=== PATIENT | male | born 1955 | race Caucasian/White ===

== ENCOUNTER → 2020-01-27 10:32 | Outpatient (BNVA) | payer MEDICARE, OTHER, SELFPAY | PROVIDERS: Family Provider Nurse Practitioner Family; Visit Provider Nurse Practitioner Family | DX: I10 Essential (primary) hypertension (principal); E78.2 Mixed hyperlipidemia; Z79.899 Other long term (current) drug therapy; E55.9 Vitamin D deficiency, unspecified; Z12.5 Encounter for screening for malignant neoplasm of prostate; K21.9 Gastro-esophageal reflux disease without esophagitis | CPT/HCPCS: 80053; 80061; 81003; 82306; 83036; 84439; 84443; 84481; 85025; G0103 ==

== ENCOUNTER → 2020-01-28 11:49 | Outpatient (BNVA) | payer MEDICARE, OTHER, SELFPAY | PROVIDERS: Family Provider Nurse Practitioner Family; Visit Provider Nurse Practitioner Family | DX: I10 Essential (primary) hypertension (principal) | CPT/HCPCS: 81003 ==

== ENCOUNTER → 2020-02-01 13:52 | Outpatient (BNVA) | payer MEDICARE, OTHER, SELFPAY | PROVIDERS: Family Provider Nurse Practitioner Family; Visit Provider Nurse Practitioner Family | DX: E55.9 Vitamin D deficiency, unspecified (principal); I10 Essential (primary) hypertension; R79.89 Other specified abnormal findings of blood chemistry | CPT/HCPCS: 82306; 84443 ==

== ENCOUNTER 2021-05-09 15:29 | Inpatient (IN) | payer MEDICARE, OTHER, SELFPAY ==
[2021-05-09] VITALS (30 sets, daily range): BP systolic 85–163; BP diastolic 56–105; PULSE 67–107; RESP 15–28; TEMP 36.7–37.2; O2SAT 76–97; BMI 27.9
--- NOTE | 2021-05-09 15:34 | XRR_ITS ---
PROCEDURE INFORMATION: Exam: XR Chest Exam date and time: 05/09/2021 3:34 PM Age: 65 years old Clinical indication: Pain; Angina pectoris; Additional info: Chest pain TECHNIQUE: Imaging protocol: XR of the chest. Views: 1 view. COMPARISON: No relevant prior studies available. FINDINGS: Lungs: See Heart/Mediastinum finding. Pleural spaces: Unremarkable. No pleural effusion. No pneumothorax. Heart/Mediastinum: Cardiomegaly and mild pulmonary vascular congestion. Bones/joints: Unremarkable. XR/XR chest 1V portable [id number] IMPRESSION: Cardiomegaly and mild pulmonary vascular congestion. Radiation Dose CTDIVOL = (mGy): DLP = (mGy-cm)
--- NOTE | 2021-05-09 15:34 | ECG_ITS ---
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 Measurements Intervals [place] Rate: 80 P: OK: QRS: 17 QRSD: 86 T: 60 QT: 299 QTc: 345 Interpretive Statements ATRIAL FIBRILLATION WITH ABERRANT CONDUCTION OR VENTRICULAR PREMATURE COMPLEXES ST ELEVATION, CONSIDER LATERAL INJURY [MARKED ST ELEVATION W/O NORMALLY INFLECTED T-WAVE IN I/aVL/V5/V6] MARKED ST ELEVATION, CONSIDER INFERIOR INJURY [MARKED ST ELEVATION W/O NORMALLY INFLECTED T-WAVE IN II/aVF] ACUTE SC No previous ECG available for comparison Electronically Signed On 05-09-2021 17:54:13 PERFORATOR OPERATOR by Rima Hernandez M.D. [id number]
--- NOTE | 2021-05-09 15:48 | PC.NURSE ---
INFORMED DR. RIDLEY OF EKG AND MAGDIEL [facility]IO ASSUMED CARE.
--- NOTE | 2021-05-09 15:54 | W.ED.GENADLT ---
HPI - General Adult General: Stated complaint: CHEST PAIN Time Seen by Provider: 05/09/21 15:51 History of Present Illness: HPI narrative: CC: Chest Pain HPI: This is a 65 yo patient no cardiac hx to the ED w/ acute onset crushing substernal chest pain x 2 hours with radiation. Denies shortness of breath worse with exertion for the last [] days. Denies tearing back pain or chest pain. Onset: 2 hrs ago Duration: ongoing for the last 2 hrs Location: home Severity: severe Review of Systems Narrative: Constitutional: No fever, no chills. HEENT: No vision changes, no sore throat. CV: +chest pain, no palpitations. PULM: No cough, no dyspnea. GI: No abdominal pain, no N/V/D. : No dysuria, no frequency, no hematuria. MSKEL: No arthralgias, no edema. SKIN: No new rashes, no lesions. NEURO: No headache, no focal weakness. HEME: No easy bleeding or bruising. PSYCH: No change in mood or affect. PFSH ED PFSH: Medical History (Updated 05/09/21 @ 15:53 by Renee Thomas MD) Acute bacterial sinusitis Essential hypertension Friedreichs ataxia Gastroesophageal reflux disease Impacted cerumen Mixed hyperlipidemia Otitis media Prostate cancer screening Vitamin D deficiency Social History Smoking and tobacco status: never smoked Second hand smoke exposure: No Smoking risk assessment/counseling performed?: No Alcohol intake: never Desire information about alcohol rehabilitation?: No Counseling given: No Desire information about substance/drug rehabilitation?: No Counseling given: No Physical Exam Narrative: EXAM NARRATIVE: Head: Atraumatic, normocephalic Eyes: PERRL, EOMI, conjunctiva without injection ENT: Throat without erythema, lesions or exudate, MMM NECK: Supple, trachea midline, no JVD LUNGS: LCTA CV: RRR, S1,S2, no murmurs, rubs, gallops. 2+ peripheral pulses in UEs ABDOMEN: Soft, nontender, nondistended, BS x4, no rigidity, no guarding, no rebound EXTREMITY: Normal ROM, no pitting edema, no calf tenderness to palpation SKIN: No rash or erythema NEURO: Awake and alert. No focal motor deficits. PSYCH: Normal mood and affect. MDM - General Adult MDM Narrative: Medical decision making narrative: [65]yo pt w/ no cardiac hx BIBA for active chest pain x 2 hrs with EKG for STEMI in the inferior/posterior/lateral Pt received ASA 325mg and morphine 4mg. No suspicion for dissection. EKG showed afib with 2/3/avF with STD in V2-V3/ADELFO in V4-V5 suggest of wraparound inferior/posterior/lateral STEMI Case actively discussed with Dr. May at 3:51pm who confirmed this is a stemi. S/p heparin drip and brillanta 180mg. Disposition: Cardiopulmonary Specialist Discharge Plan Discharge Patient Disposition: Admitted As Inpatient Clinical Impression: ST elevation ID (STEMI) Condition: Stable Coding Level of Care Code ED Vp [employer] for April Hinkle
[2021-05-09] MEDS: ticagrelor 90 mg Tablet 180 MG PO (15:55)
[2021-05-09] MEDS: ondansetron 2 mg/ML SDV 2 mL 4 MG IVP (15:58)
[2021-05-09] MEDS: morphine 4 mg/mL SDV 1 mL IVP (15:59)
[2021-05-09] MEDS: heparin 5,000 unit/mL INJ 1 mL 4000 UNIT SUBCUT (16:00)
--- NOTE | 2021-05-09 16:04 | PM.HP ---
Providers/Chief Complaint Admitting Physician: Georgie May MD Primary Care Provider: Georgie May MD Chief Complaint: CHEST PAIN History of Present Illness Medardo Lara is a 65 year old male past medical history significant for hypertension GERD obesity history of tobacco abuse quit 15 years ago presented with chest pain of 2 hours duration, patient initially thought it to be GERD as it was feeling like heartburn for which she took omeprazole and milk, since chest pain did not get relieved and gotten worse he decided to come to the ER. Twelve-lead EKG was suggestive of inferior lead ST elevation. STEMI pager was alerted. I saw the patient in the ER. He was diaphoretic but stable vital zamora at this point. I discussed with Dr. Thomas our ER physician, we will give patient Brilinta 180 mg along with aspirin and heparin as per ACS protocol. I have detailed discussion with the patient and his family by bedside. They have been explained all risk benefit and alternative for the procedure they been explained the risk for stroke contrast-induced nephropathy urgent emergent bypass surgery vascular surgery hematoma pseudoaneurysm. He would like to proceed with it. Medications/Allergies Home Medications Medication Instructions Recorded Confirmed Last Taken Type Augmentin 1 tab PO BID 05/09/21 05/09/21 Unknown History Probiotic 1 cap PO DAILY 05/09/21 05/09/21 Unknown History amlodipine 5 mg PO QAM 05/09/21 05/09/21 05/09/21 History ascorbic acid (vitamin C) [Vitamin 2,000 mg PO DAILY 05/09/21 05/09/21 Unknown History C] milk thistle 1 cap PO DAILY 05/09/21 05/09/21 Unknown History omeprazole 40 mg PO DAILY 05/09/21 05/09/21 05/09/21 13:30 History took 2 caps today zinc 1 cap PO DAILY 05/09/21 05/09/21 Unknown History Allergies Allergy/AdvReac Type Severity Reaction Status Date / Time No Known Allergies Allergy Verified 05/09/21 16:07 PFSH Acute PFSH: Medical History (Updated 05/09/21 @ 16:16 by Georgie May MD) Acute bacterial sinusitis Essential hypertension Friedreichs ataxia Gastroesophageal reflux disease Impacted cerumen Mixed hyperlipidemia Otitis media Prostate cancer screening Vitamin D deficiency Social History Smoking and tobacco status: never smoked Second hand smoke exposure: No Smoking risk assessment/counseling performed?: No Alcohol intake: never Desire information about alcohol rehabilitation?: No Counseling given: No Desire information about substance/drug rehabilitation?: No Counseling given: No Physical Exam Narrative: EXAM NARRATIVE: GENERAL: Patient is alert, awake and oriented x3. Moderate distress, mildly obese NECK: No jugular vein distension. HEENT: No cyanosis. No icterus. No pallor. HEART: Regular S1 and S2. No murmur, rub or gallop. LUNGS: Clear to auscultate bilaterally. ABDOMEN: Soft, nontender and nondistended. Positive bowel sounds. No guarding, rebound or tenderness. CENTRAL NERVOUS SYSTEM: Grossly nonfocal. EXTREMITIES: Lower extremities without edema bilaterally. Data : 05/09/21 15:55 05/09/21 15:55 Attestation for Other Data: I personally reviewed and interpreted the following: Other data: Sinus rhythm inferior wall ST elevation with reciprocal changes in the anteroseptal leads, multiple PVCs A&P Assessment and plan (1) ST elevation OH (STEMI): Patient has inferior wall ST elevation, patient has been explained all risk benefit and alternate for the procedure. We will take him to the [facility] for angiogram and PCI if indicated. Status: Acute Qualifiers: Involved coronary artery: other inferior wall coronary artery Qualified Code(s): I21.19 - ST elevation (STEMI) myocardial infarction involving other coronary artery of inferior wall (2) Mixed hyperlipidemia: I will start patient on statin Status: Acute (3) Essential hypertension: He is on amlodipine will optimize his medicine Status: Acute Attestations Medical Necessity Statement*: I am expecting his stay to cross more than 2 midnights Coding Level of Care Code New Pt Acute Collateral Analyst for [facility] Fwd Patient Type New History Detailed Exam Detailed Medical Decision Making Moderate Complexity Diagnoses ST elevation OH (STEMI) I21.19 Involved coronary artery: other inferior wall coronary artery Mixed hyperlipidemia E78.2 Essential hypertension I10
[2021-05-09 16:06] LABS: Basophils % 0.1 %; Hematocrit 48.7 % (42.0-52.0); Hemoglobin 16.2 g/dL (11.7-16.6); Lymphocytes # 1.4 10^3/uL (0.8-4.8); Lymphocytes % 5.7 %; Mean Corpuscular HGB Conc 33.3 g/dL (30.0-36.0); Mean Corpuscular Hemoglobin 29.2 pg (28.0-34.0); Mean Corpuscular Volume 87.7 fl (80-94); Mean Platelet Volume 9.9 fL (7.4-10.4); Monocytes # 1.3 10^3/uL (0.2-0.9); Monocytes % 5.1 %; Neutrophils # 21.75 10^3/uL (1.8-7.7); Neutrophils % 88.5 %; Nucleated Red Blood Cells % 0 %; Platelet Count 341 10^3/cmm (130-400); Red Blood Count 5.55 10^6/uL (4.1-5.3); Red Cell Distribution Width 12.6 % (12.1-15.1); White Blood Count 24.6 10^3/uL (4.0-10.0)
--- NOTE | 2021-05-09 16:07 | PC.PHAR ---
pts verified pts medications
--- NOTE | 2021-05-09 16:21 | XACV_ITS ---
Exam Room: [facility] Ht: 173 cm Wt: 83 kg BSA: 2.02 m2 Gender: Male : 1955 Any Known Allergies: No known allergies Exam Priority: Routine Indication(s): - Inferior wall TN Procedure(s): Procedure Description: Diagnostic procedure Procedure Description: PCI procedure Procedure Description: Drug Eluting Coronary Stent Procedure Description: PTCA Procedure Description: Miscellaneous Procedure Description: ACT Procedure Description: Coronary Angiography Lalo MOULTON; Diagnostic Cath Status: Emergency Diagnostic Findings * Left Main has no disease. * Circumflex has no disease. * Proximal Left Anterior Descending: luminal irregularities 20% stenosis, HARJEET: 3 flow. * Distal Left Anterior Descending: luminal irregularities 20% stenosis, HARJEET: 3 flow. * Mid Right Coronary Artery: total occlusion, HARJEET: 0 flow. * 3rd diagonal: severe 90% stenosis, HARJEET: 3 flow. * Coronary angiography shows right dominance. PCI Status: Emergency PCI Indication: Immediate PCI for STEMI Interventional Findings * Mid Right Coronary Artery: 100% stenosis treated with a AB TREK 2.50X15 RX BALLOON, MDT Renny ANGEL LUIS 4.0X15 EYAD, and MDT DELIO EUPHORA RX 4.09S98FC BALLOON. 0% residual stenosis, HARJEET: 3 flow. Conclusions 1. Mid Right Coronary Artery was treated with a Balloon, Drug Eluting Stent, and Balloon. 2. There is total occlusion coronary artery disease with two vessel disease. Recommendations * 1-Return to inpatient for close monitoring and routine cath care2-Risk factor modification for secondary prevention3-Statin and aspirin 81 mg life--long, if tolerated4-Patient was pre-loaded with antiplatelet, continue dual antiplatelet therapy with aggressive antilipid treatment for ectasia in the vessels 5-Continue optimal medical management6-Follow up with Dr. May in four weeks and your primary care in 10 days. Interventional RX Recommendation: PCI w/o planned CABG Diagnostic RX Recommendation: PCI w/o planned CABG Pressures Phase:Rest AO : 158 / 74 ( 104 ) @ 2:37:00 PM 135 / 78 ( 101 ) @ 2:38:00 PM 105 / 57 ( 77 ) @ 2:41:00 PM 95 / 53 ( 74 ) @ 2:42:00 PM 124 / 96 ( 112 ) @ 2:43:00 PM 122 / 87 ( 103 ) @ 2:44:00 PM 140 / 107 ( 128 ) @ 2:47:00 PM 162 / 102 ( 127 ) @ 2:59:00 PM Clinical Evaluation EBL: 5mL-10mL Procedural Details Procedure started. Pre-Procedure Time Out. Identified patient by full name and date of as verbalized by the patient/guarantor. Does the consent match the physician's order: Yes. Accurate & Complete Informed Consent: Yes. Inpatient/Outpatient History & Physical on Chart: N/A Emergent. If H&P is completed, is and addenduem needed: N/A Emergent; If yes, is the addendum complete: N/A Emergent. Visualize and Verify Site with Patient/Guarantor: N/A. Relevant Radiology Images available: N/A Emergent. Pre-op teaching completed and patient verbalized understanding. The risks, benefits, and alternatives of sedation and/or procedure were discussed by physician. The patient agrees to continue. [facility] Clinical Fraility Score: 4: Vulnerable. Dietary Aide Indications: ACS <= 24 hours. Chest Pain Symptom Assessment: Typical Angina Symptoms. Correct patient, site and procedure confirmed by cath team. Current diagnosis: STEMI. PERRLA. Strong, equal hand millwright helper bilaterally. Lungs clear x 5 lobes. IV Fluids: 0.9% NaCl at KVO. 0 mL infused prior to ammunition assembly i laborer. Oxygen started at 2liters/min via nasal canula. right groin was prepped with chloroprep then draped in the usual sterile fashion. right radial was prepped with chloroprep then draped in the usual sterile fashion. Baseline sample Acquired. HR: 51 BPM. Physician arrived. Physician scrubbed in. Immediate Pre-Procedure Time Out. Correct Patient: N/A Emergent; Correct Procedure: N/A Emergent; Correct Site: N/A Emergent; Correct Patient Position: N/A Emergent; Correct Supplies: N/A Emergent; Dried Flammable Prep: N/A Emergent; Blood Products Available: N/A Emergent;. Lidocaine 1% infiltrated to the right radial. Current Diagnosis : STEMI. Arterial access obtained. 6 ethiopian JR 4 guide catheter was inserted over the wire. [place] guidewire was advanced through the guide catheter to lesion in the mid RCA. Inflation number : 1 A AB TREK 2.50X15 RX BALLOON was prepped and advanced across the Mid RCA , then inflated to 16 BENNETT for 0:22 seconds. AP Pads placed. Inflation number: 2 The AB TREK 2.50X15 RX BALLOON was reinflated across the Mid RCA, to 10 BENNETT for 0:07 seconds. Inflation number: 3 The AB TREK 2.50X15 RX BALLOON was reinflated across the Mid RCA, to 10 BENNETT for 0:09 seconds. Results checked. Inflation number: 4 The AB TREK 2.50X15 RX BALLOON was reinflated across the Mid RCA, to 18 BENNETT for 0:27 seconds. Balloon out. PCI Indication: STEMI. Inflation Number : 5 A MDT Renny ANGEL LUIS 4.0X15 EYAD -Lot Number# _[id number] EXP: 02/14/2024 was prepped and advanced across the Mid RCA. The stent was deployed at 14 BENNETT for 0:30 seconds. Stent balloon out over wire. PCI Indication : Immediate PCI for STEMI. Inflation number : 6 A MDT NC EUPHORA RX 4.72L39LM BALLOON was prepped and advanced across the Mid RCA , then inflated to 12 BENNETT for 0:17 seconds. Inflation number: 7 The MDT NC EUPHORA RX 4.54F26MV BALLOON was reinflated across the Mid RCA, to 12 BENNETT for 0:21 seconds. Balloon out. Results checked. Wire out. Guide catheter out. A 5 ethiopian TIG catheter in over wire. Multiple views taken of left coronary artery. Catheter removed over the exchange wire. ACT drawn. Results 201 seconds. Therapeutic limits - pre-heparin administration 90-150 seconds and monitoring heparin during a vascular procedure >250 seconds. Post Procedure: Pulses reassessed and unchanged. PERRLA. Strong, equal hand millwright helper bilaterally. No VTE prophylaxis required. Contrast type used: Visipaque 320 mgI/mL, 500 mL bottle. Complications: None. Post-op diagnosis: CAD. Estimated blood loss: 5mL-10mL. Procedure completed. Medication's Wasted: Nitro = 50 mg. Medication's Wasted: Heparin = 2000 units. Patient transferred by wheelchair to 1st floor. Vital chart was stopped. Access Site Site: Right Radial artery Sheath Size: 6 Fr Hemostasis Success: Unsuccessful Procedure Medications Start: 4:31 PM Stop: 4:31 PM Medication: Heparin Amount: 9000 units Route: I.V. Start: 4:31 PM Stop: 4:31 PM Medication: Versed 1 mg and Fentanyl 25 mcg Amount: 1 Route: I.V. Start: 4:31 PM Stop: 4:31 PM Medication: Fentanyl Amount: 25 mcg Route: I.V. Start: 4:34 PM Stop: 4:34 PM Medication: Versed Amount: 1 mg Route: I.V. Start: 4:40 PM Stop: 4:40 PM Medication: Aggrastat 12.5 mg/250 mL Amount: 42 ml Route: I.V. bolus Start: 4:40 PM Stop: 4:40 PM Medication: Aggrastat 12.5 mg/250 mL Amount: 15.1 ml/hr Route: I.V. bolus Start: 4:44 PM Stop: 4:44 PM Medication: Fentanyl Amount: 50 mcg Route: I.V. Start: 4:49 PM Stop: 4:49 PM Medication: Versed Amount: 1 mg Route: I.V. Start: 5:05 PM Stop: 5:05 PM Medication: Heparin Amount: 3000 units Route: I.V. I, the attending physician, have reviewed and verified all procedure medications. Yes, all medications given per verbal order History/Risk Factors Hypertension: No Dyslipidemia: No Peripheral Arterial Disease (PAD): No Myocardial Infarction (TN): No Obesity: No Renal Disease: No Prior Interventions PCI: No CABG: No Valve Surgery: No Report Signatures Interventional Workflow Finalized by Georgie May MD on 05/21/2021 07:54 PM Diagnostic Workflow Finalized by Georgie May MD on 05/21/2021 07:54 PM
[2021-05-09 17:01] LABS: Alanine Aminotransferase 36 U/L (0-41); Albumin Level 4.8 g/dL (3.5-5.2); Alkaline Phosphatase 100 IU/L (40-130); Anion Gap 18.4 (5-19); Aspartate Amino Transferase 35 U/L (0-40); Blood Urea Nitrogen 16 mg/dL (8-23); Calcium 9.4 mg/dL (8.5-10.5); Carbon Dioxide 21 mmol/L (22-29); Chloride 108 mmol/L (98-107); Globulin 2.6 g/dL (1.3-4.6); Glomerular Filtration Rate 74.5 mL/min (90-130); Glucose 167 mg/dL (65-115); Osmolality Calculated 303 mOsm/kg (285-295); Potassium 3.4 mmol/L (3.5-5.1); Sodium 144 mmol/L (136-145); Total Bilirubin 0.3 mg/dL (0.15-1.2); Total Protein 7.4 g/dL (6.6-8.7)
[2021-05-09 17:02] LABS: Troponin(5th) Baseline 70 ng/L (0-15)
--- NOTE | 2021-05-09 17:34 | ECG_ITS ---
[facility] Test Date: 2021-05-09 Pat Name: Medardo Lara Department: Room: 102 Gender: Male Women'S Swim Coach: : 1955 Requested By: Britni Cedeño Order Number: [id number] Nguyen MD: Rima Hernandez M.D. Measurements Intervals [place] Rate: 87 P: 69 NV: 207 QRS: -42 QRSD: 87 T: 0 QT: 338 QTc: 407 Interpretive Statements SINUS RHYTHM LEFT VENTRICULAR HYPERTROPHY AND ST-T CHANGE [VOLTAGE CRITERIA PLUS ST/T ABNORMALITY] Inferior myocardial infarction, probably recent ACUTE NC Compared to ECG 05/09/2021 15:43:50 Left ventricular hypertrophy now present Atrial fibrillation no longer present Ventricular premature complex(es) no longer present Aberrant conduction of supraventricular beat(s) no longer present ST (T wave) deviation still present Electronically Signed On 05-10-2021 10:03:04 TRAIN CONTROL ELECTRONIC TECHNICIAN by Rima Hernandez M.D. [id number]
--- NOTE | 2021-05-09 18:45 | PC.NURSE ---
Received report from QUANG Lyons. Patient is s/p STEMI with placement of PCI to RCA. Patient has 2 TR bands to right wrist due to small hematoma formation. Dr May in patient's room and is aware.
--- NOTE | 2021-05-09 21:34 | ECG_ITS ---
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 Measurements Intervals [place] Rate: 102 P: 63 WA: 189 QRS: -38 QRSD: 79 T: 0 QT: 313 QTc: 408 Interpretive Statements SINUS TACHYCARDIA ST elevation in the inferior leads suggesting recent inferior wall myocardial, infarction LEFT VENTRICULAR HYPERTROPHY AND ST-T CHANGE [VOLTAGE CRITERIA PLUS ST/T ABNORMALITY] ACUTE TX Compared to ECG 05/09/2021 18:56:22 Sinus rhythm no longer present ST (T wave) deviation still present Electronically Signed On 05-10-2021 23:51:41 SWITCHGEAR REPAIRER by Josr Oh M.D. [email or web address] at stone [email or web address] [id number]
--- NOTE | 2021-05-09 22:48 | PC.NURSE ---
Patient requesting something to help with sleep. Spoke with Dr Oh and Dr May. Received orders for Xanax 0.25mg PO once from Dr Oh and Restoril 15mg PO bedtime from Dr May. RBVO both doctors.
[2021-05-09] MEDS: ALPRAZolam 0.5 mg Tablet 0.25 MG PO (23:02)
--- NOTE | 2021-05-10 00:06 | PC.NURSE ---
Initiated TR band removal at 5 removing 2nd TR band at this time. Bruising observed to site, hematoma resolving. Dr May in room at this time. Patient doing well. Removed 2ml of air every 15-20min until band removed at 0. Hematoma completely resolve. Pulse is palpable, extremity warm and pink. Instructed patient on site care and restrictions. Patient verbalized complete understanding. Covered site with 2x2 and coban. Patient tolerated well.
[2021-05-10] MEDS: sodium chloride 0.9% 1,000 ML 100 ML IV ×2 (01:27→12:18)
[2021-05-10 03:19] VITALS: BP 127/95; PULSE 93; RESP 14; TEMP 36.6; O2SAT 96
[2021-05-10 05:13] VITALS: PULSE 107
[2021-05-10 09:38] VITALS: BP 115/76; PULSE 92; RESP 18; O2SAT 95
--- NOTE | 2021-05-10 10:10 | PC.CHAP ---
Pastoral Care Encounter/Spiritual Assessment Type of Contact [] Declined patient day coordinator visit [] Patient/Family/Request visit [] Outpatient visit [] Follow-up visit [] Physician referral [] Code/Alert [x] Routine visit [] Staff referral [] Actively dying [] Patient sleeping [x] Family support [] [] Out of room [] Palliative care [] [] Receiving care in room [] Pre-surgical visit [] Trauma [] Long length of stay [] ICU visit [] Other: Relational/Emotional Strength [] Patient feels connected with others/family/visitors/staff [] Distress [] Loneliness/isolation [] Abandonment Spirituality of Patient [] Person of Nereida [] Attends Spiritism of their Nereida [] Believes in Prayer [] Reads Bible or Mormon materials [] There are Spiritual issues to be addressed Dobby Looms Pegger Interventions [x] Prayer [x] Active listening [x] Non-anxious presence [x] Spiritual/emotional support [] Crisis/trauma care [] Spiritual counseling [] Bereavement support [] Provided bereavement packet [] Provided Bible/devotional materials [] Provided toy/stuffed animal, coloring book to patient or family member [] Provided Communion [] Anointing/[place] [] Salvation [x] Completed spiritual assessment [] Other: Impact on Illness or Injury [] Angry [] Fearful [] Anxious [] Often cries [] Exhaustion [] Unable to work [] Unable to attend adventist [] Unable to walk/stand [] Unable to read [] Unable to drive [] Unable to eat/drink [] Unable to sleep [] Unable to be with family [] Patient intubated [] Other: Summary patients spirits up... present.. thankful for all that is being done Time spent with patient 10 min
--- NOTE | 2021-05-10 12:49 | USCV_ITS ---
Medardo Lara Age: 65 Gender: M : 1955 Exam Date: 05/10/2021 15:43 Ordering Phys: Georgie May MD ([email or web address]) Technologist: Exam Location: [facility] [place] Indication: VT BP: 130 / 90 HR: 94 Rhythm: Sinus Technical Quality: Adequate MEASUREMENTS (Male / Female) Normal Values 2D ECHO LV Diastolic Diameter PLAX 4.2 cm 4.2 - 5.9 / 3.9 - 5.3 cm LV Systolic Diameter PLAX 2.7 cm IVS Diastolic Thickness 1.0 cm 0.6 - 1.0 / 0.6 - 0.9 cm IVS Systolic Thickness 1.4 cm LVPW Diastolic Thickness 1.0 cm 0.6 - 1.0 / 0.6 - 0.9 cm LVPW Systolic Thickness 1.3 cm LVOT Diameter 2.1 cm LV Ejection Fraction 2D Teich 66.4 % LV Ejection Fraction MOD 2C 48.0 % LV Ejection Fraction 2C AL 50.3 % LA Diameter 3.1 cm LA Width 4.2 cm LA Height 4.4 cm RA Width 4.1 cm RA Height 4.2 cm M-MODE RV Diastolic Diameter MM 1.0 cm Aortic Annulus Diameter 3.4 cm LA Ao Ratio MM 1.0 MV E Point Septal Separation 1.1 cm DOPPLER AV Peak Velocity 120.0 cm/s LVOT Peak Velocity 85.0 cm/s AV Area Cont Eq vti 3.1 cm squared AV Area Cont Eq pk 2.4 cm squared MV Area PHT 5.0 cm squared Mitral E to A Ratio 0.8 MV E' Velocity 68.0 cm/s TR Peak Velocity 133.0 cm/s TR Peak Gradient 7.1 mmHg TV Peak E Velocity 67.0 cm/s Right Atrial Pressure 3.0 mmHg Pulmonary Artery Systolic Pressu 10.1 mmHg FINDINGS Left Ventricle Normal left ventricular cavity size. Moderately decreased left ventricular systolic function. Left ventricular ejection fraction is estimated at 45 %. There appeared to be lateral and inferior wall severe hypokinesis Right Ventricle The right ventricle is normal in size and function. Right Atrium The right atrium is normal in size. Left Atrium The left atrium is normal in size. Mitral Valve Moderately thickened mitral valve. No mitral valve stenosis. Trace mitral valve regurgitation. Aortic Valve Structurally normal aortic valve without significant sclerosis or stenosis. There is no aortic regurgitation. Tricuspid Valve Structurally normal tricuspid valve without significant stenosis or regurgitation. Pulmonary artery systolic pressure is normal. Pulmonic Valve Structurally normal pulmonic valve without significant stenosis. There is no pulmonic regurgitation. Pericardium Normal pericardium without effusion. Aorta Normal ascending aorta dimension. CONCLUSIONS 1-Normal left ventricular cavity size. Moderately decreased left ventricular systolic function. Left ventricular ejection fraction is estimated at 45 %. There appeared to be lateral and inferior wall severe hypokinesis. 2-No significant valve abnormalities. 3-There is no pericardial effusion. 4-Pulmonary artery systolic pressure is within normal limits. 5-Right atrial pressure is around 5 mm of mercury. 6-There are no prior echocardiogram studies to compare. Georgie May MD (Electronically Signed) Final Date: 10 May 2021 17:03 S
[2021-05-10] MEDS: metoprolol tartrate 25 mg Tablet 12.5 MG PO (13:25)
[2021-05-10] MEDS: ticagrelor 90 mg Tablet PO (13:25)
[2021-05-10] MEDS: aspirin 81 mg EC Tablet PO (13:25)
[2021-05-10] MEDS: pantoprazole DR 40 mg Tablet PO (13:25)
--- NOTE | 2021-05-10 17:04 | PM.DCS ---
Discharge Providers Date of Admission: 05/09/21 16:18 Date of Discharge: May 10, 2021 Attending Provider at Admission: Georgie May MD Attending Provider at Discharge: Georgie May MD Diagnoses at Discharge Discharge Diagnosis (1) ST elevation SD (STEMI): Status: Acute Qualifiers: Involved coronary artery: other inferior wall coronary artery Qualified Code(s): I21.19 - ST elevation (STEMI) myocardial infarction involving other coronary artery of inferior wall (2) Mixed hyperlipidemia: Status: Acute (3) Essential hypertension: Status: Acute Reason for Visit Reason for Visit: CHEST PAIN Hospital Course Hospital Course 65-year-old male past medical history significant for history of tobacco abuse quit many years ago, hypertension hyperlipidemia was admitted with ST elevation SD of the inferior wall 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 He was also noted to have ectasia of LAD and circumflex. He was started on high-dose statin. Left ventricle ejection fraction turned out to be moderately depressed 40%, he was also started on LUZ inhibitor. Metoprolol was also added per the regimen. Patient will be continued on Brilinta aspirin statin beta-kareen and LUZ inhibitor. Physical Exam Narrative: EXAM NARRATIVE: GENERAL: Patient is alert, awake and oriented x3. NECK: No jugular vein distension. HEENT: No cyanosis. No icterus. No pallor. HEART: Regular S1 and S2. No murmur, rub or gallop. LUNGS: Clear to auscultate bilaterally. ABDOMEN: Soft, nontender and nondistended. Positive bowel sounds. No guarding, rebound or tenderness. CENTRAL NERVOUS SYSTEM: Grossly nonfocal. EXTREMITIES: Lower extremities without edema bilaterally. Discharge Data Data Completed and Pending: Completed Studies During Hospitalization Category Date Time Status XR chest 1V [place] [id number] Urgent Exams 05/09/21 15:34 Completed Pending at discharge Category Date Time Status APPRENTICE ELECTRICIAN request for service Routin e Exams 05/09/21 16:21 Taken Troponin T (5th) Once Routine Lab 05/10/21 15:56 Received US echo complete [CV. echo complete * [id number]] Routine Ultrasound 05/10/21 12:49 Taken Labs from last 24 hours 05/10/21 05/09/21 05/09/21 15:56 15:55 15:55 Potassium 3.4 L Chloride 108 H Carbon Dioxide 21 L GFR Calculation 74.5 L Glucose 167 H Calculated Osmolal ity 303 H Troponin T Gen 5 n g/L Pending Troponin T Baselin e 70 H Vitals: Last Vital Signs Temp 98 F 05/10/21 03:19 Pulse 92 05/10/21 09:38 Resp 18 05/10/21 09:38 BP 115/76 05/10/21 09:38 Pulse Ox 95 05/10/21 09:38 Discharge Plan Discharge Patient Disposition: Home Condition: Stable Prescriptions: New aspirin 81 mg Tablet,Delayed Release (Dr/Ec) 81 mg PO DAILY Qty: 90 RF: 3 atorvastatin 40 mg Tablet 80 mg PO BEDTIME Qty: 90 RF: 4 pantoprazole 40 mg Tablet,Delayed Release (Dr/Ec) 40 mg PO DAILY Qty: 30 RF: 3 Brilinta 90 mg Tablet 90 mg PO BID Qty: 60 RF: 6 lisinopril 2.5 mg tablet 2.5 mg PO DAILY Qty: 30 RF: 4 metoprolol succinate 25 mg tablet extended release 24 hr 12.5 mg PO DAILY Qty: 30 RF: 4 Continued Vitamin C 1,000 mg Tablet 2,000 mg PO DAILY RF: 0 Probiotic 1 cap PO DAILY RF: 0 milk thistle 1 cap PO DAILY RF: 0 zinc 1 cap PO DAILY RF: 0 Augmentin 875-125 mg tablet 1 tab PO BID RF: 0 Discontinued amlodipine 5 mg tablet 5 mg PO QAM RF: 0 No Action omeprazole 40 mg capsule,delayed release(DR/EC) 40 mg PO DAILY RF: 0 Discharge Orders: Discharge Order (Routine); Ordered 05/10/21 Ordered By: Georgie May Referrals: Georgie May MD [Physician] - 1 month ([facility] will contact you to schedule an follow-up appointment in 1 month. If you haven't heard from them by tomoorow afternoon. Please call ) Suki Perea FNP [Nurse Practitioner] - 1 week ([facility] will contact you to schedule an follow-up appointment in 1 week. If you have haven't heard from them by tomorrow afternoon. Please call ) Discharge Diet: Cardiac Discharge Activity: Increase activity as tolerated Patient Instructions: Metoprolol (By mouth), Lisinopril (By mouth), Aspirin (By mouth), Atorvastatin (By mouth), Pantoprazole (By mouth) (Protonix), Ticagrelor (By mouth) (Brilinta), Heart Attack (DC), Coronary Angioplasty (DC), Heart Catheterization (DC), Opioid Safety, Post Angiogram Home Care Instructions Activity Restrictions/Additional Instructions: Follow-up with Suki Perea cardiology nurse practitioner in 7 days. Follow-up with Dr. May in 4 weeks Discharge Attestations Time Spent in Discharge Care*: greater than 30 min Specific Discharge Activities: educating patient and educating and/or supporting family/caregiver Quality Metrics Clinical Quality Measures During this hospital stay, did patient experience: AMI Clinical Trial Participant: No Contraindication to aspirin (AMI): Aspirin given Contraindication to statin: Statin prescribed Contraindication to PCI: PCI performed Coding Level of Care Code New Pt Acute Chg FW DC note Patient Type New History Comprehensive Exam Comprehensive Medical Decision Making Moderate Complexity Diagnoses ST elevation SD (STEMI) I21.19 Involved coronary artery: other inferior wall coronary artery Mixed hyperlipidemia E78.2 Essential hypertension I10
[2021-05-10 17:21] VITALS: BP 130/90; PULSE 90; RESP 24; O2SAT 95
[2021-05-10 17:59] LABS: Troponin T (5th) Once > 10000 ng/L (0-15)
--- NOTE | 2021-05-10 18:00 | PC.NURSE ---
Discharge Note Patient discharged to Home via private vehicle accompanied by family. Discharge instructions reviewed with patient and/or patient portal representative. Mobile pharmacy medications and/or prescriptions provided. Belongings/home medications returned.
== END 2021-05-10 18:00 | disposition home or self-care (01) | DRG 247 ==
LOC: ER 15:53 → CSU 16:18
PROVIDERS: Physician Assistant; Admitting Provider Internal Medicine Cardiovascular Disease; Emergency Provider Emergency Medicine; Visit Provider Internal Medicine Cardiovascular Disease
PROC: 027034Z Dilation of Coronary Artery, One Artery with Drug-eluting Intraluminal Device, Percutaneous Approach (ICD-10-PCS; principal; 2021-05-09 16:00)
PROC: 027034Z Dilation of Coronary Artery, One Artery with Drug-eluting Intraluminal Device, Percutaneous Approach (ICD-10-PCS; 2021-05-09 16:00)
DX: I21.19 ST elevation (STEMI) myocardial infarction involving other coronary artery of inferior wall (principal); G11.11 Friedreich ataxia; I25.119 Atherosclerotic heart disease of native coronary artery with unspecified angina pectoris; E78.2 Mixed hyperlipidemia; I10 Essential (primary) hypertension; K21.9 Gastro-esophageal reflux disease without esophagitis; E66.9 Obesity, unspecified; Z68.28 Body mass index [BMI] 28.0-28.9, adult; Z87.891 Personal history of nicotine dependence
CPT/HCPCS: 36415; 71045; 80053; 84484; 85025; 85347; 93005; 93306; 93454; 96372; 96374; 96375; 99285; C1725; C1769; C1874; C1887; C1894; C9600; J1644; J2250; J2270; J2405; J3010; J3246; J3490; J7030; Q9967

== ENCOUNTER → 2021-05-17 09:09 | Outpatient (BNVA) | payer MEDICARE, OTHER, SELFPAY | PROVIDERS: PCP Nurse Practitioner Family; Visit Provider Nurse Practitioner Family | DX: I25.10 Atherosclerotic heart disease of native coronary artery without angina pectoris (principal) | CPT/HCPCS: 80048 ==

== ENCOUNTER → 2021-05-24 11:07 | Outpatient (BNVA) | payer MEDICARE, OTHER, SELFPAY | PROVIDERS: PCP Nurse Practitioner Family; Visit Provider Nurse Practitioner Family | DX: E55.9 Vitamin D deficiency, unspecified (principal); I10 Essential (primary) hypertension; Z79.899 Other long term (current) drug therapy; E78.2 Mixed hyperlipidemia; Z12.5 Encounter for screening for malignant neoplasm of prostate | CPT/HCPCS: 80053; 80061; 81003; 82306; 83036; 84154; 84402; 84403; 84443; 85025 ==

== ENCOUNTER → 2021-08-30 11:41 | Outpatient (BNVA) | payer MEDICARE, OTHER, SELFPAY | PROVIDERS: PCP Nurse Practitioner Family; Visit Provider Nurse Practitioner Family | DX: I10 Essential (primary) hypertension (principal); K04.7 Periapical abscess without sinus | CPT/HCPCS: 80053; 85025 ==

== ENCOUNTER → 2021-12-20 12:59 | Outpatient (BNVA) | payer MEDICARE, OTHER, SELFPAY | PROVIDERS: PCP Family Medicine; Visit Provider Internal Medicine | DX: I11.0 Hypertensive heart disease with heart failure (principal); I50.22 Chronic systolic (congestive) heart failure; E78.2 Mixed hyperlipidemia; I25.10 Atherosclerotic heart disease of native coronary artery without angina pectoris; Z87.891 Personal history of nicotine dependence; Z79.82 Long term (current) use of aspirin | CPT/HCPCS: 99214 ==

== ENCOUNTER → 2022-06-05 09:43 | Outpatient (BNVA) | payer MEDICARE, OTHER, SELFPAY | PROVIDERS: PCP Nurse Practitioner; Referring Provider Family Medicine; Visit Provider Student in an Organized Health Care Education/Training Program | DX: M25.552 Pain in left hip (principal); M46.1 Sacroiliitis, not elsewhere classified | CPT/HCPCS: 99203 ==

== ENCOUNTER 2022-06-05 23:31 | Inpatient (IN) | payer MEDICARE, OTHER, SELFPAY ==
[2022-06-05 23:41] VITALS: BMI 28.8
[2022-06-06] VITALS (17 sets, daily range): BP systolic 95–155; BP diastolic 42–80; PULSE 67–111; RESP 13–19; TEMP 36.6–37.3; O2SAT 93–98
--- NOTE | 2022-06-06 00:02 | CTR_ITS ---
PROCEDURE INFORMATION: Exam: CT Abdomen And Pelvis With Contrast Exam date and time: 06/06/2022 12:54 AM Age: 66 years old Clinical indication: Abdominal pain; Localized; Prior surgery; Surgery type: Coronary stent; Patient HX: C/O severe lower back and left groin pain. TECHNIQUE: Imaging protocol: Computed tomography of the abdomen and pelvis with contrast. Radiation optimization: All CT scans at this facility use at least one of these dose optimization techniques: automated exposure control; mA and/or kV adjustment per patient size (includes targeted exams where dose is matched to clinical indication); or iterative reconstruction. Contrast material: OMNI 350; Contrast volume: 100 ml; Contrast route: INTRAVENOUS (IV); COMPARISON: DX XR hip LT 2-3V wo/w pel* [id number] 05/08/2022 3:39 PM RADIATION DOSE METRICS: Total DLP (mGy-cm): 820.13 FINDINGS: Liver: There are punctate calcifications seen in the posterior segment of the right hepatic lobe compatible with calcified granulomas. Gallbladder and bile ducts: Normal. No calcified stones. No ductal dilation. Pancreas: Normal. No ductal dilation. Spleen: Punctate calcifications are seen in the spleen compatible with calcified splenic granulomas. Adrenal glands: Normal. No mass. Kidneys and ureters: Strandy opacities are seen in the perinephric fascia bilaterally, left slightly more prominent than right. This likely represents chronic scarring. Stomach and bowel: Diverticula are seen on the descending and sigmoid colon. There are no inflammatory changes seen to suggest diverticulitis. Appendix: The appendix is visualized and is normal in configuration. Intraperitoneal space: Unremarkable. No free air. No significant fluid collection. Vasculature: There is a large retroperitoneal soft tissue attenuation mass present that displaces the left kidney anteriorly and laterally stretching the left renal artery and vein over its superior surface and contacting and mildly displacing the abdominal aorta to the right. The mass surrounds the abdominal aorta from approximately the L2-L3 disc space through L4-L5. The mass abuts the confluence of the left common iliac vein with the inferior vena cava. The mass is confluent with and may arise from the left psoas muscle. It measures 12.0 cm AP dimension by 10.4 cm transverse dimension and approximately 16 cm craniocaudal dimension. This mass could represent chronic psoas hematoma, confluent lymphadenopathy although a primary psoas mass such as rhabdomyosarcoma cannot be excluded. Lymph nodes: See Vasculature finding. Urinary bladder: Unremarkable as visualized. Reproductive: Unremarkable as visualized. Bones/joints: See Vasculature finding. Soft tissues: See Vasculature finding. CT/CT abdomen pelvis w con* [id number] IMPRESSION: 1. Large left retroperitoneal mass complete lumen with the left psoas muscle as described above. Although this mass could represent a large chronic hematoma or perhaps confluent lymphadenopathy, other possibilities including rhabdomyosarcoma of the left psoas muscle cannot be entirely excluded. 2. Diverticulosis of the descending and sigmoid colon 3. Normal appendix 4. No evidence for ureteral obstruction 5. Calcified granulomas within the liver and spleen COMMENTS: Consistent with the [employer]'s Incidental Findings Committee white paper (J Am Kathi Radiol 2018): Any incidental renal lesion less than 1 cm or classified as too small to characterize, or any incidental cystic renal lesion characterized as simple-appearing, is likely benign. No follow-up imaging is recommended for these lesions per consensus recommendations based on imaging criteria.
--- NOTE | 2022-06-06 00:02 | USR_ITS ---
PROCEDURE INFORMATION: Exam: US Scrotum Exam date and time: 06/06/2022 1:39 AM Age: 66 years old Clinical indication: Scrotum pain; Patient HX: Chronic left scrotal pain x 4 months; Additional info: Left testicle pain TECHNIQUE: Imaging protocol: Real-time ultrasound of the scrotum and contents with color Doppler and image documentation. COMPARISON: CT abdomen pelvis w con* [id number] 06/06/2022 12:54 AM FINDINGS: Right testicle: The right testis measures 4.4 x 2.6 x 2.6 cm. The testicular parenchyma is homogeneous in its echogenicity. Vascular flow is demonstrated within the right testis with color Doppler and duplex waveform sonography. Left testicle: The left testis measures 4.7 x 2.4 x 3.3 cm. The testicular parenchyma is homogeneous in its echogenicity. Vascular flow is demonstrated within the left testis with color Doppler and duplex waveform sonography. Epididymides: Normal. Scrotum/soft tissues: There are bilateral hydroceles, right larger than left. There is a left varicocele seen measured at 2.6 x 2.1 x 2.0 cm. US/US scrotum [id number] IMPRESSION: 1. Normal testes and epididymi bilaterally. 2. There is a left varicocele present. 3. Bilateral hydroceles, right larger than left.
[2022-06-06] MEDS: morphine 4 mg/mL SDV 1 mL IVP (00:25)
[2022-06-06] MEDS: ondansetron 2 mg/ML SDV 2 mL 4 MG IVP ×4 (00:25→19:19)
[2022-06-06 00:30] LABS: Basophils % 0.3 %; Eosinophils # 0.1 10^3/uL (0.0-0.8); Eosinophils % 0.9 %; Hematocrit 41.6 % (42.0-52.0); Lymphocytes # 1.5 10^3/uL (0.8-4.8); Lymphocytes % 10.6 %; Mean Corpuscular HGB Conc 33.7 g/dL (30.0-36.0); Mean Corpuscular Hemoglobin 29.4 pg (28.0-34.0); Mean Corpuscular Volume 87.2 fl (80-94); Mean Platelet Volume 9.3 fL (7.4-10.4); Monocytes # 1.1 10^3/uL (0.2-0.9); Monocytes % 7.8 %; Neutrophils # 11.26 10^3/uL (1.8-7.7); Nucleated Red Blood Cells % 0 %; Platelet Count 222 10^3/cmm (130-400); Red Blood Count 4.77 10^6/uL (4.1-5.3); Red Cell Distribution Width 13.4 % (12.1-15.1); White Blood Count 14.1 10^3/uL (4.0-10.0)
[2022-06-06 00:46] LABS: Alanine Aminotransferase 12 U/L (0-41); Albumin Level 3.9 g/dL (3.5-5.2); Alkaline Phosphatase 87 U/L (40-130); Anion Gap 14.6 (5-19); Aspartate Amino Transferase 15 U/L (0-40); Blood Urea Nitrogen 21 mg/dL (8-23); Calcium 8.9 mg/dL (8.5-10.5); Carbon Dioxide 23 mmol/L (22-29); Chloride 102 mmol/L (98-107); Globulin 2.7 g/dL (1.3-4.6); Glomerular Filtration Rate 83.9 mL/min (90-130); Glucose 103 mg/dL (65-115); Lipase 40 U/L (13-60); Osmolality Calculated 285 mOsm/kg (285-295); Potassium 3.6 mmol/L (3.5-5.1); Sodium 136 mmol/L (136-145); Total Bilirubin 0.8 mg/dL (0.15-1.2); Total Protein 6.6 g/dL (6.6-8.7)
--- NOTE | 2022-06-06 00:55 | W.ED.MALEGU ---
HPI - Male Genitourinary General: Chief complaint: Urogenital-Male Stated complaint: Pian in Groin Time Seen by Provider: 06/05/22 23:59 Source: patient Mode of arrival: ambulatory Limitations: no limitations History of Present Illness: 58-year-old male states been having some left groin and testicle pain over the last week states got much worse today. States that since left lower abdomen groin causing pain especially with walking and to touch she denies any fever denies any vomiting diarrhea denies any dysuria rates his pain currently a 5 out of 10. Review of Systems Const: Denies: fever(s), chills, body aches or change in appetite Eyes: Denies: blurry vision or eye discomfort ENMT: Denies: throat pain or dental pain Card: Denies: chest pain Resp: Denies: dyspnea GI: Reports: abdominal pain : Reports: testicular pain Musc: Denies: neck pain or back pain Skin/Breast: Denies: rash Neuro: Denies: headache(s) Psych: Denies: depression Adán/Lymph: Denies: easy bruising All/Imm: Denies: urticaria PFSH ED PFSH: Medical History Acute bacterial sinusitis Acute systolic CHF (congestive heart failure), NYHA class 1 Atherosclerosis of coronary artery CHF (congestive heart failure) Dental infection Essential hypertension Fatigue Friedreichs ataxia Gastroesophageal reflux disease Impacted cerumen Mixed hyperlipidemia Otitis media Prostate cancer screening STEMI (ST elevation myocardial infarction) Vitamin D deficiency Surgical History S/P right coronary artery (RCA) stent placement Social History Smoking and tobacco status: never smoked Second hand smoke exposure: No Smoking risk assessment/counseling performed?: No Alcohol intake: never Desire information about alcohol rehabilitation?: No Counseling given: No Desire information about substance/drug rehabilitation?: No Counseling given: No Physical Exam Const: COMMON NORMALS: no acute distress, patient oriented x3 and healthy appearing HENMT: COMMON NORMALS: normocephalic and atraumatic HEAD & SCALP: normocephalic and atraumatic Eye: COMMON NORMALS: Equal, round and reactive pupils present and EOMs intact bilaterally PUPIL: Yes Equal, round and reactive pupils present Neck/C-Spine: COMMON NORMALS: full ROM and supple Chest: COMMONS NORMALS: normal inspection of the chest and normal palpation of entire chest wall Resp: COMMON NORMALS: normal respiratory effort, No retractions, No use of accessory muscles and clear to auscultation bilaterally AUSCULTATION: clear to auscultation bilaterally Cardio: COMMON NORMALS: regular rate, regular rhythm and No murmurs present (Cardio) RATE: regular rate RHYTHM: regular rhythm GI: COMMON NORMALS: Normal to inspection, nondistended, normoactive bowel sounds present, Soft to palpation, non-tender and no masses PALPATION: Yes Soft to palpation : OTHER: Tenderness in left groin and left testicle no obvious deformities Extremity: COMMON NORMALS: normal to inspection and full ROM Neuro: COMMON NORMALS: patient oriented x3, moves all extremities and no focal motor deficits Psych: COMMON NORMALS: mental status grossly normal, Normal thought process present and cooperative THOUGHT PROCESS: Normal thought process present Skin: COMMON NORMALS: no rashes or lesions noted and no wounds GENERAL SKIN EXAM: no rashes or lesions noted Course Vital Signs: Vital signs: Vital Signs Pulse Rate 67 06/06/22 01:39 Respiratory Rate 18 06/06/22 02:21 Blood Pressure 95/47 06/06/22 01:39 Pulse Oximetry 95 06/06/22 01:39 MDM - Male Medical Decision Making Patient presents here with groin pain is likely referred pain from a psoas mass he is continue to have pain here I did speak to oncology along with hospitalist will admit at this time for pain control likely biopsy he has been otherwise stable. Lab Data 06/06/22 00:15 06/06/22 00:15 Radiology Impressions Abdomen/Pelvis CT 06/06/22 00:02 IMPRESSION: 1. Large left retroperitoneal mass complete lumen with the left psoas muscle as described above. Although this mass could represent a large chronic hematoma or perhaps confluent lymphadenopathy, other possibilities including rhabdomyosarcoma of the left psoas muscle cannot be entirely excluded. 2. Diverticulosis of the descending and sigmoid colon 3. Normal appendix 4. No evidence for ureteral obstruction 5. Calcified granulomas within the liver and spleen COMMENTS: Consistent with the [employer]'s Incidental Findings Committee white paper (J Am Kathi Radiol 2018): Any incidental renal lesion less than 1 cm or classified as too small to characterize, or any incidental cystic renal lesion characterized as simple-appearing, is likely benign. No follow-up imaging is recommended for these lesions per consensus recommendations based on imaging criteria. ADDENDUM: 06/06/22 0142 CRITICAL RESULT: THIS REPORT CONTAINS FINDINGS THAT MAY BE CRITICAL TO PATIENT CARE. The findings were verbally communicated via telephone conference with MARY ANN Leonard at 1:41 AM DIESEL PILE DRIVER OPERATOR on 06/06/2022. The findings were acknowledged and understood. Scrotum Ultrasound 06/06/22 00:02 IMPRESSION: 1. Normal testes and epididymi bilaterally. 2. There is a left varicocele present. 3. Bilateral hydroceles, right larger than left. Abdomen/Pelvis CTA 06/06/22 01:41 IMPRESSION: 1. Stable large left retroperitoneal mass 2. There is no evidence for arterial extravasation 3. The inferior mesenteric artery is surrounded by the soft tissue attenuation mass Chest CT 06/06/22 03:01 IMPRESSION: 1. There are no acute chest findings. There is no evidence for pulmonary metastatic disease. 2. Background of emphysema, mild bronchiectasis and pulmonary fibrosis. 3. Esophageal reflux. Laboratory Results WBC 14.1 10^3/uL (4.0-10.0) H 06/06/22 00:15 RBC 4.77 10^6/uL (4.1-5.3) 06/06/22 00:15 Hgb 14.0 g/dL (11.7-16.6) 06/06/22 00:15 Hct 41.6 % (42.0-52.0) L 06/06/22 00:15 MCV 87.2 fl (80-94) 06/06/22 00:15 MCH 29.4 pg (28.0-34.0) 06/06/22 00:15 MCHC 33.7 g/dL (30.0-36.0) 06/06/22 00:15 RDW 13.4 % (12.1-15.1) 06/06/22 00:15 Plt Count 222 10^3/cmm (130-400) 06/06/22 00:15 MPV 9.3 fL (7.4-10.4) 06/06/22 00:15 Neut % (Auto) 80.0 % 06/06/22 00:15 Lymph % (Auto) 10.6 % 06/06/22 00:15 Angelina % (Auto) 7.8 % 06/06/22 00:15 Eos % (Auto) 0.9 % 06/06/22 00:15 Baso % (Auto) 0.3 % 06/06/22 00:15 Neut # (Auto) 11.26 10^3/uL (1.8-7.7) H 06/06/22 00:15 Lymph # (Auto) 1.5 10^3/uL (0.8-4.8) 06/06/22 00:15 Angelina # (Auto) 1.1 10^3/uL (0.2-0.9) H 06/06/22 00:15 Eos # (Auto) 0.1 10^3/uL (0.0-0.8) 06/06/22 00:15 Baso # (Auto) 0.0 10^3/uL (0.0-0.1) 06/06/22 00:15 Nucleated RBC % (auto) 0 % 06/06/22 00:15 Nucleated RBCs # 0.0 /100WBC 06/06/22 00:15 Sodium 136 mmol/L (136-145) 06/06/22 00:15 Potassium 3.6 mmol/L (3.5-5.1) 06/06/22 00:15 Chloride 102 mmol/L (98-107) 06/06/22 00:15 Carbon Dioxide 23 mmol/L (22-29) 06/06/22 00:15 Anion Gap 14.6 (5-19) 06/06/22 00:15 BUN 21 mg/dL (8-23) 06/06/22 00:15 Creatinine 0.9 mg/dL (0.7-1.2) 06/06/22 00:15 GFR Calculation 83.9 mL/min (90-130) L 06/06/22 00:15 Glucose 103 mg/dL (65-115) 06/06/22 00:15 Calculated Osmolality 285 mOsm/kg (285-295) 06/06/22 00:15 Calcium 8.9 mg/dL (8.5-10.5) 06/06/22 00:15 Total Bilirubin 0.8 mg/dL (0.15-1.2) 06/06/22 00:15 AST 15 U/L (0-40) 06/06/22 00:15 ALT 12 U/L (0-41) 06/06/22 00:15 Alkaline Phosphatase 87 U/L (40-130) 06/06/22 00:15 Troponin T Baseline 26 ng/L (0-15) H 06/06/22 00:15 Total Protein 6.6 g/dL (6.6-8.7) 06/06/22 00:15 Albumin 3.9 g/dL (3.5-5.2) 06/06/22 00:15 Globulin 2.7 g/dL (1.3-4.6) 06/06/22 00:15 Lipase 40 U/L (13-60) 06/06/22 00:15 Urine Color Yellow (Yellow) 06/06/22 01:28 Urine Appearance Clear (CLEAR) 06/06/22 01:28 Urine pH 5 (5-7) 06/06/22 01:28 Ur Specific [place] 1.025 (1.005-1.030) 06/06/22 01:28 Urine Protein Neg (Negative) 06/06/22 01:28 Urine Glucose (UA) Norm (Normal) 06/06/22 01:28 Urine Ketones Negative (Negative) 06/06/22 01:28 Urine Blood Neg (Negative) 06/06/22 01:28 Urine Nitrate Negative (Negative) 06/06/22 01:28 Urine Bilirubin 1+ (Negative) H 06/06/22 01:28 Urine Urobilinogen Norm mg/dL (Negative) 06/06/22 01:28 Ur Leukocyte Esterase Negative (Negative) 06/06/22 01:28 EKG Data EKG 1: I personally reviewed and interpreted this EKG as follows: EKG Data: 06/06/22 EKG interpretation time: 02:16 Interpretation: nsr hr [address] or t wave abnormalities qrs 96 qtc 403 Discharge Plan Discharge Patient Disposition: Admitted As Inpatient Clinical Impression: Psoas mass Condition: Stable Prescriptions: No Action diphenhydramine HCl [Benadryl Allergy] 25 mg tablet 25 mg PO Q6H PRN omega-3 fatty acids 1,000 mg capsule 1,000 mg PO DAILY cyclobenzaprine 10 mg tablet 10 mg PO TID 14 Days Qty: 42 0RF azithromycin 250 mg tablet See Rx Instructions PO .COMPLEX 5 Days Qty: 6 0RF Rx Instructions: For 250 mg dose pack: take 500 mg today (day 1), then 250 mg for 4 days (days 2-5) PO prednisone 20 mg tablet 20 mg PO DAILY 5 Days Qty: 5 0RF pantoprazole 40 mg tablet,delayed release (DR/EC) 40 mg PO DAILY Qty: 90 3RF atorvastatin 40 mg tablet 80 mg PO BEDTIME Qty: 90 1RF metoprolol succinate 25 mg tablet extended release 24 hr 12.5 mg PO DAILY Qty: 30 4RF Brilinta 90 mg tablet 90 mg PO BID Qty: 180 3RF losartan 25 mg tablet 25 mg PO DAILY Qty: 90 3RF Vitamin C 1,000 mg Tablet 2,000 mg PO DAILY Probiotic 1 cap PO DAILY milk thistle 1 cap PO DAILY zinc 1 cap PO DAILY aspirin 81 mg Tablet,Delayed Release (Dr/Ec) 81 mg PO DAILY Qty: 90 3RF Referrals: Aubrey Benoit MD [Primary Care Provider] - Coding Level of Care Code ED Sales Consultant Residential Manager for Chg Fwd Exam Comprehensive
[2022-06-06] MEDS: iohexol 350 mg/mL 500 mL Btl (per mL) IV ×2 (01:10→02:13)
--- NOTE | 2022-06-06 01:41 | CTR_ITS ---
PROCEDURE INFORMATION: Exam: CTA Abdomen and Pelvis With Contrast Exam date and time: 06/06/2022 2:01 AM Age: 66 years old Clinical indication: Prior surgery; Surgery type: Coronary stent; Patient HX: Large left sided mass with suspected psoas origin abutting and incapsulating abd aorta and left renal artery seen on abd pel CT. Check for any arterial complications. ; Additional info: Abd pain TECHNIQUE: Imaging protocol: Computed tomographic angiography of the abdomen and pelvis with contrast. 3D rendering (Not supervised by radiologist): MIP and/or 3D reconstructed images were created by the technologist. Radiation optimization: All CT scans at this facility use at least one of these dose optimization techniques: automated exposure control; mA and/or kV adjustment per patient size (includes targeted exams where dose is matched to clinical indication); or iterative reconstruction. Contrast material: OMNI 350; Contrast volume: 100 ml; Contrast route: INTRAVENOUS (IV); COMPARISON: CT abdomen pelvis w con* [id number] 06/06/2022 12:54 AM RADIATION DOSE METRICS: Total DLP (mGy-cm): 820.13 FINDINGS: Aorta: No aortic aneurysm. No aortic dissection. Celiac trunk and mesenteric arteries: See Retroperitoneal space finding. Renal arteries: No occlusion or significant stenosis. Right iliac arteries: No occlusion or significant stenosis. Left iliac arteries: No occlusion or significant stenosis. Liver: No mass. Gallbladder and bile ducts: Unremarkable. No calcified stones. No ductal dilation. Pancreas: Unremarkable. No mass. No ductal dilation. Spleen: Unremarkable. No splenomegaly. Adrenal glands: Unremarkable. No mass. Kidneys and ureters: Unremarkable. No solid mass. No hydronephrosis. Stomach and bowel: Unremarkable. No obstruction. No mucosal thickening. Appendix: No evidence of appendicitis. Intraperitoneal space: Unremarkable. No free air. No significant fluid collection. Retroperitoneal space: The large retroperitoneal mass is stable in size and configuration compared with earlier today. Notably, there is no evidence for arterial extravasation from the adjacent aorta , renal arteries or the visualized inferior mesenteric artery. The opacified inferior mesenteric artery is surrounded by a soft tissue attenuation mass. Lymph nodes: Unremarkable. No enlarged lymph nodes. Urinary bladder: Unremarkable. No mass. Reproductive: Unremarkable as visualized. Bones/joints: No acute fracture. Soft tissues: Unremarkable. Other findings: These arterial phase findings are compared with the delayed venous phase CT imaging obtained earlier today. CT/CT angio abdomen pelvis [id number] IMPRESSION: 1. Stable large left retroperitoneal mass 2. There is no evidence for arterial extravasation 3. The inferior mesenteric artery is surrounded by the soft tissue attenuation mass
[2022-06-06 01:42] LABS: Add Urine Microscopic? NO; Charge for UA Resulting for Rev
[2022-06-06 01:45] LABS: Bilirubin Urine 1+ (Negative); Blood Urine Neg (Negative); Glucose Urine UA Norm (Normal); Ketones Urine Negative (Negative); Leukocyte Esterase Urine Negative (Negative); Nitrate Urine Negative (Negative); Protein Urine Neg (Negative); Specific Gravity, Urine 1.025 (1.005-1.030); Urine Appearance Clear (CLEAR); Urine Color Yellow (Yellow); Urobilinogen Urine Norm (Negative); pH Urine 5 (5-7)
[2022-06-06] MEDS: sodium chloride 0.9% 1,000 ML 999 ML IV (01:50)
[2022-06-06 01:56] LABS: Troponin(5th) Baseline 26 ng/L (0-15)
--- NOTE | 2022-06-06 02:16 | ECG_ITS ---
[facility] Test Date: 2022-06-06 Pat Name: Medardo Lara Department: Room: Gender: Male Alley Tender: : 1955 Requested By: Grant Hernandez Order Number: [id number] Patrick MD: Rima Hernandez M.D. Measurements Intervals [place] Rate: 95 P: 69 WI: 200 QRS: -32 QRSD: 96 T: -10 QT: 350 QTc: 442 Interpretive Statements SINUS RHYTHM MINIMAL VOLTAGE CRITERIA FOR LVH, CONSIDER NORMAL VARIANT Compared to ECG 05/10/2021 00:54:00 Sinus tachycardia no longer present ST (T wave) deviation no longer present Myocardial infarct finding no longer present Electronically Signed On 06-06-2022 12:45:46 [employer] by Rima Hernandez M.D. [id number]
[2022-06-06] MEDS: HYDROmorphone 1 mg/mL INJ 1 mL IVP ×5 (02:21→21:21)
--- NOTE | 2022-06-06 03:01 | CTR_ITS ---
PROCEDURE INFORMATION: Exam: CT Chest Without Contrast; Diagnostic Exam date and time: 06/06/2022 3:32 AM Age: 66 years old Clinical indication: Prior surgery; Surgery type: Coronary stent; Patient HX: Left sided retroperitoneal mass on abd CT. Check for metastasis. TECHNIQUE: Imaging protocol: Diagnostic computed tomography of the chest without contrast. Radiation optimization: All CT scans at this facility use at least one of these dose optimization techniques: automated exposure control; mA and/or kV adjustment per patient size (includes targeted exams where dose is matched to clinical indication); or iterative reconstruction. COMPARISON: CR XR chest 1V portable [id number] 05/09/2021 4:13 PM RADIATION DOSE METRICS: Total DLP (mGy-cm): 472.62 FINDINGS: Lungs: Subpleural emphysematous blebs are seen along the left apex and left superior mediastinum. There is a background of mild centrilobular emphysema, mild bronchiectasis and pulmonary fibrosis. Pleural spaces: Unremarkable. No pneumothorax. No pleural effusion. Heart: Unremarkable. No cardiomegaly. No pericardial effusion. Coronary arteries: There are mild calcifications seen within the coronary arteries. Lymph nodes: Unremarkable. No enlarged lymph nodes. Vasculature: Unremarkable. No aortic aneurysm. Stomach and bowel: Fluid is seen within the esophagus, findings suggesting reflux. Bones/joints: Unremarkable. No acute fracture. Soft tissues: Unremarkable. CT/CT chest con [id number] IMPRESSION: 1. There are no acute chest findings. There is no evidence for pulmonary metastatic disease. 2. Background of emphysema, mild bronchiectasis and pulmonary fibrosis. 3. Esophageal reflux.
--- NOTE | 2022-06-06 03:23 | ECG_ITS ---
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 Measurements Intervals [place] Rate: 79 P: 66 MT: 184 QRS: -36 QRSD: 93 T: -32 QT: 357 QTc: 411 Interpretive Statements SINUS RHYTHM VOLTAGE CRITERIA FOR LVH [MEETS CRITERIA IN ONE OF: R(aVL), S(V1), R(V5), R(V5/V6)+S(V1)] Compared to ECG 06/06/2022 02:16:00 No significant changes Electronically Signed On 06-06-2022 16:54:05 GENERALIST by Rima Hernandez M.D. [id number]
[2022-06-06 04:04] LABS: Erythrocyte Sedimentation Rate 4 mm/hr (0-10)
--- NOTE | 2022-06-06 04:08 | P.HP_ITS ---
Providers/Chief Complaint Primary Care Provider: Aubrey Benoit MD Chief Complaint: Pian in Groin History of Present Illness Medardo Lara is a 66 year old male with a past medical history of Friedreich's ataxia, history of hypertension, history of CAD status post RCA stent May 2021, GERD, systolic CHF, who presents to [facility] for acute on chronic left hip pain, left groin pain, left thigh pain, left flank pain. Patient tells me that for the last 3 to 4 months he has had this chronic left-sided pain, primarily, around the left groin, he was able to function throughout the pain, it was almost like an achy or nagging type of pain, often waking him up in the middle the night. However for the last 40 hours the pain has become so severe, it felt like a sharp stabbing pain, he actually saw the orthopedic service due to concerns for pain, the pain was becoming more severe, more constant, occurring in any position. When he got home from his appointment, he took 1250 of Tylenol, and a Flexeril however continues to have severe pain. So he came to the emergency room for evaluation. He tells me that roughly 4 months ago, he noticed almost like a bruise over his left flank, left abdomen he is not exactly sure how he got it he thought it was maybe because of his aspirin and his Brilinta. He tells me that with his Friedreich's ataxia, he is unsteady on his feet, he does have frequent near falls, he is always able to catch himself, he denies any significant trauma he does not with all his falls he is able to catch himself, no significant loss of conscious dizziness, no significant trauma he can remember. In the emergency room he was found to have a large left retroperitoneal mass with complete lumen to the left psoas muscle, follow-up CT angiogram did not show any acute bleed or any acute extravasation, hemodynamic stable, alert oriented x3, currently blood pressures 150/60, heart rates in the 60s respiratory rate 18 saturating 95% on room air hemoglobin is 14. Review of Systems Const: Denies: fever(s) Eyes: Denies: change in vision Card: Denies: chest pain Resp: Denies: dyspnea GI: Reports: abdominal pain : Reports: flank pain Musc: Reports: back pain Skin/Breast: Reports: rash Neuro: Reports: difficulty walking and frequent falls Medications/Allergies Home Medications Medication Instructions Recorded Confirmed Last Taken Type Probiotic 1 cap PO DAILY 05/09/21 06/05/22 Unknown History ascorbic acid (vitamin C) 1,000 mg 2,000 mg PO DAILY 05/09/21 06/05/22 Unknown History tablet (Vitamin C) milk thistle 1 cap PO DAILY 05/09/21 06/05/22 Unknown History zinc 1 cap PO DAILY 05/09/21 06/05/22 Unknown History aspirin 81 mg tablet,delayed 81 mg PO DAILY #90 tabs 05/10/21 06/05/22 Unknown Rx release diphenhydramine HCl 25 mg tablet 25 mg PO Q6H PRN 06/12/21 06/05/22 Unknown History (Benadryl Allergy) omega-3 fatty acids 1,000 mg 1,000 mg PO DAILY 06/12/21 06/05/22 Unknown History capsule pantoprazole 40 mg tablet,delayed 40 mg PO DAILY #90 tabs 09/11/21 06/05/22 Unknown Rx release atorvastatin 40 mg tablet 80 mg PO BEDTIME #90 tabs 12/06/21 06/05/22 Unknown Rx azithromycin 250 mg tablet See Rx Instructions PO .COMPLEX 5 02/15/22 06/05/22 Unknown Rx days #6 tabs prednisone 20 mg tablet 20 mg PO DAILY 5 days #5 tabs 02/15/22 06/05/22 Unknown Rx metoprolol succinate 25 mg 12.5 mg PO DAILY #30 tabs 02/21/22 06/05/22 Unknown Rx tablet,extended release 24 hr ticagrelor 90 mg tablet (Brilinta) 90 mg PO BID #180 tabs 03/27/22 06/05/22 Unknown Rx losartan 25 mg tablet 25 mg PO DAILY #90 tabs 05/10/22 06/05/22 Unknown Rx cyclobenzaprine 10 mg tablet 10 mg PO TID hip pain 2 weeks #42 06/05/22 06/05/22 Unknown Rx tabs Allergies Allergy/AdvReac Type Severity Reaction Status Date / Time No Known Allergies Allergy Verified 06/05/22 10:24 PFSH Acute PFSH: Medical History Acute bacterial sinusitis Acute systolic CHF (congestive heart failure), NYHA class 1 Atherosclerosis of coronary artery CHF (congestive heart failure) Dental infection Essential hypertension Fatigue Friedreichs ataxia Gastroesophageal reflux disease Impacted cerumen Mixed hyperlipidemia Otitis media Prostate cancer screening STEMI (ST elevation myocardial infarction) Vitamin D deficiency Surgical History S/P right coronary artery (RCA) stent placement Social History Smoking and tobacco status: never smoked Second hand smoke exposure: No Smoking risk assessment/counseling performed?: No Alcohol intake: never Desire information about alcohol rehabilitation?: No Counseling given: No Desire information about substance/drug rehabilitation?: No Counseling given: No Vitals/I&O/Wt Last Vital Signs Pulse 67 06/06/22 01:39 Resp 18 06/06/22 02:21 BP 95/47 06/06/22 01:39 Pulse Ox 95 06/06/22 01:39 06/05/22 06/05/22 06/06/22 14:59 22:59 06:59 Intake Total 1000 / 1000 Balance 1000 / 1000 Weight last 48 hrs Weight 86.183 kg Physical Exam Const: COMMON NORMALS: no acute distress and patient oriented x3 HENMT: COMMON NORMALS: normocephalic HEAD & SCALP: normocephalic Eye: COMMON NORMALS: Equal, round and reactive pupils present and EOMs intact bilaterally Neck/C-Spine: COMMON NORMALS: no JVD Lymph: LYMPHATIC: no lymphadenopathy noted Resp: COMMON NORMALS: normal respiratory effort, No retractions, No use of accessory muscles and clear to auscultation bilaterally AUSCULTATION: clear to auscultation bilaterally Cardio: COMMON NORMALS: no JVD, regular rate, regular rhythm, S1 normal heart sound present and S2 normal heart sound present RATE: regular rate RHYTHM: regular rhythm HEART SOUNDS: S1 normal heart sound present and S2 normal heart sound present GI: COMMON NORMALS: Normal to inspection, nondistended, normoactive bowel s ounds present, Soft to palpation, non-tender, No hepatosplenomegaly present, no masses and no bruits PALPATION: Yes Soft to palpation and Yes No hepatosplenomegaly present Back/Pelvis: COMMON NORMALS: no CVA tenderness, thoracic and lumbar spine normal to inspection and no thoracic nor lumbar tenderness Extremity: COMMON NORMALS: capillary refill normal, no clubbing, cyanosis or edema, no calf tenderness and no pedal edema Neuro: COMMON NORMALS: patient oriented x3, CN's II-XII intact bilaterally and moves all extremities Psych: COMMON NORMALS: mental status grossly normal Data 06/06/22 00:15 06/06/22 00:15 A&P Assessment and plan (1) Psoas mass: (2) CHF (congestive heart failure): Qualifiers: Heart failure type: systolic Heart failure chronicity: chronic Qualified Code(s): I50.22 - Chronic systolic (congestive) heart failure (3) Essential hypertension: (4) Acute systolic CHF (congestive heart failure), NYHA class 1: (5) Atherosclerosis of coronary artery: Qualifiers: Coronary Disease-Associated Artery/Lesion type: [place] artery [place] vs. transplanted heart: [place] heart Associated angina: without angina Qualif ied Code(s): I25.10 - Atherosclerotic heart disease of [place] coronary artery without angina pectoris (6) Retroperitoneal hematoma: (7) Retroperitoneal mass: Plan Retroperitoneal mass with extension to left psoas muscle 1. Large left retroperitoneal mass complete lumen with the left psoas muscle as described above. Although this mass could represent a large chronic hematoma or perhaps confluent lymphadenopathy, other possibilities including rhabdomyosarcoma of the left psoas muscle cannot be entirely excluded. 2. Diverticulosis of the descending and sigmoid colon 3. Normal appendix 4. No evidence for ureteral obstruction 5. Calcified granulomas within the liver and spleen CTA abdomen 1. Stable large left retroperitoneal mass 2. There is no evidence for arterial extravasation 3. The inferior mesenteric artery is surrounded by the soft tissue attenuation mass -Chronic left-sided testicular, groin, flank, abdominal pain for the last 3 to 4 months now acutely worsening in the last 2 days -Differential includes spontaneous retroperitoneal bleed, chronic -Patient has had frequent falls but he catches himself reported a bruise over the left flank 3 months ago -Although thought it could be a rhabdomyosarcoma -Although thoughts could be a psoas muscle abscess with extension into the retroperitoneum -Currently hemodynamically stable, alert oriented x3, following commands Plan -Pro-Nehemias, CRP the ESR, LDH, cpk, inr, blood cultures -We will hold all blood thinners -He does take aspirin and Brilinta for his stenting to the RCA in 05/09/2021 -We will have to either resume aspirin or Brilinta today pending on work-up -We will have to discuss with radiology, go over scans, decide if we need to pursue a biopsy -His white blood cell count is elevated I will monitor and consider antibiotics based on clinical progress and further work-up -Monitor hemodynamics closely, bedrest for now -Full code -SCDs for DVT prophylaxis Attestations Medical Necessity Statement*: Patient requires hospitalization, inpatient, greater than 2 minutes, for retroperitoneal mass versus spontaneous bleed Coding Level of Care Code Acute Underwriting Support Specialist for Chg Fwd Diagnoses Psoas mass M62.89 CHF (congestive heart failure) I50.22 Heart failure type: systolic Heart failure chronicity: chronic Essential hypertension I10 Acute systolic CHF (congestive heart failure), NYHA class 1 I50.21 Atherosclerosis of coronary artery I25.10 Coronary Disease-Associated Artery/Lesion type: [place] artery [place] vs. transplanted heart: [place] heart Associated angina: without angina Retroperitoneal hematoma K66.1 Retroperitoneal mass R19.00
[2022-06-06 04:15] LABS: Lactate (Lactic Acid level) 1.5 mmol/L (0.5-2.2)
[2022-06-06 04:15] LABS: Troponin 5 2HR 25.79 ng/L (0-15)
[2022-06-06 04:16] LABS: Troponin 5 2HR Delta -0.21 ABS# (0-10)
[2022-06-06 04:17] LABS: INR 0.99 (0.8-1.2)
[2022-06-06 04:21] LABS: C Reactive Protein 44.9 mg/L (0.0-4.9)
[2022-06-06 04:28] LABS: Procalcitonin 0.08 ng/mL (0-0.5)
[2022-06-06 04:38] LABS: Creatine Phosphokinase 39 U/L (39-308)
[2022-06-06 06:14] LABS: Lactate Dehydrogenase 511 U/L (135-225)
[2022-06-06 06:38] LABS: Troponin 5 6HR 26.23 ng/L (0-15)
[2022-06-06 06:39] LABS: Troponin 5 6HR Delta 0.23 ng/L (0-12)
[2022-06-06 06:43] LABS: Thyroid Stimulating Hormone 7.25 uIU/mL (0.27-4.20)
[2022-06-06] MEDS: sodium chloride 0.9% 1,000 ML 75 ML IV (06:43)
--- NOTE | 2022-06-06 07:35 | ECG_ITS ---
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 Measurements Intervals [place] Rate: 100 P: 58 CA: 180 QRS: -37 QRSD: 98 T: -32 QT: 341 QTc: 441 Interpretive Statements SINUS TACHYCARDIA MODERATE VOLTAGE CRITERIA FOR LVH, CONSIDER NORMAL VARIANT [MEETS CRITERIA IN ONE OF: R(aVL), S(V1), R(V5), R(V5/V6)+S(V1)] Compared to ECG 06/06/2022 03:23:50 Sinus rhythm no longer present Electronically Signed On 06-06-2022 16:53:13 FINE ARTIST by Rima Hernandez M.D. [id number]
[2022-06-06] MEDS: pantoprazole DR 40 mg Tablet PO (08:54)
--- NOTE | 2022-06-06 10:46 | PC.NURSE ---
Report called to Liyah Lozano RN on Med Surg. Patient transported via bed to room 259-1 at 1040.
--- NOTE | 2022-06-06 11:24 | PM.MISC ---
Miscellaneous Note Note: Reviewed CAT scan images with the radiologist, Dr. Mora Patient is not complaining active pain however he is stating that he gets excruciating incapacitating pain which is intermittent No vascular compromise No sign of retroperitoneal hematoma Hemoglobin stable Hemodynamically stable I have discontinued his fluids Patient is awake and alert Nonfocal neuro exam Sitting at the bedside S1, S2 Abdomen soft Lower extremity no edema Plan for CT-guided biopsy tomorrow with Dr. Mora Plan is to hold aspirin and Brilinta until tomorrow Retroperitoneal mass does not look like an abscess or hematoma Full code DVT prophylaxis on hold related to biopsy tomorrow, continue SCDs Cardiac diet N.p.o. after midnight
[2022-06-06] MEDS: alum-mag-hydroxide-sime 30 mL UDC PO (11:42)
[2022-06-06] MEDS: oxyCODONE 5 mg IR Tab/Cap 15 MG PO ×2 (19:18→23:21)
[2022-06-06] MEDS: atorvastatin 40 mg Tablet 80 MG PO (21:16)
[2022-06-07] VITALS (28 sets, daily range): BP systolic 103–166; BP diastolic 57–95; PULSE 95–118; RESP 14–24; TEMP 36.1–37.9; O2SAT 91–98
--- NOTE | 2022-06-07 | CT_ITS ---
NOTE: Report was unsigned for reason: Order was edited. Original Signature date and time was: 06/07/[id number] GUIDED BIOPSY RETROPERITONEAL MASS. HISTORY: retroperitoneal mass DLP: 1466.22 mGy-cm Procedure, risks, and complications are explained to the patient. Consent was obtained. Skin is cleansed with ChloraPrep and anesthetized with 1% buffered lidocaine. Prior imaging studies and medications are reviewed. Patient is placed in the LEFT lateral decubitus position. Skin is cleansed with ChloraPrep anesthetized with 1% buffered lidocaine. With conscious sedation large mass is targeted. 18-gauge core biopsies are performed. 5 core biopsies are performed with a Temno needle. Specimen is placed in saline as requested. production control technologist was present to distribute the material as directed by the pathologist. No complications were encountered. No significant bleeding. Patient will be observed for post procedure complications 4 at least one hour before returning to his hospital room. [facility] CT/CT biopsy retroperitonum [id number] IMPRESSION: 1. 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 2. No complications were encountered.
--- NOTE | 2022-06-07 01:42 | PC.PHAR ---
Pharmacokinetic dosing service Date: 06/07/22 Time: 014 Objective: Patient: Medardo Lara Floor: 263-1 Age: 66 yo Serum creatinine: 0.9 mg/dL Height: 68.0 Inches Weight (kg): 86.183 Diagnosis: Relevant medical/social history: Cultures and sensitivities: Other labs: Assessment: IBW (kg): 68.40 Dosing wt(kg): 86.183 Estimated Creatinine clearance (ml/min): 76.0 CRCL method: Cockcroft and Gault using ibw(default). Drug selected: Vancomycin Loading dose (mg): 0 Vd (liters): 77.6 (factor used: 0.9 L/kg) Patel (hr-1): 0.067 Half life (hrs): 10.35 Recommended dose: 1500 mg Interval: 12 hrs Infusion time (hrs): 1.5 Predicted peak (mcg/mL): 33.3 Predicted trough (mcg/mL): 16.48 Total body weight is being used for vancomycin dosing. Renal function is stable [ ] /unstable [ ] Recommendations: Give Vancomycin 1500 mg q 12 hrs with an expected Cpeak of 33.3 mcg/ml and an expected Ctrough of 16.48 mcg/ml Renal dosing of other antibiotics (review renal dosing of other medications and list guidelines here): Thank you for the consult, will continue to follow. Signature: Glory Short [facility]
[2022-06-07] MEDS: vancomycin 1,500 MG/300 ML PIGGYBACK 200 MG IV ×2 (01:52→13:01)
[2022-06-07] MEDS: HYDROmorphone 1 mg/mL INJ 1 mL IVP (03:21)
[2022-06-07] MEDS: ondansetron 2 mg/ML SDV 2 mL 4 MG IVP ×2 (03:37→17:43)
[2022-06-07 04:19] LABS: Basophils % 0.3 %; Eosinophils # 0.2 10^3/uL (0.0-0.8); Hematocrit 37.8 % (42.0-52.0); Hemoglobin 12.2 g/dL (11.7-16.6); Lymphocytes # 1.7 10^3/uL (0.8-4.8); Lymphocytes % 14.2 %; Mean Corpuscular HGB Conc 32.3 g/dL (30.0-36.0); Mean Corpuscular Hemoglobin 29.1 pg (28.0-34.0); Mean Corpuscular Volume 90.2 fl (80-94); Mean Platelet Volume 9.5 fL (7.4-10.4); Monocytes % 8.1 %; Neutrophils # 8.81 10^3/uL (1.8-7.7); Neutrophils % 75.1 %; Nucleated Red Blood Cells % 0 %; Platelet Count 214 10^3/cmm (130-400); Red Blood Count 4.19 10^6/uL (4.1-5.3); Red Cell Distribution Width 13.7 % (12.1-15.1); White Blood Count 11.7 10^3/uL (4.0-10.0)
[2022-06-07 04:44] LABS: Anion Gap 13.8 (5-19); Blood Urea Nitrogen 19 mg/dL (8-23); Calcium 8.7 mg/dL (8.5-10.5); Carbon Dioxide 25 mmol/L (22-29); Chloride 99 mmol/L (98-107); Glomerular Filtration Rate 74.3 mL/min (90-130); Glucose 98 mg/dL (65-115); Osmolality Calculated 280 mOsm/kg (285-295); Potassium 3.8 mmol/L (3.5-5.1); Sodium 134 mmol/L (136-145)
[2022-06-07] MEDS: oxyCODONE 5 mg IR Tab/Cap 15 MG PO ×3 (05:16→18:37)
[2022-06-07] MEDS: sodium chloride 0.9% 1,000 ML 30 ML IV (08:55)
--- NOTE | 2022-06-07 09:00 | CT_ITS ---
WS: [id number] CT GUIDED BIOPSY RETROPERITONEAL MASS. HISTORY: retroperitoneal mass Procedure, risks, and complications are explained to the patient. Consent was obtained. Skin is clean sed with ChloraPrep and anesthetized with 1% buffered lidocaine. Prior imaging studies and medications are reviewed. Patient is placed in the LEFT lateral decubitus position. Skin is cleansed with ChloraPrep anesthetiz ed with 1% buffered lidocaine. With conscious sedation large mass is targeted. 18-gauge core biopsies are performed. 5 core biopsies are performed with a Temno needle. Specimen is placed in saline as re quested. sleep technologist was present to distribute the material as directed by the patholo gist. No complications were encountered. No significant bleeding. Patient will be observed for post procedu re complications 4 at least one hour before returning to his hospital room.
--- NOTE | 2022-06-07 09:02 | PC.NURSE ---
pt attempting to void but unsuccessful. spouse states this needs to be addressed because he's been having trouble since he got to the hospital.
[2022-06-07] MEDS: fentaNYL 50 mcg/mL INJ 2mL 25 MCG IVP ×3 (09:34→09:51)
[2022-06-07] MEDS: midazolam 1 mg/mL INJ 2 mL IVP (09:49)
--- NOTE | 2022-06-07 09:56 | PM.PN ---
Subjective Subjective: This morning patient is going for retroperitoneal mass biopsy Complaining of a lot of pain on hip flexion I did explain her that this is expected because of the mass anatomical location No sign of vascular compromise Low-grade fever overnight, blood culture positive with gram-positive cocci, overnight vancomycin was initiated by Dr. Christine Patient is stating that only Dilaudid is working but it makes him nauseous and he required Zofran Vitals/I&O/Wt Last Vital Signs Temp 99 F 06/07/22 08:37 Pulse 105 H 06/07/22 09:55 Resp 20 H 06/07/22 09:55 BP 115/64 06/07/22 09:55 Pulse Ox 94 06/07/22 09:51 O2 Del Method 06/07/22 09:35 06/06/22 06/07/22 06/07/22 22:59 06:59 14:59 Intake Total 960 / 1696.25 500 / 2196.25 Balance 960 / 1696.25 500 / 2196.25 Weight last 48 hrs Weight 86.183 kg Physical Exam Narrative: Patient is sitting in a recliner He tries to keep himself still Mild edema of left leg Low-grade fever noted No signs of encephalopathy S1, S2 Abdomen soft Awake and alert at the bedside Sinus tachycardia Data 06/07/22 03:44 06/07/22 03:44 Micro: Microbiology 06/06/22 04:41 Blood Culture - Preliminary Blood NEGATIVE TO DATE 06/06/22 04:39 Blood Culture - Preliminary Blood A&P Assessment and plan (1) Retroperitoneal mass: (2) Psoas mass: (3) CHF (congestive heart failure): Qualifiers: Heart failure type: systolic Heart failure chronicity: chronic Qualified Code(s): I50.22 - Chronic systolic (congestive) heart failure (4) Fatigue: (5) Essential hypertension: (6) Gastroesophageal reflux disease: Plan Retroperitoneal mass Going for biopsy today Will request lymphoma profile No vascular compromise however he is endorsing pain on hip flexion Responding to Dilaudid Gets nauseous with opioids, getting Zofran as well Abnormal TSH we will request free T4 Sinus tachycardia, request D-dimer and EKG to rule out A. fib Blood culture positive with gram-positive cocci he has been started on vancomycin last night, will repeat blood cultures today Low-grade fever noted History of coronary disease he is aspirin Brilinta is on hold for the biopsy today Full code Start diet after his biopsy DVT prophylaxis could be initiated after biopsy as well today Will request general surgery consult tomorrow Attestations Medical Necessity Statement*: Patient has to stay until we get finalized blood culture report Time Spent in Patient Care: 40 Coding Level of Care Code Acute Extrusion Utility Worker for Chg Fwd Diagnoses Retroperitoneal mass R19.00 Psoas mass M62.89 CHF (congestive heart failure) I50.22 Heart failure type: systolic Heart failure chronicity: chronic Fatigue R53.83 Essential hypertension I10 Gastroesophageal reflux disease K21.9
--- NOTE | 2022-06-07 09:59 | ECG_ITS ---
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 Measurements Intervals [place] Rate: 96 P: 49 OR: 189 QRS: -39 QRSD: 92 T: -30 QT: 320 QTc: 406 Interpretive Statements SINUS RHYTHM WITH OCCASIONAL VENTRICULAR PREMATURE COMPLEXES VOLTAGE CRITERIA FOR LVH [MEETS CRITERIA IN ONE OF: R(aVL), S(V1), R(V5), R(V5/V6)+S(V1)] POSSIBLE ANTERIOR MYOCARDIAL INFARCTION , OF INDETERMINATE AGE [30 ms Q WAVE IN V3/V4, OR R < 0.2 mV IN V4] Compared to ECG 06/06/2022 08:58:10 Ventricular premature complex(es) now present Myocardial infarct finding now present Sinus tachycardia no longer present Electronically Signed On 06-08-2022 20:40:22 PORTFOLIO ASSISTANT by Rima Hernandez M.D. [id number]
--- NOTE | 2022-06-07 10:54 | PC.CHAP ---
Pastoral Care Encounter/Spiritual Assessment Type of Contact [] Declined veneer patcher visit [] Patient/Family/Request visit [] Outpatient visit [x] Follow-up visit [] Physician referral [] Code/Alert [] Routine visit [] Staff referral [] Actively dying [] Patient sleeping [] Family support [] [] Out of room [] Palliative care [] [] Receiving care in room [] Pre-surgical visit [] Trauma [] Long length of stay [] ICU visit [] Other: Relational/Emotional Strength [] Patient feels connected with others/family/visitors/staff [] Distress [] Loneliness/isolation [] Abandonment Spirituality of Patient [] Person of Nereida [] Attends Presybeterian of their [place]re[place] [] Believes in Prayer [] Reads Bible or Orthodox materials [] There are Spiritual issues to be addressed Line Controller Interventions [] Prayer [] Active listening [] Non-anxious presence [] Spiritual/emotional support [] Crisis/trauma care [] Spiritual counseling [] Bereavement support [] Provided bereavement packet [] Provided Bible/devotional materials [] Provided toy/stuffed animal, coloring book to patient or family member [] Provided Communion [] Anointing/[place] [] Salvation [] Completed spiritual assessment [] Other: Impact on Illness or Injury [] Angry [] Fearful [] Anxious [] Often cries [] Exhaustion [] Unable to work [] Unable to attend faith [] Unable to walk/stand [] Unable to read [] Unable to drive [] Unable to eat/drink [] Unable to sleep [] Unable to be with family [] Patient intubated [] Other: Summary Follow-up visit Time spent with patient 5 mins
[2022-06-07] MEDS: alum-mag-hydroxide-sime 30 mL UDC PO (11:33)
[2022-06-07] MEDS: pantoprazole DR 40 mg Tablet PO (11:34)
[2022-06-07 14:44] LABS: D Dimer 0.58 ug/mIFEU (0-0.59)
[2022-06-07 15:26] LABS: Free T4 Free Thyroxine 1.57 ng/dL (0.82-1.77)
[2022-06-07] MEDS: aspirin 81 mg EC Tablet PO (17:43)
[2022-06-08] VITALS (9 sets, daily range): BP systolic 100–170; BP diastolic 66–77; PULSE 87–114; RESP 14–22; TEMP 36.4–37.5; O2SAT 92–99
[2022-06-08] MEDS: alum-mag-hydroxide-sime 30 mL UDC PO (00:57)
[2022-06-08] MEDS: vancomycin 1,500 MG/300 ML PIGGYBACK 200 MG IV (01:00)
[2022-06-08] MEDS: benzonatate 100 mg Capsule PO ×3 (02:37→20:31)
[2022-06-08 05:43] LABS: Basophils % 0.3 %; Eosinophils # 0.2 10^3/uL (0.0-0.8); Hematocrit 36.6 % (42.0-52.0); Hemoglobin 11.6 g/dL (11.7-16.6); Lymphocytes # 1.2 10^3/uL (0.8-4.8); Lymphocytes % 10.1 %; Mean Corpuscular HGB Conc 31.7 g/dL (30.0-36.0); Mean Corpuscular Hemoglobin 29.4 pg (28.0-34.0); Mean Corpuscular Volume 92.7 fl (80-94); Mean Platelet Volume 9.5 fL (7.4-10.4); Monocytes # 0.8 10^3/uL (0.2-0.9); Monocytes % 6.3 %; Neutrophils # 9.56 10^3/uL (1.8-7.7); Neutrophils % 80.9 %; Nucleated Red Blood Cells % 0 %; Platelet Count 188 10^3/cmm (130-400); Red Blood Count 3.95 10^6/uL (4.1-5.3); Red Cell Distribution Width 13.3 % (12.1-15.1); White Blood Count 11.8 10^3/uL (4.0-10.0)
[2022-06-08 06:03] LABS: Anion Gap 14.6 (5-19); Blood Urea Nitrogen 18 mg/dL (8-23); Calcium 8.4 mg/dL (8.5-10.5); Carbon Dioxide 23 mmol/L (22-29); Chloride 99 mmol/L (98-107); Glomerular Filtration Rate 74.3 mL/min (90-130); Glucose 84 mg/dL (65-115); Osmolality Calculated 277 mOsm/kg (285-295); Potassium 3.6 mmol/L (3.5-5.1); Sodium 133 mmol/L (136-145)
[2022-06-08] MEDS: oxyCODONE 5 mg IR Tab/Cap 15 MG PO ×3 (07:09→17:31)
--- NOTE | 2022-06-08 07:51 | USCV_ITS ---
Medardo Lara Age: 66 Gender: M : 1955 Exam Date: 06/08/2022 08:10 Ordering Phys: Georgie Moody MD Technologist: DEJA [place] [facility] [place]: [place] PROCEDURES: The venous duplex Doppler examination of both lower extremities was performed in the standard fashion. The following venous structures were evaluated: common femoral vein, profunda vein, proximal portion of the greater saphenous vein, superficial femoral vein, and the popliteal vein. In addition, the posterior tibial veins were evaluated. CONCLUSIONS . No evidence of right lower extremity DVT. No evidence of left lower extremity DVT. Nithin Mora MD (Electronically Signed) Final Date: 08 June 2022 10:04 S
[2022-06-08] MEDS: pantoprazole DR 40 mg Tablet PO (09:31)
[2022-06-08] MEDS: ticagrelor 90 mg Tablet PO (09:31)
[2022-06-08] MEDS: aspirin 81 mg EC Tablet PO (09:31)
[2022-06-08] MEDS: metoprolol succinate ER (24 HR) 25 mg Tablet PO (09:31)
[2022-06-08] MEDS: sennosides-docusate Tablet 1 TAB PO ×2 (09:32→20:31)
--- NOTE | 2022-06-08 11:57 | PM.PN ---
Subjective Subjective: Patient stating that he was able to sleep last night, his cough improved after getting cough suppressants Cultures have not been finalized I did call the lab today Patient will stay 1 more day in order to get final blood culture results Will request venous Doppler to rule out DVT No significant D-dimer no need of CTA chest Patient is conversing constipation bowel regimen has been administered Vitals/I&O/Wt Last Vital Signs Temp 98.0 F 06/08/22 11:29 Pulse 96 06/08/22 11:29 Resp 18 06/08/22 11:29 BP 140/69 06/08/22 11:29 Pulse Ox 99 06/08/22 11:29 O2 Del Method 06/08/22 11:29 06/07/22 06/08/22 06/08/22 22:59 06:59 14:59 Intake Total 240 / 880 950 / 1830 Output Total 850 / 850 500 / 1350 Balance -610 / 30 450 / 480 Physical Exam Narrative: Patient is laying supine Swelling of legs has not worsened EOMI, PERRLA Nonfocal neuro exam Doing well on the Sinus tachycardia improved Hemodynamically stable Abdomen soft Family at the bedside Patient is doing well on room air Urinary Catheter Management: Munson: Cath Placed During This Visit: yes Reason for Continuing Indwelling Catheter: Acute Urinary Retention or Obstruction Urinary Catheter Date of Insertion: 06/07/22 Urinary Catheter Time of Insertion: 11:45 Data 06/08/22 05:16 06/08/22 05:16 Micro: Microbiology 06/07/22 14:05 Blood Culture - Preliminary Blood SPECIMEN COLLECTED 06/07/22 14:00 Blood Culture - Preliminary Blood SPECIMEN COLLECTED A&P Assessment and plan (1) Retroperitoneal mass: (2) Psoas mass: (3) Fatigue: (4) Essential hypertension: (5) Gastroesophageal reflux disease: Plan 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 Blood culture preliminary report showing gram-positive cocci he has been put on vancomycin Single episode of T-max 100.2, no signs of worsening of leukocytosis no febrile events Blood cultures to be finalized later today patient will stay 1 more day in the hospital Full code Continue DVT prophylaxis Metropol succinate dose has been increased Opioid-induced constipation patient is getting bowel regimen History of coronary disease I have continued his aspirin Brilinta Full code Cardiac Attestations Medical Necessity Statement*: Discharge tomorrow if no signs of bacteremia Time Spent in Patient Care: 40 Coding Level of Care Code Acute Tool Room Lathe Operator for Chg Fwd Diagnoses Retroperitoneal mass R19.00 Psoas mass M62.89 Fatigue R53.83 Essential hypertension I10 Gastroesophageal reflux disease K21.9
[2022-06-08 12:44] LABS: Lymphoma Profile (BBPL) See Report
--- NOTE | 2022-06-08 14:16 | USCV_ITS ---
Marco Medardo Age: 66 Gender: M : 1955 Exam Date: 06/08/2022 16:33 Ordering Phys: Georgie Moody MD Technologist: DEJA Exam Location: [facility] – [place], [place] Indication: EF for CHEMO BP: / HR: 87 Rhythm: Sinus Technical Quality: Adequate MEASUREMENTS (Male / Female) Normal Values 2D ECHO LV Diastolic Diameter PLAX 4.5 cm 4.2 - 5.9 / 3.9 - 5.3 cm LV Systolic Diameter PLAX 3.5 cm IVS Diastolic Thickness 0.8 cm 0.6 - 1.0 / 0.6 - 0.9 cm IVS Systolic Thickness 1.4 cm LVPW Diastolic Thickness 0.8 cm 0.6 - 1.0 / 0.6 - 0.9 cm LVPW Systolic Thickness 1.0 cm LVOT Diameter 2.1 cm LV Ejection Fraction 2D Teich 46.4 % LV Ejection Fraction MOD 2C 51.3 % LV Ejection Fraction 2C AL 51.4 % LA Diameter 3.6 cm M-MODE Aortic Annulus Diameter 2.2 cm LA Ao Ratio MM 1.8 MV E Point Septal Separation 0.3 cm DOPPLER AV Peak Velocity 144.0 cm/s LVOT Peak Velocity 101.0 cm/s AV Area Cont Eq vti 2.4 cm squared AV Area Cont Eq pk 2.5 cm squared MV Area PHT 3.7 cm squared Mitral E to A Ratio 0.9 MV E' Velocity 56.5 cm/s Mitral E to MV E' Ratio 12.9 Mitral E to LV E' Lateral Ratio 10.6 Mitral E to LV E' Septal Ratio 16.3 TR Peak Velocity 243.7 cm/s TR Peak Gradient 23.7 mmHg TV Peak E Velocity 56.0 cm/s Right Atrial Pressure 3.0 mmHg Pulmonary Artery Systolic Pressu 26.7 mmHg PV Peak Velocity 127.0 cm/s FINDINGS Left Ventricle Normal left ventricular size and systolic function, EF 55 %. No regional wall motion abnormalities. Grade I/IV diastolic dysfunction (abnormal relaxation filling pattern), normal to mildly elevated filling pressures. Right Ventricle The right ventricle is normal in size and function. Right Atrium The right atrium is normal in size. Left Atrium The left atrium is normal in size. Mitral Valve No Gross abnormalities noted Aortic Valve Thickened aortic valve. Tricuspid Valve Trace tricuspid valve regurgitation. Pulmonic Valve Pulmonic valve not well visualized. Pericardium Normal pericardium without effusion. Aorta Normal ascending aorta dimension. IVC The inferior vena cava appears normal. CONCLUSIONS Normal left ventricular size and systolic function, EF 55 %. No regional wall motion abnormalities. Grade I/IV diastolic dysfunction (abnormal relaxation filling pattern), normal to mildly elevated filling pressures. Thickened aortic valve. Trace tricuspid valve regurgitation. There is no pericardial effusion. There are no intracardiac masses. Compared to the study from 05/10/2021, there is significant improvement in the LV ejection fraction-from 45% to 55% Dr Josr Oh MD FAC (Electronically Signed) Final Date: 08 June 2022 18:01 S
[2022-06-08] MEDS: ondansetron 2 mg/ML SDV 2 mL 4 MG IVP (17:32)
--- NOTE | 2022-06-08 19:48 | PM.CONSULT ---
Providers/Reason For Consult Consulting Physician/Specialty*: Dr. Monty Cuevas, DO/General surgery Reason for Consult*: Mediport requested Attending Physician: Georgie Moody MD Primary Care Provider: Aubrey Benoit MD History of Present Illness History of Present Illness Medardo Lara is a 66 year old male who presented to the hospital with left hip pain. 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 Oncology has requested a Mediport. Review of Systems General: Reports: 10 or more systems reviewed and unremarkable except in HPI and below Medications/Allergies Home Medications Medication Instructions Recorded Confirmed Last Taken Type ascorbic acid (vitamin C) 1,000 mg 2,000 mg PO DAILY 05/09/21 06/06/22 Unknown History tablet (Vitamin C) aspirin 81 mg tablet,delayed 81 mg PO DAILY #90 tabs 05/10/21 06/06/22 Unknown Rx release diphenhydramine HCl 25 mg tablet 25 mg PO Q6H PRN Allergy Symptoms 06/12/21 06/06/22 Unknown History (Benadryl Allergy) omega-3 fatty acids 1,000 mg 1,000 mg PO DAILY 06/12/21 06/06/22 Unknown History capsule pantoprazole 40 mg tablet,delayed 40 mg PO DAILY #90 tabs 09/11/21 06/06/22 Unknown Rx release metoprolol succinate 25 mg 12.5 mg PO DAILY #30 tabs 02/21/22 06/06/22 Unknown Rx tablet,extended release 24 hr ticagrelor 90 mg tablet (Brilinta) 90 mg PO BID #180 tabs 03/27/22 06/06/22 Unknown Rx cyclobenzaprine 10 mg tablet 10 mg PO TID hip pain 2 weeks #42 06/05/22 06/06/22 Unknown Rx tabs Artery Strong See Rx Instructions .Route .COMPLEX 06/06/22 06/06/22 Unknown History Cardio For Life 1 cap PO DAILY 06/06/22 06/06/22 Unknown History Lactobacillus acidophilus and 1 cap PO DAILY 06/06/22 06/06/22 Unknown History rhamnosus 15 billion cell capsule (Probiotic) atorvastatin 40 mg tablet 40 mg PO BEDTIME 06/06/22 06/06/22 Unknown History cholecalciferol (vitamin D3) 25 25 mcg PO DAILY 06/06/22 06/06/22 Unknown History mcg (1,000 unit) capsule (Vitamin D3) losartan 50 mg tablet 50 mg PO DAILY 06/06/22 06/06/22 Unknown History meloxicam 7.5 mg tablet 7.5 mg PO DAILY 06/06/22 06/06/22 Unknown History milk thistle 150 mg capsule 150 mg PO BID 06/06/22 06/06/22 Unknown History vitamin K2 45 mcg capsule 45 mcg PO DAILY 06/06/22 06/06/22 Unknown History zinc acetate 50 mg (zinc) capsule 50 mg PO DAILY 06/06/22 06/06/22 Unknown History Allergies Allergy/AdvReac Type Severity Reaction Status Date / Time No Known Allergies Allergy Verified 06/06/22 09:22 Current Medications Generic Name Dose Route Start Last Admin Trade Name Freq PRN Reason Stop Dose Admin Al Hydrox/Mg Hydrox/Simethicone 30 ml 06/06/22 11:31 06/08/22 00:57 Kwqh-Izy-Mebbitrft-Day 30 Ml Udc PO 30 ml Q4H PRN Administration INDIGESTION Aspirin 81 mg 06/07/22 18:00 06/08/22 09:31 Aspirin 81 Mg Ec Tablet PO 81 mg DAILY JOSELYN Administration Atorvastatin Calcium 80 mg 06/06/22 21:00 06/07/22 21:17 Atorvastatin 40 Mg Tablet PO Not Given BEDTIME JOSELYN Benzonatate 100 mg 06/08/22 01:43 06/08/22 12:53 Benzonatate 100 Mg Capsule PO 100 mg TID PRN Administration COUGH Fentanyl 25 mcg 06/07/22 08:37 06/07/22 09:51 Fentanyl 50 Mcg/Ml Inj 2ml IVP 25 mcg Q5MIN PRN Administration PAIN Hydromorphone HCl 1 mg 06/06/22 06:16 06/07/22 03:21 Hydromorphone 1 Mg/Ml Inj 1 Ml IVP 1 mg Q4H PRN Administration pain Metoprolol Succinate 25 mg 06/08/22 09:00 06/08/22 09:31 Metoprolol Succinate Er (24 Hr) 25 Mg Tablet PO 25 mg DAILY JOSELYN Administration Midazolam HCl 1 mg 06/07/22 08:38 06/07/22 09:49 Midazolam 1 Mg/Ml Inj 2 Ml IVP 1 mg Q5MIN PRN Administration PAIN Ondansetron HCl 4 mg 06/06/22 06:16 06/08/22 17:32 Ondansetron 2 Mg/Ml Sdv 2 Ml IVP 4 mg Q8H PRN Administration vomiting, or N/V if npo Oxycodone HCl 15 mg 06/06/22 18:39 06/08/22 17:31 Oxycodone 5 Mg Ir Tab/Cap PO 15 mg Q4H PRN Administration MODERATE PAIN Pantoprazole Sodium 40 mg 06/06/22 09:00 06/08/22 09:[address] 40 Mg Tablet PO 40 mg DAILY JOSELYN Administration PFSH Acute PFSH: Medical History (Updated 06/08/22 @ 19:50 by Monty Cuevas DO) Acute bacterial sinusitis Acute systolic CHF (congestive heart failure), NYHA class 1 Atherosclerosis of coronary artery CHF (congestive heart failure) Dental infection Essential hypertension Fatigue Friedreichs ataxia Gastroesophageal reflux disease History of placement of stent in LAD coronary artery Impacted cerumen Mixed hyperlipidemia Otitis media Prostate cancer screening STEMI (ST elevation myocardial infarction) Vitamin D deficiency Surgical History S/P right coronary artery (RCA) stent placement Social History Smoking and tobacco status: never smoked Second hand smoke exposure: No Smoking risk assessment/counseling performed?: No Alcohol intake: never Desire information about alcohol rehabilitation?: No Counseling given: No Desire information about substance/drug rehabilitation?: No Counseling given: No Vitals/I&O/Wt Last Vital Signs Temp 99.5 F 06/08/22 15:37 Pulse 87 06/08/22 15:37 Resp 17 06/08/22 15:37 BP 134/77 06/08/22 15:37 Pulse Ox 93 06/08/22 15:37 O2 Del Method 06/08/22 15:37 06/08/22 06/08/22 06/08/22 06:59 14:59 22:59 Intake Total 950 / 1830 240 / 240 Output Total 500 / 1350 650 / 650 Balance 450 / 480 240 / 240 -650 / -410 Physical Exam Narrative: General : Patient is well developed , no acute distress, oriented x3 Head : Normal cephalic, a-traumatic. Ears : Pinnae and external canal are normal. Hearing is normal. Eyes : PERRLA, Sclera and injection are normal. No conjunctival discharge. Nose : Mucous membranes are without erythema. Throat : buccal mucosa is normal, gums are without significant recession or hypertrophy. Lungs : Equal chest rise bilaterally, no use of accessory muscles, trachea is midline. Cor : Rate and rhythm are normal. Abdomen : Soft, ND, NT, no g/r/m Urinary Catheter Management: Munson: Cath Placed During This Visit: yes, but has since been removed by the nurse Reason for Continuing Indwelling Catheter: Decision to DC Catheter Urinary Catheter Date of Insertion: 06/07/22 Urinary Catheter Time of Insertion: 11:45 Date Urinary Catheter Removed: 06/08/22 Time Urinary Catheter Discontinued: 14:30 Data 06/08/22 05:16 06/08/22 05:16 Micro: Microbiology 06/07/22 14:05 Blood Culture - Preliminary Blood NEGATIVE TO DATE 06/07/22 14:00 Blood Culture - Preliminary Blood NEGATIVE TO DATE 06/06/22 04:39 Blood Culture - Preliminary Blood Coag negative Staphylococcus A&P Assessment and plan (1) Retroperitoneal mass: Plan Mediport placement The risks and benefits of the procedure, including but not limited to, bleeding, infection, infection requiring Mediport removal antibiotic therapy and repeat surgery, damage to surrounding structures, scar, numbness, pain, pneumothorax requiring thoracostomy tube, were explained to the patient. He/She is understanding of the risks and wishes to proceed. N.p.o. after midnight Coding Level of Care Code Acute Roading Engineer for April Hinkle Diagnoses Retroperitoneal mass R19.00
[2022-06-09] VITALS (12 sets, daily range): BP systolic 103–179; BP diastolic 55–95; PULSE 80–102; RESP 14–17; TEMP 36.6–37.5; O2SAT 90–98
--- NOTE | 2022-06-09 07:09 | P.ANESASSM_ITS ---
Pre-Anesthetic Assessment Height/Weight: Height 1.73 m Weight 86.183 kg Temp Pulse Resp BP Pulse Ox O2 Del Method 98.2 F 95 14 128/69 94 06/09/22 04:00 06/09/22 04:00 06/09/22 04:00 06/09/22 04:00 06/09/22 04:00 06/09/22 04:00 Preop Diagnosis: retroperitoneal lymphoma Operation Date: 06/07/22 09:[address] Biopsy(Not Applicable) - Nithin Mora MD Operation Date: 06/09/22 08:20 Proposed Procedures p Mediport Placement(Not Applicable) - Monty Cuevas DO Familial anesthetic complications: None Was Beta Amira taken within 24 hours: Yes Was Clonidine taken within 24 hours: N/A Last intake: Intake Last Liquid Date 06/08/22 Last Liquid Time 23:59 Last Solid Date 06/08/22 Last Solid Time 18:00 Social No alcohol and No tobacco Exam alert, oriented x 3, clear to auscultation bilaterally and regular rate & rhythm Airway Mallampati: Class III Dentition: chipped and partials CV/HEM Coronary Artery Disease (Stent 2020), Congestive Heart Failure and Hypertension GI Gastroesophageal Reflux Disease Musc/skel Lymphoma Neuropsych Amandeep's Ataxia will avoid succinylcholine Anesthetic Plan ASA status: 4 Anesthesia: MAC Risk of > 500 ml blood loss (7ml/kg in children): No Medications/Allergies Home Medications Medication Instructions Recorded Confirmed Last Taken Type ascorbic acid (vitamin C) 1,000 mg 2,000 mg PO DAILY 05/09/21 06/06/22 Unknown History tablet (Vitamin C) aspirin 81 mg tablet,delayed 81 mg PO DAILY #90 tabs 05/10/21 06/06/22 Unknown Rx release diphenhydramine HCl 25 mg tablet 25 mg PO Q6H PRN Allergy Symptoms 06/12/21 06/06/22 Unknown History (Benadryl Allergy) omega-3 fatty acids 1,000 mg 1,000 mg PO DAILY 06/12/21 06/06/22 Unknown History capsule pantoprazole 40 mg tablet,delayed 40 mg PO DAILY #90 tabs 09/11/21 06/06/22 Unknown Rx release metoprolol succinate 25 mg 12.5 mg PO DAILY #30 tabs 02/21/22 06/06/22 Unknown Rx tablet,extended release 24 hr ticagrelor 90 mg tablet (Brilinta) 90 mg PO BID #180 tabs 03/27/22 06/06/22 Unknown Rx cyclobenzaprine 10 mg tablet 10 mg PO TID hip pain 2 weeks #42 06/05/22 06/06/22 Unknown Rx tabs Artery Strong See Rx Instructions .Route .COMPLEX 06/06/22 06/06/22 Unknown History Cardio For Life 1 cap PO DAILY 06/06/22 06/06/22 Unknown History Lactobacillus acidophilus and 1 cap PO DAILY 06/06/22 06/06/22 Unknown History rhamnosus 15 billion cell capsule (Probiotic) atorvastatin 40 mg tablet 40 mg PO BEDTIME 06/06/22 06/06/22 Unknown History cholecalciferol (vitamin D3) 25 25 mcg PO DAILY 06/06/22 06/06/22 Unknown History mcg (1,000 unit) capsule (Vitamin D3) losartan 50 mg tablet 50 mg PO DAILY 06/06/22 06/06/22 Unknown History meloxicam 7.5 mg tablet 7.5 mg PO DAILY 06/06/22 06/06/22 Unknown History milk thistle 150 mg capsule 150 mg PO BID 06/06/22 06/06/22 Unknown History vitamin K2 45 mcg capsule 45 mcg PO DAILY 06/06/22 06/06/22 Unknown History zinc acetate 50 mg (zinc) capsule 50 mg PO DAILY 06/06/22 06/06/22 Unknown Hi story Allergies Allergy/AdvReac Type Severity Reaction Status Date / Time No Known Allergies Allergy Verified 06/06/22 09:22 Current Medications Generic Name Dose Route Start Last Admin Trade Name Freq PRN Reason Stop Dose Admin Al Hydrox/Mg Hydrox/Simethicone 30 ml 06/06/22 11:31 06/08/22 00:57 Owlr-Lle-Blzdxwpkl-Day 30 Ml Udc PO 30 ml Q4H PRN Administration INDIGESTION Aspirin 81 mg 06/07/22 18:00 06/08/22 09:31 Aspirin 81 Mg Ec Tablet PO 81 mg DAILY JOSELYN Administration Atorvastatin Calcium 80 mg 06/06/22 21:00 06/08/22 20:32 Atorvastatin 40 Mg Tablet PO Not Given BEDTIME JOSELYN Benzonatate 100 mg 06/08/22 01:43 06/08/22 20:31 Benzonatate 100 Mg Capsule PO 100 mg TID PRN Administration COUGH Fentanyl 25 mcg 06/07/22 08:37 06/07/22 09:51 Fentanyl 50 Mcg/Ml Inj 2ml IVP 25 mcg Q5MIN PRN Administration PAIN Hydromorphone HCl 1 mg 06/06/22 06:16 06/07/22 03:21 Hydromorphone 1 Mg/Ml Inj 1 Ml IVP 1 mg Q4H PRN Administration pain Metoprolol Succinate 25 mg 06/08/22 09:00 06/08/22 09:31 Metoprolol Succinate Er (24 Hr) 25 Mg Tablet PO 25 mg DAILY JOSELYN Administration Midazolam HCl 1 mg 06/07/22 08:38 06/07/22 09:49 Midazolam 1 Mg/Ml Inj 2 Ml IVP 1 mg Q5MIN PRN Administration PAIN Ondansetron HCl 4 mg 06/06/22 06:16 06/08/22 17:32 Ondansetron 2 Mg/Ml Sdv 2 Ml IVP 4 mg Q8H PRN Administration vomiting, or N/V if npo Oxycodone HCl 15 mg 06/06/22 18:39 06/08/22 17:31 Oxycodone 5 Mg Ir Tab/Cap PO 15 mg Q4H PRN Administration MODERATE PAIN Pantoprazole Sodium 40 mg 06/06/22 09:00 06/08/22 09:[address] 40 Mg Tablet PO 40 mg DAILY JOSELYN Administration Senna/Docusate Sodium 1 tab 06/08/22 18:00 06/08/22 20:31 Sennosides-Docusate Tablet PO 1 tab BID JOSELYN Administration PFSH Anesthesia Medical History (Updated 06/08/22 @ 19:50 by Monty Cuevas DO) Acute bacterial sinusitis Acute systolic CHF (congestive heart failure), NYHA class 1 Atherosclerosis of coronary artery CHF (congestive heart failure) Dental infection Essential hypertension Fatigue Friedreichs ataxia Gastroesophageal reflux disease History of placement of stent in LAD coronary artery Impacted cerumen Mixed hyperlipidemia Otitis media Prostate cancer screening STEMI (ST elevation myocardial infarction) Vitamin D deficiency Surgical History S/P right coronary artery (RCA) stent placement Social History Smoking and tobacco status: never smoked Second hand smoke exposure: No Smoking risk assessment/counseling performed?: No Alcohol intake: never Desire information about alcohol rehabilitation?: No Counseling given: No Desire information about substance/drug rehabilitation?: No Counseling given: No Data Anesthesia 06/08/22 05:16 06/08/22 05:16 Short CBC 06/08/22 Range/Units 05:16 WBC 11.8 H (4.0-10.0) 10^3/uL Hgb 11.6 L (11.7-16.6) g/dL Hct 36.6 L (42.0-52.0) % MCV 92.7 (80-94) fl Plt Count 188 (130-400) 10^3/cmm Neut % (Auto) 80.9 % Neut # (Auto) 9.56 H (1.8-7.7) 10^3/uL BMP 06/08/22 05:16 Sodium 133 L Potassium 3.6 Chloride 99 Carbon Dioxide 23 BUN 18 Creatinine 1.0 Glucose 84 Calcium 8.4 L Coags 06/07/22 14:00 D-Dimer 0.58 Microbiology 06/07/22 14:05 Blood Culture - Preliminary Blood NEGATIVE TO DATE 06/07/22 14:00 Blood Culture - Preliminary Blood NEGATIVE TO DATE 06/06/22 04:39 Blood Culture - Preliminary Blood Coag negative Staphylococcus Cardiac Studies: Echocardiogram 06/08/22
--- NOTE | 2022-06-09 07:27 | W.PM.OPSUD ---
Surgery/Procedure H&P Update DATE OF PROCEDURE: June 09, 2022 DATE H&P PERFORMED: 06/08/22 PREOP DIAGNOSIS: retroperitoneal lymphoma PLANNED PROCEDURE: Operation Date: 06/09/22 08:20 Proposed Procedures p Mediport Placement(Not Applicable) - Monty Cuevas DO
--- NOTE | 2022-06-09 07:47 | SC_ITS ---
WS: [id number] C-ARM RADIOGRAPHS CHEST; 2 IMAGES HISTORY: PORT PLACEMENT COMPARISON: 06/09/2022 Intraoperative imaging during Port-A-Cath placement. Tip overlies the distal SVC. SC/C-arm FL for CVA [id number] IMPRESSION: Intraoperative imaging during Mediport placement.
[2022-06-09] MEDS: sodium chloride 0.9% 1,000 ML 30 ML IV (07:56)
[2022-06-09] MEDS: ceFAZolin 2,000 MG in sodium chloride 0.9% (plus) 50 ML 100 MG IV (08:02)
--- NOTE | 2022-06-09 08:44 | PM.OP ---
Operative Report Date of procedure: June 09, 2022 Pre-op diagnosis: Preop Diagnosis retroperitoneal lymphoma Post-op diagnosis: same Procedure done: Mediport insertion Implants: PowerPort Specimens removed/disposition: None Surgeon: Dr. Monty Cuevas DO Anesthesia: MAC Estimated blood loss (mL): 5 Complications: None apparent Brief History: This a very pleasant 66-year-old gentleman who was diagnosed with a retroperitoneal lymphoma. Chemotherapy is indicated and therefore patient requires Mediport placement. The risks and benefits of the procedure were explained and documented. Procedure: Patient was taken to the operating room and placed supine on the operating room table. All bony prominences were padded. She was given IV sedation and monitored throughout the case by the anesthesia personnel. SCDs were placed and turned on. The arms were tucked to the side. Patient received Ancef 2 g preoperatively IV. The bilateral chest wall was prepped and draped in usual sterile fashion using chlorhexidine base prep. Sterile drapes were applied. We did procedure pause prior to beginning. An 18 gauge needle was placed in the left subclavian vein. Dark, nonpulsatile blood was aspirated. A guidewire was placed through the needle centrally toward the atrial/vena caval junction. Fluoroscopy visualized good placement. The needle was removed and the guidewire was clipped to the drape with a hemostat. Further local anesthetic was infiltrated in the soft tissues of the left chest wall and a #15 blade was used to make a horizontal skin incision. A subcutaneous Mediport pocket was created using Bovie cautery, dissecting down through the skin and subcutaneous tissues. Meticulous hemostasis was achieved. The Mediport was sutured in position using 3-0 vicryl suture x2 stitches. A #15 blade was used to make a small skin virgilio around the guidewire insertion area. The Mediport tubing was tunneled through the subcutaneous tissues up to the needle insertion location. A dilator with a peel-away sheath was placed over the guidewire and placed centrally. After measuring with fluoroscopy, the Mediport tubing was cut to length so that the tip would end at the atrial/vena caval junction. The inner cannula and the guidewire were removed, leaving the dilator sheath in place. The Mediport was flushed. The tip of the catheter was inserted through the peel-away sheath and the peel-away sheath removed in the standard fashion. The Mediport was accessed with a straight Hampton needle and dark, nonpulsatile blood was aspirated and flushed using heparinized saline to hep-lock the Mediport. Final fluoroscopy visualization showed no kink in the catheter and the tip of the Mediport tubing near the atrial/vena caval junction. Both skin incisions were thoroughly irrigated and suctioned dry. Meticulous hemostasis noted. The Mediport incision was closed using interrupted 3-0 Vicryl suture for the deep dermal layer and 4-0 Vicryl run to close the skin edge. The left subclavian insertion site incision was closed with a single subcuticular stitch. Skin glue was applied as a topical dressing. This was allowed to dry. Patient was awakened from anesthesia and transferred via her cart to the recovery room in stable condition. All needle, sponge, and instrument counts were correct per the operating personnel x2 counts.
--- NOTE | 2022-06-09 08:51 | P.PCN_ITS ---
PACU note Narrative: VSS, Good respiratory effort, report to CAMPUS ADMINISTRATOR Exam: awake
--- NOTE | 2022-06-09 08:51 | PM.PACU ---
PACU note Narrative: VSS, Good respiratory effort, report to GRATING MACHINE OPERATOR Exam: awake
--- NOTE | 2022-06-09 08:57 | XRR_ITS ---
PROCEDURE INFORMATION: Exam: XR Chest Exam date and time: 06/09/2022 9:01 AM Age: 66 years old Clinical indication: Device placement; Other: Port; Prior surgery; Surgery date: Post-operative (0-2 days); Additional info: S/P mediport TECHNIQUE: Imaging protocol: Radiologic exam of the chest. Views: 1 view. COMPARISON: CT chest con [id number] 06/06/2022 3:32 AM FINDINGS: Tubes, catheters and devices: Left subclavian Port-A-Cath is seen with tip overlying the cavoatrial junction. Lungs: Normal lung volumes. No interstitial or airspace opacities. Pleural spaces: No pleural effusion. No pneumothorax. Heart/Mediastinum: Normal heart size. Normal mediastinal contour. Midline trachea. Bones/joints: No acute abnormalities. XR/XR chest 1V portable [id number] IMPRESSION: 1. Left subclavian Port-A-Cath with tip overlying the cavoatrial junction. No pneumothorax. 2. No infiltrates in the lungs.
[2022-06-09] MEDS: heparin, porcine 1,000 unit/mL INJ 10 mL 5000 UNIT INJECTION (09:19)
--- NOTE | 2022-06-09 09:23 | ANE.PACU2 ---
Inpatient post-anesthesia follow up: Airway intact: Yes Vital signs: Temperature 97.8 F Pulse Rate 82 Respiratory Rate 16 Blood Pressure 132/65 Pulse Oximetry 98 Oxygen Delivery Me thod Room Air Oxygen Flow Rate Fraction of Inspir ed Oxygen Hydration adequate: Yes Nausea and vomiting: No Pain level: 1 Mental status: Baseline
--- NOTE | 2022-06-09 09:56 | PC.NURSE ---
nurse was notified about high blood pressure
--- NOTE | 2022-06-09 10:00 | ANE.PACU2 ---
Inpatient post-anesthesia follow up: Airway intact: Yes Vital signs: Temperature 98.3 F Pulse Rate 96 Respiratory Rate 16 Blood Pressure 179/95 Pulse Oximetry 98 Oxygen Delivery Me thod Room Air Oxygen Flow Rate Fraction of Inspir ed Oxygen Hydration adequate: Yes Nausea and vomiting: No Pain level: 1 Mental status: Baseline
--- NOTE | 2022-06-09 10:01 | P.DS_ITS ---
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 Burgos was consulted who evaluated the patient at bedside, he recommended evaluation for left ventricular ejection fraction and placement of Mediport before his discharge. Dr. uCevas placed Mediport on 06/09. Patient has history of coronary disease he may resume his antiplatelet therapy on June 10, 2022. He will receive oxycodone along senna S and MiraLAX for his excruciating groin pain. He is constipated and needs aggressive bowel regimen. He will follow-up with Dr. Burgos outpatient. Echo showed preserved ejection fraction with diastolic dysfunction. Please note he was put on vancomycin 1 preliminary blood culture report was showing gram-positive cocci however it is contamination he never showed any signs of sepsis or fever. Antibiotics were discontinued. Physical Exam Narrative: Awake and alert Status post Mediport placement Lower extremity swelling is chronic Currently doing well on room air Hemodynamically stable Awake and alert Urinary Catheter Management: Munson: Cath Placed During This Visit: yes, but has since been removed by the nurse Reason for Continuing Indwelling Catheter: Decision to DC Catheter Urinary Catheter Date of Insertion: 06/07/22 Urinary Catheter Time of Insertion: 11:45 Date Urinary Catheter Removed: 06/08/22 Time Urinary Catheter Discontinued: 14:30 Discharge Data Studies Completed and Pending Completed Studies During Hospitalization Category Date Time Status CT abdomen pelvis w con* [id number] Stat Cat Scan 06/06/22 00:[address] angio abdomen pelvis [id number] Stat Cat Scan 06/06/22 01:[address] chest wo con [id number] Stat Cat Scan 06/06/22 03:[address] guided biopsy [id number] Routine Cat Scan 06/07/22 09:00 Completed CXRP [XR chest 1V portable [id number]] Stat Exams 06/09/22 08:57 [place] [id number] Routine Ultrasound 06/08/22 07:51 Completed CV. echo complete* [id number] Routine Ultrasound 06/08/22 14:16 Completed US testicular [US scrotum [id number]] Stat Ultrasound 06/06/22 00:02 Completed Pending at discharge Category Date Time Status C-arm Fluoroscopy [id number] Routine Exams 06/09/22 07:47 Taken Basic Metabolic Panel AM LABS Lab 06/09/22 04:00 Ordered Blood Culture Stat Lab 06/06/22 04:41 Results Blood Culture Stat Lab 06/07/22 14:05 Results Complete Blood Count w/Auto AM LABS Lab 06/09/22 04:00 Ordered Radiology Impressions Abdomen/Pelvis CT 06/06/22 00:02 IMPRESSION: 1. Large left retroperitoneal mass complete lumen with the left psoas muscle as described above. Although this mass could represent a large chronic hematoma or perhaps confluent lymphadenopathy, other possibilities including rhabdomyosarcoma of the left psoas muscle cannot be entirely excluded. 2. Diverticulosis of the descending and sigmoid colon 3. Normal appendix 4. No evidence for ureteral obstruction 5. Calcified granulomas within the liver and spleen COMMENTS: Consistent with the [employer]'s Incidental Findings Committee white paper (J Am Kathi Radiol 2018): Any incidental renal lesion less than 1 cm or classified as too small to characterize, or any incidental cystic renal lesion characterized as simple-appearing, is likely benign. No follow-up imaging is recommended for these lesions per consensus recommendations based on imaging criteria. ADDENDUM: 06/06/22 0142 CRITICAL RESULT: THIS REPORT CONTAINS FINDINGS THAT MAY BE CRITICAL TO PATIENT CARE. The findings were verbally communicated via telephone conference with MARY ANN Leonard at 1:41 AM TIME CHECKER on 06/06/2022. The findings were acknowledged and understood. Scrotum Ultrasound 06/06/22 00:02 IMPRESSION: 1. Normal testes and epididymi bilaterally. 2. There is a left varicocele present. 3. Bilateral hydroceles, right larger than left. Abdomen/Pelvis CTA 06/06/22 01:41 IMPRESSION: 1. Stable large left retroperitoneal mass 2. There is no evidence for arterial extravasation 3. The inferior mesenteric artery is surrounded by the soft tissue attenuation mass Chest CT 06/06/22 03:01 IMPRESSION: 1. There are no acute chest findings. There is no evidence for pulmonary metastatic disease. 2. Background of emphysema, mild bronchiectasis and pulmonary fibrosis. 3. Esophageal reflux. Biopsy CT 06/07/22 09:00 IMPRESSION: 1. Uncomplicated core biopsy of a retroperitoneal mass which is probably ly mphoma. 2. No complications were encountered. Chest X-Ray 06/09/22 08:57 IMPRESSION: 1. Left subclavian Port-A-Cath with tip overlying the cavoatrial junction. No pneumothorax. 2. No infiltrates in the lungs. Laboratory Results WBC 11.8 10^3/uL (4.0-10.0) H 06/08/22 05:16 RBC 3.95 10^6/uL (4.1-5.3) L 06/08/22 05:16 Hgb 11.6 g/dL (11.7-16.6) L 06/08/22 05:16 Hct 36.6 % (42.0-52.0) L 06/08/22 05:16 MCV 92.7 fl (80-94) 06/08/22 05:16 MCH 29.4 pg (28.0-34.0) 06/08/22 05:16 MCHC 31.7 g/dL (30.0-36.0) 06/08/22 05:16 RDW 13.3 % (12.1-15.1) 06/08/22 05:16 Plt Count 188 10^3/cmm (130-400) 06/08/22 05:16 MPV 9.5 fL (7.4-10.4) 06/08/22 05:16 Neut % (Auto) 80.9 % 06/08/22 05:16 Lymph % (Auto) 10.1 % 06/08/22 05:16 [place] % (Auto) 6.3 % 06/08/22 05:16 Eos % (Auto) 2.0 % 06/08/22 05:16 Baso % (Auto) 0.3 % 06/08/22 05:16 Neut # (Auto) 9.56 10^3/uL (1.8-7.7) H 06/08/22 05:16 Lymph # (Auto) 1.2 10^3/uL (0.8-4.8) 06/08/22 05:16 [place] # (Auto) 0.8 10^3/uL (0.2-0.9) 06/08/22 05:16 Eos # (Auto) 0.2 10^3/uL (0.0-0.8) 06/08/22 05:16 Baso # (Auto) 0.0 10^3/uL (0.0-0.1) 06/08/22 05:16 Nucleated RBC % (auto) 0 % 06/08/22 05:16 Nucleated RBCs # 0.0 /100WBC 06/08/22 05:16 ESR 4 mm/hr (0-10) 06/06/22 03:50 Haptoglobin 187.0 mg/L (30-200) 06/06/22 03:50 PT 13.40 SECONDS (12.1-14.9) 06/06/22 03:50 INR 0.99 (0.8-1.2) 06/06/22 03:50 D-Dimer 0.58 ug/mIFEU (0-0.59) 06/07/22 14:00 Sodium 133 mmol/L (136-145) L 06/08/22 05:16 Potassium 3.6 mmol/L (3.5-5.1) 06/08/22 05:16 Chloride 99 mmol/L (98-107) 06/08/22 05:16 Carbon Dioxide 23 mmol/L (22-29) 06/08/22 05:16 Anion Gap 14.6 (5-19) 06/08/22 05:16 BUN 18 mg/dL (8-23) 06/08/22 05:16 Creatinine 1.0 mg/dL (0.7-1.2) 06/08/22 05:16 GFR Calculation 74.3 mL/min (90-130) L 06/08/22 05:16 Glucose 84 mg/dL (65-115) 06/08/22 05:16 Calculated Osmolality 277 mOsm/kg (285-295) L 06/08/22 05:16 Lactate 1.5 mmol/L (0.5-2.2) 06/06/22 03:50 Calcium 8.4 mg/dL (8.5-10.5) L 06/08/22 05:16 Total Bilirubin 0.8 mg/dL (0.15-1.2) 06/06/22 00:15 AST 15 U/L (0-40) 06/06/22 00:15 ALT 12 U/L (0-41) 06/06/22 00:15 Alkaline Phosphatase 87 U/L (40-130) 06/06/22 00:15 Lactate Dehydrogenase 511 U/L (135-225) H 06/06/22 03:50 Creatine Kinase 39 U/L (39-308) 06/06/22 03:50 Troponin T Baseline 26 ng/L (0-15) H 06/06/22 00:15 Troponin T 120 Minute 25.79 ng/L (0-15) H 06/06/22 03:30 Delta Troponin T -0.21 ABS# (0-10) L 06/06/22 03:30 Troponin T Hi Sens 6Hr 26.23 ng/L (0-15) H 06/06/22 06:11 Troponin T Hi Sens 6Hr Delta 0.23 ng/L (0-12) 06/06/22 06:11 C-Reactive Protein 44.9 mg/L (0.0-4.9) H 06/06/22 03:50 Total Protein 6.6 g/dL (6.6-8.7) 06/06/22 00:15 Albumin 3.9 g/dL (3.5-5.2) 06/06/22 00:15 Globulin 2.7 g/dL (1.3-4.6) 06/06/22 00:15 Lipase 40 U/L (13-60) 06/06/22 00:15 Procalcitonin 0.08 ng/mL (0-0.5) 06/06/22 03:50 TSH 7.25 uIU/mL (0.27-4.20) H 06/06/22 06:11 Free T4 1.57 ng/dL (0.82-1.77) 06/07/22 14:00 Urine Color Yellow (Yellow) 06/06/22 01:28 Urine Appearance Clear (CLEAR) 06/06/22 01:28 Urine pH 5 (5-7) 06/06/22 01:28 Ur Specific [place] 1.025 (1.005-1.030) 06/06/22 01:28 Urine Protein Neg (Negative) 06/06/22 01:28 Urine Glucose (UA) Norm (Normal) 06/06/22 01:28 Urine Ketones Negative (Negative) 06/06/22 01:28 Urine Blood Neg (Negative) 06/06/22 01:28 Urine Nitrate Negative (Negative) 06/06/22 01:28 Urine Bilirubin 1+ (Negative) H 06/06/22 01:28 Urine Urobilinogen Norm mg/dL (Negative) 06/06/22 01:28 Ur Leukocyte Esterase Negative (Negative) 06/06/22 01:28 Lymphoma Panel See report 06/07/22 10:00 Vitals Last Vital Signs Temp 98.3 F 06/09/22 09:28 Pulse 96 06/09/22 09:56 Resp 16 06/09/22 09:56 BP 179/95 06/09/22 09:56 Pulse Ox 98 06/09/22 09:56 O2 Del Method 06/09/22 09:56 Discharge Plan Discharge Patient Disposition: Home Condition: Stable Prescriptions: New oxycodone-acetaminophen 5-325 mg tablet 1 tab PO Q8H PRN (Reason: pain) Qty: 30 0RF sennosides-docusate sodium [Senna-S] 8.6-50 mg tablet 2 tab-cap PO BID Qty: 90 0RF polyethylene glycol 3350 [HealthyLax] 17 gram powder in packet 17 g PO DAILY Qty: 100 0RF Continued diphenhydramine HCl [Benadryl Allergy] 25 mg tablet 25 mg PO Q6H PRN (Reason: Allergy Symptoms) omega-3 fatty acids 1,000 mg capsule 1,000 mg PO DAILY cyclobenzaprine 10 mg tablet 10 mg PO TID 14 Days Qty: 42 0RF pantoprazole 40 mg tablet,delayed release (DR/EC) 40 mg PO DAILY Qty: 90 3RF metoprolol succinate 25 mg tablet extended release 24 hr 12.5 mg PO DAILY Qty: 30 4RF Brilinta 90 mg tablet 90 mg PO BID Qty: 180 3RF ascorbic acid (vitamin C) [Vitamin C] 1,000 mg Tablet 2,000 mg PO DAILY aspirin 81 mg Tablet,Delayed Release (Dr/Ec) 81 mg PO DAILY Qty: 90 3RF losartan 50 mg tablet 50 mg PO DAILY atorvastatin 40 mg tablet 40 mg PO BEDTIME zinc acetate 50 mg (zinc) Capsule 50 mg PO DAILY milk thistle 150 mg Capsule 150 mg PO BID Rx Instructions: give with meal/snack Probiotic 15 billion cell Capsule 1 cap PO DAILY Artery Strong See Rx Instructions .ROUTE .COMPLEX Rx Instructions: DIRECTED Vitamin D3 25 mcg (1,000 unit) Capsule 25 mcg PO DAILY Cardio For Life 1 cap PO DAILY vitamin K2 45 mcg Capsule 45 mcg PO DAILY Discontinued meloxicam 7.5 mg tablet 7.5 mg PO DAILY Discharge Orders: Discharge Order (Routine); Ordered 06/09/22 Ordered By: Georgie Moody Referrals: Aubrey Benoit MD [Primary Care Provider] - 06/15/22 10:15 am Phil Burgos MD [Hospitalist] - 1 week Discharge Diet: Cardiac Discharge Activity: Limit activity as instructed Patient Instructions: Opioid Safety Discharge Attestations Time Spent in Discharge Care*: less than 30 min Quality Metrics Clinical Quality Measures [ No reported AMI, CVA or VTE this stay] Coding Level of Care Code Acute Chg [facility] note Diagnoses Retroperitoneal mass R19.00
--- NOTE | 2022-06-09 10:54 | PC.SOCIAL ---
IMM update IMM updated with patient and family. Copy PG 2 provided. Verbalized an understanding. Initialled, dated, timed, and placed in chart.
--- NOTE | 2022-06-09 12:20 | PM.CONSULT ---
Providers/Reason For Consult Consulting Physician/Specialty*: Medical oncology Reason for Consult*: B-cell lymphoma Requesting Physician: Georgie Moody MD Attending Physician: Georgie Moody MD Primary Care Provider: Aubrey Benoit MD History of Present Illness History of Present Illness This is a 66 year-old man with newly diagnosed B-cell lymphoma. This patient has a history of Friedreich's ataxia. He also has known coronary artery disease with a history of coronary angioplasty/stent placement in May 2021. At that time he was noted to have moderately decreased left ventricular systolic function with ejection fraction estimated at 45%. On 06/06/2022 he was admitted to the hospital after presenting to the emergency room with a 2 to 3-month history of increasing pain in the left groin area radiating to the back and into the left leg. His CT of the abdomen/pelvis showed a large left retroperitoneal soft tissue attenuation mass which was noted to displace the left kidney anteriorly and laterally stretching the left renal artery and vein over the superior surface. The mass was noted to surround the abdominal aorta and was noted to abut the confluence of the left common iliac vein with the inferior vena cava. It was noted to be confluent with and possibly arising from the left psoas muscle. It measured 12.0 x 10.4 x [address] angiogram showed no evidence for arterial extravasation. Chest CT showed no lymphadenopathy or other acute findings. He then underwent CT directed biopsy of the mass on 06/07/2022. The preliminary indication on the pathology is that it is a B-cell lymphoma. During this time he has had a decline in performance status, and his activity now is very limited. His ECOG score is 3. His appetite is still okay, and he has not experienced any weight loss. Recently he has had low-grade fever. He has not had any night sweating. He has had some difficulty swallowing, that has been going on for years. He does have some cough, and he occasionally has shortness of breath. He has not been having any chest pain. He does have acid reflux and he has developed constipation during the hospitalization. He also has had some difficulty voiding. He has no other joint or bone pain. He does not complain of headache. He is having some numbness/tingling in his left leg. Review of Systems Narrative: Constitutional: He has fatigue and he has limited activity. Appetite is okay. His weight is stable. He recently has had low-grade fever, but he has not had any night sweating. ECOG score is 3. Eyes:?He has noted some decline in vision. ENMT: He has hearing loss. No sinus congestion/drainage. No mouth sores. No sore throat. He has had some difficulty swallowing. Hematologic/Lymphatic: No abnormal bruising or bleeding. Respiratory: Has occasional shortness of breath and has had some cough. No pleuritic pain or hemoptysis. Cardiovascular: No angina pain. No palpitations. Gastrointestinal: No nausea or vomiting. He has acid reflux. He recently developed constipation. No blood in the stool or black stools. Genitourinary: No dysuria or hematuria. Recently he has had some difficulty voiding. No urgency or incontinence. Musculoskeletal: He has pain in the left groin area radiating to the back and to the left leg. He has no other joint or bone pain. Integumentary: No skin rash or other skin changes. Neurologic: No headache. He has had some dizziness. He has numbness/tingling in the left leg. No other focal neurologic symptoms. Psych:?No anxiety or depression. He is having difficulty sleeping. Medications/Allergies Home Medications Medication Instructions Recorded Confirmed Last Taken Type ascorbic acid (vitamin C) 1,000 mg 2,000 mg PO DAILY 05/09/21 06/06/22 Unknown History tablet (Vitamin C) aspirin 81 mg tablet,delayed 81 mg PO DAILY #90 tabs 05/10/21 06/06/22 Unknown Rx release diphenhydramine HCl 25 mg tablet 25 mg PO Q6H PRN Allergy Symptoms 06/12/21 06/06/22 Unknown History (Benadryl Allergy) omega-3 fatty acids 1,000 mg 1,000 mg PO DAILY 06/12/21 06/06/22 Unknown History capsule pantoprazole 40 mg tablet,delayed 40 mg PO DAILY #90 tabs 09/11/21 06/06/22 Unknown Rx release metoprolol succinate 25 mg 12.5 mg PO DAILY #30 tabs 02/21/22 06/06/22 Unknown Rx tablet,extended release 24 hr ticagrelor 90 mg tablet (Brilinta) 90 mg PO BID #180 tabs 03/27/22 06/06/22 Unknown Rx cyclobenzaprine 10 mg tablet 10 mg PO TID hip pain 2 weeks #42 06/05/22 06/06/22 Unknown Rx tabs Artery Strong See Rx Instructions .Route .COMPLEX 06/06/22 06/06/22 Unknown History Cardio For Life 1 cap PO DAILY 06/06/22 06/06/22 Unknown History Lactobacillus acidophilus and 1 cap PO DAILY 06/06/22 06/06/22 Unknown History rhamnosus 15 billion cell capsule (Probiotic) atorvastatin 40 mg tablet 40 mg PO BEDTIME 06/06/22 06/06/22 Unknown History cholecalciferol (vitamin D3) 25 25 mcg PO DAILY 06/06/22 06/06/22 Unknown History mcg (1,000 unit) capsule (Vitamin D3) losartan 50 mg tablet 50 mg PO DAILY 06/06/22 06/06/22 Unknown History milk thistle 150 mg capsule 150 mg PO BID 06/06/22 06/06/22 Unknown History vitamin K2 45 mcg capsule 45 mcg PO DAILY 06/06/22 06/06/22 Unknown History zinc acetate 50 mg (zinc) capsule 50 mg PO DAILY 06/06/22 06/06/22 Unknown History oxycodone-acetaminophen 5 mg-325 1 tab PO Q8H PRN pain #30 tabs 06/09/22 Unknown Rx mg tablet polyethylene glycol 3350 17 gram 17 g PO DAILY #100 ea 06/09/22 Unknown Rx oral powder packet (HealthyLax) sennosides 8.6 mg-docusate sodium 2 tab-cap PO BID #90 tabs 06/09/22 Unknown Rx 50 mg tablet (Senna-S) sulfamethoxazole 800 1 tab PO BID 3 days #6 tabs 06/09/22 Unknown Rx mg-trimethoprim 160 mg tablet (Bactrim DS) Allergies Allergy/AdvReac Type Severity Reaction Status Date / Time No Known Allergies Allergy Verified 06/06/22 09:22 PFSH Acute PFSH: Medical History (Updated 06/09/22 @ 12:53 by Phil Burgos MD) Acute bacterial sinusitis Acute systolic CHF (congestive heart failure), NYHA class 1 Atherosclerosis of coronary artery CHF (congestive heart failure) Dental infection Essential hypertension Fatigue Friedreichs ataxia Gastroesophageal reflux disease History of placement of stent in LAD coronary artery Impacted cerumen Mixed hyperlipidemia Otitis media Prostate cancer screening STEMI (ST elevation myocardial infarction) Vitamin D deficiency Surgical History S/P right coronary artery (RCA) stent placement Social History Smoking and tobacco status: never smoked Second hand smoke exposure: No Smoking risk assessment/counseling performed?: No Alcohol intake: never Desire information about alcohol rehabilitation?: No Counseling given: No Desire information about substance/drug rehabilitation?: No Counseling given: No Other PFSH information: Supplemental PFSH Information: He previously smoked 1 1/2 packs of cigarettes daily. He also had significant alcohol use, up to 12 pack of beer daily. He quit both at least 15 years ago. Vitals/I&O/Wt Last Vital Signs Temp 98.3 F 06/09/22 09:28 Pulse 96 06/09/22 11:02 Resp 16 06/09/22 11:02 BP 179/95 06/09/22 11:02 Pulse Ox 98 06/09/22 11:02 O2 Del Method 06/09/22 09:56 06/08/22 06/09/22 06/09/22 22:59 06:59 14:59 Intake Total 240 / 480 50 / 50 Output Total 650 / 650 225 / 875 5 / 5 Balance -410 / -170 -225 / -395 45 / 45 Physical Exam Narrative: Constitutional: He has in significant discomfort, but he otherwise looks pretty good generally. Eyes: Sclerae nonicteric. Conjunctivae clear. ENMT: No lesions noted in the oral cavity. Neck: Neck shows no mass or thyromegaly. Hematologic/Lymphatic: No cervical, clavicular, or axillary adenopathy. Respiratory: Lungs sound clear. Cardiovascular: Heart rhythm is regular. There is no murmur, gallop, or rub noted. Abdomen: Soft. Liver and spleen are not enlarged. There is no abdominal mass or ascites noted and there is no inguinal adenopathy noted. Extremities: There is mild swelling of the left leg. He has good dorsalis pedis pulse on the left, but I am not able to palpate any pulses in the right foot. Integumentary: No rashes. No suspicious skin lesions noted. Neurologic: No focal neurologic deficits noted. Urinary Catheter Management: Munson: Cath Placed During This Visit: yes, but has since been removed by the nurse Reason for Continuing Indwelling Catheter: Decision to DC Catheter Urinary Catheter Date of Insertion: 06/07/22 Urinary Catheter Time of Insertion: 11:45 Date Urinary Catheter Removed: 06/08/22 Time Urinary Catheter Discontinued: 14:30 Data 06/08/22 05:16 06/08/22 05:16 Micro: Microbiology 06/07/22 14:05 Blood Culture - Preliminary Blood NEGATIVE TO DATE 06/07/22 14:00 Blood Culture - Preliminary Blood NEGATIVE TO DATE 06/06/22 04:39 Blood Culture - Preliminary Blood Coag negative Staphylococcus A&P Assessment and plan (1) B-cell lymphoma of intra-abdominal lymph nodes: Patient with newly diagnosed B-cell lymphoma presenting as large left retroperitoneal mass. Thus far we have only preliminary pathology, based on the flow cytometry which does confirm a monotypic B-cell population. Based on discussion with the pathologist, this is likely a diffuse large B-cell lymphoma, and that would be consistent with the presentation and with the elevated LDH level. Patient will need to complete staging with PET/CT, scheduling of which may be problematic, as it is not available here on an inpatient basis. He will need a repeat echocardiogram to assess his LV function, and he will need to undergo placement of Port-A-Cath venous access device for chemotherapy. I am anticipating that he will then begin treatment with either R-CHOP or R-CEOP chemotherapy, depending on the final pathology and the LV function. Coding Level of Care Code Acute [employer] Researcher for April Hinkle Diagnoses B-cell lymphoma of intra-abdominal lymph nodes C85.13
[2022-06-25 10:32] LABS: High Grade Lymphoma (FISH)BBPL See Report
== END 2022-06-09 11:03 | disposition home or self-care (01) | DRG 824 ==
LOC: ER 06-06 04:01 → CSU 06-06 06:23 → MEDSURG 06-06 11:12
PROVIDERS: Radiology Diagnostic Radiology; Surgery; Admitting Provider Family Medicine; Emergency Provider Emergency Medicine; PCP Family Medicine; Visit Provider Internal Medicine
PROC: 0WBH3ZX Excision of Retroperitoneum, Percutaneous Approach, Diagnostic (ICD-10-PCS; principal; 2022-06-07 09:00)
PROC: 0JH60WZ Insertion of Totally Implantable Vascular Access Device into Chest Subcutaneous Tissue and Fascia, Open Approach (ICD-10-PCS; principal; 2022-06-09 08:00)
DX: C83.33 Diffuse large B-cell lymphoma, intra-abdominal lymph nodes (principal); G11.11 Friedreich ataxia; I50.22 Chronic systolic (congestive) heart failure; I25.10 Atherosclerotic heart disease of native coronary artery without angina pectoris; Z95.5 Presence of coronary angioplasty implant and graft; I11.0 Hypertensive heart disease with heart failure; K21.9 Gastro-esophageal reflux disease without esophagitis; E78.2 Mixed hyperlipidemia; I25.2 Old myocardial infarction; Z87.891 Personal history of nicotine dependence; F10.91 Alcohol use, unspecified, in remission; Z79.02 Long term (current) use of antithrombotics/antiplatelets; Z79.82 Long term (current) use of aspirin
CPT/HCPCS: 36415; 49180; 51702; 71045; 71250; 74174; 74177; 76000; 76870; 77001; 77012; 80048; 80053; 81003; 82550; 83010; 83605; 83615; 83690; 84145; 84439; 84443; 84484; 85025; 85378; 85610; 85651; 86140; 87040; 87077; 87205; 88184; 88185; 88309; 88342; 88374; 93005; 93306; 93970; 96365; 96374; 96375; 96376; 99152; 99153; 99203; 99285; C1788; J0690; J1170; J1644; J2250; J2270; J2405; J2704; J3010; J3370; J7030; Q9967

== ENCOUNTER 2022-07-05 21:22 | Inpatient (IN) | payer MEDICARE, OTHER, SELFPAY ==
--- NOTE | 2022-07-05 21:28 | XRR_ITS ---
PROCEDURE INFORMATION: Exam: XR Chest Exam date and time: 07/05/2022 9:42 PM Age: 66 years old Clinical indication: Fever; Prior surgery; Surgery type: Stent, port; Additional info: Fever 102.1, HX of heart attack, PT does have b-cell non hodgkin lymphoma, stage 2, PT did have a CT in May 2022 TECHNIQUE: Imaging protocol: Radiologic exam of the chest. Views: 1 view. COMPARISON: CR (CHEST, ) 06/09/2022 9:01 AM FINDINGS: Tubes, catheters and devices: Stable left subclavian [id number] with tip over the distal SVC. Lungs: Stable mild interstitial prominence in the lung bases. No consolidation. Pleural spaces: Unremarkable. No pleural effusion. No pneumothorax. Heart/Mediastinum: Unremarkable. No cardiomegaly. Bones/joints: Unremarkable. XR/XR chest 1V portable [id number] IMPRESSION: No acute findings.
[2022-07-05 21:29] VITALS: BP 134/66; PULSE 123; RESP 16; TEMP 38.2; O2SAT 95; BMI 28.1
--- NOTE | 2022-07-05 22:02 | ED_ITS ---
HPI - Fever General: Chief Complaint: Fever Stated Complaint: fever, cancer pt Time Seen by Provider: 07/05/22 21:54 Source: patient Mode of arrival: ambulatory Limitations: no limitations History of Present Illness: Associated symptoms: Reports chills Review of Systems Const: Reports: fever(s), chills, body aches and malaise PFS ED PFSH: Medical History (Updated 06/19/22 @ 18:06 by Phil Burgos MD) Atherosclerosis of coronary artery CHF (congestive heart failure) Essential hypertension Friedreichs ataxia Gastroesophageal reflux disease Mixed hyperlipidemia Sacroiliitis STEMI (ST elevation myocardial infarction) (04/2021) Vitamin D deficiency Surgical History Port-A-Cath in place (06/09/22) Port-A-Cath placement S/P right coronary artery (RCA) stent placement (05/09/21) Social History Smoking and tobacco status: never smoked Second hand smoke exposure: No Smoking risk assessment/counseling performed?: No Alcohol intake: never Desire information about alcohol rehabilitation?: No Counseling given: No Desire information about substance/drug rehabilitation?: No Counseling given: No Physical Exam Const: COMMON NORMALS: patient oriented x3 HENMT: COMMON NORMALS: normocephalic and atraumatic HEAD & SCALP: normocephalic and atraumatic Eye: COMMON NORMALS: Equal, round and reactive pupils present and EOMs intact bilaterally PUPIL: Yes Equal, round and reactive pupils present Neck/C-Spine: COMMON NORMALS: full ROM and supple Chest: COMMONS NORMALS: normal inspection of the chest and normal palpation of entire chest wall Resp: COMMON NORMALS: normal respiratory effort, No retractions, No use of ac cessory muscles and clear to auscultation bilaterally AUSCULTATION: clear to auscultation bilaterally Cardio: COMMON NORMALS: regular rate, regular rhythm and No murmurs present (Cardio) RATE: regular rate RHYTHM: regular rhythm GI: COMMON NORMALS: Normal to inspection, nondistended, normoactive bowel sounds present, Soft to palpation, non-tender and no masses PALPATION: Yes Soft to palpation Extremity: COMMON NORMALS: normal to inspection and full ROM Neuro: COMMON NORMALS: patient oriented x3, moves all extremities and no focal motor deficits Psych: COMMON NORMALS: mental status grossly normal, Normal thought process present and cooperative THOUGHT PROCESS: Normal thought process present Skin: COMMON NORMALS: no rashes or lesions noted and no wounds GENERAL SKIN EXAM: no rashes or lesions noted Course Vital Signs: Vital signs: Vital Signs Temperature 100.8 F H 07/05/22 21:29 Pulse Rate 123 H 07/05/22 21:29 Respiratory Rate 16 07/05/22 21:29 Blood Pressure 134/66 07/05/22 21:29 Pulse Oximetry 95 07/05/22 21:29 Oxygen Delivery Me thod 07/05/22 21:29 MDM - Fever Lab Data 07/05/22 21:43 07/05/22 21:43 Discharge Plan Discharge Condition: Stable Prescriptions: No Action diphenhydramine HCl [Benadryl Allergy] 25 mg tablet 25 mg PO Q6H PRN (Reason: Allergy Symptoms) omega-3 fatty acids 1,000 mg capsule 1,000 mg PO DAILY cyclobenzaprine 10 mg tablet 10 mg PO TID 14 Days Qty: 42 0RF HealthyLax 17 gram powder in packet 17 g PO DAILY PRN pantoprazole 40 mg tablet,delayed release (DR/EC) 40 mg PO DAILY Qty: 90 3RF metoprolol succinate 25 mg tablet extended release 24 hr 12.5 mg PO DAILY Qty: 30 4RF Brilinta 90 mg tablet 90 mg PO BID Qty: 180 3RF allopurinol 300 mg tablet 300 mg PO DAILY Qty: 30 0RF valacyclovir [Valtrex] 500 mg tablet 500 mg PO BID Qty: 60 5RF fluconazole 100 mg tablet 100 mg PO DAILY Qty: 90 2RF olanzapine 5 mg tablet 5 mg PO DAILY Qty: 30 3RF sulfamethoxazole-trimethoprim 800-160 mg tablet 1 tab PO .QOD Qty: 24 5RF Rx Instructions: Every other day prochlorperazine maleate [Compazine] 10 mg tablet 10 mg PO Q6H PRN (Reason: nausea and vomiting) Qty: 30 3RF prednisone 50 mg tablet 100 mg PO DAILY Qty: 20 6RF Rx Instructions: take days 1-5 with treatment ascorbic acid (vitamin C) [Vitamin C] 1,000 mg Tablet 2,000 mg PO DAILY aspirin 81 mg Tablet,Delayed Release (Dr/Ec) 81 mg PO DAILY Qty: 90 3RF losartan 50 mg tablet 50 mg PO DAILY zinc acetate 50 mg (zinc) Capsule 50 mg PO DAILY Probiotic 15 billion cell Capsule 1 cap PO DAILY Artery Strong See Rx Instructions .ROUTE .COMPLEX Rx Instructions: DIRECTED Vitamin D3 25 mcg (1,000 unit) Capsule 25 mcg PO DAILY Cardio For Life 1 cap PO DAILY vitamin K2 45 mcg Capsule 45 mcg PO DAILY oxycodone-acetaminophen 5-325 mg tablet 1 tab PO Q8H PRN (Reason: pain) Qty: 30 0RF milk thistle 150 mg capsule 150 mg PO DAILY Rx Instructions: give with meal/snack Referrals: Aubrey Benoit MD [Primary Care Provider] - Coding Level of Care Code ED Drag Seiner for April Hinkle
[2022-07-05 22:11] LABS: Alanine Aminotransferase 13 U/L (0-41); Albumin Level 3.5 g/dL (3.5-5.2); Alkaline Phosphatase 80 U/L (40-130); Anion Gap 15.7 (5-19); Aspartate Amino Transferase 12 U/L (0-40); Blood Urea Nitrogen 17 mg/dL (8-23); Calcium 8.2 mg/dL (8.5-10.5); Carbon Dioxide 22 mmol/L (22-29); Chloride 103 mmol/L (98-107); Globulin 2.3 g/dL (1.3-4.6); Glomerular Filtration Rate 60.2 mL/min (90-130); Glucose 156 mg/dL (65-115); Osmolality Calculated 289 mOsm/kg (285-295); Potassium 3.7 mmol/L (3.5-5.1); Sodium 137 mmol/L (136-145); Total Bilirubin 0.4 mg/dL (0.15-1.2); Total Protein 5.8 g/dL (6.6-8.7)
[2022-07-05 22:12] LABS: Lactate (Lactic Acid level) 1.8 mmol/L (0.5-2.2)
[2022-07-05 22:21] LABS: Eosinophils % 7.1 %; Hematocrit 28.6 % (42.0-52.0); Hemoglobin 9.1 g/dL (11.7-16.6); Lymphocytes # 0.1 10^3/uL (0.8-4.8); Lymphocytes % 78.6 %; Mean Corpuscular HGB Conc 31.8 g/dL (30.0-36.0); Mean Corpuscular Hemoglobin 28.1 pg (28.0-34.0); Mean Corpuscular Volume 88.3 fl (80-94); Mean Platelet Volume 10.2 fL (7.4-10.4); Monocytes % 7.1 %; Nucleated Red Blood Cells % 0 %; Platelet Count 97 10^3/cmm (130-400); Red Blood Count 3.24 10^6/uL (4.1-5.3); Red Cell Distribution Width 13.1 % (12.1-15.1)
[2022-07-05 22:46] LABS: White Blood Count 0.1 10^3/uL (4.0-10.0)
[2022-07-05 22:53] LABS: SARS Covid-2 Antigen negative (Negative)
[2022-07-05 23:01] LABS: Add Urine Microscopic? NO; Charge for UA Resulting for Rev
--- NOTE | 2022-07-05 23:02 | W.ED.FEVER ---
HPI - Fever General: Chief Complaint: Fever Stated Complaint: fever, cancer pt Time Seen by Provider: 07/05/22 21:54 Source: patient Mode of arrival: ambulatory Limitations: no limitations History of Present Illness: 66-year-old male has a history of B-cell lymphoma he recently was admitted [facility] and had a 12-day treatment he was released yesterday the day before he states that today has been having fever along with some generalized weakness he is unsure what his neutrophil count was. Denies any vomiting diarrhea or pain anywhere. Associated symptoms: Deny abdominal pain, chest pain, diarrhea, dysuria, headache(s), nausea or vomiting Review of Systems Const: Reports: fever(s) Eyes: Denies: blurry vision or eye discomfort ENMT: Denies: throat pain or dental pain Card: Denies: chest pain Resp: Denies: dyspnea GI: Denies: abdominal pain, nausea, vomiting or diarrhea : Denies: dysuria Musc: Denies: neck pain or back pain Skin/Breast: Denies: rash Neuro: Denies: headache(s) Psych: Denies: depression Adán/Lymph: Denies: easy bruising All/Imm: Denies: urticaria PFSH ED PFSH: Medical History Atherosclerosis of coronary artery CHF (congestive heart failure) Essential hypertension Friedreichs ataxia Gastroesophageal reflux disease Mixed hyperlipidemia Sacroiliitis STEMI (ST elevation myocardial infarction) (04/2021) Vitamin D deficiency Surgical History Port-A-Cath in place (06/09/22) Port-A-Cath placement S/P right coronary artery (RCA) stent placement (05/09/21) Social History Smoking and tobacco status: never smoked Second hand smoke exposure: No Smoking risk assessment/counseling performed?: No Alcohol intake: never Desire information about alcohol rehabilitation?: No Counseling given: No Desire information about substance/drug rehabilitation?: No Counseling given: No Physical Exam Const: COMMON NORMALS: patient oriented x3 HENMT: COMMON NORMALS: normocephalic and atraumatic HEAD & SCALP: normocephalic and atraumatic Eye: COMMON NORMALS: Equal, round and reactive pupils present and EOMs intact bilaterally PUPIL: Yes Equal, round and reactive pupils present Neck/C-Spine: COMMON NORMALS: full ROM and supple Chest: COMMONS NORMALS: normal inspection of the chest and normal palpation of entire chest wall Resp: COMMON NORMALS: normal respiratory effort, No retractions, No use of accessory muscles and clear to auscultation bilaterally AUSCULTATION: clear to auscultation bilaterally Cardio: COMMON NORMALS: regular rate, regular rhythm and No murmurs present (Cardio) RATE: regular rate RHYTHM: regular rhythm GI: COMMON NORMALS: Normal to inspection, nondistended, normoactive bowel sounds present, Soft to palpation, non-tender and no masses PALPATION: Yes Soft to palpation Extremity: COMMON NORMALS: normal to inspection and full ROM Neuro: COMMON NORMALS: patient oriented x3, moves all extremities and no focal motor deficits Psych: COMMON NORMALS: mental status grossly normal, Normal thought process present and cooperative THOUGHT PROCESS: Normal thought process present Skin: COMMON NORMALS: no rashes or lesions noted and no wounds GENERAL SKIN EXAM: no rashes or lesions noted Course Vital Signs: Vital signs: Vital Signs Temperature 100.8 F H 07/05/22 21:29 Pulse Rate 107 H 07/05/22 23:07 Respiratory Rate 16 07/05/22 23:07 Blood Pressure 141/65 07/05/22 23:07 Pulse Oximetry 94 07/05/22 23:07 Oxygen Delivery Me thod 07/05/22 21:29 MDM - Fever Medical Decision Making Patient presents here with neutropenic fever he does have a history of cancer with recent chemo patient started on IV antibiotics and blood cultures but the hospitalist will admit. Lab Data 07/05/22 21:43 07/05/22 21:43 Radiology Impressions Chest X-Ray 07/05/22 21:28 IMPRESSION: No acute findings. Laboratory Results WBC 0.1 10^3/uL (4.0-10.0) L* 07/05/22 21:43 RBC 3.24 10^6/uL (4.1-5.3) L 07/05/22 21:43 Hgb 9.1 g/dL (11.7-16.6) L 07/05/22 21:43 Hct 28.6 % (42.0-52.0) L 07/05/22 21:43 MCV 88.3 fl (80-94) 07/05/22 21:43 MCH 28.1 pg (28.0-34.0) 07/05/22 21:43 MCHC 31.8 g/dL (30.0-36.0) 07/05/22 21:43 RDW 13.1 % (12.1-15.1) 07/05/22 21:43 Plt Count 97 10^3/cmm (130-400) L 07/05/22 21:43 MPV 10.2 fL (7.4-10.4) 07/05/22 21:43 Neut % (Auto) 0.0 % 07/05/22 21: Lymph % (Auto) 78.6 % 07/05/22 21:43 [place] % (Auto) 7.1 % 07/05/22 21:43 Eos % (Auto) 7.1 % 07/05/22 21:43 Baso % (Auto) 0.0 % 07/05/22 21: Neut # (Auto) 0.00 10^3/uL (1.8-7.7) L* 07/05/22 21:43 Lymph # (Auto) 0.1 10^3/uL (0.8-4.8) L 07/05/22 21:43 [place] # (Auto) 0.0 10^3/uL (0.2-0.9) L 07/05/22 21:43 Eos # (Auto) 0.0 10^3/uL (0.0-0.8) 07/05/22 21:43 Baso # (Auto) 0.0 10^3/uL (0.0-0.1) 07/05/22 21:43 Nucleated RBC % (auto) 0 % 07/05/22 21: Nucleated RBCs # 0.0 /100WBC 07/05/22 21:43 Sodium 137 mmol/L (136-145) 07/05/22 21:43 Potassium 3.7 mmol/L (3.5-5.1) 07/05/22 21:43 Chloride 103 mmol/L (98-107) 07/05/22 21:43 Carbon Dioxide 22 mmol/L (22-29) 07/05/22 21:43 Anion Gap 15.7 (5-19) 07/05/22 21:43 BUN 17 mg/dL (8-23) 07/05/22 21:43 Creatinine 1.2 mg/dL (0.7-1.2) 07/05/22 21:43 GFR Calculation 60.2 mL/min (90-130) L 07/05/22 21:43 Glucose 156 mg/dL (65-115) H 07/05/22 21:43 Calculated Osmolality 289 mOsm/kg (285-295) 07/05/22 21:43 Lactate 1.8 mmol/L (0.5-2.2) 07/05/22 21:43 Calcium 8.2 mg/dL (8.5-10.5) L 07/05/22 21:43 Total Bilirubin 0.4 mg/dL (0.15-1.2) 07/05/22 21:43 AST 12 U/L (0-40) 07/05/22 21:43 ALT 13 U/L (0-41) 07/05/22 21:43 Alkaline Phosphatase 80 U/L (40-130) 07/05/22 21:43 Total Protein 5.8 g/dL (6.6-8.7) L 07/05/22 21:43 Albumin 3.5 g/dL (3.5-5.2) 07/05/22 21:43 Globulin 2.3 g/dL (1.3-4.6) 07/05/22 21:43 Urine Color Yellow (Yellow) 07/05/22 21:40 Urine Appearance Clear (CLEAR) 07/05/22 21:40 Urine pH 6 (5-7) 07/05/22 21:40 Ur Specific [place] 1.015 (1.005-1.030) 07/05/22 21:40 Urine Protein Neg (Negative) 07/05/22 21:40 Urine Glucose (UA) 4+ (Normal) H 07/05/22 21:40 Urine Ketones Negative (Negative) 07/05/22 21:40 Urine Blood Neg (Negative) 07/05/22 21:40 Urine Nitrate Negative (Negative) 07/05/22 21:40 Urine Bilirubin Neg (Negative) 07/05/22 21:40 Urine Urobilinogen Norm mg/dL (Negative) 07/05/22 21:40 Ur Leukocyte Esterase Negative (Negative) 07/05/22 21:40 SARS-CoV-2 Ag (Rapid) negative (Negative) 07/05/22 22:26 Discharge Plan Discharge Patient Disposition: Admitted As Inpatient Clinical Impression: B-cell lymphoma of intra-abdominal lymph nodes, Neutropenic fever Condition: Stable Coding Level of Care Code ED Purchasing Associate for Mikeg Fwd Exam Comprehensive
[2022-07-05 23:07] VITALS: BP 141/65; PULSE 107; RESP 16; O2SAT 94
[2022-07-05 23:08] LABS: Slide Review Slide Review Perform
[2022-07-05 23:09] LABS: Specific Gravity, Urine 1.015 (1.005-1.030); Urine Appearance Clear (CLEAR); Urine Color Yellow (Yellow); pH Urine 6 (5-7)
[2022-07-05 23:10] LABS: Bilirubin Urine Neg (Negative); Blood Urine Neg (Negative); Glucose Urine UA 4+ (Normal); Ketones Urine Negative (Negative); Leukocyte Esterase Urine Negative (Negative); Nitrate Urine Negative (Negative); Protein Urine Neg (Negative); Urobilinogen Urine Norm (Negative)
[2022-07-05] MEDS: piperacillin-tazobactam 3.375 GM in sodium chloride 0.9% (plus) 50 ML IV (23:31)
[2022-07-05 23:33] VITALS: BP 110/51; PULSE 96; RESP 18; O2SAT 96
[2022-07-05 23:36] LABS: Influenza A by IFA negative (Negative); Influenza B by IFA negative (Negative)
[2022-07-05 23:42] VITALS: TEMP 37.2
[2022-07-05 23:47] VITALS: RESP 16
[2022-07-05] MEDS: ondansetron 2 mg/ML SDV 2 mL 4 MG IVP (23:47)
[2022-07-05] MEDS: HYDROmorphone 1 mg/mL INJ 1 mL IVP (23:47)
--- NOTE | 2022-07-05 23:53 | PC.NURSE ---
Report to QUANG Vega at bedside. Pt escorted to medsur by Silvia and Phil. Vanc not given secondary to Zosyn hanging. Silvia aware.
[2022-07-06] VITALS (13 sets, daily range): BP systolic 111–144; BP diastolic 55–72; PULSE 78–97; RESP 14–20; TEMP 36.6–37.1; O2SAT 93–99
--- NOTE | 2022-07-06 01:01 | PM.HP ---
Providers/Chief Complaint Admitting Physician: Kaylah Han MD Primary Care Provider: Aubrey Benoit MD Chief Complaint: fever, cancer pt History of Present Illness Medardo Lara is a 66 year old male newly diagnosed with Lymphoma s/p RCHOP at [facility] starting Jun 23. Discharged 3 days ago after being given neulasta. [facility] was complicated by C diff diarrhea fo which he is currently on Dificid. Presented to ER today with neutropenic fever. WBC 0.1, ANC zero. No URI symptoms , chest pain, dyspnea, palpitations, syncope, abdominal pain, nausea, vomiting. His diarrhea is resolved he had a soft BM today. No issues with port. No dysuria Review of Systems General: Reports: 10 or more systems reviewed and unremarkable except in HPI and below Const: Denies: fever(s), chills or body aches Eyes: Denies: change in vision, blurry vision or photophobia ENMT: Reports: hoarseness; Denies: throat pain, enlarged tonsils, odynophagia or nasal congestion Card: Denies: chest pain, palpitations, irregular heart rhythm, edema, swelling of feet/ankles, lightheadedness, pre-syncope, dyspnea on exertion or orthopnea Resp: Denies: dyspnea, productive cough, non-productive cough, wheezing, stridor, pain on inspiration, change in phlegm color, hemoptysis or chest congestion GI: Denies: abdominal pain, nausea, vomiting, hematemesis, coffee ground emesis, dysphagia, heartburn, diarrhea, constipation, GI cramping, change in stool character, hematochezia or melena : Denies: flank pain, dysuria, urinary frequency, urinary urgency, urinary hesitancy or hematuria Musc: Denies: neck pain, back pain, extremity pain, joint swelling, joint warmth or deformity Neuro: Denies: headache(s), numbness in extremities, weakness in extremities, sensory changes, difficulty walking, frequent falls, dizziness, vertigo, behavioral changes, Slurred speech present or seizure-like activity Psych: Denies: anxiety, depression, suicidal ideation or homicidal ideation Endo: Denies: polyuria, polydipsia, tired all the time, cold intolerance or hot flashes Adán/Lymph: Denies: easy bruising or easy bleeding Medications/Allergies Home Medications Medication Instructions Recorded Confirmed Last Taken Type ascorbic acid (vitamin C) 1,000 mg 2,000 mg PO DAILY 05/09/21 06/19/22 Unknown History tablet (Vitamin C) aspirin 81 mg tablet,delayed 81 mg PO DAILY #90 tabs 05/10/21 07/06/22 Unknown Rx release diphenhydramine HCl 25 mg tablet 25 mg PO Q6H PRN Allergy Symptoms 06/12/21 06/19/22 Unknown History (Benadryl Allergy) omega-3 fatty acids 1,000 mg 1,000 mg PO DAILY 06/12/21 06/19/22 Unknown History capsule pantoprazole 40 mg tablet,delayed 40 mg PO DAILY #90 tabs 09/11/21 06/19/22 Unknown Rx release metoprolol succinate 25 mg 12.5 mg PO DAILY #30 tabs 02/21/22 06/19/22 Unknown Rx tablet,extended release 24 hr ticagrelor 90 mg tablet (Brilinta) 90 mg PO BID #180 tabs 03/27/22 06/19/22 Unknown Rx cyclobenzaprine 10 mg tablet 10 mg PO TID hip pain 2 weeks #42 06/05/22 06/06/22 Unknown Rx tabs Artery Strong See Rx Instructions .Route .COMPLEX 06/06/22 06/19/22 Unknown History Cardio For Life 1 cap PO DAILY 06/06/22 06/19/22 Unknown History Lactobacillus acidophilus and 1 cap PO DAILY 06/06/22 06/19/22 Unknown History rhamnosus 15 billion cell capsule (Probiotic) cholecalciferol (vitamin D3) 25 25 mcg PO DAILY 06/06/22 06/19/22 Unknown History mcg (1,000 unit) capsule (Vitamin D3) losartan 50 mg tablet 50 mg PO DAILY 06/06/22 06/19/22 Unknown History vitamin K2 45 mcg capsule 45 mcg PO DAILY 06/06/22 06/19/22 Unknown History zinc acetate 50 mg (zinc) capsule 50 mg PO DAILY 06/06/22 06/19/22 Unknown History oxycodone-acetaminophen 5 mg-325 1 tab PO Q8H PRN pain #30 tabs 06/09/22 06/19/22 Unknown Rx mg tablet allopurinol 300 mg tablet 300 mg PO DAILY #30 tabs 06/13/22 06/19/22 Unknown Rx fluconazole 100 mg tablet 100 mg PO DAILY #90 tabs 06/18/22 Unknown Rx olanzapine 5 mg tablet 5 mg PO DAILY #30 tabs 06/18/22 Unknown Rx prochlorperazine maleate 10 mg 10 mg PO Q6H PRN nausea and 06/18/22 Unknown Rx tablet (Compazine) vomiting #30 tabs sulfamethoxazole 800 1 tab PO .QOD #24 tabs 06/18/22 Unknown Rx mg-trimethoprim 160 mg tablet valacyclovir 500 mg tablet 500 mg PO BID #60 tabs 06/18/22 Unknown Rx (Valtrex) milk thistle 150 mg capsule 150 mg PO DAILY 06/19/22 06/19/22 Unknown History polyethylene glycol 3350 17 gram 17 g PO DAILY PRN 06/19/22 Unknown History oral powder packet (HealthyLax) prednisone 50 mg tablet 100 mg PO DAILY #20 tabs 06/19/22 Unknown Rx acyclovir 400 mg tablet 400 mg PO BID 07/06/22 07/06/22 Unknown History allopurinol 300 mg tablet 300 mg PO DAILY 07/06/22 07/06/22 Unknown History carvedilol 12.5 mg tablet 12.5 mg PO BID 07/06/22 07/06/22 Unknown History empagliflozin 10 mg tablet 10 mg PO DAILY 07/06/22 07/06/22 Unknown History (Jardiance) fidaxomicin 200 mg tablet (Dificid) 200 mg PO BID 07/06/22 07/06/22 Unknown History losartan 50 mg tablet 50 mg PO DAILY 07/06/22 07/06/22 Unknown History olanzapine 5 mg tablet 5 mg PO DAILY 07/06/22 07/06/22 Unknown History ondansetron HCl 8 mg tablet 07/06/22 Unknown History ondansetron HCl 8 mg tablet 8 mg PO Q8H PRN Nausea 07/06/22 07/06/22 Unknown History oxycodone-acetaminophen 5 mg-325 1 - 2 tab PO Q4H PRN Pain 07/06/22 07/06/22 Unknown History mg tablet pantoprazole 40 mg tablet,delayed 40 mg PO DAILY 07/06/22 07/06/22 Unknown History release sulfamethoxazole 800 1 tab PO EVERY OTHER DAY 07/06/22 07/06/22 Unknown History mg-trimethoprim 160 mg tablet Allergies Allergy/AdvReac Type Severity Reaction Status Date / Time No Known Allergies Allergy Verified 06/19/22 08:51 PFSH Acute PFSH: Medical History Atherosclerosis of coronary artery CHF (congestive heart failure) Essential hypertension Friedreichs ataxia Gastroesophageal reflux disease Mixed hyperlipidemia Sacroiliitis STEMI (ST elevation myocardial infarction) (04/2021) Vitamin D deficiency Surgical History Port-A-Cath in place (06/09/22) Port-A-Cath placement S/P right coronary artery (RCA) stent placement (05/09/21) Social History Smoking and tobacco status: never smoked Second hand smoke exposure: No Smoking risk assessment/counseling performed?: No Alcohol intake: never Desire information about alcohol rehabilitation?: No Counseling given: No Desire information about substance/drug rehabilitation?: No Counseling given: No Vitals/I&O/Wt Last Vital Signs Temp 98.9 F 07/05/22 23:42 Pulse 96 07/05/22 23:33 Resp 16 07/05/22 23:47 BP 110/51 07/05/22 23:33 Pulse Ox 96 07/05/22 23:33 O2 Del Method 07/06/22 00:05 Weight last 48 hrs Weight 83.915 kg Physical Exam Narrative: General: No acute distress, AO x3 HEENT: PERRLA, pupils bilaterally equal and reactive, pallors not present Chest: Normal vesicular breath sounds, no added sounds, equal good air entry bilaterally CVS: S1-S2 regular, no murmurs, no tachycardia, no gallops, no rubs Abdomen: Soft, nontender, no organomegaly, bowel sounds present Neuro: No focal deficits, no facial deformity, AO x3, power 5/5 in all limbs Extremities: Healthy surgical dressing present on the right hip, mild tenderness, soft no erythema. Data 07/05/22 21:43 07/05/22 21:43 Other Labs: Radiology Impressions Chest X-Ray 07/05/22 21:28 IMPRESSION: No acute findings. Laboratory Results WBC 0.1 10^3/uL (4.0-10.0) L* 07/05/22 21:43 RBC 3.24 10^6/uL (4.1-5.3) L 07/05/22 21:43 Hgb 9.1 g/dL (11.7-16.6) L 07/05/22 21:43 Hct 28.6 % (42.0-52.0) L 07/05/22 21:43 MCV 88.3 fl (80-94) 07/05/22 21:43 MCH 28.1 pg (28.0-34.0) 07/05/22 21:43 MCHC 31.8 g/dL (30.0-36.0) 07/05/22 21:43 RDW 13.1 % (12.1-15.1) 07/05/22 21:43 Plt Count 97 10^3/cmm (130-400) L 07/05/22 21: MPV 10.2 fL (7.4-10.4) 07/05/22 21: Neut % (Auto) 0.0 % 07/05/22 21: Lymph % (Auto) 78.6 % 07/05/22 21:43 [place] % (Auto) 7.1 % 07/05/22 21: Eos % (Auto) 7.1 % 07/05/22 21: Baso % (Auto) 0.0 % 07/05/22: Neut # (Auto) 0.00 10^3/uL (1.8-7.7) L* 07/05/22: Lymph # (Auto) 0.1 10^3/uL (0.8-4.8) L 07/05/22 21: [place] # (Auto) 0.0 10^3/uL (0.2-0.9) L 07/05/22 21: Eos # (Auto) 0.0 10^3/uL (0.0-0.8) 07/05/22: Baso # (Auto) 0.0 10^3/uL (0.0-0.1) 07/05/22 21: Nucleated RBC % (auto) 0 % 07/05/22: Nucleated RBCs # 0.0 /100WBC 07/05/22 21: Sodium 137 mmol/L (136-145) 07/05/22 21: Potassium 3.7 mmol/L (3.5-5.1) 07/05/22 21:43 Chloride 103 mmol/L (98-107) 07/05/22 21:43 Carbon Dioxide 22 mmol/L (22-29) 07/05/22 21:43 Anion Gap 15.7 (5-19) 07/05/22 21:43 BUN 17 mg/dL (8-23) 07/05/22 21:43 Creatinine 1.2 mg/dL (0.7-1.2) 07/05/22 21:43 GFR Calculation 60.2 mL/min (90-130) L 07/05/22 21:43 Glucose 156 mg/dL (65-115) H 07/05/22 21:43 Calculated Osmolality 289 mOsm/kg (285-295) 07/05/22 21:43 Lactate 1.8 mmol/L (0.5-2.2) 07/05/22 21:43 Calcium 8.2 mg/dL (8.5-10.5) L 07/05/22 21:43 Total Bilirubin 0.4 mg/dL (0.15-1.2) 07/05/22 21:43 AST 12 U/L (0-40) 07/05/22 21:43 ALT 13 U/L (0-41) 07/05/22 21:43 Alkaline Phosphatase 80 U/L (40-130) 07/05/22 21:43 Total Protein 5.8 g/dL (6.6-8.7) L 07/05/22 21:43 Albumin 3.5 g/dL (3.5-5.2) 07/05/22 21:43 Globulin 2.3 g/dL (1.3-4.6) 07/05/22 21:43 Urine Color Yellow (Yellow) 07/05/22 21:40 Urine Appearance Clear (CLEAR) 07/05/22 21:40 Urine pH 6 (5-7) 07/05/22 21:40 Ur Specific [place] 1.015 (1.005-1.030) 07/05/22 21:40 Urine Protein Neg (Negative) 07/05/22 21:40 Urine Glucose (UA) 4+ (Normal) H 07/05/22 21:40 Urine Ketones Negative (Negative) 07/05/22 21:40 Urine Blood Neg (Negative) 01/26/23 21:40 Urine Nitrate Negative (Negative) 07/05/22 21:40 Urine Bilirubin Neg (Negative) 07/05/22 21:40 Urine Urobilinogen Norm mg/dL (Negative) 07/05/22 21:40 Ur Leukocyte Esterase Negative (Negative) 07/05/22 21:40 Influenza Type A Ag negative (Negative) 07/05/22 22:26 Influenza Type B Ag negative (Negative) 07/05/22 22:26 SARS-CoV-2 Ag (Rapid) negative (Negative) 07/05/22 22:26 Micro: Microbiology 07/05/22 21:49 Blood Culture - Preliminary Blood SPECIMEN COLLECTED 07/05/22 21:43 Blood Culture - Preliminary Blood SPECIMEN COLLECTED A&P Assessment and plan (1) Neutropenic fever: ANC zero No localizing signs or symptoms yet has received neulasta 3 days ago, counts expected to improve this week Infectious w/up thus far with no consolidation, diarrhea resolved, pending blood cx, port site looks cellulitis negative covid and flu Ag- patient declines respiratory viral panel om empiric Zosyn and vancomycin while undergoing fever evaluation (2) Diffuse large B-cell lymphoma of intra-abdominal lymph nodes: s/p recent chemotherapy Attestations Medical Necessity Statement*: less than 2 midnight admission expected for evaluation of fever and neutropenia Coding Level of Care Code Acute Code for Chg Fwd Diagnoses Neutropenic fever D70.9; R50.81 Diffuse large B-cell lymphoma of intra-abdominal lymph nodes C83.33
[2022-07-06] MEDS: vancomycin 1,000 MG in sodium chloride 0.9% 250 ML 250 MG IV ×2 (01:04→13:41)
--- NOTE | 2022-07-06 02:02 | PC.PHAR ---
Pharmacokinetic dosing service Date: 07/06/22 Time: 020 Objective: Patient: Medardo Lara Floor: 262-1 Age: 66 yo Serum creatinine: 1.2 mg/dL Height: 68.0 Inches Weight (kg): 83.915 Diagnosis: Relevant medical/social history: Cultures and sensitivities: Other labs: Assessment: IBW (kg): 68.40 Dosing wt(kg): 83.915 Estimated Creatinine clearance (ml/min): 57.0 CRCL method: Cockcroft and Gault using ibw(default). Drug selected: Vancomycin Loading dose (mg): 0 Vd (liters): 75.5 (factor used: 0.9 L/kg) Patel (hr-1): 0.052 Half life (hrs): 13.33 Recommended dose: 1000 mg Interval: 12 hrs Infusion time (hrs): 1.5 Predicted peak (mcg/mL): 27.4 Predicted trough (mcg/mL): 15.87 Total body weight is being used for vancomycin dosing. Renal function is stable [ ] /unstable [ ] Recommendations: Give Vancomycin 1000 mg q 12 hrs with an expected Cpeak of 27.4 mcg/ml and an expected Ctrough of 15.87 mcg/ml Renal dosing of other antibiotics (review renal dosing of other medications and list guidelines here): Thank you for the consult, will continue to follow. Signature: Glory Short [facility]
[2022-07-06] MEDS: oxyCODONE-APAP 5-325 mg Tablet 1 TAB PO (04:09)
[2022-07-06] MEDS: piperacillin-tazobactam 3.375 GM in sodium chloride 0.9% (plus) 50 ML IV ×2 (08:56→17:43)
[2022-07-06] MEDS: losartan 50 mg Tablet PO (08:56)
[2022-07-06] MEDS: allopurinol 300 mg Tablet PO (08:56)
[2022-07-06] MEDS: ondansetron 2 mg/ML SDV 2 mL 4 MG IVP ×2 (08:56→13:53)
[2022-07-06] MEDS: OLANZapine 5 mg TABLET PO (08:57)
[2022-07-06] MEDS: aspirin 81 mg EC Tablet PO (08:57)
[2022-07-06] MEDS: pantoprazole DR 40 mg Tablet PO (08:57)
[2022-07-06] MEDS: sulfamethoxazole-trimeth DS 160-800 mg Tablet 1 TAB PO (09:15)
--- NOTE | 2022-07-06 09:19 | PC.PHAR ---
pts verified pts medications-pts states the pt dced his lipitor 40mg take 2 tabs hs filled on 02/19/22 90d/s-pts states the in [facility] dced the pts brilinta 90mg bid filled 06/25/22 90d/s-mobic 7.5mg daily filled 06/18/22 30d/s-fluconazole 100mg daily filled 06/18/22 30d/s-metoprolol er 25mg take 12.5mg daily filled 05/07/23 60d/s-and valtrex 500mg bid filled 06/18/22-ext med history shows udenyca 6mg/0.6ml filled 06/26/22 21d/s pts states she believes that the pt gets this medication after 5 days of iv chemo treatment-pts states this is the medication the pt got of his chemo iv rituxan 1st before-iv etoposide day 1-4-iv doxorubicin day 5-6-bxehvljnqaw 1-4-cytoxan day 5 and prednisone pills 1-5 bid-notes are made in the pharmacy comments
--- NOTE | 2022-07-06 17:45 | P.PN_ITS ---
Subjective Subjective: Patient was seen this morning, he sitting up in a chair relatively asymptomatic, his diarrhea has resolved, no nausea, no vomiting, no chest pain, no shortness of breath, no dysuria, no new rashes Vitals/I&O/Wt Last Vital Signs Temp 98.3 F 07/06/22 16:00 Pulse 88 07/06/22 16:00 Resp 16 07/06/22 16:00 BP 121/64 07/06/22 16:00 Pulse Ox 97 07/06/22 16:00 O2 Del Method 07/06/22 16:00 07/06/22 07/06/22 07/06/22 06:59 14:59 22:59 Intake Total 780 / 780 300 / 300 Output Total 275 / 275 Balance 505 / 505 300 / 300 Weight last 48 hrs Weight 83.915 kg Physical Exam Const: COMMON NORMALS: no acute distress and patient oriented x3 Resp: COMMON NORMALS: normal respiratory effort, No retractions, No use of a ccessory muscles and clear to auscultation bilaterally AUSCULTATION: clear to auscultation bilaterally Cardio: COMMON NORMALS: regular rate, regular rhythm, S1 normal heart sound present and S2 normal heart sound present RATE: regular rate RHYTHM: regular rhythm HEART SOUNDS: S1 normal heart sound present and S2 normal heart sound present GI: COMMON NORMALS: Normal to inspection, nondistended, normoactive bowel sounds present and non-tender Extremity: COMMON NORMALS: no pedal edema Neuro: COMMON NORMALS: patient oriented x3 Psych: COMMON NORMALS: mental status grossly normal Data 07/05/22 21:43 07/05/22 21:43 Micro: Microbiology 07/05/22 21:49 Blood Culture - Preliminary Blood SPECIMEN COLLECTED 07/05/22 21:43 Blood Culture - Preliminary Blood SPECIMEN COLLECTED A&P Assessment and plan (1) Neutropenic fever: ANC is 0 No localizing signs or symptoms yet Monitor for fevers Neutropenic precautions Monitor for fevers and treat aggressively has received neulasta 3 days ago, counts expected to improve this week Infectious w/up thus far with no consolidation, diarrhea resolved, pending blood cx, port site looks cellulitis negative covid and flu Ag- patient declines respiratory viral panel Follow blood cultures om empiric Zosyn and vancomycin while undergoing fever evaluation Continue Bactrim prophylaxis Continue valacyclovir prophylaxis Continue prophylactic Diflucan Continue Dificid for C. difficile diarrhea (2) Diffuse large B-cell lymphoma of intra-abdominal lymph nodes: s/p recent chemotherapy (3) B-cell lymphoma of intra-abdominal lymph nodes: (4) Mixed hyperlipidemia: (5) Vitamin D deficiency: (6) Friedreichs ataxia: (7) Essential hypertension: (8) CHF (congestive heart failure): Qualifiers: Heart failure type: systolic Heart failure chronicity: chronic Qualified Code(s): I50.22 - Chronic systolic (congestive) heart failure (9) C. difficile diarrhea: Plan Plan for today continue broad-spectrum antibiotic therapy monitor for fevers mon itor cultures, continue home pain medication, Attestations Medical Necessity Statement*: Patient requires hospitalization, for neutropenic fevers, inpatient, greater than 2 midnights Coding Level of Care Code Acute Code for Chg Fwd Diagnoses Neutropenic fever D70.9; R50.81 Diffuse large B-cell lymphoma of intra-abdominal lymph nodes C83.33 B-cell lymphoma of intra-abdominal lymph nodes C85.13 Mixed hyperlipidemia E78.2 Vitamin D deficiency E55.9 Friedreichs ataxia G11.1 Essential hypertension I10 CHF (congestive heart failure) I50.22 Heart failure type: systolic Heart failure chronicity: chronic C. difficile diarrhea A04.72
[2022-07-06] MEDS: oxyCODONE-APAP 5-325 mg Tablet PO (20:17)
--- NOTE | 2022-07-06 22:05 | PC.NURSE ---
Spoke to pt and his regarding ordered respiratory panel. Pt and his state that they would do no further testing, as it is against their baptism and they don't have any respiratory s/sx. Education provided on why test was ordered. Questions answered.
[2022-07-07] VITALS (9 sets, daily range): BP systolic 111–130; BP diastolic 57–66; PULSE 85–112; RESP 16–20; TEMP 36.6–37.2; O2SAT 95–98
[2022-07-07] MEDS: vancomycin 1,000 MG in sodium chloride 0.9% 250 ML 250 MG IV ×2 (00:08→13:49)
[2022-07-07] MEDS: piperacillin-tazobactam 3.375 GM in sodium chloride 0.9% (plus) 50 ML IV ×3 (01:06→17:24)
[2022-07-07 03:38] LABS: Hematocrit 24.4 % (42.0-52.0); Hemoglobin 7.4 g/dL (11.7-16.6); Lymphocytes # 0.3 10^3/uL (0.8-4.8); Lymphocytes % 84.8 %; Mean Corpuscular HGB Conc 30.3 g/dL (30.0-36.0); Mean Corpuscular Hemoglobin 28.5 pg (28.0-34.0); Mean Corpuscular Volume 93.8 fl (80-94); Mean Platelet Volume 11.6 fL (7.4-10.4); Monocytes % 9.1 %; Neutrophils % 3.1 %; Nucleated Red Blood Cells % 0 %; Platelet Count 54 10^3/cmm (130-400); Red Cell Distribution Width 13.2 % (12.1-15.1)
[2022-07-07 04:01] LABS: Alanine Aminotransferase 10 U/L (0-41); Albumin Level 2.5 g/dL (3.5-5.2); Alkaline Phosphatase 67 U/L (40-130); Anion Gap 14.3 (5-19); Aspartate Amino Transferase 8 U/L (0-40); Blood Urea Nitrogen 13 mg/dL (8-23); Calcium 7.8 mg/dL (8.5-10.5); Carbon Dioxide 20 mmol/L (22-29); Chloride 108 mmol/L (98-107); Globulin 2.6 g/dL (1.3-4.6); Glomerular Filtration Rate 60.2 mL/min (90-130); Glucose 87 mg/dL (65-115); Osmolality Calculated 287 mOsm/kg (285-295); Potassium 3.3 mmol/L (3.5-5.1); Sodium 139 mmol/L (136-145); Total Bilirubin 0.3 mg/dL (0.15-1.2); Total Protein 5.1 g/dL (6.6-8.7)
[2022-07-07 04:17] LABS: Slide Review Slide Review Perform
[2022-07-07 04:19] LABS: White Blood Count 0.3 10^3/uL (4.0-10.0)
[2022-07-07 04:20] LABS: Neutrophils # 0.01 10^3/uL (1.8-7.7)
[2022-07-07] MEDS: oxyCODONE-APAP 5-325 mg Tablet PO ×3 (04:59→18:44)
[2022-07-07] MEDS: ondansetron 2 mg/ML SDV 2 mL 4 MG IVP (05:10)
[2022-07-07] MEDS: aspirin 81 mg EC Tablet PO (08:59)
[2022-07-07] MEDS: potassium chloride ER 20 mEq Tablet 40 MEQ PO (09:00)
[2022-07-07] MEDS: allopurinol 300 mg Tablet PO (09:01)
[2022-07-07] MEDS: losartan 50 mg Tablet PO (09:02)
[2022-07-07] MEDS: pantoprazole DR 40 mg Tablet PO ×2 (09:02)
[2022-07-07] MEDS: fluconazole 100 mg Tablet PO (09:13)
[2022-07-07] MEDS: FUROsemide 10 mg/mL SDV 2mL 20 MG IVP (10:00)
--- NOTE | 2022-07-07 10:42 | PM.PN ---
Subjective Subjective: Patient was seen this morning, is at bedside, they have a question as he is on Jardiance as outpatient and they are not sure why he does not have a history of diabetes, he has not had any fevers overnight, no nausea, no vomiting no abdominal pain no diarrhea, Vitals/I&O/Wt Last Vital Signs Temp 97.9 F 07/07/22 08:00 Pulse 86 07/07/22 08:00 Resp 16 07/07/22 08:00 BP 120/63 07/07/22 09:02 Pulse Ox 96 07/07/22 08:00 O2 Del Method 07/07/22 03:10 07/06/22 07/07/22 07/07/22 22:59 06:59 14:59 Intake Total 290 / 590 550 / 1140 Balance 290 / 590 550 / 1140 Weight last 48 hrs Weight 83.915 kg Physical Exam Const: COMMON NORMALS: no acute distress and patient oriented x3 Resp: COMMON NORMALS: normal respiratory effort, No retractions, No use of accessory muscles and clear to auscultation bilaterally AUSCULTATION: clear to auscultation bilaterally Cardio: COMMON NORMALS: regular rate, regular rhythm, S1 normal heart sound present and S2 normal heart sound present RATE: regular rate RHYTHM: regular rhythm HEART SOUNDS: S1 normal heart sound present and S2 normal heart sound present GI: COMMON NORMALS: Normal to inspection, nondistended, normoactive bowel sounds present and non-tender Extremity: NARRATIVE EXTREMITY EXAM: 1+ edema Neuro: COMMON NORMALS: patient oriented x3 Psych: COMMON NORMALS: mental status grossly normal Data 07/07/22 03:14 07/07/22 03:14 Micro: Microbiology 07/05/22 21:49 Blood Culture - Preliminary Blood NEGATIVE TO DATE 07/05/22 21:43 Blood Culture - Preliminary Blood NEGATIVE TO DATE A&P Assessment and plan (1) Neutropenic fever: ANC is 0 No localizing signs or symptoms yet Monitor for fevers Neutropenic precautions Monitor for fevers and treat aggressively has received neulasta 3 days ago, counts expected to improve this week Infectious w/up thus far with no consolidation, diarrhea resolved, pending blood cx, port site looks cellulitis negative covid and flu Ag- patient declines respiratory viral panel Follow blood cultures om empiric Zosyn and vancomycin while undergoing fever evaluation Continue Bactrim prophylaxis Continue valacyclovir prophylaxis Continue prophylactic Diflucan Continue Dificid for C. difficile diarrhea (2) Diffuse large B-cell lymphoma of intra-abdominal lymph nodes: s/p recent chemotherapy (3) B-cell lymphoma of intra-abdominal lymph nodes: (4) Mixed hyperlipidemia: (5) Vitamin D deficiency: (6) Friedreichs ataxia: (7) Essential hypertension: (8) CHF (congestive heart failure): Qualifiers: Heart failure type: systolic Heart failure chronicity: chronic Qualified Code(s): I50.22 - Chronic systolic (congestive) heart failure (9) C. difficile diarrhea: Continue Dificid at (10) Pancytopenia: - Developing pancytopenia Anemia hemoglobin 7.4 Thrombocytopenia, 54 Absolute neutrophil count 0.01 Repeat hemogram at 1 or so Check A1c Hypokalemia replace 1+ pitting edema, will give 20 mg IV push Lasix Plan Plan for today continue broad-spectrum antibiotic therapy monitor for fevers monitor cultures, continue home pain medication, check A1c, repeat hemoglobin, Lasix therapy Attestations Medical Necessity Statement*: Patient requires hospitalization for pancytopenia, febrile neutropenia Coding Level of Care Code Acute Code for [facility] Fwd Diagnoses Neutropenic fever D70.9; R50.81 Diffuse large B-cell lymphoma of intra-abdominal lymph nodes C83.33 B-cell lymphoma of intra-abdominal lymph nodes C85.13 Mixed hyperlipidemia E78.2 Vitamin D deficiency E55.9 Friedreichs ataxia G11.1 Essential hypertension I10 CHF (congestive heart failure) I50.22 Heart failure type: systolic Heart failure chronicity: chronic C. difficile diarrhea A04.72 Pancytopenia D61.818
[2022-07-07 10:45] LABS: Estmated Average Glucose 123; Hemoglobin A1C 5.9 % (4.0-6.0)
[2022-07-07 13:53] LABS: Eosinophils % 3.4 %; Hematocrit 24.2 % (42.0-52.0); Hemoglobin 7.7 g/dL (11.7-16.6); Lymphocytes # 0.2 10^3/uL (0.8-4.8); Lymphocytes % 75.9 %; Mean Corpuscular HGB Conc 31.8 g/dL (30.0-36.0); Mean Corpuscular Hemoglobin 28.5 pg (28.0-34.0); Mean Corpuscular Volume 89.6 fl (80-94); Mean Platelet Volume 11.9 fL (7.4-10.4); Monocytes # 0.1 10^3/uL (0.2-0.9); Monocytes % 17.2 %; Neutrophils % 3.5 %; Nucleated Red Blood Cells % 0 %; Platelet Count 58 10^3/cmm (130-400); Red Cell Distribution Width 13.2 % (12.1-15.1)
[2022-07-07 14:13] LABS: White Blood Count 0.3 10^3/uL (4.0-10.0)
[2022-07-07 14:14] LABS: Neutrophils # 0.01 10^3/uL (1.8-7.7)
[2022-07-08] VITALS (15 sets, daily range): BP systolic 122–148; BP diastolic 57–76; PULSE 77–93; RESP 16–20; TEMP 36.4–36.8; O2SAT 95–98
[2022-07-08] MEDS: vancomycin 1,000 MG in sodium chloride 0.9% 250 ML 250 MG IV (00:04)
[2022-07-08] MEDS: oxyCODONE-APAP 5-325 mg Tablet PO ×3 (00:04→14:21)
[2022-07-08] MEDS: piperacillin-tazobactam 3.375 GM in sodium chloride 0.9% (plus) 50 ML IV ×2 (01:05→08:51)
[2022-07-08 05:32] LABS: Eosinophils % 1.5 %; Hematocrit 22.9 % (42.0-52.0); Hemoglobin 7.2 g/dL (11.7-16.6); Lymphocytes # 0.3 10^3/uL (0.8-4.8); Lymphocytes % 52.3 %; Mean Corpuscular HGB Conc 31.4 g/dL (30.0-36.0); Mean Corpuscular Hemoglobin 28.5 pg (28.0-34.0); Mean Corpuscular Volume 90.5 fl (80-94); Mean Platelet Volume 11.6 fL (7.4-10.4); Monocytes # 0.1 10^3/uL (0.2-0.9); Nucleated Red Blood Cells % 0 %; Platelet Count 59 10^3/cmm (130-400); Red Blood Count 2.53 10^6/uL (4.1-5.3); Red Cell Distribution Width 13.4 % (12.1-15.1)
[2022-07-08 06:12] LABS: Anion Gap 12.7 (5-19); Blood Urea Nitrogen 10 mg/dL (8-23); Calcium 8.2 mg/dL (8.5-10.5); Carbon Dioxide 25 mmol/L (22-29); Chloride 106 mmol/L (98-107); Glomerular Filtration Rate 46.5 mL/min (90-130); Glucose 79 mg/dL (65-115); Osmolality Calculated 288 mOsm/kg (285-295); Potassium 3.7 mmol/L (3.5-5.1); Sodium 140 mmol/L (136-145)
[2022-07-08 06:37] LABS: Neutrophils # 0.14 10^3/uL (1.8-7.7); White Blood Count 0.7 10^3/uL (4.0-10.0)
[2022-07-08 06:38] LABS: Neutrophils % 26.2 %; Slide Review Slide Review Perform
[2022-07-08] MEDS: allopurinol 300 mg Tablet PO (08:50)
[2022-07-08] MEDS: aspirin 81 mg EC Tablet PO (08:50)
[2022-07-08] MEDS: losartan 50 mg Tablet PO (08:51)
[2022-07-08] MEDS: fluconazole 100 mg Tablet PO (08:51)
[2022-07-08] MEDS: pantoprazole DR 40 mg Tablet PO (08:51)
--- NOTE | 2022-07-08 11:20 | PM.DCS ---
Discharge Providers Date of Admission: 07/06/22 15:46 Date of Discharge: July 08, 2022 Attending Provider at Admission: Kaylah Han MD Attending Provider at Discharge: Tera Bradshaw MD Primary Care Provider: Aubrey Benoit MD Diagnoses at Discharge Discharge Diagnosis (1) Neutropenic fever: Status: Acute (2) Diffuse large B-cell lymphoma of intra-abdominal lymph nodes: Status: Acute (3) B-cell lymphoma of intra-abdominal lymph nodes: Status: Acute (4) Mixed hyperlipidemia: Status: Acute (5) Vitamin D deficiency: Status: Acute (6) Friedreichs ataxia: Status: Acute (7) Essential hypertension: Status: Acute (8) CHF (congestive heart failure): Status: Acute Qualifiers: Heart failure type: systolic Heart failure chronicity: chronic Qualified Code(s): I50.22 - Chronic systolic (congestive) heart failure (9) C. difficile diarrhea: Status: Acute (10) Pancytopenia: Status: Acute Reason for Visit Reason for Visit: fever, cancer pt Hospital Course Hospital Course Medardo Lara is a 66 year old male newly diagnosed with Lymphoma s/p RCHOP at [facility] starting Jun 23. Discharged 3 days ago after being given neulasta. [facility] was complicated by C diff diarrhea fo which he is currently on Dificid. Presented to ER today with neutropenic fever. WBC 0.1, ANC zero. No URI symptoms , chest pain, dyspnea, palpitations, syncope, abdominal pain, nausea, vomiting. His diarrhea is resolved he had a soft BM today. No issues with port. No dysuria Patient was admitted to [facility] for neutropenic fevers, pancytopenia, clinically monitored received broad-spectrum antibiotic therapy, antifungal therapy, antiviral therapy, clinically monitored, remained febrile for 72 hours cultures so far have been unremarkable, no recurrent diarrhea, he was continued on his Dificid for his history of C. difficile diarrhea. Given hemoglobin of 7.2 he was transfused 1 unit PRBC. On discharge his absolute neutrophil count 1, hemoglobin 7.2, platelet count 59. Patient was advised to continue to face mask, hand wash, socially distance discharged on Levaquin. If you were to have any recurrent fevers to go to emergency room. Creatinine on discharge 1.5, received 250 cc bolus before discharge and 1 unit PRBC monitor creatinine as outpatient Physical Exam Const: COMMON NORMALS: no acute distress and patient oriented x3 Resp: COMMON NORMALS: normal respiratory effort, No retractions, No use of accessory muscles and clear to auscultation bilaterally AUSCULTATION: clear to auscultation bilaterally Cardio: COMMON NORMALS: regular rate, regular rhythm, S1 normal heart sound present and S2 normal heart sound present RATE: regular rate RHYTHM: regular rhythm HEART SOUNDS: S1 normal heart sound present and S2 normal heart sound present GI: COMMON NORMALS: Normal to inspection, nondistended, normoactive bowel sounds present and non-tender Extremity: COMMON NORMALS: no pedal edema Neuro: COMMON NORMALS: patient oriented x3 Psych: COMMON NORMALS: mental status grossly normal Discharge Data Studies Completed and Pending Completed Studies During Hospitalization Category Date Time Status XR chest 1V portable [id number] Stat Exams 07/05/22 21:28 Completed Pending at discharge Category Date Time Status Basic Metabolic Panel AM LABS Lab 07/09/22 04:00 Ordered Basic Metabolic Panel AM LABS Lab 07/10/22 04:00 Ordered Blood Culture Stat Lab 07/05/22 21:49 Results Complete Blood Count w/Auto AM LABS Lab 07/09/22 04:00 Ordered Complete Blood Count w/Auto AM LABS Lab 07/10/22 04:00 Ordered Leukocyte Reduced RBC Stat Lab 07/08/22 08:30 Results Respiratory Panel 2 Routine Lab 07/06/22 00:52 Uncollected Type and Screen Stat Lab 07/08/22 08:30 Results Vancomycin Trough Timed Lab 07/08/22 12:00 Ordered Radiology Impressions Chest X-Ray 07/05/22 21:28 IMPRESSION: No acute findings. Laboratory Results WBC 0.7 10^3/uL (4.0-10.0) L* 07/08/22 04:49 RBC 2.53 10^6/uL (4.1-5.3) L 07/08/22 04:49 Hgb 7.2 g/dL (11.7-16.6) L 07/08/22 04:49 Hct 22.9 % (42.0-52.0) L 07/08/22 04:49 MCV 90.5 fl (80-94) 07/08/22 04:49 MCH 28.5 pg (28.0-34.0) 07/08/22 04:49 MCHC 31.4 g/dL (30.0-36.0) 07/08/22 04:49 RDW 13.4 % (12.1-15.1) 07/08/22 04:49 Plt Count 59 10^3/cmm (130-400) L 07/08/22 04:49 MPV 11.6 fL (7.4-10.4) H 07/08/22 04:49 Neut % (Auto) 26.2 % 07/08/22 04:49 Lymph % (Auto) 52.3 % 07/08/22 04:49 Craven % (Auto) 20.0 % 07/08/22 04:49 Eos % (Auto) 1.5 % 07/08/22 04:49 Baso % (Auto) 0.0 % 07/08/22 04:49 Neut # (Auto) 0.14 10^3/uL (1.8-7.7) L* 07/08/22 04:49 Lymph # (Auto) 0.3 10^3/uL (0.8-4.8) L 07/08/22 04:49 Craven # (Auto) 0.1 10^3/uL (0.2-0.9) L 07/08/22 04:49 Eos # (Auto) 0.0 10^3/uL (0.0-0.8) 07/08/22 04:49 Baso # (Auto) 0.0 10^3/uL (0.0-0.1) 07/08/22 04:49 Nucleated RBC % (auto) 0 % 07/08/22 04:49 Nucleated RBCs # 0.0 /100WBC 07/08/22 04:49 Sodium 140 mmol/L (136-145) 07/08/22 04:49 Potassium 3.7 mmol/L (3.5-5.1) 07/08/22 04:49 Chloride 106 mmol/L (98-107) 07/08/22 04:49 Carbon Dioxide 25 mmol/L (22-29) 07/08/22 04:49 Anion Gap 12.7 (5-19) 07/08/22 04:49 BUN 10 mg/dL (8-23) 07/08/22 04:49 Creatinine 1.5 mg/dL (0.7-1.2) H 07/08/22 04:49 GFR Calculation 46.5 mL/min (90-130) L 07/08/22 04:49 Glucose 79 mg/dL (65-115) 07/08/22 04:49 Estimat Average Glucose 123 07/07/22 09:54 Hemoglobin A1c 5.9 % (4.0-6.0) 07/07/22 09:54 Calculated Osmolality 288 mOsm/kg (285-295) 07/08/22 04:49 Lactate 1.8 mmol/L (0.5-2.2) 07/05/22 21:43 Calcium 8.2 mg/dL (8.5-10.5) L 07/08/22 04:49 Total Bilirubin 0.3 mg/dL (0.15-1.2) 07/07/22 03:14 AST 8 U/L (0-40) 07/07/22 03:14 ALT 10 U/L (0-41) 07/07/22 03:14 Alkaline Phosphatase 67 U/L (40-130) 07/07/22 03:14 Total Protein 5.1 g/dL (6.6-8.7) L 07/07/22 03:14 Albumin 2.5 g/dL (3.5-5.2) L 07/07/22 03:14 Globulin 2.6 g/dL (1.3-4.6) 07/07/22 03:14 Urine Color Yellow (Yellow) 07/05/22 21:40 Urine Appearance Clear (CLEAR) 07/05/22 21:40 Urine pH 6 (5-7) 07/05/22 21:40 Ur Specific [place] 1.015 (1.005-1.030) 07/05/22 21:40 Urine Protein Neg (Negative) 07/05/22 21:40 Urine Glucose (UA) 4+ (Normal) H 07/05/22 21:40 Urine Ketones Negative (Negative) 07/05/22 21:40 Urine Blood Neg (Negative) 07/05/22 21:40 Urine Nitrate Negative (Negative) 07/05/22 21:40 Urine Bilirubin Neg (Negative) 07/05/22 21:40 Urine Urobilinogen Norm mg/dL (Negative) 07/05/22 21:40 Ur Leukocyte Esterase Negative (Negative) 07/05/22 21:40 Influenza Type A Ag negative (Negative) 07/05/22 22:26 Influenza Type B Ag negative (Negative) 07/05/22 22:26 SARS-CoV-2 Ag (Rapid) negative (Negative) 07/05/22 22:26 Blood Type A Positive 07/08/22 08:30 Rho(D) Type Positive 07/08/22 08:30 Antibody Screen Negative 07/08/22 08:30 Crossmatch See Detail 07/08/22 08:30 Vitals Last Vital Signs Temp 98.2 F 07/08/22 04:00 Pulse 83 07/08/22 05:57 Resp 20 H 07/08/22 08:51 BP 124/65 07/08/22 08:51 Pulse Ox 95 07/08/22 04:00 O2 Del Method 07/07/22 17:00 Discharge Plan Discharge Patient Disposition: Home Condition: Stable Prescriptions: New sulfamethoxazole-trimethoprim 800-160 mg Tablet 1 tab PO MoWeFr@0900 Qty: 30 0RF levofloxacin 750 mg tablet 750 mg PO EVERY OTHER DAY 5 Days Qty: 3 0RF Rx Instructions: Please start this medication saturday07/10/2022 Continued diphenhydramine HCl [Benadryl Allergy] 25 mg tablet 25 mg PO Q6H PRN (Reason: Allergy Symptoms) omega-3 fatty acids 1,000 mg capsule 1,000 mg PO DAILY HealthyLax 17 gram powder in packet 17 g PO DAILY PRN (Reason: Constipation) prochlorperazine maleate [Compazine] 10 mg tablet 10 mg PO Q6H PRN (Reason: nausea and vomiting) Qty: 30 3RF ascorbic acid (vitamin C) [Vitamin C] 1,000 mg Tablet 1,000 - 2,000 mg PO DAILY aspirin 81 mg Tablet,Delayed Release (Dr/Ec) 81 mg PO DAILY Qty: 90 3RF zinc acetate 50 mg (zinc) Capsule 50 mg PO DAILY Probiotic 15 billion cell Capsule 1 cap PO DAILY Artery Strong 1 cap PO DAILY milk thistle 150 mg capsule 150 mg PO DAILY Rx Instructions: give with meal/snack oxycodone-acetaminophen 5-325 mg tablet 1 - 2 tab PO Q4H PRN (Reason: Pain) olanzapine 5 mg tablet 5 mg PO DAILY ondansetron HCl 8 mg tablet 8 mg PO Q8H PRN (Reason: Nausea) Dificid 200 mg tablet 200 mg PO BID pantoprazole 40 mg Tablet,Delayed Release (Dr/Ec) 40 mg PO DAILY sulfamethoxazole-trimethoprim [SMZ-TMP DS] 800-160 mg Tablet 1 tab PO EVERY OTHER DAY Rx Instructions: 3 times a week on mon,wed,sat allopurinol 300 mg Tablet 300 mg PO QAM meclizine 25 mg Tablet 25 mg PO DAILY PRN (Reason: Dizziness) prednisone 50 mg Tablet See Rx Instructions .ROUTE .COMPLEX Rx Instructions: 100mg po daily as directed take days 1-5 with treatment at [facility] Udenyca 6 mg/0.6 mL syringe See Rx Instructions .ROUTE .COMPLEX Rx Instructions: as directed subcutaneously after 5 day iv treatment of chemo Discontinued losartan 50 mg tablet 50 mg PO DAILY Jardiance 10 mg Tablet 10 mg PO DAILY acyclovir 400 mg Tablet 400 mg PO BID carvedilol 12.5 mg Tablet 12.5 mg PO BID Rx Instructions: must administer with a meal/food Discharge Orders: Discharge Order (Routine); Ordered 07/08/22 Ordered By: Tera Bradshaw Referrals: Aubrey Benoit MD [Primary Care Provider] - Discharge Diet: Cardiac Discharge Activity: Resume usual activity Patient Instructions: Sulfamethoxazole/Trimethoprim (By mouth), Levofloxacin (By mouth), Neutropenia (GEN), Pancytopenia (DC), Opioid Safety Activity Restrictions/Additional Instructions: - Hold losartan until you see him in clinic on Saturday -Hold Coreg until you see me in clinic on Saturday -Continue Dificid for a total of 10 days -Continue Levaquin 750 every other day for a total of 5 days for febrile neutropenia, but please start this November -If you have recurrent fevers go to the emergency room -Please hydrate well, drink plenty of electrolyte balanced fluids -See me on Saturday for repeat blood work Discharge Attestations Time Spent in Discharge Care*: less than 30 min Quality Metrics Clinical Quality Measures [ No reported AMI, CVA or VTE this stay] Coding Level of Care Code Acute Chg FW DC note Diagnoses Neutropenic fever D70.9; R50.81 Diffuse large B-cell lymphoma of intra-abdominal lymph nodes C83.33 B-cell lymphoma of intra-abdominal lymph nodes C85.13 Mixed hyperlipidemia E78.2 Vitamin D deficiency E55.9 Friedreichs ataxia G11.1 Essential hypertension I10 CHF (congestive heart failure) I50.22 Heart failure type: systolic Heart failure chronicity: chronic C. difficile diarrhea A04.72 Pancytopenia D61.818
[2022-07-08] MEDS: sodium chloride 0.9% 250 ML IV (13:15)
== END 2022-07-08 15:11 | disposition home or self-care (01) | DRG 809 ==
LOC: ER 23:06 → MEDSURG 23:23
PROVIDERS: Admitting Provider Student in an Organized Health Care Education/Training Program; Emergency Provider Emergency Medicine; PCP Family Medicine; Visit Provider Family Medicine
DX: D70.1 Agranulocytosis secondary to cancer chemotherapy (principal); C83.33 Diffuse large B-cell lymphoma, intra-abdominal lymph nodes; G11.11 Friedreich ataxia; I50.22 Chronic systolic (congestive) heart failure; T45.1X5A Adverse effect of antineoplastic and immunosuppressive drugs, initial encounter; R50.81 Fever presenting with conditions classified elsewhere; E78.2 Mixed hyperlipidemia; I11.0 Hypertensive heart disease with heart failure; D61.818 Other pancytopenia; Z79.899 Other long term (current) drug therapy; Z79.82 Long term (current) use of aspirin; Z79.891 Long term (current) use of opiate analgesic; Z79.52 Long term (current) use of systemic steroids; I25.10 Atherosclerotic heart disease of native coronary artery without angina pectoris; E87.6 Hypokalemia; I25.2 Old myocardial infarction
CPT/HCPCS: 36415; 36430; 36591; 71045; 80048; 80053; 81003; 83036; 83605; 85025; 86850; 86900; 86920; 87040; 87426; 87804; 96365; 99285; G0378; J1170; J1940; J2405; J2543; J3370; J7050; P9016

== ENCOUNTER 2022-07-09 11:30 | Oncology outpatient (recurring) (ONCR) | payer MEDICARE, OTHER, SELFPAY ==
[2022-06-19 08:54] LABS: Basophils # 0.1 10^3/uL (0.0-0.1); Basophils % 0.5 %; Eosinophils # 0.2 10^3/uL (0.0-0.8); Eosinophils % 1.5 %; Hematocrit 36.9 % (42.0-52.0); Hemoglobin 11.8 g/dL (11.7-16.6); Lymphocytes # 1.7 10^3/uL (0.8-4.8); Lymphocytes % 16.7 %; Mean Corpuscular Hemoglobin 28.7 pg (28.0-34.0); Mean Corpuscular Volume 89.8 fl (80-94); Mean Platelet Volume 8.7 fL (7.4-10.4); Monocytes # 0.6 10^3/uL (0.2-0.9); Neutrophils % 74.6 %; Nucleated Red Blood Cells % 0 %; Platelet Count 479 10^3/cmm (130-400); Red Blood Count 4.11 10^6/uL (4.1-5.3); Red Cell Distribution Width 13.6 % (12.1-15.1); White Blood Count 10.2 10^3/uL (4.0-10.0)
[2022-06-19 09:12] LABS: Alanine Aminotransferase 23 U/L (0-41); Alkaline Phosphatase 113 U/L (40-130); Anion Gap 17.2 (5-19); Aspartate Amino Transferase 15 U/L (0-40); Blood Urea Nitrogen 15 mg/dL (8-23); Calcium 9.2 mg/dL (8.5-10.5); Carbon Dioxide 24 mmol/L (22-29); Chloride 105 mmol/L (98-107); Glomerular Filtration Rate 83.9 mL/min (90-130); Glucose 89 mg/dL (65-115); Immunoglobulin IGG 812 mg/dL (700-1600); Lactate Dehydrogenase 353 U/L (135-225); Osmolality Calculated 294 mOsm/kg (285-295); Potassium 4.2 mmol/L (3.5-5.1); Sodium 142 mmol/L (136-145); Total Bilirubin 0.3 mg/dL (0.15-1.2)
[2022-06-19 09:38] LABS: Hepatitis A Antibody IgM Non-Reactive (Nonreactive); Hepatitis B Surface AB 472.7 (11.5-1000); Hepatitis B Surface Antigen Non-Reactive (Nonreactive); Hepatitis C Virus Antibody Non-Reactive (Nonreactive)
[2022-06-19 11:41] LABS: Hepatitis B Core AB, Total Reactive (Nonreactive)
== END 2022-07-10 23:59 | disposition home or self-care (01) ==
PROVIDERS: PCP Family Medicine; Visit Provider Internal Medicine Medical Oncology
DX: C83.33 Diffuse large B-cell lymphoma, intra-abdominal lymph nodes (principal)
CPT/HCPCS: 36591; 80053; 82784; 83615; 85025; 86705; 86706; 86709; 86803; 87340; 99214; 99215

== ENCOUNTER 2022-08-06 14:00 | Oncology outpatient (recurring) (ONCR) | payer MEDICARE, OTHER, SELFPAY ==
[2022-07-12 14:07] LABS: Hematocrit 30.2 % (42.0-52.0); Hemoglobin 9.6 g/dL (11.7-16.6); Mean Corpuscular HGB Conc 31.8 g/dL (30.0-36.0); Mean Platelet Volume 9.4 fL (7.4-10.4); Platelet Count 202 10^3/cmm (130-400); Red Blood Count 3.43 10^6/uL (4.1-5.3); Red Cell Distribution Width 14.4 % (12.1-15.1)
[2022-07-12 14:48] LABS: White Blood Count 43.8 10^3/uL (4.0-10.0)
[2022-07-12 14:49] LABS: Slide Review Slide Review Perform
[2022-07-12 19:00] LABS: Absolute Segmented Neutrophil 32.4 10/cmm (1.6-7.1); Band Neutrophils Absolute 2.2 10^3/cmm (0.0-1.2); Lymphocytes 1 %; Monocytes Absolute 1.3 10^3/cmm (0.1-0.6); Segmented Neutrophils 74 %; Total Cells Counted 101 (0-100)
[2022-07-12 19:01] LABS: Absolute Neutrophil 34.6 10^3/cmm (1.4-6.5); Anisocytosis 1+; Blastocytes 1 % (0-0); Eosinophils 0 %; Hypochromasia 1+; Lymphocytes Absolute 0.4 10^3/cmm (1.2-3.4); Platelet Estimate Normal (Normal); Poikilocytosis 1+
[2022-07-12 19:02] LABS: Pathology Refferal Yes
[2022-07-12 19:04] LABS: Hypersegmented Polys 2+
[2022-07-17 06:07] LABS: Leukemia Profile (BBPL) See Report; Lymphoma Profile (BBPL) See Report
[2022-07-30 12:01] LABS: Hematocrit 25.9 % (42.0-52.0); Hemoglobin 8.3 g/dL (11.7-16.6); Mean Corpuscular Hemoglobin 28.4 pg (28.0-34.0); Mean Corpuscular Volume 88.7 fl (80-94); Mean Platelet Volume 10.2 fL (7.4-10.4); Platelet Count 105 10^3/cmm (130-400); Red Blood Count 2.92 10^6/uL (4.1-5.3); Red Cell Distribution Width 16.1 % (12.1-15.1); White Blood Count 14.3 10^3/uL (4.0-10.0)
[2022-07-30 12:19] LABS: Anion Gap 12.6 (5-19); Blood Urea Nitrogen 17 mg/dL (8-23); Calcium 8.4 mg/dL (8.5-10.5); Carbon Dioxide 27 mmol/L (22-29); Chloride 104 mmol/L (98-107); Glomerular Filtration Rate 66.6 mL/min (90-130); Glucose 113 mg/dL (65-115); Osmolality Calculated 292 mOsm/kg (285-295); Potassium 3.6 mmol/L (3.5-5.1); Sodium 140 mmol/L (136-145)
[2022-07-30 12:31] LABS: Absolute Segmented Neutrophil 13.4 10/cmm (1.6-7.1); Segmented Neutrophils 94 %; Slide Review Slide Review Perform; Total Cells Counted 100 (0-100)
[2022-07-30 12:32] LABS: Absolute Eosinophils 0.4 10^3/cmm (0.0-0.7); Absolute Neutrophil 13.4 10^3/cmm (1.4-6.5); Eosinophils 3 %; Lymphocytes 2 %; Lymphocytes Absolute 0.3 10^3/cmm (1.2-3.4); Monocytes Absolute 0.1 10^3/cmm (0.1-0.6); Platelet Estimate Normal (Normal)
[2022-07-30 13:53] VITALS: BP 150/72; PULSE 91; TEMP 37.1; O2SAT 96
[2022-08-02 11:45] LABS: Eosinophils % 6.5 %; Hematocrit 24.6 % (42.0-52.0); Hemoglobin 7.7 g/dL (11.7-16.6); Lymphocytes # 0.3 10^3/uL (0.8-4.8); Lymphocytes % 46.8 %; Mean Corpuscular HGB Conc 31.3 g/dL (30.0-36.0); Mean Corpuscular Hemoglobin 27.8 pg (28.0-34.0); Mean Corpuscular Volume 88.8 fl (80-94); Mean Platelet Volume 12.6 fL (7.4-10.4); Monocytes # 0.1 10^3/uL (0.2-0.9); Monocytes % 17.7 %; Neutrophils % 16.1 %; Nucleated Red Blood Cells % 3.2 %; Platelet Count 34 10^3/cmm (130-400); Red Blood Count 2.77 10^6/uL (4.1-5.3); Red Cell Distribution Width 15.7 % (12.1-15.1)
[2022-08-02 12:03] LABS: Anion Gap 14.6 (5-19); Blood Urea Nitrogen 13 mg/dL (8-23); Calcium 8.8 mg/dL (8.5-10.5); Carbon Dioxide 25 mmol/L (22-29); Chloride 104 mmol/L (98-107); Glomerular Filtration Rate 60.2 mL/min (90-130); Glucose 90 mg/dL (65-115); Osmolality Calculated 290 mOsm/kg (285-295); Potassium 3.6 mmol/L (3.5-5.1); Sodium 140 mmol/L (136-145)
[2022-08-02 12:09] LABS: Slide Review Slide Review Perform; White Blood Count 0.6 10^3/uL (4.0-10.0)
[2022-08-03] VITALS (12 sets, daily range): BP systolic 110–136; BP diastolic 61–72; PULSE 69–83; RESP 16–18; TEMP 36.1–36.9; O2SAT 78–99
[2022-08-03] MEDS: sodium chloride 0.9% 250 ML IV (08:08)
[2022-08-03] MEDS: diphenhydrAMINE 25 mg Capsule PO (08:13)
[2022-08-03] MEDS: acetaminophen 325 mg Tablet 650 MG PO (08:13)
[2022-08-03] MEDS: FUROsemide 10 mg/mL SDV 2mL 20 MG IVP (10:30)
[2022-08-06 14:09] LABS: Hematocrit 34.4 % (42.0-52.0); Hemoglobin 11.1 g/dL (11.7-16.6); Mean Corpuscular HGB Conc 32.3 g/dL (30.0-36.0); Mean Corpuscular Hemoglobin 28.8 pg (28.0-34.0); Mean Corpuscular Volume 89.4 fl (80-94); Platelet Count 71 10^3/cmm (130-400); Red Blood Count 3.85 10^6/uL (4.1-5.3); Red Cell Distribution Width 17.2 % (12.1-15.1)
[2022-08-06 14:26] LABS: Alanine Aminotransferase 11 U/L (0-41); Albumin Level 3.9 g/dL (3.5-5.2); Alkaline Phosphatase 133 U/L (40-130); Anion Gap 15.7 (5-19); Aspartate Amino Transferase 16 U/L (0-40); Blood Urea Nitrogen 15 mg/dL (8-23); Carbon Dioxide 26 mmol/L (22-29); Chloride 103 mmol/L (98-107); Globulin 2.3 g/dL (1.3-4.6); Glomerular Filtration Rate 37.7 mL/min (90-130); Glucose 95 mg/dL (65-115); Osmolality Calculated 293 mOsm/kg (285-295); Potassium 3.7 mmol/L (3.5-5.1); Sodium 141 mmol/L (136-145); Total Bilirubin 0.2 mg/dL (0.15-1.2); Total Protein 6.2 g/dL (6.6-8.7)
[2022-08-06 14:43] LABS: Slide Review Slide Review Perform; White Blood Count 33.9 10^3/uL (4.0-10.0)
[2022-08-06 14:44] LABS: Absolute Neutrophil 26.8 10^3/cmm (1.4-6.5); Absolute Segmented Neutrophil 24.1 10/cmm (1.6-7.1); Band Neutrophils Absolute 2.7 10^3/cmm (0.0-1.2); Eosinophils 0 %; Lymphocytes 3 %; Monocytes Absolute 1.4 10^3/cmm (0.1-0.6); Platelet Estimate Decreased (Normal); Segmented Neutrophils 71 %; Total Cells Counted 100 (0-100)
== END 2022-08-07 23:59 | disposition home or self-care (01) ==
PROVIDERS: PCP Family Medicine; Visit Provider Internal Medicine Medical Oncology
DX: C83.33 Diffuse large B-cell lymphoma, intra-abdominal lymph nodes (principal); Z79.899 Other long term (current) drug therapy
CPT/HCPCS: 36430; 36591; 80048; 80053; 80503; 85007; 85025; 86850; 86900; 86920; 88184; 88185; 96361; 96374; J1940; J7050; P9040

== ENCOUNTER 2022-09-07 11:30 | Oncology outpatient (recurring) (ONCR) | payer MEDICARE, OTHER, SELFPAY ==
[2022-08-16 15:03] LABS: Hematocrit 31.1 % (42.0-52.0); Hemoglobin 10.2 g/dL (11.7-16.6); Lymphocytes # 0.5 10^3/uL (0.8-4.8); Lymphocytes % 0.6 %; Mean Corpuscular HGB Conc 32.8 g/dL (30.0-36.0); Mean Corpuscular Hemoglobin 28.7 pg (28.0-34.0); Mean Corpuscular Volume 87.6 fl (80-94); Mean Platelet Volume 9.3 fL (7.4-10.4); Monocytes # 0.1 10^3/uL (0.2-0.9); Monocytes % 0.1 %; Neutrophils # 73.67 10^3/uL (1.8-7.7); Neutrophils % 92.1 %; Nucleated Red Blood Cells % 0 %; Platelet Count 251 10^3/cmm (130-400); Red Blood Count 3.55 10^6/uL (4.1-5.3)
[2022-08-16 15:27] LABS: Alanine Aminotransferase 11 U/L (0-41); Albumin Level 3.7 g/dL (3.5-5.2); Alkaline Phosphatase 108 U/L (40-130); Anion Gap 15.5 (5-19); Aspartate Amino Transferase 12 U/L (0-40); Blood Urea Nitrogen 28 mg/dL (8-23); Calcium 8.7 mg/dL (8.5-10.5); Carbon Dioxide 25 mmol/L (22-29); Chloride 100 mmol/L (98-107); Globulin 1.8 g/dL (1.3-4.6); Glomerular Filtration Rate 66.6 mL/min (90-130); Glucose 111 mg/dL (65-115); Osmolality Calculated 290 mOsm/kg (285-295); Potassium 3.5 mmol/L (3.5-5.1); Sodium 137 mmol/L (136-145); Total Bilirubin 0.6 mg/dL (0.15-1.2); Total Protein 5.5 g/dL (6.6-8.7)
[2022-08-16 15:48] LABS: Slide Review Slide Review Perform
[2022-08-20 12:27] LABS: Basophils % 1.3 %; Eosinophils % 1.3 %; Hematocrit 27.8 % (42.0-52.0); Hemoglobin 8.6 g/dL (11.7-16.6); Lymphocytes # 0.2 10^3/uL (0.8-4.8); Lymphocytes % 25.6 %; Mean Corpuscular HGB Conc 30.9 g/dL (30.0-36.0); Mean Corpuscular Hemoglobin 27.7 pg (28.0-34.0); Mean Corpuscular Volume 89.7 fl (80-94); Mean Platelet Volume 10.8 fL (7.4-10.4); Monocytes # 0.1 10^3/uL (0.2-0.9); Neutrophils % 62.8 %; Nucleated Red Blood Cells % 0 %; Platelet Count 63 10^3/cmm (130-400); Red Cell Distribution Width 16.8 % (12.1-15.1)
[2022-08-20 13:00] LABS: Neutrophils # 0.49 10^3/uL (1.8-7.7); White Blood Count 0.8 10^3/uL (4.0-10.0)
[2022-08-20 13:01] LABS: Slide Review Slide Review Perform
[2022-08-23 12:00] VITALS: BP 122/78; PULSE 78; RESP 18; TEMP 36.6; O2SAT 98
[2022-08-23 12:08] LABS: Hematocrit 26.9 % (42.0-52.0); Hemoglobin 8.6 g/dL (11.7-16.6); Mean Corpuscular Hemoglobin 28.7 pg (28.0-34.0); Mean Corpuscular Volume 89.7 fl (80-94); Platelet Count 68 10^3/cmm (130-400); Red Cell Distribution Width 16.5 % (12.1-15.1); White Blood Count 5.6 10^3/uL (4.0-10.0)
[2022-08-23 12:45] LABS: Absolute Segmented Neutrophil 3.9 10/cmm (1.6-7.1); Segmented Neutrophils 69 %; Slide Review Slide Review Perform; Total Cells Counted 100 (0-100)
[2022-08-23 12:46] LABS: Absolute Neutrophil 3.9 10^3/cmm (1.4-6.5); Eosinophils 0 %; Lymphocytes 17 %; Monocytes Absolute 0.5 10^3/cmm (0.1-0.6); Platelet Estimate Decreased (Normal)
--- NOTE | 2022-08-23 16:45 | PC.NURSE ---
Patient 's labs reviewed with Dr Stephens and faxed to [facility] doctor with patient aware and has a copy of the labs.mm
[2022-09-07 11:49] VITALS: BP 103/60; PULSE 100; RESP 18; TEMP 36.7; O2SAT 99
[2022-09-07 12:07] LABS: Basophils # 0.1 10^3/uL (0.0-0.1); Basophils % 0.4 %; Eosinophils % 0.1 %; Hematocrit 24.7 % (42.0-52.0); Lymphocytes # 0.3 10^3/uL (0.8-4.8); Mean Corpuscular HGB Conc 32.4 g/dL (30.0-36.0); Mean Corpuscular Hemoglobin 30.2 pg (28.0-34.0); Mean Corpuscular Volume 93.2 fl (80-94); Mean Platelet Volume 9.3 fL (7.4-10.4); Monocytes # 0.1 10^3/uL (0.2-0.9); Monocytes % 0.2 %; Neutrophils # 20.51 10^3/uL (1.8-7.7); Neutrophils % 86.1 %; Nucleated Red Blood Cells % 0 %; Platelet Count 145 10^3/cmm (130-400); Red Blood Count 2.65 10^6/uL (4.1-5.3); Red Cell Distribution Width 18.2 % (12.1-15.1); White Blood Count 23.8 10^3/uL (4.0-10.0)
[2022-09-07 13:29] LABS: Slide Review Slide Review Perform
== END 2022-09-07 23:59 | disposition home or self-care (01) ==
PROVIDERS: Internal Medicine Medical Oncology; PCP Family Medicine; Visit Provider Internal Medicine Medical Oncology
DX: C83.33 Diffuse large B-cell lymphoma, intra-abdominal lymph nodes (principal); C83.13 Mantle cell lymphoma, intra-abdominal lymph nodes; Z95.828 Presence of other vascular implants and grafts
CPT/HCPCS: 36591; 80053; 85007; 85025; 86850; 86900

== ENCOUNTER → 2022-09-25 15:55 | Outpatient (BNVA) | payer MEDICARE, OTHER, SELFPAY | PROVIDERS: PCP Family Medicine; Visit Provider Internal Medicine | DX: E78.2 Mixed hyperlipidemia (principal); I25.10 Atherosclerotic heart disease of native coronary artery without angina pectoris; I11.0 Hypertensive heart disease with heart failure; I50.22 Chronic systolic (congestive) heart failure; Z79.82 Long term (current) use of aspirin | CPT/HCPCS: 99214 ==

== ENCOUNTER 2022-10-01 13:30 | Oncology outpatient (recurring) (ONCR) | payer MEDICARE, OTHER, SELFPAY ==
[2022-09-10] VITALS (11 sets, daily range): BP systolic 104–120; BP diastolic 50–64; PULSE 67–95; RESP 16; TEMP 35.9–37.2; O2SAT 96–99
[2022-09-10 12:02] LABS: Basophils % 4.5 %; Eosinophils % 2.3 %; Hematocrit 23.8 % (42.0-52.0); Hemoglobin 7.6 g/dL (11.7-16.6); Lymphocytes # 0.2 10^3/uL (0.8-4.8); Lymphocytes % 40.9 %; Mean Corpuscular HGB Conc 31.9 g/dL (30.0-36.0); Mean Corpuscular Hemoglobin 29.5 pg (28.0-34.0); Mean Corpuscular Volume 92.2 fl (80-94); Mean Platelet Volume 11.1 fL (7.4-10.4); Monocytes # 0.1 10^3/uL (0.2-0.9); Monocytes % 13.6 %; Neutrophils % 38.7 %; Nucleated Red Blood Cells % 0 %; Platelet Count 30 10^3/cmm (130-400); Red Blood Count 2.58 10^6/uL (4.1-5.3); Red Cell Distribution Width 17.4 % (12.1-15.1)
[2022-09-10 12:40] LABS: Slide Review Slide Review Perform
[2022-09-10 12:41] LABS: Neutrophils # 0.17 10^3/uL (1.8-7.7); White Blood Count 0.4 10^3/uL (4.0-10.0)
[2022-09-10] MEDS: acetaminophen 325 mg Tablet 650 MG PO (13:41)
[2022-09-10] MEDS: diphenhydrAMINE 25 mg Capsule PO (13:42)
[2022-09-10] MEDS: sodium chloride 0.9% 250 mL Bag IV (14:05)
[2022-09-13 10:00] LABS: Hematocrit 31.7 % (42.0-52.0); Hemoglobin 10.2 g/dL (11.7-16.6); Mean Corpuscular HGB Conc 32.2 g/dL (30.0-36.0); Mean Corpuscular Hemoglobin 29.4 pg (28.0-34.0); Mean Corpuscular Volume 91.4 fl (80-94); Mean Platelet Volume 9.8 fL (7.4-10.4); Platelet Count 93 10^3/cmm (130-400); Red Blood Count 3.47 10^6/uL (4.1-5.3); Red Cell Distribution Width 17.9 % (12.1-15.1); White Blood Count 10.4 10^3/uL (4.0-10.0)
[2022-09-13 10:38] LABS: Slide Review Slide Review Perform
[2022-09-13 10:39] LABS: Absolute Neutrophil 7.6 10^3/cmm (1.4-6.5); Absolute Segmented Neutrophil 7.3 10/cmm (1.6-7.1); Band Neutrophils Absolute 0.3 10^3/cmm (0.0-1.2); Eosinophils 0 %; Lymphocytes 5 %; Lymphocytes Absolute 0.5 10^3/cmm (1.2-3.4); Monocytes Absolute 0.5 10^3/cmm (0.1-0.6); Platelet Estimate Decreased (Normal); Segmented Neutrophils 70 %; Total Cells Counted 100 (0-100)
[2022-09-13 16:17] VITALS: BP 116/74; PULSE 88; RESP 16; TEMP 36.6; O2SAT 98
[2022-10-01 12:54] LABS: Basophils # 0.1 10^3/uL (0.0-0.1); Basophils % 0.9 %; Hematocrit 28.4 % (42.0-52.0); Hemoglobin 9.2 g/dL (11.7-16.6); Lymphocytes # 0.5 10^3/uL (0.8-4.8); Lymphocytes % 6.7 %; Mean Corpuscular HGB Conc 32.4 g/dL (30.0-36.0); Mean Corpuscular Hemoglobin 30.7 pg (28.0-34.0); Mean Corpuscular Volume 94.7 fl (80-94); Mean Platelet Volume 9.9 fL (7.4-10.4); Monocytes # 0.7 10^3/uL (0.2-0.9); Monocytes % 10.2 %; Neutrophils # 4.51 10^3/uL (1.8-7.7); Neutrophils % 67.7 %; Nucleated Red Blood Cells # 0.1 /100WBC; Nucleated Red Blood Cells % 1.2 %; Platelet Count 71 10^3/cmm (130-400); Red Cell Distribution Width 17.1 % (12.1-15.1); White Blood Count 6.7 10^3/uL (4.0-10.0)
[2022-10-01 13:42] LABS: Slide Review Slide Review Perform
== END 2022-10-07 23:59 | disposition home or self-care (01) ==
PROVIDERS: Internal Medicine Medical Oncology; PCP Family Medicine; Visit Provider Internal Medicine Medical Oncology
DX: C83.33 Diffuse large B-cell lymphoma, intra-abdominal lymph nodes (principal)
CPT/HCPCS: 36430; 36591; 85007; 85025; 86850; 86900; 86920; J7050; P9040

== ENCOUNTER → 2023-01-15 14:22 | Outpatient (BNVA) | payer MEDICARE, OTHER, SELFPAY | PROVIDERS: PCP Internal Medicine Medical Oncology; Visit Provider Surgery | DX: Z95.828 Presence of other vascular implants and grafts (principal) | CPT/HCPCS: 99213 ==

== ENCOUNTER → 2023-01-28 08:46 | Outpatient (BNVA) | payer MEDICARE, OTHER, SELFPAY | PROVIDERS: PCP Internal Medicine Medical Oncology; Visit Provider Otolaryngology | DX: K04.6 Periapical abscess with sinus (principal); J34.2 Deviated nasal septum; H83.3X9 Noise effects on inner ear, unspecified ear; H93.13 Tinnitus, bilateral | CPT/HCPCS: 99203 ==

== ENCOUNTER → 2023-02-05 13:29 | Outpatient (BNVA) | payer MEDICARE, OTHER, SELFPAY | PROVIDERS: PCP Family Medicine; Referring Provider Family Medicine; Visit Provider Dermatology | DX: L57.0 Actinic keratosis (principal); L82.1 Other seborrheic keratosis; L81.4 Other melanin hyperpigmentation; D48.5 Neoplasm of uncertain behavior of skin | CPT/HCPCS: 11102; 17000; 17003; 99203 ==

== ENCOUNTER 2023-02-13 09:18 | Outpatient (CLI) | payer MEDICARE, OTHER, SELFPAY ==
--- NOTE | 2023-02-13 09:30 | CT_ITS ---
WS: [id number] CT SINUSES TECHNIQUE: Noncontrast CT of the paranasal sinuses with coronal and sagittal reformatted images. CLINICAL INFORMATION: Gingival fistula COMPARISON: None. DLP: 364.[address] scans at [facility] use at least one of these dose optimization techniques: automated e xposure control; mA and/or kV adjustment per patient size (includes targeted exams where dose is matc hed to clinical indication); or iterative reconstruction. FINDINGS: Expansile soft tissue lesion involving the RIGHT paramedian maxilla with cortical thinning and osseous expansion. This involves the RIGHT maxilla anteriorly at the midline measuring 1.8 x 1.5 x 1.8 cm. Erosive changes with dehiscence involving the surrounding anterior and posterior cortex com patible with history of fistula. Inferior margin is not entirely visualized on this sinus CT. This be further evaluated with contrast-enhanced face CT. Small area of dehiscence extends into the RIGHT an terior inferior nasal cavity. Small area of cortical dehiscence along the posterior margin at the og gual surface Normal pterygoid plates. No evidence of drainable abscess or fluid collection . Mild bhed-yn-diwjv nasal deviation measuring 5.6 mm. Rightward directed spur. RIGHT juan bullosa. M ild mucosal thickening in the LEFT frontal sinus and ethmoid air cells. Paranasal sinuses are well ae rated. Sphenoid sinuses are well aerated. Cavernous carotid calcification. Partially visualized masto id air cells are well aerated. Normal posterior nasopharynx and parapharyngeal fat. Mild narrowing of the ostiomeatal units bilaterally. IMPRESSION: 1. Expansile erosive soft tissue lesion involving the RIGHT anterior parasymphyseal maxilla with cor tical erosion and areas of cortical dehiscence. This measures 1.8 x 1.5 x 1.8 cm. No evidence of drai nable abscess or fluid collection. 2. Small areas of cortical dehiscence at the anterior margin extending into the RIGHT nasal cavity a nd posterior margin along the lingual surface. Inferior margin is not entirely visualized and can be further evaluated with contrast-enhanced face CT if indicated. 3. Differential considerations include periapical radicular or dentigerous cyst, odontogenic kerato cyst, or less likely odontogenic tumor or squamous cell carcinoma not entirely excluded. Giant cell g ranuloma is an additional consideration. 4. Mild mgkc-pn-iojne nasal deviation measuring 5.6 mm. Rightward directed spur. RIGHT juan bullos a. 5. Mild mucosal thickening of the paranasal sinuses which are well aerated. Trace mucosal thickening in the ethmoid air cells and LEFT frontal sinus. 6. Partial visualized mastoid air cells are well aerated.
== END 2023-02-13 09:19 | disposition home or self-care (01) ==
LOC: RAD 09:19
PROVIDERS: PCP Family Medicine; Visit Provider Otolaryngology
DX: K04.6 Periapical abscess with sinus (principal); J34.2 Deviated nasal septum; R93.89 Abnormal findings on diagnostic imaging of other specified body structures
CPT/HCPCS: 70486

== ENCOUNTER → 2023-02-25 10:27 | Outpatient (BNVA) | payer MEDICARE, OTHER, SELFPAY | PROVIDERS: PCP Family Medicine; Visit Provider Otolaryngology | DX: K04.6 Periapical abscess with sinus (principal) | CPT/HCPCS: 99213 ==

== ENCOUNTER → 2023-08-21 13:49 | Outpatient (BNVA) | payer MEDICARE, OTHER, SELFPAY | PROVIDERS: PCP Family Medicine; Referring Provider Internal Medicine Medical Oncology; Visit Provider Surgery | DX: Z95.828 Presence of other vascular implants and grafts (principal) | CPT/HCPCS: 99214 ==

== ENCOUNTER 2023-08-29 11:51 | Day surgery (SDC) | payer MEDICARE, OTHER, SELFPAY ==
--- NOTE | 2023-08-27 12:39 | SUR.PREOP ---
[id number] Bowen(proration clerk) called to inform us that patient states that the time of arrival of sx isn't gonna work for him,instructed Lulu ([place]) of this and verbalized understanding
[2023-08-29] VITALS (8 sets, daily range): BP systolic 116–142; BP diastolic 65–82; PULSE 72–87; RESP 14–17; TEMP 36.2–36.8; O2SAT 95–98; BMI 22.2
--- NOTE | 2023-08-29 12:12 | P.HPUD_ITS ---
Surgery/Procedure H&P Update DATE OF PROCEDURE: August 29, 2023 DATE H&P PERFORMED: 08/21/23 H&P UPDATE INFORMATION: I have reviewed H&P completed within last 30 days, I have examined patient prior to procedure, No changes to prior documentation and H&P is in [facility] EMR on date indicated PLANNED PROCEDURE: Operation Date: 08/29/23 13:40 Proposed Procedures p Portacath Removal(Not Applicable) - Jin De La Torre MD
--- NOTE | 2023-08-29 13:00 | P.ANESASSM_ITS ---
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 Anesthetic Plan ASA status: 4 Anesthesia: MAC Other: avoid succinylcholine Risk of > 500 ml blood loss (7ml/kg in children): No Other Pertinent Information patient has fentanyl patch on - avoid placing any milind huggers over patch Medications/Allergies Home Medications Medication Instructions Recorded Confirmed Last Taken Type ascorbic acid (vitamin C) 1,000 mg 1,000 - 2,000 mg PO DAILY 05/09/21 08/26/23 Unknown History tablet (Vitamin C) omega-3 fatty acids 1,000 mg 1,000 mg PO DAILY 06/12/21 08/28/23 08/28/23 History capsule Artery Strong 1 cap PO DAILY 06/06/22 08/26/23 08/26/23 History Lactobacillus acidophilus and 1 cap PO DAILY 06/06/22 08/28/23 08/28/23 History rhamnosus 15 billion cell capsule (Probiotic) zinc acetate 50 mg (zinc) capsule 50 mg PO DAILY 06/06/22 08/28/23 08/28/23 History milk thistle 150 mg capsule 150 mg PO DAILY 06/19/22 08/28/23 08/28/23 History ondansetron HCl 8 mg tablet 8 mg PO Q8H PRN Nausea 07/06/22 08/28/23 Unknown History oxycodone-acetaminophen 5 mg-325 1 - 2 tab PO Q4H PRN Pain 07/06/22 08/28/23 08/28/23 History mg tablet potassium chloride 10 mEq 10 meq PO DAILY #30 caps 09/13/22 08/28/23 08/28/23 Rx capsule,extended release Vitamin B-6 1 cap PO DAILY 09/25/22 08/28/23 08/28/23 History acyclovir 400 mg tablet 400 mg PO BID 09/25/22 08/26/23 08/28/23 History carvedilol 12.5 mg tablet 12.5 mg PO BID 09/25/22 08/26/23 08/28/23 History cyclobenzaprine 5 mg tablet 10 mg PO TID PRN Muscle Spasm 09/25/22 08/29/23 08/28/23 History furosemide 40 mg tablet (Lasix) 40 mg PO DAILY PRN swelling 09/25/22 08/26/23 Unknown History losartan 50 mg tablet 50 mg PO DAILY 09/25/22 08/26/23 Unknown History pantoprazole 40 mg tablet,delayed 40 mg PO BID 09/25/22 08/28/23 08/28/23 History release fentanyl 25 mcg/hr transdermal 25 mcg transdermal Q72H 08/21/23 08/26/23 08/26/23 History patch Allergies Allergy/AdvReac Type Severity Reaction Status Date / Time No Known Allergies Allergy Verified 08/21/23 13:54 [facility] Anesthesia Medical History Sacroiliitis CHF (congestive heart failure) STEMI (ST elevation myocardial infarction) (04/2021) Atherosclerosis of coronary artery Mixed hyperlipidemia Vitamin D deficiency Gastroesophageal reflux disease Essential hypertension Friedreichs ataxia Surgical History Port-A-Cath in place (06/09/22) Port-A-Cath placement S/P right coronary artery (RCA) stent placement (05/09/21) Social History Smoking and tobacco/nicotine status: former use of tobacco/nicotine Quit status (tobacco/nicotine): has quit using Year quit tobacco: 1994 Former quit date comment: tobacco use 25 years Second hand smoke exposure: No Alcohol intake: never Substance/Drug Use: never Data Anesthesia Cardiac Studies: Echocardiogram 06/08/22
[2023-08-29] MEDS: sodium chloride 0.9% 1,000 ML 30 ML IV (13:28)
[2023-08-29] MEDS: ceFAZolin 2,000 MG in sodium chloride 0.9% (plus) 50 ML 100 MG IV (13:34)
[2023-08-29] MEDS: lidocaine-epi 1% 20 mL INJ 10 ML INJECTION (13:54)
[2023-08-29] MEDS: BUPivacaine 0.25% INJ 10 mL INJECTION (13:55)
--- NOTE | 2023-08-29 14:17 | P.OP_ITS ---
Operative Report Date of procedure: August 29, 2023 Pre-op diagnosis: Presence of Port-A-Cath Post-op diagnosis: Same Post-op findings: Port-A-Cath noted in place Procedure done: Excision of Port-A-Cath Specimens removed/disposition: Port-A-Cath and capsule Pathology: Port-A-Cath capsule for culture Surgeon: Jin De La Torre MD Tile Inspector: SHELDON OR Staff Estimated blood loss: 5 Complications: none Brief History: 67-year-old male who was referred to my clinic for evaluation for removal of Port-A-Cath due to concern of possible source of fever. Procedure: Patient was brought into the OR, he was placed in the supine position. Mother anesthesia sedation was given. The left upper chest and neck was prepped and draped in the usual sterile fashion. Timeout was conducted. Local anesthesia was infiltrated around the Port-A-Cath. At 3 cm incision was made overlying the previous surgical incision, the previous surgical incision was then excised for cosmesis. The incision was deepened until the Port-A-Cath was identified, the Port-A-Cath so was opened and the Port-A-Cath was delivered through the wound. The Port-A-Cath was then removed while holding pressure at the level of the insertion site in the subclavian vein. #3-0 Vicryl was used to create a tjpvan-kg-skilb suture on the catheter tract to prevent bleeding. I then procee ded to excise the capsule using Metzenbaum scissors. The capsule was then sent as a specimen for culture due to concern of possible infection at the level of the Port-A-Cath. I then proceeded to wash the wound with saline. Hemostasis was verified. The wound was then closed in layers using #3-0 Vicryl for the subcutaneous tissue and gaetano for the skin. A compressive dressing was applied. At the end of the procedure all plans were correct, the patient tolerated well the procedure and was transferred to PACU in stable condition.
--- NOTE | 2023-08-29 16:00 | ANE.PACU2 ---
Inpatient post-anesthesia follow up: Airway intact: Yes Vital signs: Temperature 97.8 F Pulse Rate 72 Respiratory Rate 16 Blood Pressure 139/82 Pulse Oximetry 97 Oxygen Delivery Me thod Room Air Oxygen Flow Rate Fraction of Inspir ed Oxygen Hydration adequate: Yes Nausea and vomiting: No Pain level: 1 Mental status: Baseline
== END 2023-08-29 16:00 | disposition home or self-care (01) ==
PROVIDERS: PCP Family Medicine; Visit Provider Surgery
PROC: (CPT 36589; principal; 2023-08-29 13:40)
DX: Z45.2 Encounter for adjustment and management of vascular access device (principal); R50.9 Fever, unspecified; I10 Essential (primary) hypertension; K21.9 Gastro-esophageal reflux disease without esophagitis; Z85.72 Personal history of non-Hodgkin lymphomas; I25.2 Old myocardial infarction; E78.2 Mixed hyperlipidemia; Z87.891 Personal history of nicotine dependence
CPT/HCPCS: 36590; 87070; 87176; 87205; J0690; J2704; J3010; J3490; J7030

== ENCOUNTER 2023-09-02 09:15 | Oncology outpatient (recurring) (ONCR) | payer MEDICARE, OTHER, SELFPAY ==
[2023-08-13 09:23] LABS: Hematocrit 26.4 % (37-53); Mean Corpuscular HGB Conc 31.8 g/dL (30-55); Mean Corpuscular Hemoglobin 28.1 pg (27-33); Mean Corpuscular Volume 88.3 fl (82-101); Mean Platelet Volume 10.7 fL (7.4-10.4); Platelet Count 126 10^3/cmm (157-399); Red Blood Count 2.99 10^6/uL (3.85-5.65); White Blood Count 8.26 10^3/uL (3.29-11.43)
[2023-08-13 09:48] LABS: Alanine Aminotransferase 15 U/L (0-41); Albumin Level 3.3 g/dL (3.5-5.2); Alkaline Phosphatase 238 U/L (40-130); Anion Gap 17.6 (5-19); Aspartate Amino Transferase 25 U/L (0-40); Blood Urea Nitrogen 16 mg/dL (8-23); Calcium 9.1 mg/dL (8.5-10.5); Carbon Dioxide 24 mmol/L (22-29); Chloride 101 mmol/L (98-107); Globulin 2.9 g/dL (1.3-4.6); Glomerular Filtration Rate 31.5 mL/min (90-130); Glucose 97 mg/dL (65-115); Osmolality Calculated 289 mOsm/kg (285-295); Potassium 3.6 mmol/L (3.5-5.1); Sodium 139 mmol/L (136-145); Total Bilirubin 0.7 mg/dL (0.15-1.2); Total Protein 6.2 g/dL (6.6-8.7)
[2023-08-13 09:55] LABS: Slide Review Slide Review Perform
[2023-08-13 09:56] LABS: Absolute Eosinophils 0.1 10^3/cmm (0.0-0.7); Absolute Neutrophil 4.7 10^3/cmm (1.4-6.5); Absolute Segmented Neutrophil 4.6 10/cmm (1.6-7.1); Band Neutrophils Absolute 0.1 10^3/cmm (0.0-1.2); Eosinophils 1 %; Lymphocytes 15 %; Monocytes Absolute 1.8 10^3/cmm (0.1-0.6); Platelet Estimate Decreased (Normal); Segmented Neutrophils 56 %; Total Cells Counted 100 (0-100)
[2023-08-13 09:57] LABS: Anisocytosis 2+; Polychromasia 1+
[2023-08-13 11:28] LABS: Lymphocytes Absolute 1.3 10^3/cmm (1.2-3.4)
[2023-08-13 11:58] LABS: Erythrocyte Sedimentation Rate 23 mm/hr (0-10)
[2023-08-13 11:59] LABS: Bilirubin Urine Neg (Negative); Blood Urine 3+ (Negative); Glucose Urine UA Norm (Normal); Ketones Urine Negative (Negative); Leukocyte Esterase Urine Negative (Negative); Nitrate Urine Negative (Negative); Protein Urine 1+ (Negative); Urine Appearance Clear (CLEAR); Urine Color Dark Yellow (Yellow); Urobilinogen Urine Norm (Negative); pH Urine 5 (5-7)
[2023-08-13 12:15] LABS: Add Urine Culture? Yes; Amorphous Sediment Urine 1+ /hpf; Bacteria Urine TRACE /hpf; Iron 34 ug/dL (59-158); Mucus Urine TRACE /hpf; Percent Saturation 27.2 % (20-50); Total Iron Binding Capacity 125 mcg/dl; Unsaturated Iron Binding 91 ug/dL (112-347); Uric Acid Crystals Urine 0-4 /hpf; WBC Urine 0-4 /hpf (0-5)
[2023-08-16 10:31] LABS: Basophils # 0.1 10^3/uL (0.0-0.1); Basophils % 0.9 %; Eosinophils % 0.2 %; Hematocrit 24.9 % (37-53); Lymphocytes # 0.9 10^3/uL (0.8-4.8); Lymphocytes % 9.3 %; Mean Corpuscular HGB Conc 31.7 g/dL (30-55); Mean Corpuscular Hemoglobin 28.1 pg (27-33); Mean Corpuscular Volume 88.6 fl (82-101); Mean Platelet Volume 10.2 fL (7.4-10.4); Monocytes # 1.3 10^3/uL (0.2-0.9); Monocytes % 14.1 %; Neutrophils # 6.54 10^3/uL (1.8-7.7); Neutrophils % 71.2 %; Nucleated Red Blood Cells # 0.1 /100WBC; Nucleated Red Blood Cells % 0.5 %; Platelet Count 158 10^3/cmm (157-399); Red Blood Count 2.81 10^6/uL (3.85-5.65); Red Cell Distribution Width 20.3 % (12.1-15.1)
[2023-08-16 10:58] LABS: Alanine Aminotransferase 12 U/L (0-41); Albumin Level 3.2 g/dL (3.5-5.2); Alkaline Phosphatase 203 U/L (40-130); Anion Gap 18.1 (5-19); Aspartate Amino Transferase 24 U/L (0-40); Blood Urea Nitrogen 15 mg/dL (8-23); Carbon Dioxide 24 mmol/L (22-29); Chloride 102 mmol/L (98-107); Creatinine Clr Calc Pharmacy 35.4443; Globulin 3.1 g/dL (1.3-4.6); Glomerular Filtration Rate 37.6 mL/min (90-130); Glucose 93 mg/dL (65-115); Osmolality Calculated 291 mOsm/kg (285-295); Potassium 4.1 mmol/L (3.5-5.1); Sodium 140 mmol/L (136-145); Total Bilirubin 0.8 mg/dL (0.15-1.2); Total Protein 6.3 g/dL (6.6-8.7)
[2023-08-19] VITALS (10 sets, daily range): BP systolic 108–149; BP diastolic 61–77; PULSE 80–94; RESP 18; TEMP 36.6–37.1; O2SAT 94–98
[2023-08-19 08:47] LABS: Basophils # 0.1 10^3/uL (0.0-0.1); Eosinophils % 0.4 %; Lymphocytes # 0.7 10^3/uL (0.8-4.8); Lymphocytes % 9.8 %; Mean Corpuscular HGB Conc 31.3 g/dL (30-55); Mean Corpuscular Hemoglobin 28.5 pg (27-33); Mean Corpuscular Volume 91.3 fl (82-101); Mean Platelet Volume 9.8 fL (7.4-10.4); Monocytes # 0.8 10^3/uL (0.2-0.9); Monocytes % 11.1 %; Neutrophils # 5.43 10^3/uL (1.8-7.7); Neutrophils % 75.2 %; Nucleated Red Blood Cells % 0 %; Platelet Count 181 10^3/cmm (157-399); Red Blood Count 2.63 10^6/uL (3.85-5.65); Red Cell Distribution Width 21.2 % (12.1-15.1); White Blood Count 7.22 10^3/uL (3.29-11.43)
[2023-08-19] MEDS: diphenhydrAMINE 25 mg Capsule PO (10:16)
[2023-08-19] MEDS: acetaminophen 325 mg Tablet 650 MG PO (10:16)
[2023-08-19] MEDS: sodium chloride 0.9% 250 mL Bag IV (10:18)
[2023-08-26 09:53] LABS: Basophils # 0.1 10^3/uL (0.0-0.1); Basophils % 1.2 %; Eosinophils # 0.2 10^3/uL (0.0-0.8); Eosinophils % 2.3 %; Hematocrit 30.2 % (37-53); Lymphocytes # 0.6 10^3/uL (0.8-4.8); Lymphocytes % 8.6 %; Mean Corpuscular HGB Conc 32.1 g/dL (30-55); Mean Corpuscular Hemoglobin 29.6 pg (27-33); Mean Corpuscular Volume 92.1 fl (82-101); Mean Platelet Volume 9.2 fL (7.4-10.4); Monocytes # 0.6 10^3/uL (0.2-0.9); Monocytes % 8.5 %; Neutrophils # 5.46 10^3/uL (1.8-7.7); Neutrophils % 78.7 %; Nucleated Red Blood Cells % 0 %; Platelet Count 190 10^3/cmm (157-399); Red Blood Count 3.28 10^6/uL (3.85-5.65); Red Cell Distribution Width 19.8 % (12.1-15.1); White Blood Count 6.94 10^3/uL (3.29-11.43)
[2023-08-26 10:19] LABS: Alanine Aminotransferase 10 U/L (0-41); Albumin Level 3.3 g/dL (3.5-5.2); Alkaline Phosphatase 122 U/L (40-130); Anion Gap 14.5 (5-19); Aspartate Amino Transferase 21 U/L (0-40); Blood Urea Nitrogen 22 mg/dL (8-23); C Reactive Protein 13.3 mg/L (0.0-4.9); Calcium 9.5 mg/dL (8.5-10.5); Carbon Dioxide 25 mmol/L (22-29); Chloride 101 mmol/L (98-107); Globulin 2.5 g/dL (1.3-4.6); Glomerular Filtration Rate 54.7 mL/min (90-130); Glucose 111 mg/dL (65-115); Lactate Dehydrogenase 227 U/L (135-225); Osmolality Calculated 288 mOsm/kg (285-295); Potassium 3.5 mmol/L (3.5-5.1); Sodium 137 mmol/L (136-145); Total Bilirubin 0.6 mg/dL (0.15-1.2); Total Protein 5.8 g/dL (6.6-8.7)
[2023-08-26 10:22] LABS: Creatinine Clr Calc Pharmacy 49.0768
[2023-08-26 15:32] LABS: Immunoglobulin IGG 871 mg/dL (700-1600)
[2023-08-26 15:38] LABS: Immunoglobulin IGA < 50 mg/dL (70-400); Immunoglobulin IGM < 25 mg/dL (40-230)
[2023-09-02 09:22] LABS: Basophils # 0.1 10^3/uL (0.0-0.1); Basophils % 1.3 %; Eosinophils # 0.5 10^3/uL (0.0-0.8); Eosinophils % 8.5 %; Hematocrit 29.7 % (37-53); Lymphocytes # 0.8 10^3/uL (0.8-4.8); Lymphocytes % 13.8 %; Mean Corpuscular Volume 96.7 fl (82-101); Mean Platelet Volume 9.2 fL (7.4-10.4); Monocytes # 0.6 10^3/uL (0.2-0.9); Monocytes % 10.3 %; Neutrophils # 3.55 10^3/uL (1.8-7.7); Neutrophils % 65.4 %; Nucleated Red Blood Cells % 0 %; Platelet Count 176 10^3/cmm (157-399); Red Blood Count 3.07 10^6/uL (3.85-5.65); Red Cell Distribution Width 19.3 % (12.1-15.1); White Blood Count 5.43 10^3/uL (3.29-11.43)
== END 2023-09-08 23:59 | disposition home or self-care (01) ==
PROVIDERS: Internal Medicine; Internal Medicine Medical Oncology; PCP Family Medicine; Visit Provider Family Medicine
DX: C85.13 Unspecified B-cell lymphoma, intra-abdominal lymph nodes (principal)
CPT/HCPCS: 36415; 36430; 36591; 80053; 81001; 82784; 83540; 83550; 83615; 85007; 85025; 85651; 86140; 86850; 86900; 86920; 87040; 87086; 99215; J1642; J7050; P9040

== ENCOUNTER 2023-09-25 12:45 | Oncology outpatient (recurring) (ONCR) | payer MEDICARE, OTHER, SELFPAY ==
[2023-09-10 13:26] LABS: Basophils % 0.6 %; Eosinophils # 0.5 10^3/uL (0.0-0.8); Eosinophils % 13.8 %; Hematocrit 28.6 % (37-53); Lymphocytes # 0.6 10^3/uL (0.8-4.8); Lymphocytes % 18.4 %; Mean Corpuscular HGB Conc 32.2 g/dL (30-55); Mean Corpuscular Hemoglobin 32.2 pg (27-33); Mean Platelet Volume 8.9 fL (7.4-10.4); Monocytes # 0.5 10^3/uL (0.2-0.9); Neutrophils # 1.65 10^3/uL (1.8-7.7); Neutrophils % 50.6 %; Nucleated Red Blood Cells % 0 %; Platelet Count 151 10^3/cmm (157-399); Red Blood Count 2.86 10^6/uL (3.85-5.65); Red Cell Distribution Width 18.3 % (12.1-15.1); White Blood Count 3.26 10^3/uL (3.29-11.43)
[2023-09-10 13:45] LABS: Alanine Aminotransferase 19 U/L (0-41); Albumin Level 3.9 g/dL (3.5-5.2); Alkaline Phosphatase 106 U/L (40-130); Anion Gap 14.1 (5-19); Aspartate Amino Transferase 24 U/L (0-40); Blood Urea Nitrogen 33 mg/dL (8-23); Calcium 10.2 mg/dL (8.5-10.5); Carbon Dioxide 26 mmol/L (22-29); Chloride 105 mmol/L (98-107); Globulin 2.6 g/dL (1.3-4.6); Glomerular Filtration Rate 43.1 mL/min (90-130); Glucose 96 mg/dL (65-115); Immunoglobulin IGA < 50 mg/dL (70-400); Immunoglobulin IGG 705 mg/dL (700-1600); Immunoglobulin IGM < 25 mg/dL (40-230); Lactate Dehydrogenase 226 U/L (135-225); Osmolality Calculated 299 mOsm/kg (285-295); Potassium 4.1 mmol/L (3.5-5.1); Sodium 141 mmol/L (136-145); Total Bilirubin 0.4 mg/dL (0.15-1.2); Total Protein 6.5 g/dL (6.6-8.7)
[2023-09-25 13:24] LABS: Hematocrit 29.5 % (37-53); Mean Corpuscular HGB Conc 32.5 g/dL (30-55); Mean Corpuscular Hemoglobin 32.8 pg (27-33); Mean Corpuscular Volume 100.7 fl (82-101); Mean Platelet Volume 9.1 fL (7.4-10.4); Platelet Count 163 10^3/cmm (157-399); Red Blood Count 2.93 10^6/uL (3.85-5.65); Red Cell Distribution Width 15.5 % (12.1-15.1); White Blood Count 2.43 10^3/uL (3.29-11.43)
[2023-09-25 13:46] LABS: Alanine Aminotransferase 15 U/L (0-41); Alkaline Phosphatase 109 U/L (40-130); Anion Gap 14.3 (5-19); Aspartate Amino Transferase 25 U/L (0-40); Blood Urea Nitrogen 33 mg/dL (8-23); Calcium 10.2 mg/dL (8.5-10.5); Carbon Dioxide 27 mmol/L (22-29); Chloride 103 mmol/L (98-107); Globulin 2.5 g/dL (1.3-4.6); Glomerular Filtration Rate 46.4 mL/min (90-130); Glucose 102 mg/dL (65-115); Osmolality Calculated 297 mOsm/kg (285-295); Potassium 4.3 mmol/L (3.5-5.1); Sodium 140 mmol/L (136-145); Total Bilirubin 0.2 mg/dL (0.15-1.2); Total Protein 6.5 g/dL (6.6-8.7)
[2023-09-25 14:23] LABS: Slide Review Slide Review Perform
[2023-09-25 14:25] LABS: Absolute Eosinophils 0.2 10^3/cmm (0.0-0.7); Absolute Neutrophil 1.3 10^3/cmm (1.4-6.5); Absolute Segmented Neutrophil 0.5 10/cmm (1.6-7.1); Band Neutrophils Absolute 0.8 10^3/cmm (0.0-1.2); Eosinophils 7 %; Giant Platelets Trace; Lymphocytes 20 %; Lymphocytes Absolute 0.5 10^3/cmm (1.2-3.4); Monocytes Absolute 0.4 10^3/cmm (0.1-0.6); Platelet Estimate Normal (Normal); Segmented Neutrophils 22 %; Total Cells Counted 100 (0-100)
[2023-09-25 14:26] LABS: Anisocytosis 1+; Macrocytosis 1+
== END 2023-10-08 23:59 | disposition home or self-care (01) ==
PROVIDERS: PCP Family Medicine; Visit Provider Internal Medicine Medical Oncology
DX: D64.9 Anemia, unspecified; C83.33 Diffuse large B-cell lymphoma, intra-abdominal lymph nodes; Z53.9 Procedure and treatment not carried out, unspecified reason
CPT/HCPCS: 36415; 80053; 82784; 83615; 85007; 85025; 99213

== ENCOUNTER 2023-10-21 11:34 | Oncology outpatient (recurring) (ONCR) | payer MEDICARE, OTHER, SELFPAY ==
[2023-10-10 12:56] LABS: Hematocrit 31.2 % (37-53); Mean Corpuscular HGB Conc 33.3 g/dL (30-55); Mean Corpuscular Hemoglobin 33.5 pg (27-33); Mean Corpuscular Volume 100.6 fl (82-101); Mean Platelet Volume 9.2 fL (7.4-10.4); Platelet Count 170 10^3/cmm (157-399); Red Cell Distribution Width 14.2 % (12.1-15.1); White Blood Count 2.79 10^3/uL (3.29-11.43)
[2023-10-10 13:12] LABS: Alanine Aminotransferase 22 U/L (0-41); Alkaline Phosphatase 94 U/L (40-130); Aspartate Amino Transferase 23 U/L (0-40); Blood Urea Nitrogen 31 mg/dL (8-23); Calcium 9.7 mg/dL (8.5-10.5); Carbon Dioxide 25 mmol/L (22-29); Chloride 103 mmol/L (98-107); Globulin 2.3 g/dL (1.3-4.6); Glomerular Filtration Rate 40.2 mL/min (90-130); Glucose 95 mg/dL (65-115); Lactate Dehydrogenase 211 U/L (135-225); Osmolality Calculated 294 mOsm/kg (285-295); Sodium 139 mmol/L (136-145); Total Bilirubin 0.2 mg/dL (0.15-1.2); Total Protein 6.3 g/dL (6.6-8.7)
[2023-10-10 13:36] LABS: Slide Review Slide Review Perform
[2023-10-10 13:37] LABS: Absolute Eosinophils 0.3 10^3/cmm (0.0-0.7); Absolute Neutrophil 1.2 10^3/cmm (1.4-6.5); Absolute Segmented Neutrophil 0.9 10/cmm (1.6-7.1); Band Neutrophils Absolute 0.3 10^3/cmm (0.0-1.2); Eosinophils 9 %; Giant Platelets Trace; Lymphocytes 27 %; Lymphocytes Absolute 0.9 10^3/cmm (1.2-3.4); Monocytes Absolute 0.3 10^3/cmm (0.1-0.6); Platelet Estimate Decreased (Normal); Segmented Neutrophils 33 %; Total Cells Counted 100 (0-100)
[2023-10-10 13:38] LABS: Anisocytosis 1+
[2023-10-21 11:47] LABS: Hematocrit 32.5 % (37-53); Mean Corpuscular HGB Conc 32.9 g/dL (30-55); Mean Corpuscular Hemoglobin 33.5 pg (27-33); Mean Corpuscular Volume 101.9 fl (82-101); Mean Platelet Volume 8.7 fL (7.4-10.4); Platelet Count 122 10^3/cmm (157-399); Red Blood Count 3.19 10^6/uL (3.85-5.65); Red Cell Distribution Width 13.6 % (12.1-15.1); White Blood Count 3.56 10^3/uL (3.29-11.43)
[2023-10-21 12:21] LABS: Absolute Eosinophils 0.4 10^3/cmm (0.0-0.7); Eosinophils 11 %; Lymphocytes 21 %; Lymphocytes Absolute 0.7 10^3/cmm (1.2-3.4); Monocytes Absolute 0.2 10^3/cmm (0.1-0.6); Segmented Neutrophils 55 %; Slide Review Slide Review Perform; Total Cells Counted 100 (0-100)
[2023-10-21 12:22] LABS: Platelet Estimate Normal (Normal)
[2023-10-21 12:24] LABS: Alanine Aminotransferase 18 U/L (0-41); Alkaline Phosphatase 92 U/L (40-130); Anion Gap 14.1 (5-19); Aspartate Amino Transferase 23 U/L (0-40); Blood Urea Nitrogen 27 mg/dL (8-23); Carbon Dioxide 26 mmol/L (22-29); Chloride 105 mmol/L (98-107); Globulin 2.3 g/dL (1.3-4.6); Glomerular Filtration Rate 43.1 mL/min (90-130); Glucose 98 mg/dL (65-115); Lactate Dehydrogenase 251 U/L (135-225); Osmolality Calculated 297 mOsm/kg (285-295); Potassium 4.1 mmol/L (3.5-5.1); Sodium 141 mmol/L (136-145); Total Bilirubin 0.2 mg/dL (0.15-1.2); Total Protein 6.3 g/dL (6.6-8.7)
== END 2023-11-08 23:59 | disposition home or self-care (01) ==
PROVIDERS: Nurse Practitioner Family; PCP Family Medicine; Visit Provider Internal Medicine Medical Oncology
DX: Z53.9 Procedure and treatment not carried out, unspecified reason; C85.13 Unspecified B-cell lymphoma, intra-abdominal lymph nodes
CPT/HCPCS: 36415; 80053; 83615; 85007; 85025; 99213

== ENCOUNTER 2024-01-20 13:56 | Oncology outpatient (recurring) (ONCR) | payer MEDICARE, OTHER, SELFPAY ==
[2024-01-20 14:38] LABS: Hematocrit 31.3 % (37-53); Mean Corpuscular HGB Conc 33.2 g/dL (30-55); Mean Corpuscular Hemoglobin 32.9 pg (27-33); Mean Corpuscular Volume 99.1 fl (82-101); Mean Platelet Volume 9.4 fL (7.4-10.4); Platelet Count 170 10^3/cmm (157-399); Red Blood Count 3.16 10^6/uL (3.85-5.65); Red Cell Distribution Width 11.8 % (12.1-15.1); White Blood Count 1.96 10^3/uL (3.29-11.43)
[2024-01-20 14:59] LABS: Anion Gap 17.3 (5-19); Blood Urea Nitrogen 35 mg/dL (8-23); Calcium 9.1 mg/dL (8.5-10.5); Carbon Dioxide 25 mmol/L (22-29); Chloride 102 mmol/L (98-107); Glomerular Filtration Rate 19.3 mL/min (90-130); Glucose 90 mg/dL (65-115); Osmolality Calculated 298 mOsm/kg (285-295); Potassium 4.3 mmol/L (3.5-5.1); Sodium 140 mmol/L (136-145)
[2024-01-20 15:37] LABS: Slide Review Slide Review Perform
[2024-01-20 15:38] LABS: Absolute Eosinophils 0.2 10^3/cmm (0.0-0.7); Absolute Segmented Neutrophil 0.2 10/cmm (1.6-7.1); Band Neutrophils Absolute 0.7 10^3/cmm (0.0-1.2); Eosinophils 10 %; Lymphocytes 25 %; Lymphocytes Absolute 0.5 10^3/cmm (1.2-3.4); Monocytes Absolute 0.2 10^3/cmm (0.1-0.6); Segmented Neutrophils 10 %; Total Cells Counted 100 (0-100)
[2024-01-20 15:42] LABS: Absolute Neutrophil 0.9 10^3/cmm (1.4-6.5); Giant Platelets Trace; Platelet Estimate Normal (Normal)
== END 2024-02-08 23:59 | disposition home or self-care (01) ==
LOC: ONCMED 13:58
PROVIDERS: Internal Medicine Medical Oncology; PCP Family Medicine; Visit Provider Internal Medicine Medical Oncology
DX: C83.33 Diffuse large B-cell lymphoma, intra-abdominal lymph nodes (principal); C83.38 Diffuse large B-cell lymphoma, lymph nodes of multiple sites
CPT/HCPCS: 36415; 80048; 85007; 85025; 86850; 86900

== ENCOUNTER 2024-02-07 18:51 | Emergency (ER) | payer MEDICARE, OTHER, SELFPAY ==
[2024-02-07 19:41] VITALS: BP 149/79; PULSE 120; RESP 18; TEMP 38.9; O2SAT 100; BMI 23.0
== END 2024-02-07 20:27 | disposition left against medical advice (07) ==
PROVIDERS: Emergency Provider Family Medicine; PCP Family Medicine
DX: Z53.21 Procedure and treatment not carried out due to patient leaving prior to being seen by health care provider (principal)

== ENCOUNTER 2024-03-17 11:01 | Oncology outpatient (recurring) (ONCR) | payer MEDICARE, OTHER, SELFPAY ==
[2024-03-17 11:30] LABS: Basophils % 0.3 %; Eosinophils # 0.2 10^3/uL (0.0-0.8); Eosinophils % 6.9 %; Hematocrit 24.7 % (37-53); Lymphocytes # 0.4 10^3/uL (0.8-4.8); Lymphocytes % 10.6 %; Mean Corpuscular HGB Conc 32.4 g/dL (30-55); Mean Corpuscular Hemoglobin 32.4 pg (27-33); Mean Platelet Volume 9.6 fL (7.4-10.4); Monocytes # 0.5 10^3/uL (0.2-0.9); Monocytes % 13.1 %; Neutrophils # 2.11 10^3/uL (1.8-7.7); Neutrophils % 60.2 %; Nucleated Red Blood Cells % 0 %; Platelet Count 70 10^3/cmm (157-399); Red Blood Count 2.47 10^6/uL (3.85-5.65); Red Cell Distribution Width 15.2 % (12.1-15.1)
[2024-03-17 11:49] LABS: Alanine Aminotransferase 11 U/L (0-41); Albumin Level 3.8 g/dL (3.5-5.2); Alkaline Phosphatase 92 U/L (40-130); Aspartate Amino Transferase 16 U/L (0-40); Blood Urea Nitrogen 25 mg/dL (8-23); Calcium 9.1 mg/dL (8.5-10.5); Carbon Dioxide 27 mmol/L (22-29); Chloride 103 mmol/L (98-107); Globulin 2.1 g/dL (1.3-4.6); Glucose 103 mg/dL (65-115); Osmolality Calculated 295 mOsm/kg (285-295); Sodium 140 mmol/L (136-145); Total Bilirubin 0.2 mg/dL (0.15-1.2); Total Protein 5.9 g/dL (6.6-8.7)
[2024-03-17 12:11] LABS: Slide Review Slide Review Perform
== END 2024-04-09 23:59 | disposition home or self-care (01) ==
PROVIDERS: Internal Medicine Medical Oncology; PCP Family Medicine; Visit Provider Internal Medicine Medical Oncology
DX: C83.38 Diffuse large B-cell lymphoma, lymph nodes of multiple sites (principal)
CPT/HCPCS: 36415; 80053; 85025

== ENCOUNTER 2024-04-11 13:23 | Emergency (ER) | payer MEDICARE, OTHER, SELFPAY ==
--- NOTE | 2024-04-11 13:24 | ECG_ITS ---
[facility] Test Date: 2024-04-11 Pat Name: Medardo Lraa Department: Room: Gender: Male Eyeglass Frame Truer: : 1955 Requested By: Oscar Bishop Order Number: [id number] Patrick MD: Shania Pro M.D. Measurements Intervals [place] Rate: 88 P: 82 NE: 208 QRS: 10 QRSD: 99 T: -42 QT: 330 QTc: 401 Interpretive Statements SINUS RHYTHM ST DEVIATION AND MODERATE T-WAVE ABNORMALITY, CONSIDER INFERIOR ISCHEMIA Compared to ECG 06/07/2022 12:51:46 ST-wave abnormality now present Electronically Signed On 04-11-2024 13:38:18 CDT by Shania Pro M.D. [id number]
[2024-04-11 13:31] VITALS: BP 138/72; PULSE 87; RESP 17; TEMP 36.8; O2SAT 100; BMI 23.0
[2024-04-11 13:55] VITALS: BP 131/64; PULSE 77; RESP 14; O2SAT 99
--- NOTE | 2024-04-11 14:03 | PC.NURSE ---
PT also stated, He just got a liter of blood .
--- NOTE | 2024-04-11 14:18 | XRR_ITS ---
PROCEDURE INFORMATION: Exam: XR Chest Exam date and time: 04/11/2024 2:19 PM Age: 68 years old Clinical indication: Pain; Chest pressure; Additional info: Chest pain TECHNIQUE: Imaging protocol: Radiologic exam of the chest. Views: 1 view. COMPARISON: CR XR chest 1V portable [id number] 07/05/2022 9:42 PM FINDINGS: Lungs: No pulmonary consolidation. Pleural spaces: No pneumothorax or pleural effusion. Heart/Mediastinum: Normal size of the cardiac silhouette. Vasculature: Minimal atherosclerosis in the aortic arch. Bones/joints: Mild scattered degenerative changes in the shoulders and spine. XR/XR chest 1V portable [id number] IMPRESSION: No radiographically apparent acute cardiopulmonary disease.
[2024-04-11 14:34] VITALS: BP 128/60; PULSE 81; RESP 15; O2SAT 99
[2024-04-11 14:36] LABS: Basophils % 0.7 %; Eosinophils # 0.1 10^3/uL (0.0-0.8); Eosinophils % 4.4 %; Hematocrit 26.8 % (37-53); Lymphocytes # 0.5 10^3/uL (0.8-4.8); Lymphocytes % 16.5 %; Mean Corpuscular HGB Conc 32.5 g/dL (30-55); Mean Corpuscular Hemoglobin 32.7 pg (27-33); Mean Corpuscular Volume 100.8 fl (82-101); Mean Platelet Volume 9.2 fL (7.4-10.4); Monocytes # 0.5 10^3/uL (0.2-0.9); Monocytes % 17.5 %; Neutrophils # 1.66 10^3/uL (1.8-7.7); Nucleated Red Blood Cells % 0 %; Platelet Count 133 10^3/cmm (157-399); Positive C 1; Positive M 1; Red Blood Count 2.66 10^6/uL (3.85-5.65); Red Cell Distribution Width 15.7 % (12.1-15.1); White Blood Count 2.97 10^3/uL (3.29-11.43)
[2024-04-11 14:45] LABS: Neutrophils % 60.9 %
[2024-04-11 15:02] LABS: Anion Gap 18.1 (5-19); Blood Urea Nitrogen 26 mg/dL (8-23); Calcium 9.3 mg/dL (8.5-10.5); Carbon Dioxide 27 mmol/L (22-29); Chloride 99 mmol/L (98-107); Creatinine Clr Calc Pharmacy 30.7089; Glomerular Filtration Rate 31.4 mL/min (90-130); Glucose 91 mg/dL (65-115); Osmolality Calculated 294 mOsm/kg (285-295); Potassium 4.1 mmol/L (3.5-5.1); Sodium 140 mmol/L (136-145); Troponin(5th) Baseline 189 ng/L (0-15)
[2024-04-11 15:09] LABS: NT Pro B Type Natriuretic Pept 2776 pg/mL (0-125)
[2024-04-11 15:40] VITALS: BP 119/62; PULSE 90; RESP 16; O2SAT 100
--- NOTE | 2024-04-11 16:05 | ECG_ITS ---
[facility] Test Date: 2024-04-11 Pat Name: Medardo Lara Department: Room: Gender: Male Configuration Management Architect: : 1955 Requested By: Anand Trinidad Order Number: [id number] Patrick MD: Shania Pro M.D. Measurements Intervals [place] Rate: 79 P: 59 ND: 219 QRS: -20 QRSD: 97 T: -44 QT: 350 QTc: 402 Interpretive Statements SINUS RHYTHM WITH FIRST DEGREE AV BLOCK MINIMAL VOLTAGE CRITERIA FOR LVH, CONSIDER NORMAL VARIANT ST changes in the inferior leads, likely old inferior [place] Compared to ECG 04/11/2024 13:24:43 First degree AV block now present Otherwise no change Electronically Signed On 04-12-2024 14:17:49 CLINICAL TRIAL LEADER by Shania Pro M.D. [id number]
[2024-04-11 16:48] LABS: Troponin 5 2HR Delta -10.4 ABS# (0-10)
[2024-04-11 16:50] LABS: Troponin 5 2HR 178.6 ng/L (0-15)
[2024-04-11 16:59] VITALS: BP 136/67; PULSE 81; RESP 18; O2SAT 99
[2024-04-11 17:44] VITALS: BP 136/67; PULSE 78; RESP 18; O2SAT 98
--- NOTE | 2024-04-11 19:16 | ED_ITS ---
HPI - Chest Pain 2 General: Chief Complaint: Chest Pain Stated Complaint: chest pains Time Seen by Provider: 04/11/24 13:42 History of Present Illness: This patient is a 68-year-old white male who presents to the emergency department concerned about an episode of chest burning this morning. His pain has completely resolved now. He did not have any associated shortness of breath, nausea or diaphoresis. He does have a history of coronary artery disease and states he had a heart attack in 2020 with stent placement. He also has non-Hodgkin's lymphoma. Related Data Home Medications Medication Instructions Recorded Confirmed ascorbic acid (vitamin C) 1,000 mg 1,000 - 2,000 mg PO DAILY 05/09/21 12/16/23 tablet (Vitamin C) omega-3 fatty acids 1,000 mg 1,000 mg PO DAILY 06/12/21 12/16/23 capsule Artery Strong 1 cap PO DAILY 06/06/22 12/16/23 Lactobacillus acidophilus and 1 cap PO DAILY 06/06/22 12/16/23 rhamnosus 15 billion cell capsule (Probiotic) zinc acetate 50 mg (zinc) capsule 50 mg PO DAILY 06/06/22 12/16/23 milk thistle 150 mg capsule 150 mg PO DAILY 06/19/22 12/16/23 ondansetron HCl 8 mg tablet 8 mg PO Q8H PRN Nausea 07/06/22 12/16/23 Vitamin B-6 1 cap PO DAILY 09/25/22 12/16/23 acyclovir 400 mg tablet 400 mg PO BID 09/25/22 12/16/23 carvedilol 12.5 mg tablet 12.5 mg PO BID 09/25/22 12/16/23 cyclobenzaprine 5 mg tablet 10 mg PO TID PRN Muscle Spasm 09/25/22 12/16/23 furosemide 40 mg tablet (Lasix) 40 mg PO DAILY PRN swelling 09/25/22 12/16/23 losartan 50 mg tablet 50 mg PO DAILY 09/25/22 12/16/23 pantoprazole 40 mg tablet,delayed 40 mg PO BID 09/25/22 12/16/23 release fentanyl 25 mcg/hr transdermal 25 mcg transdermal Q72H 08/21/23 12/16/23 patch Previous Rx's Medication Instructions Recorded potassium chloride 10 mEq 10 meq PO DAILY #30 caps 04/06/23 capsule,extended release oxycodone 5 mg tablet 5 mg PO Q8H PRN pain, severe #14 08/29/23 tabs fluconazole 100 mg tablet 100 mg PO DAILY #30 tabs 12/04/23 levofloxacin 750 mg tablet 750 mg PO DAILY 5 days #5 tabs 12/20/23 Allergies Allergy/AdvReac Type Severity Reaction Status Date / Time No Known Allergies Allergy Verified 12/16/23 14:48 Review of Systems 2 General: Reports: 10 or more systems reviewed and unremarkable except in HPI and below Card: Reports: chest pain PFSH ED 2 PFSH: Medical History Sacroiliitis CHF (congestive heart failure) STEMI (ST elevation myocardial infarction) (04/2021) Atherosclerosis of coronary artery Mixed hyperlipidemia Vitamin D deficiency Gastroesophageal reflux disease Essential hypertension Friedreichs ataxia Surgical History History of removal of Port-a-Cath 08/29/23 Dr De La Torre Port-A-Cath in place (06/09/22) Port-A-Cath placement S/P right coronary artery (RCA) stent placement (05/09/21) Social History Smoking and tobacco/nicotine status: never used tobacco/nicotine Quit status (tobacco/nicotine): has quit using Year quit tobacco: 1994 Former quit date comment: tobacco use 25 years Second hand smoke exposure: No Alcohol intake: never Substance/Drug Use: never Physical Exam 2 Const: COMMON NORMALS: no acute distress, patient oriented x3 and no limitations GENERAL APPEARANCE: cooperative and comfortable HENMT: COMMON NORMALS: normocephalic, atraumatic, Normal nasal mucous membranes and turbinates present, moist oral mucous membranes and oropharynx normal HEAD & SCALP: normal to inspection, normocephalic and atraumatic F LUZ & SINUS: normal facial exam NOSE: Normal nasal mucous membranes and turbinates present Eye: COMMON NORMALS: Equal, round and reactive pupils present, EOMs intact bilaterally and conjunctivae normal GENERAL EYE: appearance normal, both eyes and all related structures CONJUNCTIVA: Yes conjunctivae normal PUPIL: Yes Equal, round and reactive pupils present Neck/C-Spine: COMMON NORMALS: supple and no JVD Chest: COMMONS NORMALS: normal inspection of the chest Resp: COMMON NORMALS: normal respiratory effort and clear to auscultation bilaterally AUSCULTATION: clear to auscultation bilaterally Cardio: COMMON NORMALS: no JVD, regular rate, regular rhythm, No gallops present (Cardio), No murmurs present (Cardio) and No rub (Cardio) RATE: r egular rate RHYTHM: regular rhythm GI: COMMON NORMALS: Normal to inspection, nondistended, normoactive bowel sounds present, Soft to palpation and non-tender AUSCULTATION: Yes normoactive bowel sounds PALPATION: Yes Soft to palpation : COMMON NORMALS: Yes no CVA tenderness BLADDER/KIDNEY EXAM: Yes no CVA tenderness Back/Pelvis: COMMON NORMALS: no CVA tenderness and thoracic and lumbar spine normal to inspection Extremity: COMMON NORMALS: normal to inspection Neuro: COMMON NORMALS: patient oriented x3 and CN's II-XII intact bilaterally Psych: COMMON NORMALS: mental status grossly normal, Normal thought process present and cooperative THOUGHT PROCESS: Normal thought process present Skin: COMMON NORMALS: no rashes or lesions noted, turgor normal and no jaundice GENERAL SKIN EXAM: no rashes or lesions noted and turgor normal Course 2 Vital Signs: Vital signs: Vital Signs Temperature 98.3 F 04/11/24 13:31 Pulse Rate 78 04/11/24 17:44 Respiratory Rate 18 04/11/24 17:44 Blood Pressure 136/67 04/11/24 17:44 Pulse Oximetry 98 04/11/24 17:44 Oxygen Delivery Me thod Room Air 04/11/24 16:59 MDM - Chest Pain Medical Decision Making EKG revealed inverted T waves in the inferior and lateral leads which are consistent with prior EKGs. Chest x-ray was normal. CBC revealed a white blood cell count of 2.97, hemoglobin 8.7 and platelet count 133. These are chronic. BMP revealed a BUN of 26 and a creatinine of 2.1. These are chronic as well. BNP was 2776. The initial troponin was 189 with a 2-hour level of 178. Patient remained asymptomatic throughout the ER stay. His troponins are elevated secondary to his chronic renal insufficiency. I discussed admission and offered admission but patient would rather go home and follow-up with his artist agent Dr. May. He was discharged in stable condition instructed to schedule appointment with Dr. May as soon as possible. Lab Data 04/11/24 14:31 04/11/24 14:31 Radiology Impressions Chest X-Ray 04/11/24 14:18 IMPRESSION: No radiographically apparent acute cardiopulmonary disease. Laboratory Results WBC 2.97 10^3/uL (3.29-11.43) L 04/11/24 14:31 RBC 2.66 10^6/uL (3.85-5.65) L 04/11/24 14:31 Hgb 8.70 g/dL (11.27-16.99) L 04/11/24 14:31 Hct 26.8 % (37-53) L 04/11/24 14:31 MCV 100.8 fl (82-101) 04/11/24 14:31 MCH 32.7 pg (27-33) 04/11/24 14:31 MCHC 32.5 g/dL (30-55) 04/11/24 14:31 RDW 15.7 % (12.1-15.1) H 04/11/24 14:31 Plt Count 133 10^3/cmm (157-399) L 04/11/24 14:31 MPV 9.2 fL (7.4-10.4) 04/11/24 14:31 Neut % (Auto) 60.9 % 04/11/24 14:31 Lymph % (Auto) 16.5 % 04/11/24 14:31 [place] % (Auto) 17.5 % 04/11/24 14:31 Eos % (Auto) 4.4 % 04/11/24 14:31 Baso % (Auto) 0.7 % 04/11/24 14:31 Neut # (Auto) 1.66 10^3/uL (1.8-7.7) L 04/11/24 14:31 Lymph # (Auto) 0.5 10^3/uL (0.8-4.8) L 04/11/24 14:31 [place] # (Auto) 0.5 10^3/uL (0.2-0.9) 04/11/24 14:31 Eos # (Auto) 0.1 10^3/uL (0.0-0.8) 04/11/24 14:31 Baso # (Auto) 0.0 10^3/uL (0.0-0.1) 04/11/24 14:31 Nucleated RBC % (auto) 0 % 04/11/24 14:31 Nucleated RBCs # 0.0 /100WBC 04/11/24 14:31 Sodium 140 mmol/L (136-145) 04/11/24 14:31 Potassium 4.1 mmol/L (3.5-5.1) 04/11/24 14:31 Chloride 99 mmol/L (98-107) 04/11/24 14:31 Carbon Dioxide 27 mmol/L (22-29) 04/11/24 14:31 Anion Gap 18.1 (5-19) 04/11/24 14:31 BUN 26 mg/dL (8-23) H 04/11/24 14:31 Creatinine 2.1 mg/dL (0.7-1.2) H 04/11/24 14:31 GFR Calculation 31.4 mL/min (90-130) L 04/11/24 14:31 Glucose 91 mg/dL (65-115) 04/11/24 14:31 Calculated Osmolality 294 mOsm/kg (285-295) 04/11/24 14:31 Calcium 9.3 mg/dL (8.5-10.5) 04/11/24 14:31 Troponin T Baseline 189 ng/L (0-15) H* 04/11/24 14:31 Troponin T 120 Minute 178.6 ng/L (0-15) H 04/11/24 16:04 Delta Troponin T -10.4 ABS# (0-10) L 04/11/24 16:04 NT-Pro-B Natriuret Pep 2776 pg/mL (0-125) H 04/11/24 14:31 All radiology interpretation(s) finalized by discharge Discharge Plan Discharge Patient Disposition: Home Clinical Impression: Chest pain Condition: Stable Prescriptions: No Action omega-3 fatty acids 1,000 mg capsule 1,000 mg PO DAILY furosemide [Lasix] 40 mg tablet 40 mg PO DAILY PRN (Reason: swelling) pantoprazole 40 mg tablet,delayed release (DR/EC) 40 mg PO BID acyclovir 400 mg tablet 400 mg PO BID losartan 50 mg tablet 50 mg PO DAILY cyclobenzaprine 5 mg tablet 10 mg PO TID PRN (Reason: Muscle Spasm) carvedilol 12.5 mg tablet 12.5 mg PO BID Rx Instructions: must administer with a meal/food Vitamin B-6 1 cap PO DAILY fentanyl 25 mcg/hr patch 72 hour 25 mcg transdermal Q72H potassium chloride 10 mEq capsule, extended release 10 meq PO DAILY Qty: 30 0RF fluconazole 100 mg tablet 100 mg PO DAILY Qty: 30 2RF levofloxacin 750 mg tablet 750 mg PO DAILY 5 Days Qty: 5 0RF ascorbic acid (vitamin C) [Vitamin C] 1,000 mg Tablet 1,000 - 2,000 mg PO DAILY zinc acetate 50 mg (zinc) Capsule 50 mg PO DAILY Probiotic 15 billion cell Capsule 1 cap PO DAILY Artery Strong 1 cap PO DAILY milk thistle 150 mg capsule 150 mg PO DAILY Rx Instructions: give with meal/snack ondansetron HCl 8 mg tablet 8 mg PO Q8H PRN (Reason: Nausea) oxycodone 5 mg tablet 5 mg PO Q8H PRN (Reason: pain, severe) Qty: 14 0RF Discharge Orders: Discharge ED (Routine); Ordered 04/11/24 Ordered By: Anand Trinidad Referrals: Aubrey Benoit MD [Primary Care Provider] - Patient Instructions: Chest Pain (DC) Activity Restrictions/Additional Instructions: Follow up with Dr. Lalo CASAS. Coding Level of Care Code ED Evp Managing Director for April Hinkle
== END 2024-04-11 17:48 | disposition home or self-care (01) ==
PROVIDERS: Emergency Provider Emergency Medicine; PCP Family Medicine
DX: R07.9 Chest pain, unspecified (principal); Z72.0 Tobacco use; I10 Essential (primary) hypertension
CPT/HCPCS: 36415; 71045; 80048; 83880; 84484; 85025; 93005; 99285

== ENCOUNTER 2024-04-22 15:40 | Inpatient (IN) | payer MEDICARE, OTHER, SELFPAY ==
[2024-04-22] VITALS (43 sets, daily range): BP systolic 114–166; BP diastolic 51–94; PULSE 100–116; RESP 2–34; TEMP 36.6–37.4; O2SAT 93–99; BMI 23.0
--- NOTE | 2024-04-22 15:58 | ECG_ITS ---
[facility] [email or web address] Test Date: 2024-04-22 Pat Name: Medardo Lara Department: Room: Gender: Male Director Of Neurology: : 1955 Requested By: Oscar Bishop Order Number: [id number] Patrick MD: Josr Oh M.D. Measurements Intervals [place] Rate: 110 P: 151 CT: 180 QRS: -26 QRSD: 100 T: 0 QT: 309 QTc: 418 Interpretive Statements ECTOPIC ATRIAL TACHYCARDIA POSSIBLE LEFT ATRIAL ENLARGEMENT [-0.1mV P-WAVE IN V1/V2] INFERIOR MYOCARDIAL INFARCTION , PROBABLY OLD [40+ ms Q WAVE AND/OR ST/T ABNORMALITY IN II/aVF] Compared to ECG 04/11/2024 16:05:12 Sinus rhythm no longer present First degree AV block no longer present ST (T wave) deviation no longer present Myocardial infarct finding still present Electronically Signed On 04-23-2024 21:39:25 TANK PUMPER by Josr Oh M.D. [id number]
--- NOTE | 2024-04-22 16:27 | XRR_ITS ---
PROCEDURE INFORMATION: Exam: XR Chest Exam date and time: 04/22/2024 4:39 PM Age: 68 years old Clinical indication: Other: AMS TECHNIQUE: Imaging protocol: Radiologic exam of the chest. Views: 1 view. COMPARISON: CR (CHEST, ) 04/11/2024 2:19 PM FINDINGS: Lungs: There is no consolidation. Pleural spaces: There is no pleural effusion or pneumothorax. Heart/Mediastinum: Cardiomediastinal contours are unremarkable. Bones/joints: Bones are unremarkable. XR/XR chest 1V portable [id number] IMPRESSION: No acute findings.
--- NOTE | 2024-04-22 16:27 | CTR_ITS ---
PROCEDURE INFORMATION: Exam: CT Head Without Contrast Exam date and time: 04/22/2024 5:41 PM Age: 68 years old Clinical indication: Altered mental status/memory loss; Confusion or disorientation; Additional info: AMS TECHNIQUE: Imaging protocol: Computed tomography of the head without contrast. Radiation optimization: All CT scans at this facility use at least one of these dose optimization techniques: automated exposure control; mA and/or kV adjustment per patient size (includes targeted exams where dose is matched to clinical indication); or iterative reconstruction. COMPARISON: CT sinus wo con* [id number] 02/13/2023 9:30 AM RADIATION DOSE METRICS: Total DLP (mGy-cm): 1084.18 FINDINGS: Brain: There is diffuse cerebral atrophy and chronic microvascular white matter disease. There is no significant mass effect or midline shift. There is no acute intracranial hemorrhage. Cerebral ventricles: There is no significant ventricular dilation. The basal cisterns are unremarkable. Paranasal sinuses: There is diffuse mucosal thickening in the maxillary, ethmoid and frontal sinuses. There is complete opacification of the left sphenoid sinus. There is fluid in the bilateral frontal sinuses. Mastoid air cells: The mastoid air cells are clear. Bones: The calvarium is intact. Soft tissues: The visible extracranial soft tissues are unremarkable. CT/CT head wo con* [id number] IMPRESSION: 1. No acute intracranial abnormality. 2. Pansinusitis. Possibly acute.
--- NOTE | 2024-04-22 16:38 | ED_ITS ---
HPI - SOB/Dyspnea 2 General: Chief Complaint: Shortness of Breath/Dyspnea Stated Complaint: feet swollen, dyhydrated Time Seen by Provider: 04/22/24 16:11 Source: patient Mode of arrival: ambulatory Limitations: no limitations History of Present Illness: HPI Narrative: 68-year-old male history of non-Hodgkin lymphoma states that he had been seeing [facility] but I told him that it was terminal and had no further treatment states has been treating with herbs and vitamins states has been having increasing weakness for months. He states he is extremely weak as he is a wheelchair but is now having right cannot transfer himself he is also had some feet swelling some dyspnea denies any fever denies any chest pain. Associated symptoms: Deny abdominal pain, chest pain, fever(s), nausea or vomiting Related Data Home Medications Medication Instructions Recorded Confirmed ascorbic acid (vitamin C) 1,000 mg 1,000 - 2,000 mg PO DAILY 05/09/21 12/16/23 tablet (Vitamin C) omega-3 fatty acids 1,000 mg 1,000 mg PO DAILY 06/12/21 12/16/23 capsule Artery Strong 1 cap PO DAILY 06/06/22 12/16/23 Lactobacillus acidophilus and 1 cap PO DAILY 06/06/22 12/16/23 rhamnosus 15 billion cell capsule (Probiotic) zinc acetate 50 mg (zinc) capsule 50 mg PO DAILY 06/06/22 12/16/23 milk thistle 150 mg capsule 150 mg PO DAILY 06/19/22 12/16/23 ondansetron HCl 8 mg tablet 8 mg PO Q8H PRN Nausea 07/06/22 12/16/23 Vitamin B-6 1 cap PO DAILY 09/25/22 12/16/23 acyclovir 400 mg tablet 400 mg PO BID 09/25/22 12/16/23 carvedilol 12.5 mg tablet 12.5 mg PO BID 09/25/22 12/16/23 cyclobenzaprine 5 mg tablet 10 mg PO TID PRN Muscle Spasm 09/25/22 12/16/23 furosemide 40 mg tablet (Lasix) 40 mg PO DAILY PRN swelling 09/25/22 12/16/23 losartan 50 mg tablet 50 mg PO DAILY 09/25/22 12/16/23 pantoprazole 40 mg tablet,delayed 40 mg PO BID 09/25/22 12/16/23 release fentanyl 25 mcg/hr transdermal 25 mcg transdermal Q72H 08/21/23 12/16/23 patch Previous Rx's Medication Instructions Recorded potassium chloride 10 mEq 10 meq PO DAILY #30 caps 09/13/22 capsule,extended release oxycodone 5 mg tablet 5 mg PO Q8H PRN pain, severe #14 08/29/23 tabs fluconazole 100 mg tablet 100 mg PO DAILY #30 tabs 12/04/23 levofloxacin 750 mg tablet 750 mg PO DAILY 5 days #5 tabs 12/20/23 Allergies Allergy/AdvReac Type Severity Reaction Status Date / Time No Known Allergies Allergy Verified 12/16/23 14:48 Review of Systems 2 Const: Reports: change in appetite, fatigue and malaise; Denies: fever(s), chills or body aches Eyes: Denies: eye discomfort ENMT: Denies: throat pain or dental pain Card: Denies: chest pain Resp: Reports: dyspnea GI: Denies: abdominal pain, nausea, vomiting or diarrhea : Denies: dysuria Musc: Reports: extremity swelling; Denies: neck pain or back pain Skin/Breast: Denies: rash Neuro: Denies: headache(s) PFSH ED 2 PFSH: Medical History Sacroiliitis CHF (congestive heart failure) STEMI (ST elevation myocardial infarction) (04/2021) Atherosclerosis of coronary artery Mixed hyperlipidemia Vitamin D deficiency Gastroesophageal reflux disease Essential hypertension Friedreichs ataxia Surgical History History of removal of Port-a-Cath 08/29/23 Dr De La Torre Port-A-Cath in place (06/09/22) Port-A-Cath placement S/P right coronary artery (RCA) stent placement (05/09/21) Social History Smoking and tobacco/nicotine status: never used tobacco/nicotine Quit status (tobacco/nicotine): has quit using Year quit tobacco: 1994 Former quit date comment: tobacco use 25 years Second hand smoke exposure: No Alcohol intake: never Substance/Drug Use: never Course 2 Vital Signs: Vital signs: Vital Signs Temperature 97.9 F 04/22/24 15:43 Pulse Rate 108 H 04/22/24 18:00 Respiratory Rate 15 04/22/24 18:00 Blood Pressure 137/87 04/22/24 18:00 Pulse Oximetry 99 04/22/24 18:00 Oxygen Delivery Me thod Room Air 04/22/24 15:43 MDM - SOB/Dyspnea Medical Decision Making Patient presents for generalized weakness history of B-cell lymphoma he does have a UTI also acute on chronic kidney injury spoke to hospitalist will admit for observation. Medical Records I reviewed the patient's medical records. Lab Data I reviewed the patient's lab results. 04/22/24 16:36 04/22/24 16:36 Labs/Radiology: Radiology Impressions Chest X-Ray 04/22/24 16:27 IMPRESSION: No acute findings. Head CT 04/22/24 16:27 IMPRESSION: 1. No acute intracranial abnormality. 2. Pansinusitis. Possibly acute. Laboratory Results WBC 4.37 10^3/uL (3.29-11.43) 04/22/24 16:36 RBC 2.76 10^6/uL (3.85-5.65) L 04/22/24 16:36 Hgb 9.10 g/dL (11.27-16.99) L 04/22/24 16:36 Hct 28.0 % (37-53) L 04/22/24 16:36 MCV 101.4 fl (82-101) H 04/22/24 16:36 MCH 33.0 pg (27-33) 04/22/24 16:36 MCHC 32.5 g/dL (30-55) 04/22/24 16:36 RDW 15.4 % (12.1-15.1) H 04/22/24 16:36 Plt Count 156 10^3/cmm (157-399) L 04/22/24 16:36 MPV 9.5 fL (7.4-10.4) 04/22/24 16:36 Neut % (Auto) 72.5 % 04/22/24 16:36 Lymph % (Auto) 9.6 % 04/22/24 16:36 [place] % (Auto) 12.4 % 04/22/24 16:36 Eos % (Auto) 3.2 % 04/22/24 16:36 Baso % (Auto) 0.5 % 04/22/24 16:36 Neut # (Auto) 3.17 10^3/uL (1.8-7.7) 04/22/24 16:36 Lymph # (Auto) 0.4 10^3/uL (0.8-4.8) L 04/22/24 16:36 [place] # (Auto) 0.5 10^3/uL (0.2-0.9) 04/22/24 16:36 Eos # (Auto) 0.1 10^3/uL (0.0-0.8) 04/22/24 16:36 Baso # (Auto) 0.0 10^3/uL (0.0-0.1) 04/22/24 16:36 Nucleated RBC % (auto) 0 % 04/22/24 16:36 Nucleated RBCs # 0.0 /100WBC 04/22/24 16:36 PT 14.00 SECONDS (12.1-14.9) 04/22/24 16:36 INR 1.05 (0.8-1.2) 04/22/24 16:36 Sodium 138 mmol/L (136-145) 04/22/24 16:36 Potassium 4.3 mmol/L (3.5-5.1) 04/22/24 16:36 Chloride 97 mmol/L (98-107) L 04/22/24 16:36 Carbon Dioxide 24 mmol/L (22-29) 04/22/24 16:36 Anion Gap 21.3 (5-19) H 04/22/24 16:36 BUN 30 mg/dL (8-23) H 04/22/24 16:36 Creatinine 3.4 mg/dL (0.7-1.2) H 04/22/24 16:36 GFR Calculation 18.0 mL/min (90-130) L 04/22/24 16:36 Glucose 89 mg/dL (65-115) 04/22/24 16:36 Calculated Osmolality 292 mOsm/kg (285-295) 04/22/24 16:36 Calcium 12.0 mg/dL (8.5-10.5) H 04/22/24 16:36 Magnesium 2.5 mg/dL (1.7-2.3) H 04/22/24 16:36 Total Bilirubin 0.3 mg/dL (0.15-1.2) 04/22/24 16:36 AST 42 U/L (0-40) H 04/22/24 16:36 ALT 14 U/L (0-41) 04/22/24 16:36 Alkaline Phosphatase 116 U/L (40-130) 04/22/24 16:36 Ammonia 28 umol/L (16-60) 04/22/24 17:34 NT-Pro-B Natriuret Pep 3391 pg/mL (0-125) H 04/22/24 16:36 Total Protein 5.6 g/dL (6.6-8.7) L 04/22/24 16:36 Albumin 3.8 g/dL (3.5-5.2) 04/22/24 16:36 Globulin 1.8 g/dL (1.3-4.6) 04/22/24 16:36 Urine Color [place] (Yellow) A 04/22/24 16:20 Urine Appearance Clear (CLEAR) 04/22/24 16:20 Urine pH 5.0 (5-7) 04/22/24 16:20 Ur Specific [place] 1.011 (1.005-1.030) 04/22/24 16:20 Urine Protein 1+ (Negative) A 04/22/24 16:20 Urine Glucose (UA) Negative (Normal) 04/22/24 16:20 Urine Ketones Negative (Negative) 04/22/24 16:20 Urine Blood 1+ (Negative) A 04/22/24 16:20 Urine Nitrate Positive (Negative) A 04/22/24 16:20 Urine Bilirubin Negative (Negative) 04/22/24 16:20 Urine Urobilinogen 1.0 mg/dL (Negative) 04/22/24 16:20 Ur Leukocyte Esterase 1+ (Negative) A 04/22/24 16:20 Urine RBC 0-2 /hpf (0-2) 04/22/24 16:20 Urine WBC 6-10 /hpf (0-5) 04/22/24 16:20 Ur Squamous Epith Cells 0-5 /hpf (0-5) 04/22/24 16:20 Amorphous Sediment Not Reportable 04/22/24 16:20 Urine Bacteria Trace /hpf (NONE) 04/22/24 16:20 Hyaline Casts 9.51 /lpf 04/22/24 16:20 All radiology interpretation(s) finalized by discharge Discharge Plan Discharge Patient Disposition: Placed in Observation Admit Provider: Tera rBadshaw Clinical Impression: Diffuse large B-cell lymphoma of intra-abdominal lymph nodes, Acute cystitis, Generalized weakness, [id number] kidney injury Coding Level of Care Code ED System Development Manager for April Hinkle
[2024-04-22 16:48] LABS: Bilirubin Urine Negative (Negative); Blood Urine 1+ (Negative); Glucose Urine UA Negative (Normal); Ketones Urine Negative (Negative); Leukocyte Esterase Urine 1+ (Negative); Nitrate Urine Positive (Negative); Protein Urine 1+ (Negative); Specific Gravity, Urine 1.011 (1.005-1.030); Urine Appearance Clear (CLEAR)
[2024-04-22 16:50] LABS: Add Urine Microscopic? YES; Bacteria Urine Trace /hpf; Hyaline Casts Urine 9.51 /lpf; RBC Urine 0-2 /hpf (0-2); Squamous Epithelial Cell Urine 0-5 /hpf (0-5)
[2024-04-22 16:58] LABS: Basophils % 0.5 %; Eosinophils # 0.1 10^3/uL (0.0-0.8); Eosinophils % 3.2 %; Lymphocytes # 0.4 10^3/uL (0.8-4.8); Lymphocytes % 9.6 %; Mean Corpuscular HGB Conc 32.5 g/dL (30-55); Mean Corpuscular Volume 101.4 fl (82-101); Mean Platelet Volume 9.5 fL (7.4-10.4); Monocytes # 0.5 10^3/uL (0.2-0.9); Monocytes % 12.4 %; Neutrophils # 3.17 10^3/uL (1.8-7.7); Neutrophils % 72.5 %; Nucleated Red Blood Cells % 0 %; Platelet Count 156 10^3/cmm (157-399); Red Blood Count 2.76 10^6/uL (3.85-5.65); Red Cell Distribution Width 15.4 % (12.1-15.1); White Blood Count 4.37 10^3/uL (3.29-11.43)
[2024-04-22 17:08] LABS: Urine Color Orange (Yellow)
[2024-04-22 17:09] LABS: Add Urine Culture? No
[2024-04-22 17:46] LABS: INR 1.05 (0.8-1.2)
[2024-04-22 17:58] LABS: Alanine Aminotransferase 14 U/L (0-41); Albumin Level 3.8 g/dL (3.5-5.2); Alkaline Phosphatase 116 U/L (40-130); Anion Gap 21.3 (5-19); Aspartate Amino Transferase 42 U/L (0-40); Blood Urea Nitrogen 30 mg/dL (8-23); Carbon Dioxide 24 mmol/L (22-29); Chloride 97 mmol/L (98-107); Creatinine Clr Calc Pharmacy 18.9673; Globulin 1.8 g/dL (1.3-4.6); Glucose 89 mg/dL (65-115); Magnesium 2.5 mg/dL (1.7-2.3); NT Pro B Type Natriuretic Pept 3391 pg/mL (0-125); Osmolality Calculated 292 mOsm/kg (285-295); Potassium 4.3 mmol/L (3.5-5.1); Sodium 138 mmol/L (136-145); Total Bilirubin 0.3 mg/dL (0.15-1.2); Total Protein 5.6 g/dL (6.6-8.7)
[2024-04-22 18:11] LABS: Ammonia 28 umol/L (16-60)
--- NOTE | 2024-04-22 18:31 | P.HP_ITS ---
Providers/Chief Complaint 2 Primary Care Provider: Aubrey Benoit MD Chief Complaint: SOB, feet swollen, dyhydrate History of Present Illness Medardo Lara is a 68 year old male with a past medical history of diffuse large B-cell lymphoma stage IV history of CHF, history of Friedreich's ataxia, history of CAD, who presents to [facility] due to generalized weakness, poor appetite, fatigue, malaise, unresponsive episode. Patient's alert to person, to place, not to time he follows commands, is at bedside, helps with the history taking, patient's tells me that he has been up to [facility] not too long ago, she tells me that they have tried everything for his diffuse large B-cell lymphoma and unfortunately he has not responded, they have recommended hospice however patient declines hospice for now. She tells me that this morning, when she was getting of her ready for breakfast, he became unresponsive, she called all her family from [place] who drove 5 hours to come to see Ortho, he became more responsive after a few minutes, he has been having lower extreme edema, she is been try to give him Lasix for that, he is also had poor oral intake, he denies any chest pain, palpitations no shortness of breath, no abdominal pain, no nausea, no vomiting, no headache, blurry vision Review of Systems 2 Const: Reports: fatigue and malaise; Denies: fever(s) Card: Denies: chest pain Resp: Denies: dyspnea GI: Denies: abdominal pain : Denies: flank pain Neuro: Denies: headache(s) Medications/Allergies Home Medications Medication Instructions Recorded Confirmed Last Taken Type ascorbic acid (vitamin C) 1,000 mg 1,000 - 2,000 mg PO DAILY 05/09/21 12/16/23 Unknown History tablet (Vitamin C) omega-3 fatty acids 1,000 mg 1,000 mg PO DAILY 06/12/21 12/16/23 08/28/23 History capsule Artery Strong 1 cap PO DAILY 06/06/22 12/16/23 08/26/23 History Lactobacillus acidophilus and 1 cap PO DAILY 06/06/22 12/16/23 08/28/23 History rhamnosus 15 billion cell capsule (Probiotic) zinc acetate 50 mg (zinc) capsule 50 mg PO DAILY 06/06/22 12/16/23 08/28/23 History milk thistle 150 mg capsule 150 mg PO DAILY 06/19/22 12/16/23 08/28/23 History ondansetron HCl 8 mg tablet 8 mg PO Q8H PRN Nausea 07/06/22 12/16/23 Unknown History potassium chloride 10 mEq 10 meq PO DAILY #30 caps 09/13/22 12/16/23 08/28/23 Rx capsule,extended release Vitamin B-6 1 cap PO DAILY 09/25/22 12/16/23 08/28/23 History acyclovir 400 mg tablet 400 mg PO BID 09/25/22 12/16/23 08/28/23 History carvedilol 12.5 mg tablet 12.5 mg PO BID 09/25/22 12/16/23 08/28/23 History cyclobenzaprine 5 mg tablet 10 mg PO TID PRN Muscle Spasm 09/25/22 12/16/23 08/28/23 History furosemide 40 mg tablet (Lasix) 40 mg PO DAILY PRN swelling 09/25/22 12/16/23 Unknown History losartan 50 mg tablet 50 mg PO DAILY 09/25/22 12/16/23 Unknown History pantoprazole 40 mg tablet,delayed 40 mg PO BID 09/25/22 12/16/23 08/28/23 History release fentanyl 25 mcg/hr transdermal 25 mcg transdermal Q72H 08/21/23 12/16/23 08/26/23 History patch oxycodone 5 mg tablet 5 mg PO Q8H PRN pain, severe #14 08/29/23 12/16/23 Unknown Rx tabs fluconazole 100 mg tablet 100 mg PO DAILY #30 tabs 12/04/23 12/16/23 Unknown Rx levofloxacin 750 mg tablet 750 mg PO DAILY 5 days #5 tabs 12/20/23 Unknown Rx Allergies Allergy/AdvReac Type Severity Reaction Status Date / Time No Known Allergies Allergy Verified 12/16/23 14:48 PFSH Acute 2 PFSH: Medical History Sacroiliitis CHF (congestive heart failure) STEMI (ST elevation myocardial infarction) (04/2021) Atherosclerosis of coronary artery Mixed hyperlipidemia Vitamin D deficiency Gastroesophageal reflux disease Essential hypertension Friedreichs ataxia Surgical History History of removal of Port-a-Cath 08/29/23 Dr De La Torre Port-A-Cath in place (06/09/22) Port-A-Cath placement S/P right coronary artery (RCA) stent placement (05/09/21) Social History Smoking and tobacco/nicotine status: never used tobacco/nicotine Quit status (tobacco/nicotine): has quit using Year quit tobacco: 1994 Former quit date comment: tobacco use 25 years Second hand smoke exposure: No Alcohol intake: never Substance/Drug Use: never Vitals/I&O/Wt Last Vital Signs Temp 97.9 F 04/22/24 15:43 Pulse 108 H 04/22/24 18:00 Resp 15 04/22/24 18:00 BP 137/87 04/22/24 18:00 Pulse Ox 99 04/22/24 18:00 O2 Del Method Room Air 04/22/24 15:43 Weight last 48 hrs Weight 66.678 kg Physical Exam 2 Const: COMMON NORMALS: no acute distress ORIENTATION/CONSCIOUSNESS: Yes awake, Yes oriented to person and Yes oriented to place; not oriented to time HENMT: COMMON NORMALS: normocephalic HEAD & SCALP: normocephalic Eye: COMMON NORMALS: Equal, round and reactive pupils present Neck/C-Spine: COMMON NORMALS: no JVD Resp: COMMON NORMALS: normal respiratory effort, No retractions, No use of accessory muscles and clear to auscultation bilaterally AUSCULTATION: clear to auscultation bilaterally Cardio: COMMON NORMALS: regular rate, regular rhythm, S1 normal heart sound present and S2 normal heart sound present RATE: regular rate RHYTHM: r egular rhythm HEART SOUNDS: S1 normal heart sound present and S2 normal heart sound present GI: COMMON NORMALS: Normal to inspection, nondistended, normoactive bowel sounds present, Soft to palpation and non-tender Extremity: COMMON NORMALS: no calf tenderness and no pedal edema Neuro: COMMON NORMALS: patient oriented x3, CN's II-XII intact bilaterally and moves all extremities Psych: COMMON NORMALS: mental status grossly normal Data 04/22/24 16:36 04/22/24 16:36 A&P Assessment and plan (1) Acute cystitis: (2) Mqhcp-nw-ljukddw kidney injury: (3) Unresponsive episode: Plan Unresponsive episode -Etiology unclear -Will check orthostatic vitals in the morning -Telemetry monitoring -Serial troponins, serial EKGs, telemetry monitoring Urinary tract infection -Is on Levaquin for recent UTI -Factors for multidrug-resistant UTI -Start Zosyn -Check lactic acid -Check blood cultures -Urine cultures JOHN -IV fluids History of B-cell lymphoma Deconditioning, weakness -PT OT History of Friedreich's ataxia full code Lovenox for DVT prophylaxis Attestations 2 Medical Necessity Statement*: Patient requires hospitalization, inpatient, greater than 2 midnights for unresponsive episode, UTI, JOHN Diagnoses Acute cystitis N30.00 Crqmj-rd-nlsowjs kidney injury N17.9; N18.9 Unresponsive episode R40.4
[2024-04-22] MEDS: sodium chloride 0.9% 1,000 ML 999 ML IV (18:42)
--- NOTE | 2024-04-22 18:49 | ECG_ITS ---
[facility] 2024-04[facility]22 Pat Name: Medardo Lara Department: Room: 251 Gender: Male Claims Specialist: : 1955 Requested By: Tera Bradshaw Order Number: [id number] Patrick MD: Josr Oh M.D. Measurements Intervals [place] Rate: 107 P: 69 PA: 204 QRS: -23 QRSD: 93 T: 77 QT: 322 QTc: 430 Interpretive Statements SINUS TACHYCARDIA INFERIOR MYOCARDIAL INFARCTION , PROBABLY OLD [40+ ms Q WAVE AND/OR ST/T ABNORMALITY IN II/aVF] non diagnostic T wave changes Compared to ECG 04/22/2024 16:01:11 No significant changes Electronically Signed On 04-23-2024 21:39:53 POWDERER by Josr Oh M.D. [id number]
[2024-04-22] MEDS: cefTRIAXone 1,000 mg SDV 1000 MG IVP (19:18)
[2024-04-22 19:36] LABS: INR 1.08 (0.8-1.2)
[2024-04-22 19:37] LABS: Partial Thromboplastin Time 38.5 SECONDS (23.9-36.7)
[2024-04-22] MEDS: oxyCODONE 5 mg IR Tab/Cap PO ×2 (19:39→23:44)
[2024-04-22 19:44] LABS: Lactic Sepsis W/Reflex 1.6 mmol/L (0.5-2.2)
[2024-04-22 19:47] LABS: Troponin(5th) Baseline 288 ng/L (0-15)
[2024-04-22 20:06] LABS: C Reactive Protein 147.2 mg/L (0.0-4.9); Uric Acid 12.2 mg/dL (3.4-7.0)
--- NOTE | 2024-04-22 20:26 | ECG_ITS ---
[facility] Test Date: 2024-04-22 Pat Name: Medardo Lara Department: Room: 261 Gender: Male Pharmacy Customer Care Specialist: : 1955 Requested By: Tera Bradshaw Order Number: [id number] Patrick MD: Josr Oh M.D. Measurements Intervals [place] Rate: 110 P: 70 OR: 192 QRS: -22 QRSD: 93 T: 55 QT: 309 QTc: 418 Interpretive Statements SINUS TACHYCARDIA INFERIOR MYOCARDIAL INFARCTION , PROBABLY OLD [40+ ms Q WAVE AND/OR ST/T ABNORMALITY IN II/aVF] Compared to ECG 04/22/2024 18:49:31 No significant changes Electronically Signed On 04-27-2024 19:38:47 SPUDDER by Josr Oh M.D. [id number]
[2024-04-22 21:37] LABS: Troponin 5 2HR Delta 5.8 ABS# (0-10)
[2024-04-22 21:41] LABS: Thyroid Stimulating Hormone 2.65 uIU/mL (0.27-4.20)
[2024-04-22 21:42] LABS: Troponin 5 2HR 293.8 ng/L (0-15)
[2024-04-22] MEDS: piperacillin-tazobactam 3.375 GM in sodium chloride 0.9% (plus) 50 ML IV (22:39)
[2024-04-22] MEDS: sodium chloride 0.9% 1,000 ML 75 ML IV (22:39)
[2024-04-22] MEDS: enoxaparin 30 mg/0.3 mL Syringe SUBCUT (22:40)
[2024-04-22] MEDS: cyclobenzaprine 10 mg Tablet PO (23:45)
[2024-04-23] VITALS (12 sets, daily range): BP systolic 118–143; BP diastolic 63–77; PULSE 86–110; RESP 14–20; TEMP 36.6–37.1; O2SAT 91–97
--- NOTE | 2024-04-23 00:26 | ECG_ITS ---
Results [facility] Test Date: 2024-04-23 Pat Name: Medardo Lara Department: Room: 261 Gender: Male Family Assistant: : 1955 Requested By: Tera Bradshaw Order Number: [id number] Patrick MD: Josr Oh M.D. Measurements Intervals [place] Rate: 106 P: 60 [place]: 201 QRS: -26 QRSD: 97 T: 66 QT: 308 QTc: 410 Interpretive Statements SINUS TACHYCARDIA WITH OCCASIONAL VENTRICULAR PREMATURE COMPLEXES INFERIOR MYOCARDIAL INFARCTION , PROBABLY OLD [40+ ms Q WAVE AND/OR ST/T ABNORMALITY IN II/aVF] Compared to ECG 04/22/2024 21:00:17 Ventricular premature complex(es) now present Myocardial infarct finding still present Electronically Signed On 04-27-2024 19:38:26 MOLDER MACHINE TENDER by Josr Oh M.D. [id number]
[2024-04-23 01:51] LABS: Troponin 5 6HR 303.4 ng/L (0-15); Troponin 5 6HR Delta 15.4 ng/L (0-12)
[2024-04-23] MEDS: oxyCODONE 5 mg IR Tab/Cap PO ×5 (04:09→21:55)
[2024-04-23] MEDS: blistex lip oint 7 gm Tube 1 APPLIC TOPICAL (04:13)
--- NOTE | 2024-04-23 06:16 | PC.NURSE ---
pt voided after arriving on this floor, c/o feeling need to void still, bladder scan showed 269ml in bladder, around 0200 pt voided and bladder scan post void showed 218ml. pt voided an time or two between 2100 and 0200
[2024-04-23 07:53] LABS: Ionized Calcium 1.6 mmol/L (1.1-1.4)
[2024-04-23 07:59] LABS: Basophils % 0.7 %; Eosinophils # 0.2 10^3/uL (0.0-0.8); Eosinophils % 5.5 %; Hematocrit 22.8 % (37-53); Lymphocytes # 0.4 10^3/uL (0.8-4.8); Lymphocytes % 12.7 %; Mean Corpuscular Hemoglobin 32.7 pg (27-33); Mean Corpuscular Volume 102.2 fl (82-101); Mean Platelet Volume 9.3 fL (7.4-10.4); Monocytes # 0.4 10^3/uL (0.2-0.9); Monocytes % 15.1 %; Neutrophils # 1.65 10^3/uL (1.8-7.7); Neutrophils % 56.7 %; Nucleated Red Blood Cells % 0 %; Platelet Count 167 10^3/cmm (157-399); Red Blood Count 2.23 10^6/uL (3.85-5.65); Red Cell Distribution Width 15.3 % (12.1-15.1); White Blood Count 2.91 10^3/uL (3.29-11.43)
[2024-04-23 08:17] LABS: Alanine Aminotransferase 14 U/L (0-41); Albumin Level 3.2 g/dL (3.5-5.2); Alkaline Phosphatase 97 U/L (40-130); Anion Gap 19.2 (5-19); Aspartate Amino Transferase 46 U/L (0-40); Blood Urea Nitrogen 31 mg/dL (8-23); Calcium 11.7 mg/dL (8.5-10.5); Carbon Dioxide 22 mmol/L (22-29); Chloride 102 mmol/L (98-107); Creatinine Clr Calc Pharmacy 18.2663; Globulin 1.8 g/dL (1.3-4.6); Glomerular Filtration Rate 16.8 mL/min (90-130); Glucose 82 mg/dL (65-115); Magnesium 2.3 mg/dL (1.7-2.3); Osmolality Calculated 294 mOsm/kg (285-295); Phosphorus 4.6 mg/dL (2.5-4.5); Potassium 4.2 mmol/L (3.5-5.1); Sodium 139 mmol/L (136-145); Total Bilirubin 0.2 mg/dL (0.15-1.2); Uric Acid 12.4 mg/dL (3.4-7.0)
[2024-04-23 08:38] LABS: Slide Review Slide Review Perform
[2024-04-23 08:44] LABS: Chol HDL Ratio 7.37 mg/dL (1.0-5.00); Cholesterol 199 mg/dL (0-200); HDL Cholesterol 27 mg/dL (60-100); LDL Cholesterol Calculated 108 mg/dL (50-129); NT Pro B Type Natriuretic Pept 5401 pg/mL (0-125); Triglycerides 319 mg/dL (0-150)
--- NOTE | 2024-04-23 08:50 | USCV_ITS ---
Medardo Lara Age: 68 Gender: M : 1955 Exam Date: 04/23/2024 11:26 Ordering Phys: Tera Bradshaw MD Technologist: Exam Location: [facility] [place] Indication: chf BP: / HR: 88 Rhythm: Sinus Technical Quality: Adequate MEASUREMENTS (Male / Female) Normal Values 2D ECHO LV Diastolic Diameter PLAX 4.9 cm 4.2 - 5.9 / 3.9 - 5.3 cm IVS Diastolic Thickness 1.0 cm 0.6 - 1.0 / 0.6 - 0.9 cm IVS Systolic Thickness 1.7 cm LVPW Diastolic Thickness 1.1 cm 0.6 - 1.0 / 0.6 - 0.9 cm LVPW Systolic Thickness 1.4 cm LVOT Diameter 2.0 cm LV Ejection Fraction 2D Teich 57.3 % LV Ejection Fraction MOD 4C 55.6 % LV Ejection Fraction MOD 2C 46.3 % LV Ejection Fraction 2C AL 46.4 % LA Diameter 2.6 cm RA Systolic Volume 4C AL 30.3 ml RA Systolic Volume 4C MOD 29.8 ml Aorta at Sinotubular Diameter 2.3 cm M-MODE LA Ao Ratio MM 0.9 AV Cusp Separation MM 2.0 cm DOPPLER AV Peak Velocity 144.0 cm/s LVOT Peak Velocity 105.0 cm/s AV Area Cont Eq vti 3.0 cm squared AV Area Cont Eq pk 2.4 cm squared MV Area PHT 7.0 cm squared Mitral E to A Ratio 3.8 TV Peak Velocity 148.0 cm/s TR Peak Velocity 150.0 cm/s TR Peak Gradient 9.0 mmHg TV Peak E Velocity 95.0 cm/s Right Atrial Pressure 3.0 mmHg Pulmonary Artery Systolic Pressu 12.0 mmHg PV Peak Velocity 88.0 cm/s FINDINGS Left Ventricle Normal left ventricular size, systolic function and wall thickness, with no regional wall motion abnormalities. Left ventricular ejection fraction is estimated at 60 %. Grade II/IV diastolic dysfunction, moderately elevated filling pressures. Right Ventricle The right ventricle is normal in size and function. Right Atrium The right atrium is normal in size. Left Atrium The left atrium is normal in size. Mitral Valve Structurally normal mitral valve without significant stenosis or prolapse. There is no mitral regurgitation. Aortic Valve Moderate aortic valve calcification. No aortic valve stenosis. Trace aortic valve regurgitation. Tricuspid Valve Trace tricuspid valve regurgitation. Pulmonic Valve Structurally normal pulmonic valve without significant stenosis. There is no pulmonic regurgitation. Pericardium Normal pericardium without effusion. Aorta Normal ascending aorta dimension. IVC The inferior vena cava appears normal. CONCLUSIONS Normal left ventricular size, systolic function and wall thickness, with no regional wall motion abnormalities. Left ventricular ejection fraction is estimated at 60 %. Grade II/IV diastolic dysfunction, moderately elevated filling pressures. There is no pericardial effusion. No significant valve abnormalities. Pulmonary artery systolic pressure is within normal limits. Right atrial pressure is around 5 mm of mercury. Georgie May MD (Electronically Signed) Final Date: 23 April 2024 21:58 S
[2024-04-23 09:22] LABS: Iron 40 ug/dL (59-158)
--- NOTE | 2024-04-23 09:24 | PHA.VACGOAL ---
Vancomycin Goal - Goal Vancomycin Goal:: 10-15 mg/L Vancomycin Indication:: Other - Therapy Day of therpy:: Day []of [] . Actual body weight (kg): 154 lb 3.2 oz - Data Labs: WBC 2.91 10^3/uL (3.29-11.43) L 04/23/24 06:46 RBC 2.23 10^6/uL (3.85-5.65) L 04/23/24 06:46 Hgb 7.30 g/dL (11.27-16.99) L 04/23/24 06:46 Hct 22.8 % (37-53) L 04/23/24 06:46 MCV 102.2 fl (82-101) H 04/23/24 06:46 MCH 32.7 pg (27-33) 04/23/24 06:46 MCHC 32.0 g/dL (30-55) 04/23/24 06:46 RDW 15.3 % (12.1-15.1) H 04/23/24 06:46 Sodium 139 mmol/L (136-145) 04/23/24 06:46 Potassium 4.2 mmol/L (3.5-5.1) 04/23/24 06:46 Chloride 102 mmol/L (98-107) 04/23/24 06:46 Carbon Dioxide 22 mmol/L (22-29) 04/23/24 06:46 Anion Gap 19.2 (5-19) H 04/23/24 06:46 BUN 31 mg/dL (8-23) H 04/23/24 06:46 Creatinine 3.6 mg/dL (0.7-1.2) H 04/23/24 06:46 GFR Calculation 16.8 mL/min (90-130) L 04/23/24 06:46 Treatment plan:: new consult Regimen:: 1000 MG LOADING DOSE VANCOMYCIN LEVEL TO BE DRAWN 04/24 @ 0900 NEXT DOSE BASED ON LAB RESULTS
[2024-04-23 09:29] LABS: Creatine Phosphokinase 375 U/L (39-308); Troponin T (5th) Once 275 ng/L (0-15)
[2024-04-23 09:35] LABS: Ferritin 2099 ng/mL (30-400)
[2024-04-23] MEDS: cyclobenzaprine 10 mg Tablet PO ×2 (09:38→17:58)
[2024-04-23] MEDS: aspirin 81 mg EC Tablet PO (09:39)
[2024-04-23] MEDS: acyclovir 400 mg Tablet PO ×2 (09:39→17:58)
[2024-04-23] MEDS: fluconazole 100 mg Tablet PO (09:39)
[2024-04-23] MEDS: allopurinol 100 mg Tablet 50 MG PO (09:39)
[2024-04-23] MEDS: pantoprazole 40 mg SDV IVP ×2 (09:42→21:40)
[2024-04-23] MEDS: VANCOMYCIN ADD-Vantage 1,000 MG in 0.9% NaCl ADD-Vantage 250 ML 250 MG IV (12:16)
--- NOTE | 2024-04-23 14:31 | P.PN_ITS ---
Subjective 2 Subjective: - Patient was examined this morning -Family members are at bedside -He is up with the help of his to t he side of the bed, he is alert to person, to place, not to time, still reports generalized weakness but feels better compared to yesterday -Added detailed discussion with him abou t his clinical findings this morning, hemoglobin is down to 7.3, will have to transfuse him 1 unit PRBC # We discussed his elevated troponins, NSTEMI, he was here in the hospital ER not too long ago complaining of chest pain but elected to go home, his NSTEMI will be difficult to manage given his acute anemia, but will perform an echocardiogram -My acute worry is persistently elevated creatinine up to now 3.6, with decreasing urine output will have to monitor this closely he is also at risk of fluid overload with elevated BNP - at bedside tells me that his creat inine has been higher in the past, he has had acute renal failure in the past my worry is is that his elevated creatinine could be from his advanced B-cell lymphoma -We discussed his electrolyte abnormalit ies elevated uric acid, elevated calcium potentially from his B-cell lymphoma however his potassium is within normal limits -Discussed as he has a history of CAD, h istory of advanced B-cell lymphoma that has failed most conventional therapy, significant deconditioned state, Friedreich's ataxia -Options discussed was continue medical interventions, discussed morbidity mortality of NSTEMI, JOHN, worsening sepsis with his underlying medical problems -Discussed options of hospice in detail, hospice would emphasize his ease his comfort, allow him to be at home with his family, would emphasize comfort and quality of life -After discussing all the risk and benef its of all options, he voiced understanding, all questions answered he tells me that he wants to continue to live, he is not ready to , his tells me that they have plans on taking him down to [place] in about a week for a second opinion Vitals/I&O/Wt Last Vital Signs Temp 98.0 F 04/23/24 07:31 Pulse 99 04/23/24 07:31 Resp 18 04/23/24 09:40 BP 129/63 04/23/24 07:31 Pulse Ox 92 04/23/24 07:31 O2 Del Method Room Air 04/23/24 07:31 04/22/24 04/23/24 04/23/24 22:59 06:59 14:59 Intake Total 1000 / 1000 290 / 1290 Output Total 75 / 75 Balance 1000 / 1000 215 / 1215 Weight last 48 hrs Weight 69.944 kg Weight 65.771 kg Weight 66.678 kg Physical Exam 2 Const: COMMON NORMALS: no acute distress and patient oriented x3 GENERAL APPEARANCE: ill appearing and frail appearing ORIENTATION/CONSCIOUSNESS: Yes awake, Yes oriented to person and Yes oriented to place Resp: COMMON NORMALS: normal respiratory effort, No retractions, No use of accessory muscles and clear to auscultation bilaterally AUSCULTATION: clear to auscultation bilaterally Cardio: COMMON NORMALS: regular rate, regular rhythm, S1 normal heart sound present and S2 normal heart sound present RATE: regular rate RHYTHM: r egular rhythm HEART SOUNDS: S1 normal heart sound present and S2 normal heart sound present GI: COMMON NORMALS: Normal to inspection, nondistended, normoactive bowel sounds present and non-tender Extremity: COMMON NORMALS: no pedal edema Neuro: COMMON NORMALS: patient oriented x3 SENSORIUM/ORIENTATION: Yes oriented to person and Yes oriented to place Psych: COMMON NORMALS: mental status grossly normal Data 04/23/24 06:46 04/23/24 06:46 Micro: Microbiology 04/22/24 19:05 Blood Culture - Preliminary Blood SPECIMEN COLLECTED 04/22/24 19:00 Blood Culture - Preliminary Blood SPECIMEN COLLECTED A&P Assessment and plan (1) Acute cystitis: (2) Azils-tl-ufdkshh kidney injury: (3) Unresponsive episode: (4) Acute anemia: (5) Acute renal failure: (6) Hyperuricemia: (7) Hypercalcemia: (8) NSTEMI (non-ST elevated myocardial infarction): (9) Goals of care, counseling/discussion: (10) Tumor lysis syndrome: Plan Unresponsive episode -Etiology unclear -Combination of dehydration, UTI, NSTEMI -Telemetry monitoring NSTEMI -Serial EKGs, serial troponins, telemetry monitoring -6-hour troponin 303, delta 15.4, repeat troponin this morning to 75 -Will hold off on anticoagulant therapy given acute anemia of 7.3, significant risk of bleeding -Continue aspirin, statin -Cardiac echo ordered -Discussed with family the risk of morbidity mortality given his chronic underlying medical problems, Friedreich's ataxia Elevated BNP -Monitor IV fluids Urinary tract infection -Is on Levaquin for recent UTI -Factors for multidrug-resistant UTI -Zosyn, vancomycin -Check blood cultures -Urine cultures Acute anemia ? 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 did not have anything more to offer, they recommended hospice -Family wants a second opinion at [facility], plan on taking him down 1 week if he can make the trip Hyperuricemia, start allopurinol Hypercalcemia, 11.7, monitor No significant hypokalemia Tumor lysis syndrome? -No significant hyperkalemia -does have hypercalcemia, hyperuricemia -Start allopurinol Deconditioning, weakness -PT OT History of Friedreich's ataxia full code Lovenox for DVT prophylaxis Prognosis poor, status stable Goals of care discussion patient wants to remain a full code, wants everything to be done, in his words he does not want to , and he wants to try to optimize him so he can make the trip down to [facility] for second opinion -Patient and family and at bedside understand the morbidity mortality associate with his underlying B-cell lymphoma, history of CAD, now with his non- STEMI, UTI, renal failure, Attestations 2 Medical Necessity Statement*: Patient requires hospitalization for unresponsive episode, NSTEMI, elevated BNP, UTI, acute renal failure, B-cell lymphoma Coding Level of Care Code 18794 Diagnoses Acute cystitis N30.00 Sayre-nu-byqprko kidney injury N17.9; N18.9 Unresponsive episode R40.4 Acute anemia D64.9 Acute renal failure N17.9 Hyperuricemia E79.0 Hypercalcemia E83.52 NSTEMI (non-ST elevated myocardial infarction) I21.4 Goals of care, counseling/discussion Z71.89 Tumor lysis syndrome E88.3
[2024-04-23] MEDS: FUROsemide 10 mg/mL SDV 4mL 40 MG IVP (15:02)
[2024-04-23 16:06] LABS: Basophils % 0.6 %; Eosinophils # 0.1 10^3/uL (0.0-0.8); Eosinophils % 3.9 %; Hematocrit 24.7 % (37-53); Lymphocytes # 0.4 10^3/uL (0.8-4.8); Lymphocytes % 10.7 %; Mean Corpuscular HGB Conc 31.2 g/dL (30-55); Mean Corpuscular Hemoglobin 32.5 pg (27-33); Mean Corpuscular Volume 104.2 fl (82-101); Mean Platelet Volume 9.5 fL (7.4-10.4); Monocytes # 0.6 10^3/uL (0.2-0.9); Monocytes % 17.5 %; Neutrophils # 2.02 10^3/uL (1.8-7.7); Neutrophils % 59.9 %; Nucleated Red Blood Cells % 0 %; Platelet Count 172 10^3/cmm (157-399); Red Blood Count 2.37 10^6/uL (3.85-5.65); Red Cell Distribution Width 15.5 % (12.1-15.1); White Blood Count 3.37 10^3/uL (3.29-11.43)
[2024-04-23] MEDS: piperacillin-tazobactam 3.375 GM in sodium chloride 0.9% (plus) 50 ML IV (16:18)
[2024-04-23 16:22] LABS: Anion Gap 19.2 (5-19); Blood Urea Nitrogen 31 mg/dL (8-23); Calcium 11.6 mg/dL (8.5-10.5); Carbon Dioxide 22 mmol/L (22-29); Chloride 101 mmol/L (98-107); Creatinine Clr Calc Pharmacy 17.7726; Glomerular Filtration Rate 16.3 mL/min (90-130); Glucose 79 mg/dL (65-115); Osmolality Calculated 291 mOsm/kg (285-295); Potassium 4.2 mmol/L (3.5-5.1); Slide Review Slide Review Perform; Sodium 138 mmol/L (136-145)
[2024-04-23] MEDS: sucralfate 1 gm/10 mL Oral Liq UDC PO ×2 (17:58→21:39)
[2024-04-23] MEDS: sodium chloride 0.9% 1,000 ML 50 ML IV (21:39)
[2024-04-23] MEDS: enoxaparin 30 mg/0.3 mL Syringe SUBCUT (21:39)
[2024-04-23] MEDS: carvedilol 6.25 mg Tablet PO (21:40)
--- NOTE | 2024-04-23 22:53 | PC.NURSE ---
patient has lipitor 40mg po at bedtime, patients refused to let him take it on account of some of the side effects. noted in MAR
[2024-04-24] VITALS (12 sets, daily range): BP systolic 116–149; BP diastolic 60–74; PULSE 90–107; RESP 12–17; TEMP 36.2–36.7; O2SAT 91–95
[2024-04-24] MEDS: oxyCODONE 5 mg IR Tab/Cap PO ×6 (02:12→21:59)
[2024-04-24] MEDS: sucralfate 1 gm/10 mL Oral Liq UDC PO ×3 (05:49→21:10)
[2024-04-24] MEDS: cyclobenzaprine 10 mg Tablet PO (05:50)
[2024-04-24 08:01] LABS: Basophils % 0.8 %; Eosinophils # 0.2 10^3/uL (0.0-0.8); Eosinophils % 4.3 %; Hematocrit 24.9 % (37-53); Lymphocytes # 0.4 10^3/uL (0.8-4.8); Mean Corpuscular HGB Conc 32.5 g/dL (30-55); Mean Corpuscular Hemoglobin 32.8 pg (27-33); Mean Corpuscular Volume 100.8 fl (82-101); Mean Platelet Volume 9.6 fL (7.4-10.4); Monocytes # 0.6 10^3/uL (0.2-0.9); Monocytes % 15.8 %; Neutrophils # 2.31 10^3/uL (1.8-7.7); Neutrophils % 61.7 %; Nucleated Red Blood Cells % 0 %; Platelet Count 159 10^3/cmm (157-399); Red Blood Count 2.47 10^6/uL (3.85-5.65); Red Cell Distribution Width 17.1 % (12.1-15.1); White Blood Count 3.74 10^3/uL (3.29-11.43)
[2024-04-24 08:25] LABS: Alanine Aminotransferase 14 U/L (0-41); Albumin Level 3.1 g/dL (3.5-5.2); Alkaline Phosphatase 101 U/L (40-130); Anion Gap 22.3 (5-19); Aspartate Amino Transferase 45 U/L (0-40); Blood Urea Nitrogen 34 mg/dL (8-23); Calcium 11.6 mg/dL (8.5-10.5); Carbon Dioxide 19 mmol/L (22-29); Chloride 100 mmol/L (98-107); Creatinine Clr Calc Pharmacy 16.7526; Globulin 1.9 g/dL (1.3-4.6); Glomerular Filtration Rate 15.4 mL/min (90-130); Glucose 78 mg/dL (65-115); Magnesium 2.2 mg/dL (1.7-2.3); Osmolality Calculated 290 mOsm/kg (285-295); Phosphorus 4.8 mg/dL (2.5-4.5); Potassium 4.3 mmol/L (3.5-5.1); Sodium 137 mmol/L (136-145); Total Bilirubin 0.6 mg/dL (0.15-1.2)
--- NOTE | 2024-04-24 08:44 | CTR_ITS ---
PROCEDURE INFORMATION: Exam: CT Chest Without Contrast; Diagnostic Exam date and time: 04/24/2024 12:04 PM Age: 68 years old Clinical indication: Other: Weakness, diffuse b cell lymphoma TECHNIQUE: Imaging protocol: Diagnostic computed tomography of the chest without contrast. Radiation optimization: All CT scans at this facility use at least one of these dose optimization techniques: automated exposure control; mA and/or kV adjustment per patient size (includes targeted exams where dose is matched to clinical indication); or iterative reconstruction. COMPARISON: CT chest wo con [id number] 06/06/2022 3:32 AM RADIATION DOSE METRICS: Total DLP (mGy-cm): 649.82 FINDINGS: Lungs: Left upper lobe calcified granuloma. Patchy areas of bronchiectasis and interstitial thickening in the right upper lobe and ctdw-fmslwqn-kedh-right lower lobes. New bilateral pulmonary nodules including reference 3 mm right lower lobe nodule (series 4, image 38), 5 mm subpleural right lower lobe nodule (image 24), and 4 mm right lower lobe nodule (image 26). No focal consolidation. Pleural spaces: New small left pleural effusion. Heart: Hypoattenuation of the cardiac blood pool relative to the myocardium, as can be seen in the setting of anemia. Coronary arteries: Mild coronary artery calcification. Lymph nodes: New 3.3 x 3.0 paraesophageal lymph node. Vasculature: Unremarkable. No aortic aneurysm. Bones/joints: Unremarkable. No acute fracture. Soft tissues: Unremarkable. PROCEDURE INFORMATION: Exam: CT Abdomen And Pelvis Without Contrast Exam date and time: 04/24/2024 12:04 PM Age: 68 years old Clinical indication: Other: Weakness, diffuse b cell lymphoma TECHNIQUE: Imaging protocol: Computed tomography of the abdomen and pelvis without contrast. Radiation optimization: All CT scans at this facility use at least one of these dose optimization techniques: automated exposure control; mA and/or kV adjustment per patient size (includes targeted exams where dose is matched to clinical indication); or iterative reconstruction. COMPARISON: CT angio abdomen pelvis [id number] 06/06/2022 2:01 AM RADIATION DOSE METRICS: Total DLP (mGy-cm): 649.82 FINDINGS: Limitations: Noncontrast technique. Liver: Normal appearance of the liver. Gallbladder and biliary ducts: No calcified stones or ductal dilation. Pancreas: No ductal dilation. Spleen: Unremarkable. Adrenal glands: Unremarkable. Kidneys and ureters: Left nephroureteral stent in place with quzq-fb-ynhxjxhf hydroureteronephrosis. Ill-defined high density fluid posterior to the left kidney, concerning for hematoma measuring approximately 6.4 x 4.6 x 8.5 cm. Stomach and bowel: No obstruction. No mucosal thickening. Appendix: No evidence of appendicitis. Intraperitoneal space: New extensive peritoneal nodularity. No free air. No significant fluid collection. Vasculature: Unremarkable. Lymph nodes: Decreased retroperitoneal lymphadenopathy. New mesenteric lymphadenopathy including reference 2.6 x 3.9 cm SMA lymph node (series 10, image 33). Urinary bladder: Thick-walled. Reproductive: Unremarkable as visualized. Bones/joints: Unremarkable. No acute fracture. Soft tissues: Persistent but decreased size of left psoas mass. Ill-defined soft tissue mass and high density free fluid in the pelvis. Subcutaneous soft tissue gas in the anterior abdominal wall, likely secondary to injection. CT/[place] [id number] IMPRESSION: 1. Paraesophageal and retrocrural lymphadenopathy, concerning for metastatic disease. 2. New scattered pulmonary nodules and interstitial thickening. Findings are indeterminate and may be related to infection or metastatic disease. 3. New small left pleural effusion. IMPRESSION: 1. Ill-defined soft tissue and high density free fluid in the pelvis. Findings are concerning for a combination of malignancy and hemoperitoneum and are incompletely evaluated on this noncontrast exam. Further evaluation with contrast-enhanced CT should be considered if this is a new finding. 2. 8.5 cm left perirenal hematoma. 3. New mesenteric lymphadenopathy and peritoneal nodularity concerning for carcinomatosis. 4. Interval decreased size of left psoas mass and decreased retroperitoneal lymphadenopathy.
--- NOTE | 2024-04-24 08:55 | US_ITS ---
WS: [id number] RENAL ULTRASOUND HISTORY: margy COMPARISON: None available. TECHNIQUE: 2-D and color Doppler imaging of the kidney submitted. Right kidney: 9.0 cm x 4.5 cm x 4.4 cm. Cortex: 1.3 cm No normal size kidney. Mild hydronephrosis. Proximal ureter is dilated also. No mass or obstruction. Left kidney: 10.4 cm x 4.9 cm x 5.3 cm. Cortex: 1.2 cm Normal size kidney. Mild to moderate hydronephrosis. Proximal ureter is dilated. No mass identified. Aorta: Not visualized. Urinary Bladder: Moderately distended bladder. Partially calcified mass in the bladder measures 2.7 x 2.2 cm. This may be a bladder wall calcification. US/US renal BI* [id number] IMPRESSION: 1. Bilateral mild to moderate hydronephrosis as described above. Etiology is n ot been determined. CT evaluation of the abdomen and pelvis would provide addit ional information concerning the hydronephrosis.
[2024-04-24] MEDS: piperacillin-tazobactam 3.375 GM in sodium chloride 0.9% (plus) 50 ML IV ×2 (09:01→21:11)
[2024-04-24] MEDS: pantoprazole 40 mg SDV IVP ×2 (09:04→21:13)
[2024-04-24] MEDS: sodium bicarbonate 50 MEQ in sodium chloride 0.45% 1,000 ML IV (09:16)
[2024-04-24] MEDS: acyclovir 400 mg Tablet PO ×2 (09:25→18:54)
[2024-04-24] MEDS: aspirin 81 mg EC Tablet PO (09:25)
[2024-04-24] MEDS: zinc gluconate 50 mg Tablet PO (09:25)
[2024-04-24] MEDS: fluconazole 100 mg Tablet PO (09:25)
[2024-04-24] MEDS: carvedilol 6.25 mg Tablet PO ×2 (09:25→18:54)
[2024-04-24 09:46] LABS: Vancomycin Trough 12.5 ug/mL (10-15)
[2024-04-24] MEDS: saline nasal spray 44mL Btl 1 SPRAY NASAL (11:45)
[2024-04-24 14:33] LABS: INR 1.08 (0.8-1.2)
--- NOTE | 2024-04-24 15:39 | P.PN_ITS ---
Subjective 2 Subjective: - Patient was examined this morning -Family members are at bedside -He is alert to person, to place, not to time he follows commands is quite drowsy this morning, family members at bedside and tells me that he did not sleep during the night -He is complaining of left flank pain, h e did have a fall, on examination he has some bruising over the left flank -Discussed with family, his persistent a cute renal failure creatinine up to 3.9, his urine output is diminishing, -Discussed the possibility of dialysis h owever family wants to talk struggling some cells -Will order CT chest abdomen pelvis -Waiting on renal ultrasound results -Spoke to Dariel mosquera about patient's CT abdom en findings -Discussed CT scan findings with , d iscussed his left perirenal hematoma 8.5 cm, she tells me that he had fallen, likely perirenal hematoma from fall and trauma, will hold his aspirin, and his Lovenox -But certainly this is difficult situati on given his NSTEMI, is a risk of cardiac arrhythmias, acute cardiac event, but nonetheless we will hold -Discussed further findings of caro on of malignancy and hemoperitoneum and carcinomatosis -I think that his unresponsive episode c ould have been a combination of NSTEMI, possible cardiac arrhythmia possible bleeding as above -Will watch his hemoglobin closely -His creatinine is up to 3.9 urine outpu t this afternoon has been a bit lackluster we will recheck his kidney function -I again discussed his goals of care, wi fe wants to continue everything, Medardo this afternoon is sleeping and still quite drowsy, as per his wish, he wanted everything to be done, she tells me that they want to give him a fighting chance to possibly go down to [place], she is not ready to give up -Discussed his overall poor prognosis, h igh risk of morbidity and mortality, high risk of suffering however she tells me that she still wants everything to be done, she does not want to give up, and he does not want to give up -After discussing risk and benefits of a ll options, she voiced understanding, all questions answered, continue medical interventions, remains a full code Vitals/I&O/Wt Last Vital Signs Temp 98.1 F 04/24/24 15:31 Pulse 91 04/24/24 15:31 Resp 17 04/24/24 15:31 BP 149/66 04/24/24 15:31 Pulse Ox 93 04/24/24 15:31 O2 Del Method Room Air 04/24/24 15:31 04/24/24 04/24/24 04/24/24 06:59 14:59 22:59 Intake Total 50 / 380 949.167 / 949.167 Balance 50 / 380 949.167 / 949.167 Weight last 48 hrs Weight 68.855 kg Weight 69.944 kg Weight 65.771 kg Weight 66.678 kg Physical Exam 2 Const: GENERAL APPEARANCE: ill appearing and frail appearing O RIENTATION/CONSCIOUSNESS: Yes awake, Yes oriented to person and Yes oriented to place HENMT: COMMON NORMALS: normocephalic HEAD & SCALP: normocephalic Resp: COMMON NORMALS: normal respiratory effort, No retractions, No use of accessory muscles and clear to auscultation bilaterally AUSCULTATION: clear to auscultation bilaterally Cardio: COMMON NORMALS: regular rate, regular rhythm, S1 normal heart sound present and S2 normal heart sound present RATE: regular rate RHYTHM: r egular rhythm HEART SOUNDS: S1 normal heart sound present and S2 normal heart sound present GI: COMMON NORMALS: Normal to inspection, nondistended, normoactive bowel sounds present and non-tender Extremity: COMMON NORMALS: no pedal edema Neuro: SENSORIUM/ORIENTATION: Yes oriented to person and Yes oriented to place Psych: COMMON NORMALS: mental status grossly normal Data 04/24/24 07:17 04/24/24 07:17 Micro: Microbiology 04/22/24 19:05 Blood Culture - Preliminary Blood NEGATIVE TO DATE 04/22/24 19:00 Blood Culture - Preliminary Blood NEGATIVE TO DATE A&P Assessment and plan (1) Acute cystitis: (2) Cleqj-pf-moklwbc kidney injury: (3) Unresponsive episode: (4) Acute anemia: (5) Acute renal failure: (6) Hyperuricemia: (7) Hypercalcemia: (8) NSTEMI (non-ST elevated myocardial infarction): (9) Goals of care, counseling/discussion: (10) Tumor lysis syndrome: (11) Nontraumatic hemoperitoneum: (12) Renal hematoma, left: (13) Carcinomatosis: Plan Unresponsive episode -Etiology likely combination -Combination of dehydration, UTI, NSTEMI, hemoperitoneum, left pararenal hematoma, acute bleeding -Telemetry monitoring NSTEMI -Serial EKGs, serial troponins, telemetry monitoring -6-hour troponin 303, delta 15.4, repeat troponin this morning to 75 -Will hold off on anticoagulant therapy given acute anemia of 7.3, significant risk of bleeding -Evidence of hemoperitoneum, left perirenal hematoma -Cardiac echo CONCLUSIONS Normal left ventricular size, systolic function and wall thickness, with no regional wall motion abnormalities. Left ventricular ejection fraction is estimated at 60 %. Grade II/IV diastolic dysfunction, moderately elevated filling pressures. There is no pericardial effusion. No significant valve abnormalities. Pulmonary artery systolic pressure is within normal limits. Right atrial pressure is around 5 mm of mercury. -Discussed with family the risk of morbidity mortality given his chronic underlying medical problems, Friedreich's ataxia Elevated BNP -Monitor IV fluids Urinary tract infection -Is on Levaquin for recent UTI -Factors for multidrug-resistant UTI -Zosyn, vancomycin -Check blood cultures -Urine cultures Acute anemia -secondary to Left perirenal hematoma, Evidence of hemoperitoneum, with underlying malignancy ? Status post transfuse 1 unit PRBC Left perirenal hematoma -Measuring 8.5 cm -Hold DVT prophylaxis Lovenox -Hold aspirin -Monitor hemoglobin, monitor renal function Evidence of hemoperitoneum, with underlying malignancy -Monitor hemoglobin Acute renal failure, creatinine 3.9, with decreasing urine output -Concerns for underlying B-cell lymphoma as a cause -History of renal arterial stenosis -History of left ureteral stent, CT scan shows left nephroureteral stent in place with mild to moderate hydroureteronephrosis us renal US/US renal BI* [id number] IMPRESSION: 1. Bilateral mild to moderate hydronephrosis as described above. Etiology is not been determined. 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 did not have anything more to offer, they recommended hospice -Family wants a second opinion at [facility], plan on taking him down 1 week if he can make the trip CT abdomen pelvis CT/[place] [id number] IMPRESSION: 1. Paraesophageal and retrocrural lymphadenopathy, concerning for metastatic disease. 2. New scattered pulmonary nodules and interstitial thickening. Findings are indeterminate and may be related to infection or metastatic disease. 3. New small left pleural effusion. IMPRESSION: 1. Ill-defined soft tissue and high density free fluid in the pelvis. Findings are concerning for a combination of malignancy and hemoperitoneum and are incompletely evaluated on this noncontrast exam. Further evaluation with contrast-enhanced CT should be considered if this is a new finding. 2. 8.5 cm left perirenal hematoma. 3. New mesenteric lymphadenopathy and peritoneal nodularity concerning for carcinomatosis. 4. Interval decreased size of left psoas mass and decreased retroperitoneal lymphadenopathy. Hyperuricemia, start allopurinol Hypercalcemia, 11.7, monitor No significant hypokalemia Tumor lysis syndrome? -No significant hyperkalemia -does have hypercalcemia, hyperuricemia -Start allopurinol Deconditioning, weakness -PT OT History of Friedreich's ataxia full code scd for DVT prophylaxis Prognosis poor, status stable - Patient was examined this morning -Family members are at bedside -He is alert to person, to place, not to time he follows commands is quite drowsy this morning, family members at bedside and tells me that he did not sleep during the night -He is complaining of left flank pain, he did have a fall, on examination he has some bruising over the left flank -Discussed with family, his persistent acute renal failure creatinine up to 3.9, his urine output is diminishing, -Discussed the possibility of dialysis however family wants to talk struggling some cells -Will order CT chest abdomen pelvis -Waiting on renal ultrasound results -Spoke to V rad about patient's CT abdomen findings -Discussed CT scan findings with , discussed his left perirenal hematoma 8.5 cm, she tells me that he had fallen, likely perirenal hematoma from fall and trauma, will hold his aspirin, and his Lovenox -But certainly this is difficult situation given his NSTEMI, is a risk of cardiac arrhythmias, acute cardiac event, but nonetheless we will hold -Discussed further findings of combination of malignancy and hemoperitoneum and carcinomatosis -I think that his unresponsive episode could have been a combination of NSTEMI, possible cardiac arrhythmia possible bleeding as above -Will watch his hemoglobin closely -His creatinine is up to 3.9 urine output this afternoon has been a bit lackluster we will recheck his kidney function -I again discussed his goals of care, wants to continue everything, Medardo this afternoon is sleeping and still quite drowsy, as per his wish, he wanted everything to be done, she tells me that they want to give him a fighting chance to possibly go down to [place], she is not ready to give up -Discussed his overall poor prognosis, high risk of morbidity and mortality, high risk of suffering however she tells me that she still wants everything to be done, she does not want to give up, and he does not want to give up -After discussing risk and benefits of all options, she voiced understanding, all questions answered, continue medical interventions, remains a full code -spoke to nephrology Attestations 2 Medical Necessity Statement*: Patient requires hospitalization for hemoperitoneum, left renal hematoma, mild to moderate hydroureteronephrosis, unresponsive, acute renal failure, UTI Diagnoses Acute cystitis N30.00 Dszkk-ff-zqsjqqk kidney injury N17.9; N18.9 Unresponsive episode R40.4 Acute anemia D64.9 Acute renal failure N17.9 Hyperuricemia E79.0 Hypercalcemia E83.52 NSTEMI (non-ST elevated myocardial infarction) I21.4 Goals of care, counseling/discussion Z71.89 Tumor lysis syndrome E88.3 Nontraumatic hemoperitoneum K66.1 Renal hematoma, left S37.012A Carcinomatosis C80.0
[2024-04-24 16:14] LABS: Basophils % 0.8 %; Eosinophils # 0.2 10^3/uL (0.0-0.8); Eosinophils % 3.8 %; Hematocrit 25.4 % (37-53); Lymphocytes # 0.5 10^3/uL (0.8-4.8); Lymphocytes % 12.7 %; Mean Corpuscular HGB Conc 33.1 g/dL (30-55); Mean Corpuscular Hemoglobin 32.7 pg (27-33); Mean Corpuscular Volume 98.8 fl (82-101); Mean Platelet Volume 9.2 fL (7.4-10.4); Monocytes # 0.5 10^3/uL (0.2-0.9); Monocytes % 13.7 %; Neutrophils # 2.38 10^3/uL (1.8-7.7); Neutrophils % 60.1 %; Nucleated Red Blood Cells % 0 %; Platelet Count 150 10^3/cmm (157-399); Red Blood Count 2.57 10^6/uL (3.85-5.65); White Blood Count 3.95 10^3/uL (3.29-11.43)
[2024-04-24 16:31] LABS: Anion Gap 23.1 (5-19); Blood Urea Nitrogen 38 mg/dL (8-23); Calcium 12.8 mg/dL (8.5-10.5); Carbon Dioxide 19 mmol/L (22-29); Chloride 100 mmol/L (98-107); Creatinine Clr Calc Pharmacy 16.3338; Glomerular Filtration Rate 14.9 mL/min (90-130); Glucose 88 mg/dL (65-115); Osmolality Calculated 294 mOsm/kg (285-295); Potassium 4.1 mmol/L (3.5-5.1); Sodium 138 mmol/L (136-145)
--- NOTE | 2024-04-24 16:43 | PC.NURSE ---
Dr. Bradshaw ordered dickson, this nurse informed and dickson is refused. Notified MD. This nurse put hat in toilet and gave urinal and asked to keep record of output.
--- NOTE | 2024-04-24 17:08 | P.CONIM_ITS ---
Providers/Reason For Consult 2 Consulting Physician/Specialty*: [facility]/Nephrology Reason for Consult*: Acute on CKD Attending Physician: Tera Bradshaw MD Primary Care Provider: Aubrey Benoit MD History of Present Illness History of Present Illness Medardo Lara is a 68 year old male Patient is a 68-year-old male with past medical history of diffuse large B-cell lymphoma stage IV, coronary artery disease, history of CHF presented to the hospital on 04/22/2024 due to decreased appetite poor p.o. intake fatigue and weakness. Also had an unresponsive episode at home. Home meds included Lasix losartan. Lab data is significant for creatinine of 3.4 on presentation hemoglobin was 9.1 vital signs are stable. Patient was also found to have UTI and was started on Levaquin. In the last couple of days his blood renal function has progressively gotten worse and creatinine is up to 3.9 and has developed oliguria. CT scan of abdomen showed concern for pneumoperitoneum, perirenal hematoma new mesenteric lymphadenopathy and possible carcinomatosis goals of care was discussed with the patient but patient continued to wish for aggressive management at this time Review of Systems 2 Narrative: Other ros NEGATIVE Medications/Allergies Home Medications Medication Instructions Recorded Confirmed Last Taken Type ascorbic acid (vitamin C) 1,000 mg 2,000 mg PO BID 05/09/21 04/22/24 04/21/24 History tablet (Vitamin C) omega-3 fatty acids 1,000 mg 1,000 mg PO DAILY 06/12/21 04/22/24 04/21/24 History capsule Artery Strong 1 cap PO DAILY 06/06/22 04/22/24 04/21/24 History Lactobacillus acidophilus and 1 cap PO DAILY 06/06/22 04/22/24 04/21/24 History rhamnosus 15 billion cell capsule (Probiotic) zinc acetate 50 mg (zinc) capsule 50 mg PO DAILY 06/06/22 04/22/24 04/21/24 History milk thistle 150 mg capsule 150 mg PO DAILY 06/19/22 04/22/24 04/21/24 History ondansetron HCl 8 mg tablet 8 mg PO Q8H PRN Nausea 07/06/22 04/22/24 Unknown History potassium chloride 10 mEq 10 meq PO DAILY #30 caps 09/13/22 04/22/24 04/21/24 Rx capsule,extended release Vitamin B-6 1 cap PO DAILY 09/25/22 04/22/24 08/28/23 History acyclovir 400 mg tablet 400 mg PO BID 09/25/22 04/22/24 04/21/24 History carvedilol 12.5 mg tablet 12.5 mg PO BID 09/25/22 04/22/24 04/21/24 History cyclobenzaprine 5 mg tablet 10 mg PO TID PRN Muscle Spasm 09/25/22 04/22/24 04/21/24 History furosemide 40 mg tablet (Lasix) 40 mg PO DAILY PRN swelling 09/25/22 04/22/24 04/21/24 History pantoprazole 40 mg tablet,delayed 40 mg PO BID 09/25/22 04/22/24 04/21/24 History release fluconazole 100 mg tablet 100 mg PO DAILY #30 tabs 12/04/23 04/22/24 04/21/24 Rx omega 7-pdo-yip-fish oil 1,600 5 ml PO DAILY 04/22/24 04/22/24 04/21/24 History mg-500 mg-800 mg/5 mL oral liquid oxycodone 5 mg tablet 5 mg PO Q4H pain 04/22/24 04/22/24 04/22/24 History Allergies Allergy/AdvReac Type Severity Reaction Status Date / Time No Known Allergies Allergy Verified 12/16/23 14:48 Current Medications Generic Name Dose Route Start Last Admin Trade Name Freq PRN Reason Stop Dose Admin Acyclovir 400 mg 04/23/24 09:00 04/24/24 09:25 Acyclovir 400 Mg Tablet PO 400 mg BID JOSELYN Administration Allopurinol 50 mg 04/23/24 09:00 04/23/24 09:39 Allopurinol 100 Mg Tablet PO 50 mg Q48H JOSELYN Administration Camphor/Menthol/Phenol 1 applic 04/23/24 02:20 04/23/24 04:13 Blistex Lip Oint 7 Gm Tube TOPICAL 1 applic PRN PRN Administration DRYNESS Carvedilol 6.25 mg 04/23/24 18:15 04/24/24 09:25 Carvedilol 6.25 Mg Tablet PO 6.25 mg BID JOSELYN Administration Cyclobenzaprine HCl 10 mg 04/22/24 20:22 04/24/24 05:50 Cyclobenzaprine 10 Mg Tablet PO 10 mg TID PRN Administration Muscle Spasm Fluconazole 100 mg 04/23/24 09:00 04/24/24 09:25 Fluconazole 100 Mg Tablet PO 100 mg DAILY JOSELYN Administration Piperacillin Sod/Tazobactam 50 mls @ 12.5 mls/hr 04/22/24 20:30 04/24/24 15:38 Sod 3.375 gm/ Sodium Chloride IV Infused Q12H JOSELYN Infusion Sodium Bicarbonate 50 meq/ 1,050 mls @ 50 mls/hr 04/24/24 09:00 04/24/24 09:16 Sodium Chloride IV 50 mls/hr .Q21H JOSLEYN Administration Oxycodone HCl 5 mg 04/23/24 10:00 04/24/24 13:42 Oxycodone 5 Mg Ir Tab/Cap PO 5 mg Q4H JOSELYN Administration Pantoprazole Sodium 40 mg 04/23/24 09:00 04/24/24 09:04 Pantoprazole 40 Mg Sdv IVP 40 mg Q12H JOSELYN Administration Sodium Chloride 1 spray 04/24/24 11:19 04/24/24 11:45 Saline Nasal [place] 44ml Btl NASAL 1 spray PRN PRN Administration DRYNESS Sucralfate 1 gm 04/23/24 11:00 04/24/24 11:45 Sucralfate 1 Gm/10 Ml Oral Liq Udc PO 1 gm AC&BEDTIME JOSELYN Administration Zinc Gluconate 50 mg 04/24/24 09:00 04/24/24 09:25 Zinc Gluconate 50 Mg Tablet PO 50 mg DAILY JOSELYN Administration PFSH Acute 2 PFSH: Medical History Sacroiliitis CHF (congestive heart failure) STEMI (ST elevation myocardial infarction) (04/2021) Atherosclerosis of coronary artery Mixed hyperlipidemia Vitamin D deficiency Gastroesophageal reflux disease Essential hypertension Friedreichs ataxia Surgical History History of removal of Port-a-Cath 08/29/23 Dr De La Torre Port-A-Cath in place (06/09/22) Port-A-Cath placement S/P right coronary artery (RCA) stent placement (05/09/21) Social History Smoking and tobacco/nicotine status: never used tobacco/nicotine Quit status (tobacco/nicotine): has quit using Year quit tobacco: 1994 Former quit date comment: tobacco use 25 years Second hand smoke exposure: No Alcohol intake: never Substance/Drug Use: never Vitals/I&O/Wt Last Vital Signs Temp 98.1 F 04/24/24 15:31 Pulse 91 04/24/24 15:31 Resp 17 04/24/24 15:31 BP 149/66 04/24/24 15:31 Pulse Ox 93 04/24/24 15:31 O2 Del Method Room Air 04/24/24 15:31 04/24/24 04/24/24 04/24/24 06:59 14:59 22:59 Intake Total 50 / 380 949.167 / 949.167 Balance 50 / 380 949.167 / 949.167 Weight last 48 hrs Weight 68.855 kg Weight 69.944 kg Weight 65.771 kg Physical Exam 2 Narrative: Patient sleeping, at bedside, no distress Data 04/24/24 15:58 04/24/24 15:58 Micro: Microbiology 04/22/24 19:05 Blood Culture - Preliminary Blood NEGATIVE TO DATE 04/22/24 19:00 Blood Culture - Preliminary Blood NEGATIVE TO DATE A&P Assessment and plan (1) Acute renal failure: Plan 1. Acute on chronic kidney disease: Baseline creatinine was in the mid 1 range and now has progressively worsening JOHN with a creatinine of 4.0 today with oliguria, has metabolic acidosis as well. He is JOHN likely prerenal or ATN, also lymphocytic infiltration can cause a JOHN Also has left ureteral stent -Though patient does not have any acute indication for dialysis at this point, he will not likely be a good dialysis candidate due to multiple comorbidities especially advanced malignancy -Discussed with patient's at bedside who wishes to continue aggressive care for now and dialysis if indicated -Assess renal function daily and discussed with family. 2. Metabolic acidosis: Will add Bicitra, monitor 3. History of B-cell lymphoma, question peritoneal carcinomatosis 4. UTI 5. Perirenal hematoma and hemoperitoneum 6. NSTEMI Consult Attestations 2 Medical Necessity Statement: Per medicine team Coding Level of Care Code Acute Code for [facility] Fwd Diagnoses Acute renal failure N17.9
[2024-04-25] VITALS (14 sets, daily range): BP systolic 120–147; BP diastolic 57–82; PULSE 79–104; RESP 15–18; TEMP 36.4–37; O2SAT 90–99
[2024-04-25] MEDS: oxyCODONE 5 mg IR Tab/Cap PO ×5 (02:57→21:23)
[2024-04-25 05:41] LABS: Basophils % 0.6 %; Eosinophils # 0.2 10^3/uL (0.0-0.8); Eosinophils % 4.5 %; Hematocrit 25.2 % (37-53); Lymphocytes # 0.5 10^3/uL (0.8-4.8); Mean Corpuscular HGB Conc 32.5 g/dL (30-55); Mean Corpuscular Hemoglobin 33.1 pg (27-33); Mean Corpuscular Volume 101.6 fl (82-101); Mean Platelet Volume 9.5 fL (7.4-10.4); Monocytes # 0.6 10^3/uL (0.2-0.9); Monocytes % 15.6 %; Neutrophils # 1.97 10^3/uL (1.8-7.7); Neutrophils % 55.8 %; Nucleated Red Blood Cells % 0 %; Platelet Count 167 10^3/cmm (157-399); Red Blood Count 2.48 10^6/uL (3.85-5.65); Red Cell Distribution Width 16.6 % (12.1-15.1); White Blood Count 3.53 10^3/uL (3.29-11.43)
[2024-04-25 06:00] LABS: Slide Review Slide Review Perform
[2024-04-25 06:01] LABS: Vancomycin Random 9.9 ug/mL (20.0-40.0)
[2024-04-25 06:04] LABS: Alanine Aminotransferase 14 U/L (0-41); Albumin Level 3.2 g/dL (3.5-5.2); Alkaline Phosphatase 98 U/L (40-130); Anion Gap 22.9 (5-19); Aspartate Amino Transferase 43 U/L (0-40); Blood Urea Nitrogen 39 mg/dL (8-23); Calcium 13.1 mg/dL (8.5-10.5); Carbon Dioxide 19 mmol/L (22-29); Chloride 101 mmol/L (98-107); Globulin 1.9 g/dL (1.3-4.6); Glomerular Filtration Rate 14.1 mL/min (90-130); Glucose 85 mg/dL (65-115); Magnesium 2.3 mg/dL (1.7-2.3); Osmolality Calculated 297 mOsm/kg (285-295); Phosphorus 4.6 mg/dL (2.5-4.5); Potassium 3.9 mmol/L (3.5-5.1); Sodium 139 mmol/L (136-145); Total Bilirubin 0.3 mg/dL (0.15-1.2); Total Protein 5.1 g/dL (6.6-8.7); Uric Acid 13.3 mg/dL (3.4-7.0)
[2024-04-25 06:10] LABS: Procalcitonin 0.41 ng/mL (0-0.5)
[2024-04-25] MEDS: sucralfate 1 gm/10 mL Oral Liq UDC PO ×4 (06:10→20:26)
[2024-04-25] MEDS: sodium bicarbonate 50 MEQ in sodium chloride 0.45% 1,000 ML IV (06:17)
[2024-04-25 06:19] LABS: C Reactive Protein 219.7 mg/L (0.0-4.9)
[2024-04-25] MEDS: ondansetron 2 mg/ML SDV 2 mL 4 MG IVP (06:20)
[2024-04-25 09:20] LABS: Ionized Calcium 1.8 mmol/L (1.1-1.4)
--- NOTE | 2024-04-25 10:02 | P.PN_ITS ---
Subjective 2 Subjective: feels better Medications: Reviewed: Yes Vitals/I&O/Wt Last Vital Signs Temp 98.6 F 04/25/24 07:34 Pulse 100 04/25/24 07:34 Resp 15 04/25/24 07:34 BP 144/57 04/25/24 07:34 Pulse Ox 90 04/25/24 07:34 O2 Del Method Room Air 04/25/24 07:34 04/24/24 04/25/24 04/25/24 22:59 06:59 14:59 Intake Total 949.167 / 116.406 1811 / 2049.167 240 / 240 Output Total 400 / 400 400 / 800 Balance 549.167 / 549.167 700 / 1249.167 240 / 240 Weight last 48 hrs Weight 68.855 kg Physical Exam 2 Narrative: awake , alert , o distress Heent s1s2 RRR per report Lungs clear per report no edema Data 04/25/24 05:00 04/25/24 05:00 A&P Assessment and plan (1) Acute renal failure: Plan 1. Acute on chronic kidney disease: Baseline creatinine was in the mid 1 range and now has progressively worsening JOHN with a creatinine of 4.0 today with oliguria, has metabolic acidosis as well. He is JOHN likely prerenal or ATN, also lymphocytic infiltration can cause a JOHN Also has left ureteral stent - Cr slightly worse -Though patient does not have any acute indication for dialysis at this point, he will not likely be a good dialysis candidate due to multiple comorbidities especially advanced malignancy -Discussed with patient's at bedside who wishes to continue aggressive care for now and dialysis if indicated -Assess renal function daily 2. Metabolic acidosis: Will add Bicitra, monitor 3. History of B-cell lymphoma, question peritoneal carcinomatosis 4. UTI 5. Perirenal hematoma and hemoperitoneum 6. NSTEMI Attestations 2 Medical Necessity Statement*: per medicine Coding Level of Care Code Acute Code for [facility] Fwd Diagnoses Acute renal failure N17.9
[2024-04-25] MEDS: allopurinol 100 mg Tablet 50 MG PO (11:12)
[2024-04-25] MEDS: acyclovir 400 mg Tablet PO ×2 (11:12→17:32)
[2024-04-25] MEDS: carvedilol 6.25 mg Tablet PO ×2 (11:13→17:32)
[2024-04-25] MEDS: piperacillin-tazobactam 3.375 GM in sodium chloride 0.9% (plus) 50 ML IV ×2 (11:13→20:26)
[2024-04-25] MEDS: fluconazole 100 mg Tablet PO (11:13)
[2024-04-25] MEDS: pantoprazole 40 mg SDV IVP ×2 (11:13→20:26)
[2024-04-25] MEDS: albumin 12.5 GM/50 ML VIAL IV (12:07)
[2024-04-25 12:13] LABS: Bilirubin Urine Negative (Negative); Blood Urine 1+ (Negative); Glucose Urine UA Negative (Normal); Ketones Urine 1+ (Negative); Leukocyte Esterase Urine 1+ (Negative); Nitrate Urine Negative (Negative); Protein Urine 2+ (Negative); Specific Gravity, Urine 1.014 (1.005-1.030); Urine Appearance Cloudy (CLEAR); Urine Color Yellow (Yellow)
[2024-04-25 12:17] LABS: Add Urine Microscopic? YES; Bacteria Urine 1+ /hpf; Hyaline Casts Urine 11.57 /lpf; RBC Urine 0-2 /hpf (0-2); Squamous Epithelial Cell Urine 0-5 /hpf (0-5)
[2024-04-25 12:29] LABS: UA Slide Review UA Slide Review Perf
[2024-04-25 12:30] LABS: Add Urine Culture? Yes; Calcium Oxalate Crystals Urine 0-4 /hpf; Coarse Granular Casts Urine 0-4 /lpf
[2024-04-25 13:55] LABS: Alanine Aminotransferase 15 U/L (0-41); Albumin Level 3.6 g/dL (3.5-5.2); Alkaline Phosphatase 96 U/L (40-130); Aspartate Amino Transferase 42 U/L (0-40); Blood Urea Nitrogen 38 mg/dL (8-23); Carbon Dioxide 21 mmol/L (22-29); Chloride 99 mmol/L (98-107); Creatinine Clr Calc Pharmacy 16.3338; Globulin 2.1 g/dL (1.3-4.6); Glomerular Filtration Rate 14.9 mL/min (90-130); Glucose 93 mg/dL (65-115); Osmolality Calculated 297 mOsm/kg (285-295); Sodium 139 mmol/L (136-145); Total Bilirubin 0.4 mg/dL (0.15-1.2); Total Protein 5.7 g/dL (6.6-8.7)
[2024-04-25 13:57] LABS: Calcium 13.7 mg/dL (8.5-10.5)
[2024-04-25] MEDS: linezolid premix 600 MG/300 ML PREMIX 300 MG IV (14:19)
--- NOTE | 2024-04-25 15:10 | P.PN_ITS ---
Subjective 2 Subjective: -- Patient was examined this morning - and family are present -He tells me he has more energy this mor meche -Does report left leg pain, no fevers, n o chills, no cough, no nausea, no vomiting ? Discussed his hypercalcemia, no headache, blurry vision, no weakness, -We discussed his elevated creatinine, u rine output remains lackluster -Does report times of burning sensation -Spoke to patient and , patient and family would like him to be transferred to [facility] in [facility] for second opinion for his B-cell lymphoma, and possible interventions Vitals/I&O/Wt Last Vital Signs Temp 97.7 F 04/25/24 11:39 Pulse 90 04/25/24 14:00 Resp 16 04/25/24 11:39 BP 140/82 04/25/24 11:39 Pulse Ox 99 04/25/24 11:39 O2 Del Method Room Air 04/25/24 11:39 04/25/24 04/25/24 04/25/24 06:59 14:59 22:59 Intake Total 1100 / 2049.167 290 / 290 Output Total 400 / 800 250 / 250 Balance 700 / 1249.167 40 / 40 Weight last 48 hrs Weight 68.855 kg Physical Exam 2 Const: COMMON NORMALS: no acute distress and patient oriented x3 GENERAL APPEARANCE: ill appearing and frail appearing Resp: COMMON NORMALS: normal respiratory effort, No retractions, No use of accessory muscles and clear to auscultation bilaterally AUSCULTATION: clear to auscultation bilaterally Cardio: COMMON NORMALS: regular rate, regular rhythm, S1 normal heart sound present and S2 normal heart sound present RATE: regular rate RHYTHM: r egular rhythm HEART SOUNDS: S1 normal heart sound present and S2 normal heart sound present GI: COMMON NORMALS: Normal to inspection, nondistended, normoactive bowel sounds present and non-tender Extremity: COMMON NORMALS: no pedal edema NARRATIVE EXTREMITY EXAM: -Left leg swelling Neuro: COMMON NORMALS: patient oriented x3 Psych: COMMON NORMALS: mental status grossly normal Data 04/25/24 05:00 04/25/24 13:31 A&P Assessment and plan (1) Acute cystitis: (2) Ssyte-gl-kgocrea kidney injury: (3) Unresponsive episode: (4) Acute anemia: (5) Acute renal failure: (6) Hyperuricemia: (7) Hypercalcemia: (8) NSTEMI (non-ST elevated myocardial infarction): (9) Goals of care, counseling/discussion: (10) Tumor lysis syndrome: (11) Nontraumatic hemoperitoneum: (12) Renal hematoma, left: (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: (15) Bilateral hydronephrosis: Plan Unresponsive episode -Etiology likely combination -Combination of dehydration, UTI, NSTEMI, hemoperitoneum, left pararenal hematoma, acute bleeding -Telemetry monitoring NSTEMI -Serial EKGs, serial troponins, telemetry monitoring -6-hour troponin 303, delta 15.4, repeat troponin this morning to 75 -Will hold off on anticoagulant therapy given acute anemia of 7.3, significant risk of bleeding -Evidence of hemoperitoneum, left perirenal hematoma -Cardiac echo CONCLUSIONS Normal left ventricular size, systolic function and wall thickness, with no regional wall motion abnormalities. Left ventricular ejection fraction is estimated at 60 %. Grade II/IV diastolic dysfunction, moderately elevated filling pressures. There is no pericardial effusion. No significant valve abnormalities. Pulmonary artery systolic pressure is within normal limits. Right atrial pressure is around 5 mm of mercury. -Discussed with family the risk of morbidity mortality given his chronic underlying medical problems, Friedreich's ataxia Elevated BNP -Monitor IV fluids Urinary tract infection -Is on Levaquin for recent UTI -Factors for multidrug-resistant UTI -Zosyn,zyvox -history of L ureteral stent, replacement 01/2024 -renal ultrasound shows bilateral hydronephrosis, mild to moderate, has L renal hematoma -Check blood cultures -Urine cultures Acute anemia -secondary to Left perirenal hematoma, Evidence of hemoperitoneum, with underlying malignancy ? Status post transfuse 1 unit PRBC Left perirenal hematoma -Measuring 8.5 cm -Hold DVT prophylaxis Lovenox -Hold aspirin -Monitor hemoglobin, monitor renal function Evidence of hemoperitoneum, with underlying malignancy -Monitor hemoglobin Acute renal failure, creatinine 3.9, with decreasing urine output -Concerns for underlying B-cell lymphoma as a cause -History of renal arterial stenosis -History of left ureteral stent, CT scan shows left nephroureteral stent in place with mild to moderate hydroureteronephrosis us renal US/US renal BI* [id number] IMPRESSION: 1. Bilateral mild to moderate hydronephrosis as described above. Etiology is not been determined. 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 Paraesophageal and retrocrural lymphadenopathy, concerning for metastatic disease. 2. New scattered pulmonary nodules and interstitial thickening. Findings are indeterminate and may be related to infection or metastatic disease. 3. New small left pleural effusion. IMPRESSION: 1. Ill-defined soft tissue and high density free fluid in the pelvis. Findings are concerning for a combination of malignancy and hemoperitoneum and are incompletely evaluated on this noncontrast exam. Further evaluation with contrast-enhanced CT should be considered if this is a new finding. 2. 8.5 cm left perirenal hematoma. 3. New mesenteric lymphadenopathy and peritoneal nodularity concerning for carcinomatosis. 4. Interval decreased size of left psoas mass and decreased retroperitoneal lymphadenopathy. Hyperuricemia,allopurinol Hypercalcemia, 13.8 monitor No significant hypokalemia Tumor lysis syndrome? -No significant hyperkalemia -does have hypercalcemia, hyperuricemia -allopurinol Deconditioning, weakness -PT OT History of Friedreich's ataxia History of cad, may to 2020, antiplatelet agents on holds due to above Hypercalcemia -With elevated ionized calcium -13.8 -Currently asymptomatic -Etiology multifactorial from renal failure, potentially for B-cell lymphoma Plan -Spoke to nephrology -Continue to monitor -Will consider calcitonin based on clinical progress Bilateral hydro nephrosis -History of left ureteral stent, with history of stent replacement January 2023 -Ultrasound results as above -Reports minimal urine output -Likely from renal failure -Continue to monitor History of B-cell lymphoma ? Diagnosed 06/06/2022 ? With a large left retroperitoneal soft tissue mass, displacing left kidney confluent with left psoas ? 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 He had R-EPOCH to R-CHOP therapy ? Lisocel with refractory disease ? obino/glofit ? S/p radiation therapy ? with significant disease progression ? Last follow-up with Dr. Shah ?at [facility], given disease progression, likely remaining of response was very low, recommended hospice full code scd for DVT prophylaxis, lovenox on hold due to renal hematoma Prognosis poor, status stable -spoke to nephrology, spoke to [facility], coutinue fluids, monitor electrolytes Attestations 2 Medical Necessity Statement*: Patient requires hospitalization for UTI, acute renal failure, hypercalcemia, hyperuricemia, B-cell lymphoma acute anemia, hemoperitoneum, left renal hematoma Diagnoses Acute cystitis N30.00 [id number]-[id number] kidney injury N17.9; N18.9 Unresponsive episode R40.4 Acute anemia D64.9 Acute renal failure N17.9 Hyperuricemia E79.0 Hypercalcemia E83.52 NSTEMI (non-ST elevated myocardial infarction) I21.4 Goals of care, counseling/discussion Z71.89 Tumor lysis syndrome E88.3 Nontraumatic hemoperitoneum K66.1 Renal hematoma, left S37.012A Carcinomatosis C80.0 Friedreichs ataxia G11.1 Bilateral hydronephrosis N13.30
[2024-04-25 21:43] LABS: Anion Gap 20.7 (5-19); Blood Urea Nitrogen 38 mg/dL (8-23); Calcium 13.3 mg/dL (8.5-10.5); Carbon Dioxide 21 mmol/L (22-29); Chloride 100 mmol/L (98-107); Glomerular Filtration Rate 14.1 mL/min (90-130); Glucose 91 mg/dL (65-115); Osmolality Calculated 295 mOsm/kg (285-295); Potassium 3.7 mmol/L (3.5-5.1); Sodium 138 mmol/L (136-145)
[2024-04-26] VITALS (13 sets, daily range): BP systolic 122–152; BP diastolic 56–78; PULSE 89–103; RESP 15–20; TEMP 36.3–37.2; O2SAT 93–97
[2024-04-26] MEDS: oxyCODONE 5 mg IR Tab/Cap PO ×3 (01:46→21:14)
[2024-04-26] MEDS: linezolid premix 600 MG/300 ML PREMIX 300 MG IV ×2 (01:47→13:38)
[2024-04-26] MEDS: sodium bicarbonate 50 MEQ in sodium chloride 0.45% 1,000 ML IV (02:53)
[2024-04-26 05:32] LABS: Basophils % 0.9 %; Eosinophils # 0.2 10^3/uL (0.0-0.8); Eosinophils % 6.3 %; Hematocrit 25.8 % (37-53); Lymphocytes # 0.3 10^3/uL (0.8-4.8); Lymphocytes % 9.8 %; Mean Corpuscular HGB Conc 32.6 g/dL (30-55); Mean Corpuscular Hemoglobin 33.2 pg (27-33); Mean Platelet Volume 9.2 fL (7.4-10.4); Monocytes # 0.5 10^3/uL (0.2-0.9); Monocytes % 15.6 %; Neutrophils # 1.68 10^3/uL (1.8-7.7); Neutrophils % 48.4 %; Nucleated Red Blood Cells % 0 %; Platelet Count 169 10^3/cmm (157-399); Red Blood Count 2.53 10^6/uL (3.85-5.65); Red Cell Distribution Width 16.3 % (12.1-15.1); White Blood Count 3.47 10^3/uL (3.29-11.43)
[2024-04-26 05:47] LABS: Lactate (Lactic Acid level) 1.6 mmol/L (0.5-2.2)
[2024-04-26 05:51] LABS: Alanine Aminotransferase 13 U/L (0-41); Albumin Level 3.2 g/dL (3.5-5.2); Alkaline Phosphatase 91 U/L (40-130); Anion Gap 18.8 (5-19); Aspartate Amino Transferase 30 U/L (0-40); Blood Urea Nitrogen 38 mg/dL (8-23); Calcium 13.4 mg/dL (8.5-10.5); Carbon Dioxide 23 mmol/L (22-29); Chloride 101 mmol/L (98-107); Creatinine Clr Calc Pharmacy 14.8489; Glomerular Filtration Rate 13.4 mL/min (90-130); Glucose 103 mg/dL (65-115); Magnesium 2.1 mg/dL (1.7-2.3); Osmolality Calculated 297 mOsm/kg (285-295); Phosphorus 4.3 mg/dL (2.5-4.5); Potassium 3.8 mmol/L (3.5-5.1); Sodium 139 mmol/L (136-145); Total Bilirubin 0.3 mg/dL (0.15-1.2); Total Protein 5.2 g/dL (6.6-8.7)
[2024-04-26 05:53] LABS: Creatine Phosphokinase 47 U/L (39-308); NT Pro B Type Natriuretic Pept 7140 pg/mL (0-125); Uric Acid 13.2 mg/dL (3.4-7.0)
[2024-04-26] MEDS: sucralfate 1 gm/10 mL Oral Liq UDC PO ×4 (06:02→21:15)
[2024-04-26 06:04] LABS: Slide Review Slide Review Perform
[2024-04-26 06:16] LABS: C Reactive Protein 215.8 mg/L (0.0-4.9); Procalcitonin 0.39 ng/mL (0-0.5)
[2024-04-26] MEDS: carvedilol 6.25 mg Tablet PO ×2 (08:30→17:23)
[2024-04-26] MEDS: acyclovir 400 mg Tablet PO ×2 (08:30→17:23)
[2024-04-26] MEDS: fluconazole 100 mg Tablet PO (08:30)
[2024-04-26] MEDS: pantoprazole 40 mg SDV IVP ×2 (08:30→21:14)
[2024-04-26] MEDS: piperacillin-tazobactam 3.375 GM in sodium chloride 0.9% (plus) 50 ML IV (08:31)
--- NOTE | 2024-04-26 10:36 | XRR_ITS ---
PROCEDURE INFORMATION: Exam: XR Chest Exam date and time: 04/26/2024 10:59 AM Age: 68 years old Clinical indication: Other: New oxygen requirements; Prior surgery; Surgery date: 1-6 months; Surgery type: Cardiac stents TECHNIQUE: Imaging protocol: Radiologic exam of the chest. Views: 1 view. COMPARISON: CT chest [place]dp[place] [id number] 04/24/2024 12:04 PM FINDINGS: Lungs: Unremarkable. No consolidation. Pleural spaces: Unremarkable. No pleural effusion. No pneumothorax. Heart/Mediastinum: Unremarkable. No cardiomegaly. Bones/joints: Unremarkable. XR/XR chest 1V portable [id number] IMPRESSION: No acute findings.
--- NOTE | 2024-04-26 12:23 | P.PN_ITS ---
Subjective 2 Subjective: feels OK Medications: Reviewed: Yes Vitals/I&O/Wt Last Vital Signs Temp 97.4 F L 04/26/24 11:54 Pulse 100 04/26/24 11:54 Resp 16 04/26/24 11:54 BP 122/77 04/26/24 11:54 Pulse Ox 97 04/26/24 11:54 O2 Del Method Nasal Cannula 04/26/24 11:54 O2 Flow Rate 2 04/26/24 08:00 04/25/24 04/26/24 04/26/24 22:59 06:59 14:59 Intake Total 590 / 880 1380 / 2260 17.083 / 17.083 Output Total 100 / 350 Balance 590 / 630 1280 / 1910 -7.917 / -7.917 Physical Exam 2 Narrative: awake , alert , o distress Heent s1s2 RRR per report Lungs clear per report no edema Data 04/26/24 04:47 04/26/24 04:47 A&P Assessment and plan (1) Acute renal failure: Plan 1. Acute on chronic kidney disease: Baseline creatinine was in the mid 1 range and now has progressively worsening JOHN with a creatinine of 4.0 today with oliguria, has metabolic acidosis as well. He is JOHN likely prerenal or ATN, also lymphocytic infiltration can cause a JOHN Also has left ureteral stent - Cr slightly worse -Though patient does not have any acute indication for dialysis at this point, he will not likely be a good dialysis candidate due to multiple comorbidities especially advanced malignancy -Discussed with patient's at bedside who wishes to continue aggressive care for now and dialysis if indicated -Assess renal function daily 2. Metabolic acidosis: Will add Bicitra, monitor 3. History of B-cell lymphoma, question peritoneal carcinomatosis 4. UTI 5. Perirenal hematoma and hemoperitoneum 6. NSTEMI 7.Hypercalcemia : will give calcitonin if no improvement Attestations 2 Medical Necessity Statement*: per medicine Coding Level of Care Code Acute Code for Chg Fwd Diagnoses Acute renal failure N17.9
--- NOTE | 2024-04-26 13:13 | PM.PN ---
Subjective Subjective: Patient was seen this morning, family members at bedside, he is a bit drowsy this morning, but does follow commands, denies any abdominal pain, does have left leg swelling, but no significant pain, no flank pain, no nausea, no vomiting, he did sleep well last night, continues to have lackluster urine output, discussed with family that I have discussed with [facility] for transfer, I have not heard back from them as of yet, he is required 2 L, but denies any shortness of breath, no chest pain Vitals/I&O/Wt Last Vital Signs Temp 97.4 F L 04/26/24 11:54 Pulse 100 04/26/24 11:54 Resp 16 04/26/24 11:54 BP 122/77 04/26/24 11:54 Pulse Ox 97 04/26/24 11:54 O2 Del Method Nasal Cannula 04/26/24 11:54 O2 Flow Rate 2 04/26/24 08:00 04/25/24 04/26/24 04/26/24 22:59 06:59 14:59 Intake Total 590 / 880 1380 / 2260 17.083 / 17.083 Output Total 100 / 350 Balance 590 / 630 1280 / 1910 -7.917 / -7.917 Physical Exam Const: COMMON NORMALS: no acute distress and patient oriented x3 Resp: COMMON NORMALS: normal respiratory effort, No retractions, No use of accessory muscles and clear to auscultation bilaterally AUSCULTATION: clear to auscultation bilaterally Cardio: COMMON NORMALS: regular rate, regular rhythm, S1 normal heart sound present and S2 normal heart sound present RATE: regular rate RHYTHM: regular rhythm HEART SOUNDS: S1 normal heart sound present and S2 normal heart sound present GI: COMMON NORMALS: Normal to inspection, nondistended, normoactive bowel sounds present and non-tender Extremity: COMMON NORMALS: no calf tenderness NARRATIVE EXTREMITY EXAM: Swelling of left leg, no edema Neuro: COMMON NORMALS: patient oriented x3 Psych: COMMON NORMALS: mental status grossly normal Skin: NARRATIVE SKIN EXAM: Has temporal muscle wasting, fat pad thinning under bilateral ribs, clavicles Data 04/26/24 04:47 04/26/24 04:47 Micro: Microbiology 04/25/24 11:30 Urine Culture - Preliminary Urine,Clean Catch A&P Assessment and plan (1) Acute cystitis: (2) Yzcsz-sy-zzqpfym kidney injury: (3) Unresponsive episode: (4) Acute anemia: (5) Acute renal failure: (6) Hyperuricemia: (7) Hypercalcemia: (8) NSTEMI (non-ST elevated myocardial infarction): (9) Goals of care, counseling/discussion: (10) Tumor lysis syndrome: (11) Nontraumatic hemoperitoneum: (12) Renal hematoma, left: (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: (15) Bilateral hydronephrosis: (16) Physical deconditioning: (17) Protein calorie malnutrition: (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 Left ventricular ejection fraction is estimated at 60 %. Grade II/IV diastolic dysfunction, moderately elevated filling pressures. There is no pericardial effusion. No significant valve abnormalities. Pulmonary artery systolic pressure is within normal limits. Right atrial pressure is around 5 mm of mercury. -Discussed with family the risk of morbidity mortality given his chronic underlying medical problems, Friedreich's ataxia Elevated BNP -Monitor IV fluids Urinary tract infection -Is on Levaquin for recent UTI -Factors for multidrug-resistant UTI -Antibiotic coverage broadened to meropenem, Zyvox -history of L ureteral stent, replacement 01/2024 -renal ultrasound shows bilateral hydronephrosis, mild to moderate, has L renal hematoma -Check blood cultures, so far no growth -Urine cultures Acute anemia -secondary to Left perirenal hematoma, Evidence of hemoperitoneum, with underlying malignancy ? Status post transfuse 1 unit PRBC Left perirenal hematoma -Measuring 8.5 cm -Hold DVT prophylaxis Lovenox -Hold aspirin -Monitor hemoglobin, monitor renal function Evidence of hemoperitoneum, with underlying malignancy -Monitor hemoglobin Acute renal failure, creatinine 4.4 with decreasing urine output -Concerns for underlying B-cell lymphoma as a cause -History of renal arterial stenosis -History of left ureteral stent, CT scan shows left nephroureteral stent in place with mild to moderate hydroureteronephrosis us renal US/US renal BI* [id number] IMPRESSION: 1. Bilateral mild to moderate hydronephrosis as described above. Etiology is not been determined. 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 Paraesophageal and retrocrural lymphadenopathy, concerning for metastatic disease. 2. New scattered pulmonary nodules and interstitial thickening. Findings are indeterminate and may be related to infection or metastatic disease. 3. New small left pleural effusion. IMPRESSION: 1. Ill-defined soft tissue and high density free fluid in the pelvis. Findings are concerning for a combination of malignancy and hemoperitoneum and are incompletely evaluated on this noncontrast exam. Further evaluation with contrast-enhanced CT should be considered if this is a new finding. 2. 8.5 cm left perirenal hematoma. 3. New mesenteric lymphadenopathy and peritoneal nodularity concerning for carcinomatosis. 4. Interval decreased size of left psoas mass and decreased retroperitoneal lymphadenopathy. Hyperuricemia,allopurinol Hypercalcemia, 13.8 monitor No significant hypokalemia Tumor lysis syndrome? -No significant hyperkalemia -does have hypercalcemia, hyperuricemia -allopurinol Deconditioning, weakness -PT OT History of Friedreich's ataxia History of cad, dec to 2020, antiplatelet agents on holds due to above Hypercalcemia -With elevated ionized calcium -13.8 -Currently asymptomatic -Etiology multifactorial from renal failure, potentially for B-cell lymphoma Plan -Spoke to nephrology -Continue to monitor -Will consider calcitonin based on clinical progress Bilateral hydro nephrosis -History of left ureteral stent, with history of stent replacement January 2023 -Ultrasound results as above -Reports minimal urine output -Likely from renal failure -Continue to monitor History of B-cell lymphoma ? Diagnosed 06/06/2022 ? With a large left retroperitoneal soft tissue mass, displacing left kidney confluent with left psoas ? 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 He had R-EPOCH to R-CHOP therapy ? Lisocel with refractory disease ? obino/glofit ? S/p radiation therapy ? with significant disease progression ? Last follow-up with Dr. Shah ?at [facility], given disease progression, likely remaining of response was very low, recommended hospice Physical deconditioning, protein calorie malnutrition, cancer cachexia -Has evidence of muscle loss -Likely secondary to underlying B-cell lymphoma -Consult dietary, PT OT full code scd for DVT prophylaxis, lovenox on hold due to renal hematoma Prognosis poor, status stable -Plan for today continue to monitor closely, continue IV fluids, monitor creatinine monitor urine output Attestations Medical Necessity Statement*: Patient requires hospitalization for acute renal failure, UTI, left renal hematoma with a hemoperitoneum Diagnoses Acute cystitis N30.00 Tibfa-yv-bhileou kidney injury N17.9; N18.9 Unresponsive episode R40.4 Acute anemia D64.9 Acute renal failure N17.9 Hyperuricemia E79.0 Hypercalcemia E83.52 NSTEMI (non-ST elevated myocardial infarction) I21.4 Goals of care, counseling/discussion Z71.89 Tumor lysis syndrome E88.3 Nontraumatic hemoperitoneum K66.1 Renal hematoma, left S37.012A Carcinomatosis C80.0 Friedreichs ataxia G11.1 Bilateral hydronephrosis N13.30 Physical deconditioning R53.81 Protein calorie malnutrition E46 Cancer cachexia R64
[2024-04-26 15:48] LABS: Anion Gap 17.6 (5-19); Blood Urea Nitrogen 37 mg/dL (8-23); Calcium 13.5 mg/dL (8.5-10.5); Carbon Dioxide 25 mmol/L (22-29); Chloride 99 mmol/L (98-107); Glomerular Filtration Rate 14.1 mL/min (90-130); Glucose 128 mg/dL (65-115); Osmolality Calculated 296 mOsm/kg (285-295); Potassium 3.6 mmol/L (3.5-5.1); Sodium 138 mmol/L (136-145)
[2024-04-26] MEDS: meropenem 500 mg SDV IVP (17:24)
[2024-04-27] VITALS (12 sets, daily range): BP systolic 127–151; BP diastolic 54–72; PULSE 91–110; RESP 16–18; TEMP 36.5–37.3; O2SAT 92–99
[2024-04-27] MEDS: linezolid premix 600 MG/300 ML PREMIX 300 MG IV ×2 (02:00→13:45)
[2024-04-27] MEDS: meropenem 500 mg SDV IVP ×2 (05:41→18:38)
[2024-04-27] MEDS: sucralfate 1 gm/10 mL Oral Liq UDC PO ×4 (05:42→22:36)
[2024-04-27 05:56] LABS: Basophils % 0.6 %; Eosinophils # 0.2 10^3/uL (0.0-0.8); Eosinophils % 7.6 %; Hematocrit 27.3 % (37-53); Lymphocytes # 0.4 10^3/uL (0.8-4.8); Lymphocytes % 13.7 %; Mean Platelet Volume 9.5 fL (7.4-10.4); Monocytes # 0.5 10^3/uL (0.2-0.9); Monocytes % 14.3 %; Neutrophils # 1.78 10^3/uL (1.8-7.7); Neutrophils % 56.8 %; Nucleated Red Blood Cells % 0 %; Platelet Count 164 10^3/cmm (157-399); Red Blood Count 2.73 10^6/uL (3.85-5.65); Red Cell Distribution Width 15.8 % (12.1-15.1); White Blood Count 3.14 10^3/uL (3.29-11.43)
[2024-04-27 05:57] LABS: Slide Review Slide Review Perform
[2024-04-27 06:13] LABS: Alanine Aminotransferase 12 U/L (0-41); Albumin Level 3.2 g/dL (3.5-5.2); Alkaline Phosphatase 87 U/L (40-130); Anion Gap 19.4 (5-19); Aspartate Amino Transferase 26 U/L (0-40); Blood Urea Nitrogen 39 mg/dL (8-23); C Reactive Protein 197.9 mg/L (0.0-4.9); Carbon Dioxide 23 mmol/L (22-29); Chloride 100 mmol/L (98-107); Globulin 2.2 g/dL (1.3-4.6); Glomerular Filtration Rate 14.1 mL/min (90-130); Glucose 93 mg/dL (65-115); Magnesium 1.9 mg/dL (1.7-2.3); Osmolality Calculated 297 mOsm/kg (285-295); Phosphorus 3.3 mg/dL (2.5-4.5); Potassium 3.4 mmol/L (3.5-5.1); Sodium 139 mmol/L (136-145); Total Bilirubin 0.3 mg/dL (0.15-1.2); Total Protein 5.4 g/dL (6.6-8.7)
[2024-04-27 06:20] LABS: Procalcitonin 0.35 ng/mL (0-0.5)
[2024-04-27 06:26] LABS: Creatine Phosphokinase 28 U/L (39-308); NT Pro B Type Natriuretic Pept 10655 pg/mL (0-125); Uric Acid 13.2 mg/dL (3.4-7.0)
[2024-04-27 06:35] LABS: Calcium 13.8 mg/dL (8.5-10.5)
[2024-04-27 06:58] LABS: Lactate (Lactic Acid level) 1.9 mmol/L (0.5-2.2)
[2024-04-27] MEDS: carvedilol 6.25 mg Tablet PO ×2 (09:06→18:36)
[2024-04-27] MEDS: fluconazole 100 mg Tablet PO (09:06)
[2024-04-27] MEDS: acyclovir 400 mg Tablet PO ×2 (09:06→18:40)
[2024-04-27] MEDS: allopurinol 100 mg Tablet 50 MG PO (09:07)
[2024-04-27] MEDS: pantoprazole 40 mg SDV IVP ×2 (09:07→22:35)
--- NOTE | 2024-04-27 09:09 | P.PN_ITS ---
Subjective 2 Subjective: no new c/o dickson placed Medications: Reviewed: Yes Vitals/I&O/Wt Last Vital Signs Temp 97.7 F 04/27/24 07:45 Pulse 97 04/27/24 07:45 Resp 18 04/27/24 07:45 BP 149/63 04/27/24 07:45 Pulse Ox 92 04/27/24 07:45 O2 Del Method Room Air 04/27/24 07:45 O2 Flow Rate 2 04/26/24 08:00 04/26/24 04/27/24 04/27/24 22:59 06:59 14:59 Intake Total 0 / 772.916 300 / 1072.916 Output Total 100 / 200 Balance 0 / 672.916 200 / 872.916 Physical Exam 2 Narrative: awake , alert , o distress Heent s1s2 RRR per report Lungs clear per report no edema Data 04/27/24 05:31 04/27/24 05:31 Micro: Microbiology 04/25/24 11:30 Urine Culture - Preliminary Urine,Clean Catch A&P Assessment and plan (1) Acute renal failure: Plan 1. Acute on chronic kidney disease: Baseline creatinine was in the mid 1 range and now has progressively worsening JOHN with a creatinine of 4.0 today with oliguria, has metabolic acidosis as well. He is JOHN likely prerenal or ATN, also lymphocytic infiltration can cause a JOHN Also has left ureteral stent - Cr stable , -Though patient does not have any acute indication for dialysis at this point, he will not likely be a good dialysis candidate due to multiple comorbidities especially advanced malignancy -Discussed with patient's at bedside who wishes to continue aggressive care for now and dialysis if indicated -Assess renal function daily 2. Metabolic acidosis: Will add Bicitra, monitor 3. History of B-cell lymphoma, question peritoneal carcinomatosis 4. UTI 5. Perirenal hematoma and hemoperitoneum 6. NSTEMI 7.Hypercalcemia : ordered calcitonin Attestations 2 Medical Necessity Statement*: per madhav Coding Level of Care Code Acute Code for Chg Fwd Diagnoses Acute renal failure N17.9
--- NOTE | 2024-04-27 09:23 | PC.NURSE ---
Notified Dr. Bradshaw patients refused Zinc for patient.
[2024-04-27] MEDS: calcitonin,salmon 200 unit/mL SDV 2mL 100 UNIT SUBCUT ×2 (09:29→18:36)
[2024-04-27] MEDS: oxyCODONE 5 mg IR Tab/Cap PO ×5 (09:57→22:36)
[2024-04-27] MEDS: ondansetron 2 mg/ML SDV 2 mL 4 MG IVP ×2 (09:58→16:03)
--- NOTE | 2024-04-27 10:48 | PC.NURSE ---
Dr. Bradshaw gave order to give Oxy IR 5 mg one time.
--- NOTE | 2024-04-27 10:57 | PC.SOCIAL ---
IMM Updated Updated pt on IMM. No questions voiced. Provided pt a copy. Initialed, dated, & timed copy in chart.
[2024-04-27 11:23] LABS: C.Diff PCR (Lab) NEGATIVE (Negative)
[2024-04-27] MEDS: lidocaine 2% jelly 1 APPLIC/6 ML TUBE TOPICAL (13:37)
--- NOTE | 2024-04-27 17:23 | PM.PN ---
Subjective Subjective: - Patient was seen this morning, he is alert oriented x 3, following all commands, denies any fevers, no chills, no cough -Spoke to [facility], spoke to their oncologist, who actually spoke to patient's oncologist at [facility] -Oncologist advised that there is nothing more that they can offer Medardo Lara, and given his current condition, he is not a candidate for any clinical trials, and they are in agreement with Dr. Connolly assessment that hospice would be a reasonable next step -Patient was seen this afternoon, spoke to patient and his , discussed with him about options available continue medical interventions, the possibility of hospice, family is not ready to make decision but for now they want to continue medical interventions Vitals/I&O/Wt Last Vital Signs Temp 97.7 F 04/27/24 12:00 Pulse 91 04/27/24 12:00 Resp 18 04/27/24 14:58 BP 140/54 04/27/24 12:00 Pulse Ox 94 04/27/24 14:58 O2 Del Method Room Air 04/27/24 12:00 O2 Flow Rate 2 04/27/24 08:00 04/27/24 04/27/24 04/27/24 06:59 14:59 22:59 Intake Total 300 / 1072.916 Output Total 100 / 200 Balance 200 / 872.916 Physical Exam Const: COMMON NORMALS: no acute distress and patient oriented x3 Resp: COMMON NORMALS: normal respiratory effort, No retractions, No use of accessory muscles and clear to auscultation bilaterally AUSCULTATION: clear to auscultation bilaterally Cardio: COMMON NORMALS: regular rate, regular rhythm, S1 normal heart sound present and S2 normal heart sound present RATE: regular rate RHYTHM: regular rhythm HEART SOUNDS: S1 normal heart sound present and S2 normal heart sound present GI: COMMON NORMALS: Normal to inspection, nondistended, normoactive bowel sounds present and non-tender Extremity: COMMON NORMALS: no pedal edema Neuro: COMMON NORMALS: patient oriented x3 Psych: COMMON NORMALS: mental status grossly normal Urinary Catheter Management: Dickson: Cath Placed During This Visit: yes Urinary Catheter Date of Insertion: 04/27/24 Urinary Catheter Time of Insertion: 09:35 Data 04/27/24 05:31 04/27/24 05:31 Micro: Microbiology 04/25/24 11:30 Urine Culture - Final Urine,Clean Catch A&P Assessment and plan (1) Acute cystitis: (2) Iqysv-vx-mcuqxnt kidney injury: (3) Unresponsive episode: (4) Acute anemia: (5) Acute renal failure: (6) Hyperuricemia: (7) Hypercalcemia: (8) NSTEMI (non-ST elevated myocardial infarction): (9) Goals of care, counseling/discussion: (10) Tumor lysis syndrome: (11) Nontraumatic hemoperitoneum: (12) Renal hematoma, left: (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: (15) Bilateral hydronephrosis: (16) Physical deconditioning: (17) Protein calorie malnutrition: (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 Left ventricular ejection fraction is estimated at 60 %. Grade II/IV diastolic dysfunction, moderately elevated filling pressures. There is no pericardial effusion. No significant valve abnormalities. Pulmonary artery systolic pressure is within normal limits. Right atrial pressure is around 5 mm of mercury. -Discussed with family the risk of morbidity mortality given his chronic underlying medical problems, Friedreich's ataxia Elevated BNP -Monitor IV fluids Urinary tract infection -Is on Levaquin for recent UTI -Factors for multidrug-resistant UTI -Antibiotic coverage broadened to meropenem, Zyvox -history of L ureteral stent, replacement 01/2024 -renal ultrasound shows bilateral hydronephrosis, mild to moderate, has L renal hematoma -Check blood cultures, so far no growth -Urine cultures Acute anemia -secondary to Left perirenal hematoma, Evidence of hemoperitoneum, with underlying malignancy ? Status post transfuse 1 unit PRBC Left perirenal hematoma -Measuring 8.5 cm -Hold DVT prophylaxis Lovenox -Hold aspirin -Monitor hemoglobin, monitor renal function Evidence of hemoperitoneum, with underlying malignancy -Monitor hemoglobin Acute renal failure, creatinine 4.4 with decreasing urine output -Concerns for underlying B-cell lymphoma as a cause -History of renal arterial stenosis -History of left ureteral stent, CT scan shows left nephroureteral stent in place with mild to moderate hydroureteronephrosis us renal US/US renal BI* [id number] IMPRESSION: 1. Bilateral mild to moderate hydronephrosis as described above. Etiology is not been determined. 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 Paraesophageal and retrocrural lymphadenopathy, concerning for metastatic disease. 2. New scattered pulmonary nodules and interstitial thickening. Findings are indeterminate and may be related to infection or metastatic disease. 3. New small left pleural effusion. IMPRESSION: 1. Ill-defined soft tissue and high density free fluid in the pelvis. Findings are concerning for a combination of malignancy and hemoperitoneum and are incompletely evaluated on this noncontrast exam. Further evaluation with contrast-enhanced CT should be considered if this is a new finding. 2. 8.5 cm left perirenal hematoma. 3. New mesenteric lymphadenopathy and peritoneal nodularity concerning for carcinomatosis. 4. Interval decreased size of left psoas mass and decreased retroperitoneal lymphadenopathy. Hyperuricemia,allopurinol Hypercalcemia, 13.8 monitor No significant hypokalemia Tumor lysis syndrome? -No significant hyperkalemia -does have hypercalcemia, hyperuricemia -allopurinol Deconditioning, weakness -PT OT History of Friedreich's ataxia History of cad, dec to 2020, antiplatelet agents on holds due to above Hypercalcemia -With elevated ionized calcium -13.8 -Currently asymptomatic -Etiology multifactorial from renal failure, potentially for B-cell lymphoma Plan -Spoke to nephrology -Continue to monitor -Will consider calcitonin based on clinical progress Bilateral hydro nephrosis -History of left ureteral stent, with history of stent replacement January 2023 -Ultrasound results as above -Reports minimal urine output -Likely from renal failure -Continue to monitor History of B-cell lymphoma ? Diagnosed 06/06/2022 ? With a large left retroperitoneal soft tissue mass, displacing left kidney confluent with left psoas ? 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 He had R-EPOCH to R-CHOP therapy ? Lisocel with refractory disease ? obino/glofit ? S/p radiation therapy ? with significant disease progression ? Last follow-up with Dr. Shah ?at [facility], given disease progression, likely remaining of response was very low, recommended hospice Physical deconditioning, protein calorie malnutrition, cancer cachexia -Has evidence of muscle loss -Likely secondary to underlying B-cell lymphoma -Consult dietary, PT OT Hematuria, likely from left renal hematoma, off all blood thinners continue to monitor full code scd for DVT prophylaxis, lovenox on hold due to renal hematoma Prognosis poor, status stable -Plan for today continue to monitor closely, continue IV fluids, monitor creatinine monitor urine output Attestations Medical Necessity Statement*: Patient requires hospitalization for acute renal failure, UTI, B-cell lymphoma, left renal hematoma, hemoperitoneum, Diagnoses Acute cystitis N30.00 Wcxik-qv-xeaancd kidney injury N17.9; N18.9 Unresponsive episode R40.4 Acute anemia D64.9 Acute renal failure N17.9 Hyperuricemia E79.0 Hypercalcemia E83.52 NSTEMI (non-ST elevated myocardial infarction) I21.4 Goals of care, counseling/discussion Z71.89 Tumor lysis syndrome E88.3 Nontraumatic hemoperitoneum K66.1 Renal hematoma, left S37.012A Carcinomatosis C80.0 Friedreichs ataxia G11.1 Bilateral hydronephrosis N13.30 Physical deconditioning R53.81 Protein calorie malnutrition E46 Cancer cachexia R64
[2024-04-28] VITALS (7 sets, daily range): BP systolic 124–163; BP diastolic 56–73; PULSE 80–102; RESP 15–20; TEMP 36–36.7; O2SAT 90–95
[2024-04-28] MEDS: linezolid premix 600 MG/300 ML PREMIX 300 MG IV ×2 (01:53→14:52)
[2024-04-28] MEDS: oxyCODONE 5 mg IR Tab/Cap PO ×5 (01:54→21:02)
[2024-04-28 05:14] LABS: Basophils % 0.6 %; Eosinophils # 0.1 10^3/uL (0.0-0.8); Eosinophils % 3.6 %; Lymphocytes # 0.4 10^3/uL (0.8-4.8); Lymphocytes % 12.5 %; Mean Corpuscular HGB Conc 31.9 g/dL (30-55); Mean Corpuscular Hemoglobin 32.1 pg (27-33); Mean Corpuscular Volume 100.7 fl (82-101); Mean Platelet Volume 9.4 fL (7.4-10.4); Monocytes # 0.5 10^3/uL (0.2-0.9); Monocytes % 14.6 %; Neutrophils # 2.06 10^3/uL (1.8-7.7); Neutrophils % 61.3 %; Nucleated Red Blood Cells % 0 %; Platelet Count 165 10^3/cmm (157-399); Red Blood Count 2.68 10^6/uL (3.85-5.65); Red Cell Distribution Width 15.7 % (12.1-15.1); White Blood Count 3.36 10^3/uL (3.29-11.43)
[2024-04-28 05:32] LABS: Lactate (Lactic Acid level) 2.1 mmol/L (0.5-2.2)
[2024-04-28 05:35] LABS: Alanine Aminotransferase 11 U/L (0-41); Albumin Level 3.2 g/dL (3.5-5.2); Alkaline Phosphatase 84 U/L (40-130); Anion Gap 16.3 (5-19); Aspartate Amino Transferase 22 U/L (0-40); Blood Urea Nitrogen 40 mg/dL (8-23); C Reactive Protein 157.2 mg/L (0.0-4.9); Calcium 11.7 mg/dL (8.5-10.5); Carbon Dioxide 25 mmol/L (22-29); Chloride 103 mmol/L (98-107); Creatinine Clr Calc Pharmacy 16.3338; Globulin 1.7 g/dL (1.3-4.6); Glomerular Filtration Rate 14.9 mL/min (90-130); Glucose 127 mg/dL (65-115); Magnesium 1.8 mg/dL (1.7-2.3); Osmolality Calculated 303 mOsm/kg (285-295); Phosphorus 3.3 mg/dL (2.5-4.5); Potassium 3.3 mmol/L (3.5-5.1); Sodium 141 mmol/L (136-145); Total Bilirubin 0.3 mg/dL (0.15-1.2); Total Protein 4.9 g/dL (6.6-8.7)
[2024-04-28 05:38] LABS: NT Pro B Type Natriuretic Pept 14499 pg/mL (0-125); Procalcitonin 0.37 ng/mL (0-0.5)
[2024-04-28 05:48] LABS: Slide Review Slide Review Perform
[2024-04-28 05:49] LABS: Creatine Phosphokinase 17 U/L (39-308); Uric Acid 13.3 mg/dL (3.4-7.0)
[2024-04-28] MEDS: meropenem 500 mg SDV IVP ×2 (06:25→18:09)
[2024-04-28] MEDS: sucralfate 1 gm/10 mL Oral Liq UDC PO ×4 (06:26→20:58)
[2024-04-28] MEDS: fluconazole 100 mg Tablet PO (10:22)
[2024-04-28] MEDS: acyclovir 400 mg Tablet PO ×2 (10:22→18:08)
[2024-04-28] MEDS: carvedilol 6.25 mg Tablet PO ×2 (10:22→18:08)
[2024-04-28] MEDS: cyclobenzaprine 10 mg Tablet PO ×2 (10:23→18:08)
[2024-04-28] MEDS: calcitonin,salmon 200 unit/mL SDV 2mL 100 UNIT SUBCUT ×2 (10:27→18:08)
[2024-04-28] MEDS: pantoprazole 40 mg SDV IVP ×2 (10:27→20:59)
[2024-04-28] MEDS: sodium chloride 0.9% 500 ML 50 ML IV (12:01)
[2024-04-28] MEDS: ondansetron 2 mg/ML SDV 2 mL 4 MG IVP ×2 (12:02→23:57)
--- NOTE | 2024-04-28 13:45 | PM.PN ---
Subjective Subjective: - Patient was examined this morning, family members at bedside, is at bedside -I had a detailed discussion with him about goals of care, -Medardo this morning looks a bit more drowsy looks like he is in more pain, -We discussed options are available to him, including but not limited to continued medical interventions, giving him time, watching his kidney function continuing antibiotics -My worry is is that his prognosis short-term looks poor, as he is increased risk of rehospitalization for complications such as dehydration, worsening renal function, infections, worsening anemia, worsening bleeding, other complications associate with his malignancy, and morbidity and mortality associated, I am worried that we might be doing aggressive interventions on him that would not improve his quality of life -We also discussed hospice as an option, easing his pain easing his suffering and allowing him to be comfortable at home -The goal of hospice is not to hasten his , but to allow him to be with his family, at home, and allow him to be comfortable and peaceful at home -After discussing the risk benefits all options, they voiced understanding, all questions answered, family wants to proceed with all medical interventions, he remains a full code and his 's word they want everything to be done to the very end Vitals/I&O/Wt Last Vital Signs Temp 97.5 F L 04/28/24 12:00 Pulse 102 H 04/28/24 12:00 Resp 15 04/28/24 12:00 BP 163/64 04/28/24 12:00 Pulse Ox 91 04/28/24 12:00 O2 Del Method Room Air 04/28/24 12:00 O2 Flow Rate 2 04/27/24 08:00 04/27/24 04/28/24 04/28/24 22:59 06:59 14:59 Intake Total 300 / 300 300 / 600 Output Total 1100 / 1100 300 / 1400 Balance -800 / -800 0 / -800 Physical Exam Const: COMMON NORMALS: no acute distress ORIENTATION/CONSCIOUSNESS: Yes awake, Yes oriented to person and Yes oriented to place; not oriented to time Resp: COMMON NORMALS: normal respiratory effort, No retractions, No use of accessory muscles and clear to auscultation bilaterally AUSCULTATION: clear to auscultation bilaterally Cardio: COMMON NORMALS: regular rate, regular rhythm, S1 normal heart sound present and S2 normal heart sound present RATE: regular rate RHYTHM: regular rhythm HEART SOUNDS: S1 normal heart sound present and S2 normal heart sound present GI: COMMON NORMALS: Normal to inspection, nondistended, normoactive bowel sounds present and non-tender Extremity: COMMON NORMALS: no pedal edema Neuro: SENSORIUM/ORIENTATION: Yes oriented to person, Yes oriented to place and No oriented to time Psych: COMMON NORMALS: mental status grossly normal Urinary Catheter Management: Dickson: Cath Placed During This Visit: yes Reason for Continuing Indwelling Catheter: Acute Urinary Retention or Obstruction Urinary Catheter Date of Insertion: 04/27/24 Urinary Catheter Time of Insertion: 09:35 Data 04/28/24 04:46 04/28/24 04:46 Micro: Microbiology 04/22/24 19:05 Blood Culture - Final Blood NO GROWTH AFTER 5 DAYS 04/22/24 19:00 Blood Culture - Final Blood NO GROWTH AFTER 5 DAYS 04/25/24 11:30 Urine Culture - Final Urine,Clean Catch A&P Assessment and plan (1) Acute cystitis: (2) Iyetd-lj-lpubocw kidney injury: (3) Unresponsive episode: (4) Acute anemia: (5) Acute renal failure: (6) Hyperuricemia: (7) Hypercalcemia: (8) NSTEMI (non-ST elevated myocardial infarction): (9) Goals of care, counseling/discussion: (10) Tumor lysis syndrome: (11) Nontraumatic hemoperitoneum: (12) Renal hematoma, left: (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: (15) Bilateral hydronephrosis: (16) Physical deconditioning: (17) Protein calorie malnutrition: (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 Left ventricular ejection fraction is estimated at 60 %. Grade II/IV diastolic dysfunction, moderately elevated filling pressures. There is no pericardial effusion. No significant valve abnormalities. Pulmonary artery systolic pressure is within normal limits. Right atrial pressure is around 5 mm of mercury. -Discussed with family the risk of morbidity mortality given his chronic underlying medical problems, Friedreich's ataxia Elevated BNP -Monitor IV fluids Urinary tract infection -Is on Levaquin for recent UTI -Factors for multidrug-resistant UTI -Antibiotic coverage broadened to meropenem, Zyvox -history of L ureteral stent, replacement 01/2024 -renal ultrasound shows bilateral hydronephrosis, mild to moderate, has L renal hematoma -Check blood cultures, so far no growth -Urine cultures Acute anemia -secondary to Left perirenal hematoma, Evidence of hemoperitoneum, with underlying malignancy ? Status post transfuse 1 unit PRBC Left perirenal hematoma -Measuring 8.5 cm -Hold DVT prophylaxis Lovenox -Hold aspirin -Monitor hemoglobin, monitor renal function Evidence of hemoperitoneum, with underlying malignancy -Monitor hemoglobin Acute renal failure, creatinine 4.4 with decreasing urine output -Concerns for underlying B-cell lymphoma as a cause -History of renal arterial stenosis -History of left ureteral stent, CT scan shows left nephroureteral stent in place with mild to moderate hydroureteronephrosis us renal US/US renal BI* [id number] IMPRESSION: 1. Bilateral mild to moderate hydronephrosis as described above. Etiology is not been determined. 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 Paraesophageal and retrocrural lymphadenopathy, concerning for metastatic disease. 2. New scattered pulmonary nodules and interstitial thickening. Findings are indeterminate and may be related to infection or metastatic disease. 3. New small left pleural effusion. IMPRESSION: 1. Ill-defined soft tissue and high density free fluid in the pelvis. Findings are concerning for a combination of malignancy and hemoperitoneum and are incompletely evaluated on this noncontrast exam. Further evaluation with contrast-enhanced CT should be considered if this is a new finding. 2. 8.5 cm left perirenal hematoma. 3. New mesenteric lymphadenopathy and peritoneal nodularity concerning for carcinomatosis. 4. Interval decreased size of left psoas mass and decreased retroperitoneal lymphadenopathy. Hyperuricemia,allopurinol Hypercalcemia, 13.8 monitor No significant hypokalemia Tumor lysis syndrome? -No significant hyperkalemia -does have hypercalcemia, hyperuricemia -allopurinol Deconditioning, weakness -PT OT History of Friedreich's ataxia History of cad, may to 2020, antiplatelet agents on holds due to above Hypercalcemia -With elevated ionized calcium -13.8 -Currently asymptomatic -Etiology multifactorial from renal failure, potentially for B-cell lymphoma Plan -Spoke to nephrology -Continue to monitor -Will consider calcitonin based on clinical progress Bilateral hydro nephrosis -History of left ureteral stent, with history of stent replacement January 2023 -Ultrasound results as above -Reports minimal urine output -Likely from renal failure -Continue to monitor History of B-cell lymphoma ? Diagnosed 06/06/2022 ? With a large left retroperitoneal soft tissue mass, displacing left kidney confluent with left psoas ? 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 He had R-EPOCH to R-CHOP therapy ? Lisocel with refractory disease ? obino/glofit ? S/p radiation therapy ? with significant disease progression ? Last follow-up with Dr. Shah ?at [facility], given disease progression, likely remaining of response was very low, recommended hospice Physical deconditioning, protein calorie malnutrition, cancer cachexia -Has evidence of muscle loss -Likely secondary to underlying B-cell lymphoma -Consult dietary, PT OT Hematuria, likely from left renal hematoma, off all blood thinners continue to monitor full code scd for DVT prophylaxis, lovenox on hold due to renal hematoma Prognosis poor, status stable - Attestations Medical Necessity Statement*: Patient requires hospitalization for JOHN, uti, b cell lymphoma Diagnoses Acute cystitis N30.00 Vzuev-kh-ryxcyka kidney injury N17.9; N18.9 Unresponsive episode R40.4 Acute anemia D64.9 Acute renal failure N17.9 Hyperuricemia E79.0 Hypercalcemia E83.52 NSTEMI (non-ST elevated myocardial infarction) I21.4 Goals of care, counseling/discussion Z71.89 Tumor lysis syndrome E88.3 Nontraumatic hemoperitoneum K66.1 Renal hematoma, left S37.012A Carcinomatosis C80.0 Friedreichs ataxia G11.1 Bilateral hydronephrosis N13.30 Physical deconditioning R53.81 Protein calorie malnutrition E46 Cancer cachexia R64
--- NOTE | 2024-04-28 17:16 | P.PN_ITS ---
Subjective 2 Subjective: feels better Medications: Reviewed: Yes Vitals/I&O/Wt Last Vital Signs Temp 97.9 F 04/28/24 16:00 Pulse 94 04/28/24 16:00 Resp 15 04/28/24 16:00 BP 149/64 04/28/24 16:00 Pulse Ox 92 04/28/24 16:00 O2 Del Method Room Air 04/28/24 16:00 O2 Flow Rate 2 04/27/24 08:00 04/28/24 04/28/24 04/28/24 06:59 14:59 22:59 Intake Total 300 / 600 300 / 300 Output Total 300 / 1400 Balance 0 / -800 300 / 300 Physical Exam 2 Urinary Catheter Management: Munson: Cath Placed During This Visit: yes Reason for Continuing Indwelling Catheter: Acute Urinary Retention or Obstruction Urinary Catheter Date of Insertion: 04/27/24 Urinary Catheter Time of Insertion: 09:35 Data 04/28/24 04:46 04/28/24 04:46 Micro: Microbiology 04/22/24 19:05 Blood Culture - Final Blood NO GROWTH AFTER 5 DAYS 04/22/24 19:00 Blood Culture - Final Blood NO GROWTH AFTER 5 DAYS A&P Assessment and plan (1) Acute renal failure: Plan 1. Acute on chronic kidney disease: Baseline creatinine was in the mid 1 range and now has progressively worsening JOHN with a creatinine of 4.0 today with oliguria, has metabolic acidosis as well. He is JOHN likely prerenal or ATN, also lymphocytic infiltration can cause a JOHN Also has left ureteral stent - Cr stable , -Though patient does not have any acute indication for dialysis at this point, he will not likely be a good dialysis candidate due to multiple comorbidities especially advanced malignancy -Discussed with patient's at bedside who wishes to continue aggressive care for now and dialysis if indicated -Assess renal function daily 2. Metabolic acidosis: Will add Bicitra, monitor 3. History of B-cell lymphoma, question peritoneal carcinomatosis 4. UTI 5. Perirenal hematoma and hemoperitoneum 6. NSTEMI 7.Hypercalcemia : ordered calcitonin Attestations 2 Medical Necessity Statement*: per [facility] Coding Level of Care Code Acute Code for Chg Fwd Diagnoses Acute renal failure N17.9
[2024-04-28] MEDS: lidocaine 1% 5 ML in potassium chloride premix 100 ML 52.5 ML IV (18:09)
[2024-04-29] VITALS (11 sets, daily range): BP systolic 132–149; BP diastolic 62–74; PULSE 84–101; RESP 12–18; TEMP 36.4–37.2; O2SAT 92–94
[2024-04-29] MEDS: linezolid premix 600 MG/300 ML PREMIX 300 MG IV ×2 (02:09→15:35)
[2024-04-29] MEDS: cyclobenzaprine 10 mg Tablet PO ×3 (03:21→22:05)
[2024-04-29] MEDS: meropenem 500 mg SDV IVP ×2 (06:04→18:08)
[2024-04-29] MEDS: ondansetron 2 mg/ML SDV 2 mL 4 MG IVP ×4 (06:04→21:30)
[2024-04-29] MEDS: oxyCODONE 5 mg IR Tab/Cap PO ×4 (06:04→21:29)
[2024-04-29] MEDS: sucralfate 1 gm/10 mL Oral Liq UDC PO ×3 (06:04→21:23)
[2024-04-29 08:55] LABS: Anion Gap 15.3 (5-19); Blood Urea Nitrogen 37 mg/dL (8-23); Calcium 12.2 mg/dL (8.5-10.5); Carbon Dioxide 26 mmol/L (22-29); Chloride 105 mmol/L (98-107); Creatinine Clr Calc Pharmacy 18.0998; Glomerular Filtration Rate 16.8 mL/min (90-130); Glucose 96 mg/dL (65-115); Osmolality Calculated 305 mOsm/kg (285-295); Potassium 3.3 mmol/L (3.5-5.1); Sodium 143 mmol/L (136-145)
[2024-04-29] MEDS: calcitonin,salmon 200 unit/mL SDV 2mL 100 UNIT SUBCUT (09:56)
[2024-04-29] MEDS: pantoprazole 40 mg SDV IVP ×2 (09:56→21:23)
[2024-04-29 10:47] LABS: Basophils % 0.6 %; Eosinophils # 0.1 10^3/uL (0.0-0.8); Eosinophils % 3.1 %; Hematocrit 26.1 % (37-53); Lymphocytes # 0.3 10^3/uL (0.8-4.8); Lymphocytes % 10.2 %; Mean Corpuscular HGB Conc 33.3 g/dL (30-55); Mean Corpuscular Hemoglobin 33.5 pg (27-33); Mean Corpuscular Volume 100.4 fl (82-101); Mean Platelet Volume 9.3 fL (7.4-10.4); Monocytes # 0.4 10^3/uL (0.2-0.9); Monocytes % 12.4 %; Neutrophils # 2.29 10^3/uL (1.8-7.7); Neutrophils % 71.2 %; Nucleated Red Blood Cells % 0 %; Platelet Count 126 10^3/cmm (157-399); Red Cell Distribution Width 15.7 % (12.1-15.1); White Blood Count 3.22 10^3/uL (3.29-11.43)
--- NOTE | 2024-04-29 11:06 | P.PN_ITS ---
Subjective 2 Subjective: somnolent Medications: Reviewed: Yes Vitals/I&O/Wt Last Vital Signs Temp 97.6 F 04/29/24 07:23 Pulse 94 04/29/24 07:23 Resp 16 04/29/24 07:23 BP 134/64 04/29/24 07:23 Pulse Ox 94 04/29/24 07:23 O2 Del Method Room Air 04/29/24 07:23 O2 Flow Rate 2 04/27/24 08:00 04/28/24 04/29/24 04/29/24 22:59 06:59 14:59 Intake Total 1025 / 1025 300 / 1325 Output Total 450 / 450 250 / 700 Balance 575 / 575 50 / 625 Weight last 48 hrs Weight 68.402 kg Physical Exam 2 Narrative: somnolent , no distress Heent s1s2 RRR per report Lungs clear per report no edema Urinary Catheter Management: Munson: Cath Placed During This Visit: yes Reason for Continuing Indwelling Catheter: Other Urinary Catheter Date of Insertion: 04/27/24 Urinary Catheter Time of Insertion: 09:35 Data 04/29/24 10:13 04/29/24 08:08 A&P Assessment and plan (1) Acute renal failure: Plan 1. Acute on chronic kidney disease: Baseline creatinine was in the mid 1 range and now has progressively worsening JOHN with a creatinine of 4.0 today with oliguria, has metabolic acidosis as well. He is JOHN likely prerenal or ATN, also lymphocytic infiltration can cause a JOHN Also has left ureteral stent - Cr stable , poor PO intake -Though patient does not have any acute indication for dialysis at this point, he will not likely be a good dialysis candidate due to multiple comorbidities especially advanced malignancy -Overall poor prognosis -Discussed with patient's at bedside who wishes to continue aggressive care for now and dialysis if indicated -Assess renal function daily 2. Metabolic acidosis: on Bicitra, monitor 3. History of B-cell lymphoma, question peritoneal carcinomatosis 4. UTI 5. Perirenal hematoma and hemoperitoneum 6. NSTEMI 7.Hypercalcemia : ordered calcitonin Attestations 2 Medical Necessity Statement*: per medicine Coding Level of Care Code Acute Code for [facility] Fwd Diagnoses Acute renal failure N17.9
[2024-04-29] MEDS: fluconazole 100 mg Tablet PO (11:08)
[2024-04-29] MEDS: carvedilol 6.25 mg Tablet PO ×2 (11:08→22:05)
[2024-04-29] MEDS: acyclovir 400 mg Tablet PO (11:08)
[2024-04-29] MEDS: megestrol 400 mg/10 mL UDC PO (11:09)
[2024-04-29] MEDS: allopurinol 100 mg Tablet 50 MG PO (11:09)
--- NOTE | 2024-04-29 12:58 | PC.SOCIAL ---
IMM Updated Updated pt & on IMM. No questions voiced. Provided pt a copy. Initialed, dated, & timed copy in chart.
--- NOTE | 2024-04-29 16:00 | PM.PN ---
Subjective Subjective: Patient was seen this morning continues to have weakness, fatigue, malaise, has a poor appetite, we discussed his improving renal function 3.6 urine output has improved continues to have hematuria, left to continue to monitor Vitals/I&O/Wt Last Vital Signs Temp 98.1 F 04/29/24 15:26 Pulse 99 04/29/24 15:26 Resp 16 04/29/24 15:26 BP 145/69 04/29/24 15:26 Pulse Ox 94 04/29/24 15:26 O2 Del Method Room Air 04/29/24 15:26 O2 Flow Rate 2 04/27/24 08:00 04/29/24 04/29/24 04/29/24 06:59 14:59 22:59 Intake Total 300 / 1325 Output Total 250 / 700 Balance 50 / 625 Weight last 48 hrs Weight 68.402 kg Physical Exam Const: COMMON NORMALS: no acute distress and patient oriented x3 GENERAL APPEARANCE: ill appearing and frail appearing Resp: COMMON NORMALS: normal respiratory effort, No retractions, No use of accessory muscles and clear to auscultation bilaterally AUSCULTATION: clear to auscultation bilaterally Cardio: COMMON NORMALS: regular rate, regular rhythm, S1 normal heart sound present and S2 normal heart sound present RATE: regular rate RHYTHM: regular rhythm HEART SOUNDS: S1 normal heart sound present and S2 normal heart sound present GI: COMMON NORMALS: Normal to inspection, nondistended, normoactive bowel sounds present and non-tender Extremity: COMMON NORMALS: no pedal edema Neuro: COMMON NORMALS: patient oriented x3 Psych: COMMON NORMALS: mental status grossly normal Urinary Catheter Management: Dickson: Cath Placed During This Visit: yes Reason for Continuing Indwelling Catheter: Other Urinary Catheter Date of Insertion: 04/27/24 Urinary Catheter Time of Insertion: 09:35 Data 04/29/24 10:13 04/29/24 08:08 A&P Assessment and plan (1) Acute cystitis: (2) Xwmpq-dq-gngxghu kidney injury: (3) Unresponsive episode: (4) Acute anemia: (5) Acute renal failure: (6) Hyperuricemia: (7) Hypercalcemia: (8) NSTEMI (non-ST elevated myocardial infarction): (9) Goals of care, counseling/discussion: (10) Tumor lysis syndrome: (11) Nontraumatic hemoperitoneum: (12) Renal hematoma, left: (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: (15) Bilateral hydronephrosis: (16) Physical deconditioning: (17) Protein calorie malnutrition: (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: Plan Unresponsive episode, resolved -Etiology likely combination -Combination of dehydration, UTI, NSTEMI, hemoperitoneum, left pararenal hematoma, acute bleeding -Telemetry monitoring NSTEMI -Serial EKGs, serial troponins, telemetry monitoring -6-hour troponin 303, delta 15.4, repeat troponin this morning to 75 -Will hold off on anticoagulant therapy given acute anemia of 7.3, significant risk of bleeding -Evidence of hemoperitoneum, left perirenal hematoma -Cardiac echo CONCLUSIONS Normal left ventricular size, systolic function and wall thickness, with no regional wall motion abnormalities. Left ventricular ejection fraction is estimated at 60 %. Grade II/IV diastolic dysfunction, moderately elevated filling pressures. There is no pericardial effusion. No significant valve abnormalities. Pulmonary artery systolic pressure is within normal limits. Right atrial pressure is around 5 mm of mercury. -Discussed with family the risk of morbidity mortality given his chronic underlying medical problems, Friedreich's ataxia Elevated BNP -No evidence of respiratory failure monitor Urinary tract infection -Was on Levaquin for recent UTI -Factors for multidrug-resistant UTI -Antibiotic coverage broadened to meropenem, Zyvox -history of L ureteral stent, replacement 01/2024 -renal ultrasound shows bilateral hydronephrosis, mild to moderate, has left renal hematoma -Check blood cultures, so far no growth -Urine cultures, so far no growth Acute anemia -secondary to Left perirenal hematoma, Evidence of hemoperitoneum, with underlying malignancy ? Status post transfuse 1 unit PRBC Left perirenal hematoma -Measuring 8.5 cm -Hold DVT prophylaxis Lovenox -Hold aspirin -Monitor hemoglobin, monitor renal function Evidence of hemoperitoneum, with underlying malignancy -Monitor hemoglobin Acute renal failure, creatinine 3.6 with decreasing urine output -Concerns for underlying B-cell lymphoma as a cause -History of renal arterial stenosis -History of left ureteral stent, CT scan shows left nephroureteral stent in place with mild to moderate hydroureteronephrosis us renal US/US renal BI* [id number] IMPRESSION: 1. Bilateral mild to moderate hydronephrosis as described above. Etiology is not been determined. 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 did not have anything more to offer, they recommended hospice -Family wants a second opinion at [facility], transfer center called at [facility] oncologist advised that there is nothing more that they can offer patient for his B-cell lymphoma, currently he is not a candidate for clinical trial CT abdomen pelvis CT/[place] [id number] IMPRESSION: 1. Paraesophageal and retrocrural lymphadenopathy, concerning for metastatic disease. 2. New scattered pulmonary nodules and interstitial thickening. Findings are indeterminate and may be related to infection or metastatic disease. 3. New small left pleural effusion. IMPRESSION: 1. Ill-defined soft tissue and high density free fluid in the pelvis. Findings are concerning for a combination of malignancy and hemoperitoneum and are incompletely evaluated on this noncontrast exam. Further evaluation with contrast-enhanced CT should be considered if this is a new finding. 2. 8.5 cm left perirenal hematoma. 3. New mesenteric lymphadenopathy and peritoneal nodularity concerning for carcinomatosis. 4. Interval decreased size of left psoas mass and decreased retroperitoneal lymphadenopathy. Hyperuricemia,allopurinol Hypercalcemia, monitor No significant hypokalemia Tumor lysis syndrome? -No significant hyperkalemia -does have hypercalcemia, hyperuricemia -allopurinol Deconditioning, weakness -PT OT History of Friedreich's ataxia History of cad, may to 2020, antiplatelet agents on holds due to above Hypercalcemia -With elevated ionized calcium -13.8 -Currently asymptomatic -Etiology multifactorial from renal failure, potentially for B-cell lymphoma Plan -Spoke to nephrology -Continue to monitor -Will consider calcitonin based on clinical progress Bilateral hydro nephrosis -History of left ureteral stent, with history of stent replacement January 2023 -Ultrasound results as above -Reports minimal urine output -Likely from renal failure -Continue to monitor History of B-cell lymphoma ? Diagnosed 06/06/2022 ? With a large left retroperitoneal soft tissue mass, displacing left kidney confluent with left psoas ? 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 He had R-EPOCH to R-CHOP therapy ? Lisocel with refractory disease ? obino/glofit ? S/p radiation therapy ? with significant disease progression ? Last follow-up with Dr. Shah ?at [facility], given disease progression, likely remaining of response was very low, recommended hospice -MD Palma recommended that there was no other interventions they could offer, hospice was reasonable Physical deconditioning, protein calorie malnutrition, cancer cachexia -Has evidence of muscle loss -Likely secondary to underlying B-cell lymphoma -Consult dietary, PT OT Hematuria, likely from left renal hematoma, off all blood thinners continue to monitor full code scd for DVT prophylaxis, lovenox on hold due to renal hematoma Prognosis poor, status stable -Continue to monitor renal function, continue IV antibiotics Attestations Medical Necessity Statement*: Patient requires hospitalization for left renal hematoma, hemoperitoneum, deconditioning, protein otilio malnutrition, acute renal failure, bilateral hydronephrosis hypercalcemia, acute anemia Diagnoses Acute cystitis N30.00 Vhsmp-di-vdhgilu kidney injury N17.9; N18.9 Unresponsive episode R40.4 Acute anemia D64.9 Acute renal failure N17.9 Hyperuricemia E79.0 Hypercalcemia E83.52 NSTEMI (non-ST elevated myocardial infarction) I21.4 Goals of care, counseling/discussion Z71.89 Tumor lysis syndrome E88.3 Nontraumatic hemoperitoneum K66.1 Renal hematoma, left S37.012A Carcinomatosis C80.0 Friedreichs ataxia G11.1 Bilateral hydronephrosis N13.30 Physical deconditioning R53.81 Protein calorie malnutrition E46 Cancer cachexia R64
[2024-04-29] MEDS: sodium chloride 0.9% 1,000 ML 75 ML IV (18:07)
[2024-04-29] MEDS: metoclopramide 5 mg/mL SDV 2 mL IVP (18:08)
[2024-04-29 19:24] LABS: C.Diff PCR (Lab) NEGATIVE (Negative)
[2024-04-30] VITALS (14 sets, daily range): BP systolic 127–150; BP diastolic 60–79; PULSE 78–98; RESP 12–18; TEMP 36.4–37.1; O2SAT 93–96
[2024-04-30] MEDS: linezolid premix 600 MG/300 ML PREMIX 300 MG IV ×2 (03:26→15:19)
[2024-04-30] MEDS: oxyCODONE 5 mg IR Tab/Cap PO ×5 (04:41→21:13)
[2024-04-30] MEDS: metoclopramide 5 mg/mL SDV 2 mL IVP ×3 (04:41→17:12)
[2024-04-30 05:41] LABS: Basophils % 0.3 %; Eosinophils # 0.1 10^3/uL (0.0-0.8); Eosinophils % 3.2 %; Hematocrit 25.9 % (37-53); Lymphocytes # 0.4 10^3/uL (0.8-4.8); Lymphocytes % 10.8 %; Mean Corpuscular Hemoglobin 32.8 pg (27-33); Mean Corpuscular Volume 102.4 fl (82-101); Mean Platelet Volume 9.2 fL (7.4-10.4); Monocytes # 0.5 10^3/uL (0.2-0.9); Monocytes % 13.5 %; Neutrophils # 2.44 10^3/uL (1.8-7.7); Neutrophils % 65.7 %; Nucleated Red Blood Cells % 0 %; Platelet Count 136 10^3/cmm (157-399); Red Blood Count 2.53 10^6/uL (3.85-5.65); Red Cell Distribution Width 15.6 % (12.1-15.1); White Blood Count 3.71 10^3/uL (3.29-11.43)
[2024-04-30 06:00] LABS: Alanine Aminotransferase 9 U/L (0-41); Albumin Level 2.9 g/dL (3.5-5.2); Alkaline Phosphatase 74 U/L (40-130); Aspartate Amino Transferase 20 U/L (0-40); Blood Urea Nitrogen 39 mg/dL (8-23); Carbon Dioxide 25 mmol/L (22-29); Chloride 106 mmol/L (98-107); Creatinine Clr Calc Pharmacy 20.3622; Globulin 1.6 g/dL (1.3-4.6); Glomerular Filtration Rate 19.3 mL/min (90-130); Glucose 94 mg/dL (65-115); Osmolality Calculated 305 mOsm/kg (285-295); Sodium 143 mmol/L (136-145); Total Bilirubin 0.2 mg/dL (0.15-1.2); Total Protein 4.5 g/dL (6.6-8.7)
[2024-04-30] MEDS: sucralfate 1 gm/10 mL Oral Liq UDC PO ×4 (06:05→21:13)
[2024-04-30] MEDS: meropenem 500 mg SDV IVP ×2 (06:05→17:12)
[2024-04-30] MEDS: cyclobenzaprine 10 mg Tablet PO ×3 (06:05→21:13)
[2024-04-30] MEDS: sodium chloride 0.9% 1,000 ML 75 ML IV ×2 (06:13→21:13)
[2024-04-30 06:14] LABS: Slide Review Slide Review Perform
--- NOTE | 2024-04-30 08:27 | P.PN_ITS ---
Subjective 2 Subjective: no new c/o Medications: Reviewed: Yes Vitals/I&O/Wt Last Vital Signs Temp 98.8 F 04/30/24 03:41 Pulse 90 04/30/24 06:46 Resp 16 04/30/24 04:41 BP 133/61 04/30/24 03:41 Pulse Ox 93 04/30/24 03:41 O2 Del Method Room Air 04/30/24 03:41 O2 Flow Rate 2 04/27/24 08:00 04/29/24 04/30/24 04/30/24 22:59 06:59 14:59 Intake Total 300 / 300 1207.5 / 1507.5 Output Total 950 / 950 200 / 1150 Balance -650 / -650 1007.5 / 357.5 Weight last 48 hrs Weight 68.402 kg Physical Exam 2 Narrative: somnolent , no distress Heent s1s2 RRR per report Lungs clear per report no edema Urinary Catheter Management: Munson: Cath Placed During This Visit: yes Reason for Continuing Indwelling Catheter: Other Urinary Catheter Date of Insertion: 04/27/24 Urinary Catheter Time of Insertion: 09:35 Data 04/30/24 05:16 04/30/24 05:16 A&P Assessment and plan (1) Acute renal failure: Plan 1. Acute on chronic kidney disease: Baseline creatinine was in the mid 1 range and now has progressively worsening JOHN with a creatinine of 4.0 today with oliguria, has metabolic acidosis as well. He is JOHN likely prerenal or ATN, also lymphocytic infiltration can cause a JOHN Also has left ureteral stent - Cr stable , poor PO intake -Though patient does not have any acute indication for dialysis at this point, he will not likely be a good dialysis candidate due to multiple comorbidities especially advanced malignancy -Overall poor prognosis -Discussed with patient's at bedside who wishes to continue aggressive care for now and dialysis if indicated -Assess renal function daily 2. Metabolic acidosis: on Bicitra, monitor 3. History of B-cell lymphoma, question peritoneal carcinomatosis 4. UTI 5. Perirenal hematoma and hemoperitoneum 6. NSTEMI 7.Hypercalcemia : ordered calcitonin Attestations 2 Medical Necessity Statement*: per madhav Coding Level of Care Code Acute Code for g Fwd Diagnoses Acute renal failure N17.9
[2024-04-30] MEDS: potassium chloride premix 100 ML 25 MEQ IV (08:39)
[2024-04-30] MEDS: megestrol 400 mg/10 mL UDC PO (08:43)
[2024-04-30] MEDS: pantoprazole 40 mg SDV IVP ×2 (08:43→21:13)
[2024-04-30] MEDS: fluconazole 100 mg Tablet PO (08:44)
[2024-04-30] MEDS: carvedilol 6.25 mg Tablet PO ×2 (08:44→17:12)
[2024-04-30] MEDS: acyclovir 400 mg Tablet PO ×2 (08:44→17:10)
--- NOTE | 2024-04-30 10:09 | PC.NURSE ---
of patient refused zofran stating that it no longer works, and refused the zinc and calcaton.
--- NOTE | 2024-04-30 10:12 | PC.NURSE ---
refused meds. Patients refused the zofran, zinc and calcitinon.
[2024-04-30] MEDS: scopolamine 1.5 Patch 1 PATCH TRANSDERMA (10:46)
[2024-04-30] MEDS: calcitonin,salmon 200 unit/mL SDV 2mL 100 UNIT SUBCUT (17:23)
--- NOTE | 2024-04-30 17:49 | P.PN_ITS ---
Subjective 2 Subjective: Patient was seen this morning, family members at bedside, he tells me he is a lot more strength this morning, no fevers, no chills, no nausea, vomiting -His nausea is more under control with t he Reglan ? Family would like me to reach out to patient's urologist at [facility] Dr. Gutierrez, I had called him in the afternoon left a message for his nurse Liyah however have not received a call back Vitals/I&O/Wt Last Vital Signs Temp 98.0 F 04/30/24 14:29 Pulse 78 04/30/24 14:29 Resp 17 04/30/24 17:11 BP 127/60 04/30/24 14:29 Pulse Ox 94 04/30/24 14:29 O2 Del Method Room Air 04/30/24 14:29 O2 Flow Rate 2 04/27/24 08:00 04/30/24 04/30/24 04/30/24 06:59 14:59 22:59 Intake Total 1207.5 / 1507.5 100 / 100 220 / 320 Output Total 200 / 1150 650 / 650 Balance 1007.5 / 357.5 100 / 100 -430 / -330 Weight last 48 hrs Weight 68.402 kg Physical Exam 2 Const: COMMON NORMALS: no acute distress and patient oriented x3 Resp: COMMON NORMALS: normal respiratory effort, No retractions, No use of accessory muscles and clear to auscultation bilaterally AUSCULTATION: clear to auscultation bilaterally Cardio: COMMON NORMALS: regular rate, regular rhythm, S1 normal heart sound present and S2 normal heart sound present RATE: regular rate RHYTHM: r egular rhythm HEART SOUNDS: S1 normal heart sound present and S2 normal heart sound present GI: COMMON NORMALS: Normal to inspection, nondistended, normoactive bowel sounds present and non-tender Extremity: COMMON NORMALS: no pedal edema Neuro: COMMON NORMALS: patient oriented x3 Psych: COMMON NORMALS: mental status grossly normal Urinary Catheter Management: Dickson: Cath Placed During This Visit: yes Reason for Continuing Indwelling Catheter: Other Urinary Catheter Date of Insertion: 04/27/24 Urinary Catheter Time of Insertion: 09:35 Data 04/30/24 05:16 04/30/24 05:16 A&P Assessment and plan (1) Acute cystitis: (2) [id number] kidney injury: (3) Unresponsive episode: (4) Acute anemia: (5) Acute renal failure: (6) Hyperuricemia: (7) Hypercalcemia: (8) NSTEMI (non-ST elevated myocardial infarction): (9) Goals of care, counseling/discussion: (10) Tumor lysis syndrome: (11) Nontraumatic hemoperitoneum: (12) Renal hematoma, left: (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: (15) Bilateral hydronephrosis: (16) Physical deconditioning: (17) Protein calorie malnutrition: (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: Plan Unresponsive episode, resolved -Etiology likely combination -Combination of dehydration, UTI, NSTEMI, hemoperitoneum, left pararenal hematoma, acute bleeding -Telemetry monitoring NSTEMI -Serial EKGs, serial troponins, telemetry monitoring -6-hour troponin 303, delta 15.4, repeat troponin this morning to 75 -Will hold off on anticoagulant therapy given acute anemia of 7.3, significant risk of bleeding -Evidence of hemoperitoneum, left perirenal hematoma -Cardiac echo CONCLUSIONS Normal left ventricular size, systolic function and wall thickness, with no regional wall motion abnormalities. Left ventricular ejection fraction is estimated at 60 %. Grade II/IV diastolic dysfunction, moderately elevated filling pressures. There is no pericardial effusion. No significant valve abnormalities. Pulmonary artery systolic pressure is within normal limits. Right atrial pressure is around 5 mm of mercury. -Discussed with family the risk of morbidity mortality given his chronic underlying medical problems, Friedreich's ataxia Elevated BNP -No evidence of respiratory failure monitor Urinary tract infection -Was on Levaquin for recent UTI -Factors for multidrug-resistant UTI -Antibiotic coverage broadened to meropenem, Zyvox -history of L ureteral stent, replacement 01/2024 -renal ultrasound shows bilateral hydronephrosis, mild to moderate, has left renal hematoma -Check blood cultures, so far no growth -Urine cultures, so far no growth Acute anemia -secondary to Left perirenal hematoma, Evidence of hemoperitoneum, with underlying malignancy ? Status post transfuse 1 unit PRBC Left perirenal hematoma -Measuring 8.5 cm -Hold DVT prophylaxis Lovenox -Hold aspirin -Monitor hemoglobin, monitor renal function Evidence of hemoperitoneum, with underlying malignancy -Monitor hemoglobin Acute renal failure, creatinine 3.6 with decreasing urine output -Concerns for underlying B-cell lymphoma as a cause -History of renal arterial stenosis -History of left ureteral stent, CT scan shows left nephroureteral stent in place with mild to moderate hydroureteronephrosis us renal US/US renal BI* [id number] IMPRESSION: 1. Bilateral mild to moderate hydronephrosis as described above. Etiology is not been determined. 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 Paraesophageal and retrocrural lymphadenopathy, concerning for metastatic disease. 2. New scattered pulmonary nodules and interstitial thickening. Findings are indeterminate and may be related to infection or metastatic disease. 3. New small left pleural effusion. IMPRESSION: 1. Ill-defined soft tissue and high density free fluid in the pelvis. Findings are concerning for a combination of malignancy and hemoperitoneum and are incompletely evaluated on this noncontrast exam. Further evaluation with contrast-enhanced CT should be considered if this is a new finding. 2. 8.5 cm left perirenal hematoma. 3. New mesenteric lymphadenopathy and peritoneal nodularity concerning for carcinomatosis. 4. Interval decreased size of left psoas mass and decreased retroperitoneal lymphadenopathy. Hyperuricemia,allopurinol Hypercalcemia, monitor No significant hypokalemia Tumor lysis syndrome? -No significant hyperkalemia -does have hypercalcemia, hyperuricemia -allopurinol Deconditioning, weakness -PT OT History of Friedreich's ataxia History of cad, dec to rca 2020, antiplatelet agents on holds due to above Hypercalcemia -With elevated ionized calcium -13.8 -Currently asymptomatic -Etiology multifactorial from renal failure, potentially for B-cell lymphoma Plan -Spoke to nephrology -Continue to monitor -Will consider calcitonin based on clinical progress Bilateral hydro nephrosis -History of left ureteral stent, with history of stent replacement January 2023 -Ultrasound results as above -Reports minimal urine output -Likely from renal failure -Continue to monitor History of B-cell lymphoma ? Diagnosed 06/06/2022 ? With a large left retroperitoneal soft tissue mass, displacing left kidney confluent with left psoas ? 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 He had R-EPOCH to R-CHOP therapy ? Lisocel with refractory disease ? obino/glofit ? S/p radiation therapy ? with significant disease progression ? Last follow-up with Dr. Shah ?at [facility], given disease progression, likely remaining of response was very low, recommended hospice -MD Palma recommended that there was no other interventions they could offer, hospice was reasonable Physical deconditioning, protein calorie malnutrition, cancer cachexia -Has evidence of muscle loss -Likely secondary to underlying B-cell lymphoma -Consult dietary, PT OT Hematuria, likely from left renal hematoma, off all blood thinners continue to monitor full code scd for DVT prophylaxis, lovenox on hold due to renal hematoma Prognosis poor, status stable -Continue to monitor renal function, continue IV antibiotics, will reach out to patient's urologist at [facility] and family plans on taking him home tomorrow Attestations 2 Medical Necessity Statement*: Patient requires hospitalization for JOHN, UTI, B-cell lymphoma Diagnoses Acute cystitis N30.00 [id number] kidney injury N17.9; N18.9 Unresponsive episode R40.4 Acute anemia D64.9 Acute renal failure N17.9 Hyperuricemia E79.0 Hypercalcemia E83.52 NSTEMI (non-ST elevated myocardial infarction) I21.4 Goals of care, counseling/discussion Z71.89 Tumor lysis syndrome E88.3 Nontraumatic hemoperitoneum K66.1 Renal hematoma, left S37.012A Carcinomatosis C80.0 Friedreichs ataxia G11.1 Bilateral hydronephrosis N13.30 Physical deconditioning R53.81 Protein calorie malnutrition E46 Cancer cachexia R64
[2024-05-01] VITALS (10 sets, daily range): BP systolic 144–166; BP diastolic 71–84; PULSE 91–108; RESP 15–18; TEMP 36.6–37.1; O2SAT 87–95
[2024-05-01] MEDS: oxyCODONE 5 mg IR Tab/Cap PO ×3 (03:50→13:01)
[2024-05-01] MEDS: metoclopramide 5 mg/mL SDV 2 mL IVP ×2 (03:51→11:01)
[2024-05-01] MEDS: linezolid premix 600 MG/300 ML PREMIX 300 MG IV (03:52)
[2024-05-01] MEDS: cyclobenzaprine 10 mg Tablet PO ×2 (06:02→13:01)
[2024-05-01] MEDS: sucralfate 1 gm/10 mL Oral Liq UDC PO ×2 (06:02→11:01)
[2024-05-01] MEDS: meropenem 500 mg SDV IVP (06:03)
[2024-05-01 06:09] LABS: Basophils % 0.8 %; Eosinophils # 0.2 10^3/uL (0.0-0.8); Eosinophils % 6.2 %; Hematocrit 26.9 % (37-53); Lymphocytes # 0.4 10^3/uL (0.8-4.8); Lymphocytes % 10.7 %; Mean Corpuscular HGB Conc 31.6 g/dL (30-55); Mean Corpuscular Hemoglobin 33.3 pg (27-33); Mean Corpuscular Volume 105.5 fl (82-101); Mean Platelet Volume 9.3 fL (7.4-10.4); Monocytes # 0.5 10^3/uL (0.2-0.9); Neutrophils # 2.26 10^3/uL (1.8-7.7); Neutrophils % 63.7 %; Nucleated Red Blood Cells % 0 %; Platelet Count 123 10^3/cmm (157-399); Red Blood Count 2.55 10^6/uL (3.85-5.65); Red Cell Distribution Width 15.8 % (12.1-15.1); White Blood Count 3.55 10^3/uL (3.29-11.43)
[2024-05-01 06:38] LABS: Alanine Aminotransferase 8 U/L (0-41); Albumin Level 2.8 g/dL (3.5-5.2); Alkaline Phosphatase 73 U/L (40-130); Aspartate Amino Transferase 22 U/L (0-40); Blood Urea Nitrogen 38 mg/dL (8-23); Calcium 10.7 mg/dL (8.5-10.5); Carbon Dioxide 23 mmol/L (22-29); Chloride 109 mmol/L (98-107); Creatinine Clr Calc Pharmacy 18.5366; Globulin 1.6 g/dL (1.3-4.6); Glucose 89 mg/dL (65-115); Osmolality Calculated 307 mOsm/kg (285-295); Sodium 144 mmol/L (136-145); Total Bilirubin 0.2 mg/dL (0.15-1.2); Total Protein 4.4 g/dL (6.6-8.7)
[2024-05-01 06:42] LABS: Anion Gap 15.4 (5-19); Potassium 3.4 mmol/L (3.5-5.1)
--- NOTE | 2024-05-01 07:49 | P.PN_ITS ---
Subjective 2 Subjective: poor PO intake Medications: Reviewed: Yes Vitals/I&O/Wt Last Vital Signs Temp 98.0 F 05/01/24 04:00 Pulse 93 05/01/24 06:45 Resp 16 05/01/24 04:00 BP 166/78 05/01/24 04:00 Pulse Ox 95 05/01/24 04:00 O2 Del Method Nasal Cannula 05/01/24 04:00 O2 Flow Rate 2 04/27/24 08:00 04/30/24 05/01/24 05/01/24 22:59 06:59 14:59 Intake Total 1520 / 1620 300 / 1920 Output Total 900 / 900 250 / 1150 Balance 620 / 720 50 / 770 Weight last 48 hrs Weight 62.913 kg Physical Exam 2 Narrative: somnolent , no distress Heent s1s2 RRR per report Lungs clear per report no edema Urinary Catheter Management: Munson: Cath Placed During This Visit: yes Reason for Continuing Indwelling Catheter: Other Urinary Catheter Date of Insertion: 04/27/24 Urinary Catheter Time of Insertion: 09:35 Data 05/01/24 05:13 05/01/24 05:13 A&P Assessment and plan (1) Acute renal failure: Plan 1. Acute on chronic kidney disease: Baseline creatinine was in the mid 1 range and now has progressively worsening JOHN with a creatinine of 4.0 today with oliguria, has metabolic acidosis as well. He is JOHN likely prerenal or ATN, also lymphocytic infiltration can cause a JONH Also has left ureteral stent - Cr stable , poor PO intake -Though patient does not have any acute indication for dialysis at this point, he will not likely be a good dialysis candidate due to multiple comorbidities especially advanced malignancy -Overall poor prognosis -Discussed with patient's at bedside who wishes to continue aggressive care for now and dialysis if indicated -Assess renal function daily 2. Metabolic acidosis: on Bicitra, monitor 3. History of B-cell lymphoma, question peritoneal carcinomatosis 4. UTI 5. Perirenal hematoma and hemoperitoneum 6. NSTEMI 7.Hypercalcemia : ordered calcitonin Attestations 2 Medical Necessity Statement*: per madhav Coding Level of Care Code Acute Code for Chg Fwd Diagnoses Acute renal failure N17.9
[2024-05-01] MEDS: megestrol 400 mg/10 mL UDC PO (08:28)
[2024-05-01] MEDS: calcitonin,salmon 200 unit/mL SDV 2mL 100 UNIT SUBCUT (08:29)
[2024-05-01] MEDS: carvedilol 6.25 mg Tablet PO (08:31)
[2024-05-01] MEDS: allopurinol 100 mg Tablet 50 MG PO (08:31)
[2024-05-01] MEDS: acyclovir 400 mg Tablet PO (08:31)
[2024-05-01] MEDS: pantoprazole 40 mg SDV IVP (08:31)
[2024-05-01] MEDS: fluconazole 100 mg Tablet PO (08:31)
[2024-05-01] MEDS: sodium chloride 0.9% 1,000 ML 75 ML IV (08:32)
[2024-05-01] MEDS: simethicone 40 mg/0.6 mL Bottle 30mL PO (08:58)
--- NOTE | 2024-05-01 12:48 | PM.DCS ---
Discharge Providers Date of Admission: 04/22/24 20:10 Date of Discharge: May 01, 2024 Attending Provider at Admission: Tera Bradshaw MD Attending Provider at Discharge: Tera Bradshaw MD Primary Care Provider: Aubrey Benoit MD Diagnoses at Discharge Discharge Diagnosis (1) Acute renal failure: Status: Acute Reason for Visit Reason for Visit: SOB, feet swollen, dyhydrate Hospital Course Hospital Course Medardo Lara is a 68 year old male with a past medical history of diffuse large B-cell lymphoma stage IV history of CHF, history of Friedreich's ataxia, history of CAD, who presents to [facility] due to generalized weakness, poor appetite, fatigue, malaise, unresponsive episode. Patient's alert to person, to place, not to time he follows commands, is at bedside, helps with the history taking, patient's tells me that he has been up to [facility] not too long ago, she tells me that they have tried everything for his diffuse large B-cell lymphoma and unfortunately he has not responded, they have recommended hospice however patient declines hospice for now. She tells me that this morning, when she was getting of her ready for breakfast, he became unresponsive, she called all her family from [place] who drove 5 hours to come to see Ortho, he became more responsive after a few minutes, he has been having lower extreme edema, she is been try to give him Lasix for that, he is also had poor oral intake, he denies any chest pain, palpitations no shortness of breath, no abdominal pain, no nausea, no vomiting, no headache, blurry vision Patient was admitted to [facility] for unresponsive episode, UTI, acute anemia, left perirenal hematoma, hemoperitoneum, acute renal failure, NSTEMI, history of high-grade stage IV B-cell lymphoma, hyperuricemia, hypercalcemia, bilateral hydronephrosis, physical deconditioning, cancer cachexia, hematuria. Patient had a prolonged hospitalization please look at my last progress note for further detail For his UTI, received IV antibiotics as inpatient, discharged on p.o. antibiotics For his bilateral hydro nephrosis, with history of left ureteral stent, spoke to patient's urologist at [facility], need for stent exchange in the near future, appointment made for next week at [facility] For his left perirenal hematoma, hemoperitoneum, did require transfusion 1 unit PRBC during hospitalization, likely secondary to underlying malignancy, medically managed For his acute renal failure, likely sec to poor oral intake, underlying B-cell lymphoma, hydroureteronephrosis -Nephrology was consulted, Munson catheter placed, IV antibiotics as above, received IV fluids -Creatinine has overall improved, 3.4 on discharge, follow-up with primary care provider as outpatient For his hematuria, Munson catheter in place, discharged with Munson catheter in place with close follow-up with urologist as [facility] For his history of B-cell lymphoma, triple hit, high-grade stage IV, attempts were made to transfer to [facility] for second opinion -Has failed conventional medical therapy, according to family [facility] did not have anything more to offer, they recommended hospice -Family wants a second opinion at [facility], transfer center called at [facility], [facility] oncologist advised that there is nothing more that they can offer patient for his B-cell lymphoma, currently he is not a candidate for clinical trial Patient was discharged home, patient and family declined home health care, declined hospice, declined comfort care, remained a full code, family and patient wanted everything to be done, had multiple discussions with him about his overall goals of care, his prognosis is overall poor, he has a high risk of morbidity and mortality, high risk of suffering. However patient and family want him to remain a full code, want all medical interventions to be done, declined hospice or comfort care Physical Exam Const: COMMON NORMALS: no acute distress and patient oriented x3 Resp: COMMON NORMALS: normal respiratory effort, No retractions, No use of accessory muscles and clear to auscultation bilaterally AUSCULTATION: clear to auscultation bilaterally Cardio: COMMON NORMALS: regular rate, regular rhythm, S1 normal heart sound present and S2 normal heart sound present RATE: regular rate RHYTHM: regular rhythm HEART SOUNDS: S1 normal heart sound present and S2 normal heart sound present GI: COMMON NORMALS: Normal to inspection, nondistended, normoactive bowel sounds present and non-tender Extremity: COMMON NORMALS: no pedal edema Neuro: COMMON NORMALS: patient oriented x3 Psych: COMMON NORMALS: mental status grossly normal Urinary Catheter Management: Munson: Cath Placed During This Visit: yes Reason for Continuing Indwelling Catheter: Other Urinary Catheter Date of Insertion: 04/27/24 Urinary Catheter Time of Insertion: 09:35 Discharge Data Studies Completed and Pending Completed Studies During Hospitalization Category Date Time Status CT chest abdomen pelvis [[place] [id number] Cat Scan 04/24/24 08:44 Completed ] Routine CT head wo con* [id number] Stat Cat Scan 04/22/24 16:27 Completed CXRP [XR chest 1V portable [id number]] Routine Exams 04/26/24 10:36 Completed XR chest 1V portable [id number] Stat Exams 04/22/24 16:27 Completed CV. echo complete* [id number] Routine Ultrasound 04/23/24 08:50 Completed US renal BI* [id number] Routine Ultrasound 04/24/24 08:55 Completed Pending at discharge Category Date Time Status Complete Blood Count w/Auto AM LABS Lab 05/02/24 04:00 Ordered Comprehensive Metabolic Panel AM LABS Lab 05/02/24 04:00 Ordered Radiology Impressions Head CT 04/22/24 16:27 IMPRESSION: 1. No acute intracranial abnormality. 2. Pansinusitis. Possibly acute. Chest/Abdomen/Pelvis CT 04/24/24 08:44 IMPRESSION: 1. Paraesophageal and retrocrural lymphadenopathy, concerning for metastatic disease. 2. New scattered pulmonary nodules and interstitial thickening. Findings are indeterminate and may be related to infection or metastatic disease. 3. New small left pleural effusion. IMPRESSION: 1. Ill-defined soft tissue and high density free fluid in the pelvis. Findings are concerning for a combination of malignancy and hemoperitoneum and are incompletely evaluated on this noncontrast exam. Further evaluation with contrast-enhanced CT should be considered if this is a new finding. 2. 8.5 cm left perirenal hematoma. 3. New mesenteric lymphadenopathy and peritoneal nodularity concerning for carcinomatosis. 4. Interval decreased size of left psoas mass and decreased retroperitoneal lymphadenopathy. ADDENDUM: 04/24/24 1319 COMMENT: THIS REPORT CONTAINS FINDINGS THAT MAY BE CRITICAL TO PATIENT CARE. The exam findings were verbally communicated by me to TERA BRADSHAW via telephone conference at 1:16 PM FRAME SAMPLE AND PATTERN SUPERVISOR on 04/24/2024. The findings were acknowledged and understood. Renal Ultrasound 04/24/24 08:55 IMPRESSION: 1. Bilateral mild to moderate hydronephrosis as described above. Etiology is not been determined. CT evaluation of the abdomen and pelvis would provide additional information concerning the hydronephrosis. Chest X-Ray 04/26/24 10:36 IMPRESSION: No acute findings. Laboratory Results WBC 3.55 10^3/uL (3.29-11.43) 05/01/24 05:13 RBC 2.55 10^6/uL (3.85-5.65) L 05/01/24 05:13 Hgb 8.50 g/dL (11.27-16.99) L 05/01/24 05:13 Hct 26.9 % (37-53) L 05/01/24 05:13 MCV 105.5 fl (82-101) H 05/01/24 05:13 MCH 33.3 pg (27-33) H 05/01/24 05:13 MCHC 31.6 g/dL (30-55) 05/01/24 05:13 RDW 15.8 % (12.1-15.1) H 05/01/24 05:13 Plt Count 123 10^3/cmm (157-399) L 05/01/24 05:13 MPV 9.3 fL (7.4-10.4) 05/01/24 05:13 Neut % (Auto) 63.7 % 05/01/24 05:13 Lymph % (Auto) 10.7 % 05/01/24 05:13 Clarke % (Auto) 13.0 % 05/01/24 05:13 Eos % (Auto) 6.2 % 05/01/24 05:13 Baso % (Auto) 0.8 % 05/01/24 05:13 Neut # (Auto) 2.26 10^3/uL (1.8-7.7) 05/01/24 05:13 Lymph # (Auto) 0.4 10^3/uL (0.8-4.8) L 05/01/24 05:13 Clarke # (Auto) 0.5 10^3/uL (0.2-0.9) 05/01/24 05:13 Eos # (Auto) 0.2 10^3/uL (0.0-0.8) 05/01/24 05:13 Baso # (Auto) 0.0 10^3/uL (0.0-0.1) 05/01/24 05:13 Nucleated RBC % (auto) 0 % 05/01/24 05:13 Nucleated RBCs # 0.0 /100WBC 05/01/24 05:13 PT 14.30 SECONDS (12.1-14.9) 04/24/24 14:12 INR 1.08 (0.8-1.2) 04/24/24 14:12 APTT 38.5 SECONDS (23.9-36.7) H 04/22/24 19:00 Sodium 144 mmol/L (136-145) 05/01/24 05:13 Potassium 3.4 mmol/L (3.5-5.1) L 05/01/24 05:13 Chloride 109 mmol/L (98-107) H 05/01/24 05:13 Carbon Dioxide 23 mmol/L (22-29) 05/01/24 05:13 Anion Gap 15.4 (5-19) 05/01/24 05:13 BUN 38 mg/dL (8-23) H 05/01/24 05:13 Creatinine 3.4 mg/dL (0.7-1.2) H 05/01/24 05:13 GFR Calculation 18.0 mL/min (90-130) L 05/01/24 05:13 Glucose 89 mg/dL (65-115) 05/01/24 05:13 Calculated Osmolality 307 mOsm/kg (285-295) H 05/01/24 05:13 Lactic Acid 1.6 mmol/L (0.5-2.2) 04/22/24 19:00 Lactate 2.1 mmol/L (0.5-2.2) 04/28/24 04:46 Uric Acid 13.3 mg/dL (3.4-7.0) H 04/28/24 04:46 Calcium 10.7 mg/dL (8.5-10.5) H 05/01/24 05:13 Ionized Calcium Shirley 1.8 mmol/L (1.1-1.4) H 04/25/24 09:18 Phosphorus 3.3 mg/dL (2.5-4.5) 04/28/24 04:46 Magnesium 1.8 mg/dL (1.7-2.3) 04/28/24 04:46 Iron 40 ug/dL (59-158) L 04/23/24 06:46 Ferritin 2099 ng/mL (30-400) H 04/23/24 06:46 Total Bilirubin 0.2 mg/dL (0.15-1.2) 05/01/24 05:13 AST 22 U/L (0-40) 05/01/24 05:13 ALT 8 U/L (0-41) 05/01/24 05:13 Alkaline Phosphatase 73 U/L (40-130) 05/01/24 05:13 Ammonia 28 umol/L (16-60) 04/22/24 17:34 Creatine Kinase 17 U/L (39-308) L 04/28/24 04:46 Troponin T 5th Gen ng/L 275 ng/L (0-15) H* 04/23/24 06:46 Troponin T Baseline 288 ng/L (0-15) H* 04/22/24 19:00 Troponin T 120 Minute 293.8 ng/L (0-15) H 04/22/24 21:00 Delta Troponin T 5.8 ABS# (0-10) 04/22/24 21:00 Troponin T Hi Sens 6Hr 303.4 ng/L (0-15) H 04/23/24 01:06 Troponin T Hi Sens 6Hr Delta 15.4 ng/L (0-12) H* 04/23/24 01:06 C-Reactive Protein 157.2 mg/L (0.0-4.9) H 04/28/24 04:46 NT-Pro-B Natriuret Pep 22101 pg/mL (0-125) H 04/28/24 04:46 Total Protein 4.4 g/dL (6.6-8.7) L 05/01/24 05:13 Albumin 2.8 g/dL (3.5-5.2) L 05/01/24 05:13 Globulin 1.6 g/dL (1.3-4.6) 05/01/24 05:13 Triglycerides 319 mg/dL (0-150) H 04/23/24 07:40 Cholesterol 199 mg/dL (0-200) 04/23/24 07:40 LDL Cholesterol, Calc 108 mg/dL (50-129) 04/23/24 07:40 HDL Cholesterol 27 mg/dL (60-100) L 04/23/24 07:40 LDL/HDL Ratio 4.00 RATIO (0.00-3.22) H 04/23/24 07:40 Cholesterol/HDL Ratio 7.37 mg/dL (1.0-5.00) H 04/23/24 07:40 Procalcitonin 0.37 ng/mL (0-0.5) 04/28/24 04:46 TSH 2.65 uIU/mL (0.27-4.20) 04/22/24 21:00 Urine Color Yellow (Yellow) 04/25/24 11:30 Urine Appearance Cloudy (CLEAR) A 04/25/24 11:30 Urine pH 5.0 (5-7) 04/25/24 11:30 Ur Specific [employer] 1.014 (1.005-1.030) 04/25/24 11:30 Urine Protein 2+ (Negative) A 04/25/24 11:30 Urine Glucose (UA) Negative (Normal) 04/25/24 11:30 Urine Ketones 1+ (Negative) H 04/25/24 11:30 Urine Blood 1+ (Negative) A 04/25/24 11:30 Urine Nitrate Negative (Negative) 04/25/24 11:30 Urine Bilirubin Negative (Negative) 04/25/24 11:30 Urine Urobilinogen 1.0 mg/dL (Negative) 04/25/24 11:30 Ur Leukocyte Esterase 1+ (Negative) A 04/25/24 11:30 Urine RBC 0-2 /hpf (0-2) 04/25/24 11:30 Urine WBC 11-20 /hpf (0-5) H 04/25/24 11:30 Ur Squamous Epith Cells 0-5 /hpf (0-5) 04/25/24 11:30 Calcium Oxalate Crystal 0-4 /hpf H 04/25/24 11:30 Amorphous Sediment Not Reportable 04/25/24 11:30 Urine Bacteria 1+ /hpf (NONE) H 04/25/24 11:30 Hyaline Casts 11.57 /lpf 04/25/24 11:30 Coarse Granular Casts 0-4 /lpf H 04/25/24 11:30 Vancomycin Trough 12.5 ug/mL (10-15) 04/24/24 09:16 Random Vancomycin 9.9 ug/mL (20.0-40.0) L 04/25/24 05:00 C. difficile (PCR) Negative (Negative) 04/29/24 18:25 Blood Type A Positive 04/23/24 09:32 Rho(D) Type Rh positive 04/23/24 09:32 Antibody Screen Negative 04/23/24 09:32 Crossmatch See Detail 04/23/24 09:32 Vitals Last Vital Signs Temp 98 F 05/01/24 12:05 Pulse 91 05/01/24 12:05 Resp 18 05/01/24 12:05 BP 149/84 05/01/24 12:05 Pulse Ox 87 L 05/01/24 12:13 O2 Del Method Nasal Cannula 05/01/24 12:05 O2 Flow Rate 3 05/01/24 12:13 Discharge Plan Discharge Patient Disposition: Home Health Service Condition: Stable Prescriptions: New allopurinol 100 mg Tablet 50 mg PO Q48H 30 Days Qty: 15 0RF scopolamine base [Transderm-Scop] 1 mg over 3 days Patch 3 Day 1 patch transdermal Q3D 15 Days Qty: 5 0RF metoclopramide HCl [Reglan] 5 mg tablet 5 mg PO Q8H PRN (Reason: nausea and vomiting) 7 Days Qty: 21 0RF Rx Instructions: monitor for tardive dyskinesia, if so stop taking medication, come to ER vancomycin 125 mg capsule 125 mg PO Q6H 7 Days Qty: 28 0RF Rx Instructions: only use if you develop multiple episodes of flatulent, fowl smelling diarrhea oxycodone 10 mg tablet,oral only,ext.rel.12 hr 10 mg PO BID PRN (Reason: abdominal pain) 7 Days Qty: 14 0RF Rx Instructions: monitor for opoid overdose, donot take use with other pain medications naloxone [Narcan] 4 mg/actuation spray,non-aerosol 4 mg intranasal Q2M PRN (Reason: opioid overdose) Qty: 2 0RF Rx Instructions: spray 1 dose into ONE nostril; alternate nostrils w each dose until help arrives Continued omega-3 fatty acids 1,000 mg capsule 1,000 mg PO DAILY pantoprazole 40 mg tablet,delayed release (DR/EC) 40 mg PO BID acyclovir 400 mg tablet 400 mg PO BID cyclobenzaprine 5 mg tablet 10 mg PO TID PRN (Reason: Muscle Spasm) Vitamin B-6 1 cap PO DAILY fluconazole 100 mg tablet 100 mg PO DAILY Qty: 30 2RF ascorbic acid (vitamin C) [Vitamin C] 1,000 mg Tablet 2,000 mg PO BID zinc acetate 50 mg (zinc) Capsule 50 mg PO DAILY Probiotic 15 billion cell Capsule 1 cap PO DAILY Artery Strong 1 cap PO DAILY milk thistle 150 mg capsule 150 mg PO DAILY Rx Instructions: give with meal/snack ondansetron HCl 8 mg tablet 8 mg PO Q8H PRN (Reason: Nausea) omega 2-lvy-vsw-fish oil 1,600-500-800 mg/5 mL Liquid 5 ml PO DAILY Changed potassium chloride 10 mEq capsule, extended release 10 meq PO DAILY PRN (Reason: with lasix) Qty: 30 0RF carvedilol 12.5 mg tablet 6.25 mg PO BID 30 Days Qty: 30 0RF Rx Instructions: must administer with a meal/food oxycodone 5 mg Tablet 5 mg PO Q4H PRN (Reason: pain) Qty: 1 0RF Discontinued furosemide [Lasix] 40 mg tablet 40 mg PO DAILY PRN (Reason: swelling) Discharge Orders: Discharge Order (Routine); Ordered 05/01/24 Ordered By: Tera Bradshaw Other Ambulatory Orders: DME: Oxygen (Order) Location: None Selected Ordered By: Tera Bradshaw Referrals: [facility] [Outside] [facility] [place] [Outside] [facility] [Occupational Therapist] - 05/04/24 1:30 pm ([phone] [facility]) Discharge Diet: Regular Discharge Activity: Resume usual activity Patient Instructions: Allopurinol (By mouth), Scopolamine (Absorbed through the skin), Metoclopramide (By mouth), Oxycodone, Rapid Release (By mouth), Levofloxacin (By mouth), Vancomycin (By mouth), Linezolid (By mouth), Naloxone (Into the nose), Heart Attack (GEN), Hydronephrosis (GEN), Opioid Safety Activity Restrictions/Additional Instructions: - Follow-up with urology next week -Discharged with Munson catheter in place, return for UTI -Drink plenty of electrolyte balanced fluids -Please use oxycodone sparingly for pain, I prescribed you oxycodone extended release 10 mg twice daily as needed, do not use at the same time of oxycodone immediate release 5 mg tablets, risk of opiate overdose, do not drive, or operate her machinery or drink while taking medication -If there is concern for opiate overdose, please use Narcan, and call 911 -Monitor for drowsiness with scopolamine patch -Please use Reglan sparingly for pain, monitor for tardive dyskinesia, if so please come to the emergency room Discharge Attestations Time Spent in Discharge Care*: greater than 30 min Quality Metrics Clinical Quality Measures [ No reported AMI, CVA or VTE this stay] Coding Level of Care Code 04486 Total time (in minutes) for Discharge: 45 Diagnoses Acute renal failure N17.9
--- NOTE | 2024-05-01 13:22 | PC.SOCIAL ---
IMM Updated Updated pton IMM. No questions voiced. Provided pt a copy. Initialed, dated, & timed copy in chart.
--- NOTE | 2024-05-01 16:12 | PC.NURSE ---
I went over the discharge med list and explained to that the coreg with changed to half the regular dose and at first she said she was going to give patient the normal dose. I explained to her that the DR changed it for a reason possibly the intensive effect from other drugs or other reasons. She seemed to understand when she nodded her head ok.
== END 2024-05-01 15:30 | disposition home health service (06) | DRG 682 ==
LOC: ER 18:13 → MEDSURG 18:40
PROVIDERS: Hospitalist; Admitting Provider Family Medicine; Emergency Provider Emergency Medicine; PCP Family Medicine; Visit Provider Family Medicine
DX: N17.9 Acute kidney failure, unspecified (principal); I21.4 Non-ST elevation (NSTEMI) myocardial infarction; K66.1 Hemoperitoneum; N30.01 Acute cystitis with hematuria; C83.30 Diffuse large B-cell lymphoma, unspecified site; I13.0 Hypertensive heart and chronic kidney disease with heart failure and stage 1 through stage 4 chronic kidney disease, or unspecified chronic kidney disease; G11.11 Friedreich ataxia; E46 Unspecified protein-calorie malnutrition; E87.20 Acidosis, unspecified; N13.30 Unspecified hydronephrosis; I50.9 Heart failure, unspecified; N18.9 Chronic kidney disease, unspecified; I25.10 Atherosclerotic heart disease of native coronary artery without angina pectoris; I25.2 Old myocardial infarction; E78.2 Mixed hyperlipidemia; K21.9 Gastro-esophageal reflux disease without esophagitis; E83.52 Hypercalcemia; E79.0 Hyperuricemia without signs of inflammatory arthritis and tophaceous disease; E86.0 Dehydration; Z68.21 Body mass index [BMI] 21.0-21.9, adult; R40.4 Transient alteration of awareness; N28.89 Other specified disorders of kidney and ureter; Z79.891 Long term (current) use of opiate analgesic; Z95.5 Presence of coronary angioplasty implant and graft; Z95.828 Presence of other vascular implants and grafts
CPT/HCPCS: 36415; 36430; 51702; 70450; 71045; 71250; 74176; 76770; 80048; 80053; 80061; 80202; 81001; 82140; 82330; 82550; 82728; 83540; 83605; 83735; 83880; 84100; 84145; 84443; 84484; 84550; 85025; 85610; 85730; 86140; 86850; 86900; 86920; 87040; 87086; 87493; 93005; 93306; 94760; 96361; 96372; 96374; 97161; 99285; G0378; J0630; J0696; J1650; J1940; J2020; J2185; J2405; J2470; J2543; J2765; J3370; J3480; J7030; J7040; J7050; J8499; P9040; P9047; Q3014

== ENCOUNTER 2024-05-07 13:41 | Emergency (ER) | payer MEDICARE, OTHER, SELFPAY ==
[2024-05-07 13:45] VITALS: BP 111/66; PULSE 107; TEMP 36.8; O2SAT 98
--- NOTE | 2024-05-07 15:14 | W.ED.GENADLT ---
HPI - General Adult General: Chief complaint: General Medical Stated complaint: catheter leaking and clip broken Time Seen by Provider: 05/07/24 15:04 Source: patient Mode of arrival: ambulatory Limitations: no limitations History of Present Illness: 68-year-old male has a history of B-cell lymphoma he is no longer on treatments due to severe stage lymphoma he had a Munson placed while he is here last time states that the Munson had been leaking overnight no shortness of change no known fever. Associated symptoms: Deny chest pain, dyspnea, headache(s), nausea, rash or vomiting Related Data Home Medications Medication Instructions Recorded Confirmed ascorbic acid (vitamin C) 1,000 mg 2,000 mg PO BID 05/09/21 04/22/24 tablet (Vitamin C) omega-3 fatty acids 1,000 mg 1,000 mg PO DAILY 06/12/21 04/22/24 capsule Artery Strong 1 cap PO DAILY 06/06/22 04/22/24 Lactobacillus acidophilus and 1 cap PO DAILY 06/06/22 04/22/24 rhamnosus 15 billion cell capsule (Probiotic) zinc acetate 50 mg (zinc) capsule 50 mg PO DAILY 06/06/22 04/22/24 milk thistle 150 mg capsule 150 mg PO DAILY 06/19/22 04/22/24 ondansetron HCl 8 mg tablet 8 mg PO Q8H PRN Nausea 07/06/22 04/22/24 Vitamin B-6 1 cap PO DAILY 09/25/22 04/22/24 acyclovir 400 mg tablet 400 mg PO BID 09/25/22 04/22/24 cyclobenzaprine 5 mg tablet 10 mg PO TID PRN Muscle Spasm 09/25/22 04/22/24 pantoprazole 40 mg tablet,delayed 40 mg PO BID 09/25/22 04/22/24 release omega 3-ikp-shf-fish oil 1,600 5 ml PO DAILY 04/22/24 04/22/24 mg-500 mg-800 mg/5 mL oral liquid Previous Rx's Medication Instructions Recorded fluconazole 100 mg tablet 100 mg PO DAILY #30 tabs 12/04/23 allopurinol 100 mg tablet 50 mg (1/2 x 100 mg) PO Q48H 30 05/01/24 days #15 tabs carvedilol 12.5 mg tablet 6.25 mg (1/2 x 12.5 mg) PO BID 30 05/01/24 days #30 tabs metoclopramide HCl 5 mg tablet 5 mg PO Q8H PRN nausea and 05/01/24 (Reglan) vomiting 7 days #21 tabs naloxone 4 mg/actuation nasal 4 mg intranasal Q2M PRN opioid 05/01/24 spray (Narcan) overdose #2 ea oxycodone 10 mg tablet,crush 10 mg PO BID PRN abdominal pain 7 05/01/24 resistant,extended release 12 hr days #14 tabs oxycodone 5 mg tablet 5 mg PO Q4H PRN pain #1 tab 05/01/24 potassium chloride 10 mEq 10 meq PO DAILY PRN with lasix #30 05/01/24 capsule,extended release caps scopolamine base 1 mg over 3 days 1 patch transdermal Q3D 15 days #5 05/01/24 transdermal patch (Transderm-Scop) ea vancomycin 125 mg capsule 125 mg PO Q6H 7 days #28 caps 05/01/24 Allergies Allergy/AdvReac Type Severity Reaction Status Date / Time cephalexin Allergy ALGY-Rash Verified 05/07/24 13:53 ciprofloxacin [From Cipro] Allergy ALGY-Hives Verified 05/07/24 13:53 morphine Allergy Unknown Verified 05/07/24 13:53 Review of Systems Const: Denies: fever(s), chills, body aches or change in appetite ENMT: Denies: throat pain or dental pain Card: Denies: chest pain Resp: Denies: dyspnea GI: Denies: abdominal pain, nausea, vomiting or diarrhea Musc: Denies: neck pain or back pain Skin/Breast: Denies: rash Neuro: Denies: headache(s) PFSH ED PFSH: Medical History Sacroiliitis CHF (congestive heart failure) STEMI (ST elevation myocardial infarction) (04/2021) Atherosclerosis of coronary artery Mixed hyperlipidemia Vitamin D deficiency Gastroesophageal reflux disease Essential hypertension Friedreichs ataxia Surgical History History of removal of Port-a-Cath 08/29/23 Dr De La Torre Port-A-Cath in place (06/09/22) Port-A-Cath placement S/P right coronary artery (RCA) stent placement (05/09/21) Social History Smoking and tobacco/nicotine status: never used tobacco/nicotine Quit status (tobacco/nicotine): has quit using Year quit tobacco: 1994 Former quit date comment: tobacco use 25 years Second hand smoke exposure: No Alcohol intake: never Substance/Drug Use: never Physical Exam Const: COMMON NORMALS: patient oriented x3 HENMT: COMMON NORMALS: normocephalic and atraumatic HEAD & SCALP: normocephalic and atraumatic Neck/C-Spine: COMMON NORMALS: full ROM and supple Chest: COMMONS NORMALS: normal inspection of the chest Resp: COMMON NORMALS: normal respiratory effort GI: COMMON NORMALS: Normal to inspection, nondistended, normoactive bowel sounds present, Soft to palpation, non-tender and no masses PALPATION: Yes Soft to palpation : OTHER: Munson currently in place Extremity: COMMON NORMALS: normal to inspection and full ROM Neuro: COMMON NORMALS: patient oriented x3, moves all extremities and no focal motor deficits Psych: COMMON NORMALS: mental status grossly normal, Normal thought process present and cooperative THOUGHT PROCESS: Normal thought process present Skin: COMMON NORMALS: no rashes or lesions noted and no wounds GENERAL SKIN EXAM: no rashes or lesions noted Course Vital Signs: Vital signs: Vital Signs Temperature 98.3 F 05/07/24 13:45 Pulse Rate 107 H 05/07/24 13:45 Blood Pressure 111/66 05/07/24 13:45 Pulse Oximetry 98 05/07/24 13:45 Oxygen Delivery Me thod Nasal Cannula 05/07/24 13:45 Oxygen Flow Rate 3 05/07/24 13:45 [facility] - General Adult Medical Decision Making Patient presents here with leaking around his Munson did exchange Munson catheters here he stable for discharge follow-up with PCP return if worsening Medical Records I reviewed the patient's medical records. No radiology studies performed this visit Discharge Plan Discharge Patient Disposition: Home Clinical Impression: Complication of Munson catheter Condition: Stable Prescriptions: No Action omega-3 fatty acids 1,000 mg capsule 1,000 mg PO DAILY pantoprazole 40 mg tablet,delayed release (DR/EC) 40 mg PO BID acyclovir 400 mg tablet 400 mg PO BID cyclobenzaprine 5 mg tablet 10 mg PO TID PRN (Reason: Muscle Spasm) Vitamin B-6 1 cap PO DAILY fluconazole 100 mg tablet 100 mg PO DAILY Qty: 30 2RF ascorbic acid (vitamin C) [Vitamin C] 1,000 mg Tablet 2,000 mg PO BID zinc acetate 50 mg (zinc) Capsule 50 mg PO DAILY Probiotic 15 billion cell Capsule 1 cap PO DAILY Artery Strong 1 cap PO DAILY milk thistle 150 mg capsule 150 mg PO DAILY Rx Instructions: give with meal/snack ondansetron HCl 8 mg tablet 8 mg PO Q8H PRN (Reason: Nausea) omega 6-xdh-rrq-fish oil 1,600-500-800 mg/5 mL Liquid 5 ml PO DAILY allopurinol 100 mg Tablet 50 mg PO Q48H 30 Days Qty: 15 0RF scopolamine base [Transderm-Scop] 1 mg over 3 days Patch 3 Day 1 patch transdermal Q3D 15 Days Qty: 5 0RF potassium chloride 10 mEq capsule, extended release 10 meq PO DAILY PRN (Reason: with lasix) Qty: 30 0RF carvedilol 12.5 mg tablet 6.25 mg PO BID 30 Days Qty: 30 0RF Rx Instructions: must administer with a meal/food oxycodone 5 mg Tablet 5 mg PO Q4H PRN (Reason: pain) Qty: 1 0RF metoclopramide HCl [Reglan] 5 mg tablet 5 mg PO Q8H PRN (Reason: nausea and vomiting) 7 Days Qty: 21 0RF Rx Instructions: monitor for tardive dyskinesia, if so stop taking medication, come to ER vancomycin 125 mg capsule 125 mg PO Q6H 7 Days Qty: 28 0RF Rx Instructions: only use if you develop multiple episodes of flatulent, fowl smelling diarrhea oxycodone 10 mg tablet,oral only,ext.rel.12 hr 10 mg PO BID PRN (Reason: abdominal pain) 7 Days Qty: 14 0RF Rx Instructions: monitor for opoid overdose, donot take use with other pain medications naloxone [Narcan] 4 mg/actuation spray,non-aerosol 4 mg intranasal Q2M PRN (Reason: opioid overdose) Qty: 2 0RF Rx Instructions: spray 1 dose into ONE nostril; alternate nostrils w each dose until help arrives Discharge Orders: Discharge ED (Routine); Ordered 05/07/24 Ordered By: Grant Hernandez Referrals: Aubrey Benoit MD [Primary Care Provider] - 4-7 days Discharge Diet: Advance as tolerated Discharge Activity: Resume usual activity Patient Instructions: Munson Catheter Placement and Care (ED) Coding Level of Care Code ED Promotional Advertising Assistant for April Hinkle
[2024-05-07 15:49] VITALS: BP 137/75; PULSE 102; O2SAT 98
== END 2024-05-07 15:51 | disposition home or self-care (01) ==
PROVIDERS: Emergency Provider Emergency Medicine; PCP Family Medicine
DX: T83.038A Leakage of other urinary catheter, initial encounter (principal); Z87.891 Personal history of nicotine dependence; X58.XXXA Exposure to other specified factors, initial encounter; I11.0 Hypertensive heart disease with heart failure; I50.9 Heart failure, unspecified; E78.2 Mixed hyperlipidemia
CPT/HCPCS: 51702; 99283